=== PATIENT | female | born 1975 | race American Indian/Alaskan Native ===

== ENCOUNTER 2016-07-24 11:44 | Emergency (ER) | payer OTHER ==
[2016-07-24 13:16] LABS: Hematocrit 37.8 % (30.3-42.9); Hemoglobin 11.9 gm/dl (10.1-14.3); Mean Corpuscular HGB Conc 32 % (30-34); Mean Corpuscular Volume 79 fl (79-97); Platelet Count 315 K/mm3 (140-440); Red Blood Count 4.78 M/mm3 (3.65-5.03); Red Cell Distribution Width 14.7 % (13.2-15.2); White Blood Count 7.6 K/mm3 (4.5-11.0)
[2016-07-24 13:17] LABS: Mean Corpuscular Hemoglobin 25 pg (28-32)
[2016-07-24 13:32] LABS: Alanine Aminotransferase 12 units/L (7-56); Albumin 3.9 g/dL (3.9-5); Albumin/Globulin Ratio 1.3 %; Alkaline Phosphatase 83 units/L (35-129); Anion Gap 17 mmol/L; BUN/Creatinine Ratio 17.14; Bilirubin,Total 0.5 mg/dL (0.1-1.2); Blood Urea Nitrogen 12 mg/dL (7-17); Calcium 9.1 mg/dL (8.4-10.2); Carbon Dioxide 27 mmol/L (22-30); Glucose 97 mg/dL (65-100); Lipase 30 units/L (13-60); Potassium 3.8 mmol/L (3.6-5.0); Sodium 141 mmol/L (137-145)
[2016-07-24 14:37] LABS: Bilirubin,Urine NEG (Negative); Blood,Urine MOD (Negative); Ketones,Urine TR mg/dL (Negative); Leukocyte Esterase,Urine NEG (Negative); Mucus,Urine 3+ /HPF; Nitrite,Urine NEG (Negative); Urobilinogen,Urine < 2.0 mg/dL (<2.0)
[2016-07-24 14:56] LABS: Anisocytosis 1+; Blastocytes % (Manual) 0 %; Eosinophils % (Manual) 0 % (0.0-4.3); Hypochromasia Few
[2016-07-24 14:57] LABS: Diff Status Complete; Platelet Estimate Consistent w Auto
[2016-07-24] MEDS ORDERED: ZOFRAN IV ONE (19:36)
[2016-07-24] MEDS ORDERED: SUBLIMAZE IV ONE (19:36)
[2016-07-24] MEDS ORDERED: PEPCID IV ONE (19:37)
--- NOTE | 2016-07-24 19:45 | Emergency Department Report ---
HPI - General Chief Complaint: Abdominal Pain Time Seen by Provider: 07/24/16 19:29 - HPI HPI: Room 20 The patient is a 40-year-old female presenting with a chief complaint of abdominal pain. The patient states the pain began one week ago with epigastric abdominal pain that was sharp in nature and lasted approximately one hour. The patient states the pain resolved and then returned last night. Patient states the pain as being constant in nature. Patient states she has not noticed a change in the pain with her meals. Patient denies nausea vomiting or diarrhea. Patient denies any history of fever or dysuria. Patient states her last bowel movement occurred yesterday. The patient currently gives her pain a score of 6/10 Location: Epigastric Duration: [see above] Quality: Sharp Severity: 6/10 Modifying factors: [see above] Context: [see above] Mode of transportation: [not driving] ED Past Medical Hx - Past Medical History Hx Headaches / Migraines: Yes (CHRONIC HEADACHES) Hx Asthma: Yes Additional medical history: Herniated Disk-BACK PAIN - Surgical History Hx Breast Surgery: Yes (BREAST REDUCTION) Additional Surgical History: c-sections x2. TUBAL LIGATION - Family History Family history: no significant - Social History Smoking Status: Never Smoker Substance Use Type: None - Medications Home Medications: Home Medications Medication Instructions Recorded Confirmed Last Taken Type Famotidine [Pepcid] 20 mg PO BID #30 tablet 07/24/16 Unknown Rx HYDROcodone/APAP 5-325 [[place] 1 - 2 each PO Q6HR PRN #10 tablet 07/24/16 Unknown Rx 5/325] Promethazine [Phenergan TAB] 25 mg PO Q6HR PRN #20 tab 07/24/16 Unknown Rx Promethazine [Phenergan] 25 mg ID Q6HR PRN #5 supp.rect 07/24/16 Unknown Rx ED Review of Systems ROS: Stated complaint: SHARP ABD PAIN/WEAKNESS/HEADACHES Other details as noted in HPI Comment: All other systems reviewed and negative Constitutional: denies: chills, fever Eyes: denies: eye pain, eye discharge, vision change ENT: denies: ear pain, throat pain Respiratory: denies: cough, wheezing Cardiovascular: denies: chest pain, palpitations Endocrine: no symptoms reported Gastrointestinal: abdominal pain. denies: nausea, vomiting, diarrhea, constipation Genitourinary: denies: urgency, dysuria, discharge Musculoskeletal: back pain. denies: joint swelling, arthralgia Skin: denies: rash, lesions Neurological: denies: headache, weakness, paresthesias Psychiatric: denies: anxiety, depression Hematological/Lymphatic: denies: easy bleeding, easy bruising Physical Exam - Physical Exam Vital Signs: Vital Signs 07/24/16 12:56 Temperature 98.1 F Pulse Rate 70 Respiratory 17 Rate Blood Pressure 128/85 O2 Sat by Pulse 99 Oximetry Physical Exam: GENERAL: The patient is well-developed well-nourished female lying on stretcher sipping robin erika not appearing to be in acute distress. [] HEENT: Normocephalic. Atraumatic. Extraocular motions are intact. Patient has moist mucous membranes. NECK: Supple. Trachea midline CHEST/LUNGS: Clear to auscultation. There is no respiratory distress noted. HEART/CARDIOVASCULAR: Regular. There is no tachycardia. There is no gallop rub or murmur. ABDOMEN: Abdomen is soft, with tenderness to palpation in the epigastric and right upper quadrant. There is no rebound or guarding. Patient has normal bowel sounds. There is no abdominal distention. SKIN: There is no rash. There is no edema. There is no diaphoresis. NEURO: The patient is awake, alert, and oriented. The patient is cooperative. The patient has normal speech MUSCULOSKELETAL: There is no evidence of acute injury. ED Course Vital Signs 07/24/16 12:56 Temperature 98.1 F Pulse Rate 70 Respiratory 17 Rate Blood Pressure 128/85 O2 Sat by Pulse 99 Oximetry ED Medical Decision Making - Lab Data Result diagrams: 07/24/16 13:01 07/24/16 13:01 Laboratory Tests 07/24/16 07/24/16 07/24/16 13:01 13:01 13:01 WBC 7.6 RBC 4.78 Hgb 11.9 Hct 37.8 MCV 79 MCH 25 L MCHC 32 RDW 14.7 Plt Count 315 Baso % (Auto) [employer] Add Manual Diff Complete Total Counted 100 Seg Neuts % (Manual) 53.0 Band Neutrophils % 0 Lymphocytes % (Manual) 39.0 H Reactive Lymphs % (Man) 0 Monocytes % (Manual) 7.0 Eosinophils % (Manual) 0 Basophils % (Manual) 1.0 Metamyelocytes % 0 Myelocytes % 0 Promyelocytes % 0 Blast Cells % 0 Nucleated RBC % Not Reportable Seg Neutrophils # Man 4.0 Band Neutrophils # 0.0 Lymphocytes # (Manual) 3.0 Abs React Lymphs (Man) 0.0 Monocytes # (Manual) 0.5 Eosinophils # (Manual) 0.0 Basophils # (Manual) 0.1 Metamyelocytes # 0.0 Myelocytes # 0.0 Promyelocytes # 0.0 Blast Cells # 0.0 WBC Morphology Not Reportable Hypersegmented Neuts Not Reportable Hyposegmented Neuts Not Reportable Hypogranular Neuts Not Reportable Smudge Cells Not Reportable Toxic Granulation Not Reportable Toxic Vacuolation Not Reportable Dohle Bodies Not Reportable Pelger-Huet Anomaly Not Reportable Brenda Rods Not Reportable Platelet Estimate Consistent w auto Clumped Platelets Not Reportable Plt Clumps, EDTA Not Reportable Large Platelets Not Reportable Giant Platelets Not Reportable Platelet Satelliting Not Reportable Plt Morphology Comment Not Reportable RBC Morphology Not Reportable Dimorphic RBCs Not Reportable Polychromasia Not Reportable Hypochromasia Few Poikilocytosis Not Reportable Anisocytosis 1+ Microcytosis Not Reportable Macrocytosis Not Reportable Spherocytes Not Reportable Pappenheimer Bodies Not Reportable Sickle Cells Not Reportable Target Cells Not Reportable Tear Drop Cells Not Reportable Ovalocytes Not Reportable Helmet Cells Not Reportable [place] Bodies Not Reportable [place] Rings Not Reportable [place] Cells Not Reportable Bite Cells Not Reportable Crenated Cell Not Reportable Elliptocytes Not Reportable Acanthocytes ([place]) Not Reportable Rouleaux Not Reportable Hemoglobin C Crystals Not Reportable Schistocytes Not Reportable Malaria parasites Not Reportable [place] Bodies Not Reportable Hem Pathologist Commnt No Sodium 141 Potassium 3.8 Chloride 101.0 Carbon Dioxide 27 Anion Gap 17 BUN 12 Creatinine 0.7 Estimated GFR > 60 BUN/Creatinine Ratio 17.14 Glucose 97 Calcium 9.1 Total Bilirubin 0.5 AST 12 ALT 12 Alkaline Phosphatase 83 Total Creatine Kinase CK-MB (CK-2) CK-MB (CK-2) Rel Index Troponin T Total Protein 7.0 Albumin 3.9 Albumin/Globulin Ratio 1.3 Lipase 30 HCG, Qual Negative Urine Color Urine Turbidity Urine pH Ur Specific [place] Urine Protein Urine Glucose (UA) Urine Ketones Urine Blood Urine Nitrite Urine Bilirubin Urine Urobilinogen Ur Leukocyte Esterase Urine WBC (Auto) Urine RBC (Auto) U Epithel Cells (Auto) Calcium Oxalate Crystal Urine Mucus 07/24/16 07/24/16 07/24/16 13:01 13:01 14:00 WBC RBC Hgb Hct MCV MCH MCHC RDW Plt Count Baso % (Auto) Add Manual Diff Total Counted Seg Neuts % (Manual) Band Neutrophils % Lymphocytes % (Manual) Reactive Lymphs % (Man) Monocytes % (Manual) Eosinophils % (Manual) Basophils % (Manual) Metamyelocytes % Myelocytes % Promyelocytes % Blast Cells % Nucleated RBC % Seg Neutrophils # Man Band Neutrophils # Lymphocytes # (Manual) Abs React Lymphs (Man) Monocytes # (Manual) Eosinophils # (Manual) Basophils # (Manual) Metamyelocytes # Myelocytes # Promyelocytes # Blast Cells # WBC Morphology Hypersegmented Neuts Hyposegmented Neuts Hypogranular Neuts Smudge Cells Toxic Granulation Toxic Vacuolation Dohle Bodies Pelger-Huet Anomaly Brenda Rods Platelet Estimate Clumped Platelets Plt Clumps, EDTA Large Platelets Giant Platelets Platelet Satelliting Plt Morphology Comment RBC Morphology Dimorphic RBCs Polychromasia Hypochromasia Poikilocytosis Anisocytosis Microcytosis Macrocytosis Spherocytes Pappenheimer Bodies Sickle Cells Target Cells Tear Drop Cells Ovalocytes Helmet Cells [place] Bodies [place] Rings [place] Cells Bite Cells Crenated Cell Elliptocytes Acanthocytes (Spur) Rouleaux Hemoglobin C Crystals Schistocytes Malaria parasites Fernando Bodies Hem Pathologist Commnt Sodium Potassium Chloride Carbon Dioxide Anion Gap BUN Creatinine Estimated GFR BUN/Creatinine Ratio Glucose Calcium Total Bilirubin AST ALT Alkaline Phosphatase Total Creatine Kinase 108 CK-MB (CK-2) 1.0 CK-MB (CK-2) Rel Index 0.9 Troponin T < 0.010 Total Protein Albumin Albumin/Globulin Ratio Lipase HCG, Qual Urine Color Isi Urine Turbidity Clear Urine pH 5.0 Ur Specific [place] 1.026 Urine Protein 30 mg/dl Urine Glucose (UA) Neg Urine Ketones Tr Urine Blood Mod Urine Nitrite Neg Urine Bilirubin Neg Urine Urobilinogen < 2.0 Ur Leukocyte Esterase Neg Urine WBC (Auto) 5.0 Urine RBC (Auto) 8.0 U Epithel Cells (Auto) 9.0 Calcium Oxalate Crystal 1+ Urine Mucus 3+ - Radiology Data Radiology results: report reviewed (right upper quadrant ultrasound, CT abdomen and pelvis), image reviewed (right upper quadrant ultrasound, CT abdomen and pelvis) right upper quadrant ultrasound (read by radiologist)- CT abdomen and pelvis (read by radiologist)- all bladder surgically absent. No biliary dilatation. Mild fatty infiltration of the liver. 2.5 cm right ovarian cyst which may be physiologic given the patient's age. Large and small bowel loops normal in caliber. The appendix is normal in caliber. 4 mm nonobstructive left renal calculus. No other gross acute findings. - Differential Diagnosis cholelithiasis, peptic ulcer disease, gastritis, ACS, Critical care attestation.: If time is entered above; I have spent that time in minutes in the direct care of this critically ill patient, excluding procedure time. ED Disposition Clinical Impression: Acute abdominal pain Disposition: DISCHARGED TO HOME OR SELFCARE Is pt being admited?: No Does the pt Need Aspirin: No Condition: Stable Instructions: Abdominal Pain (ED) Additional Instructions: Return to the emergency department immediately should you develop worsening symptoms, fever, inability to tolerate food or liquid or any other concerns. Prescriptions: Famotidine [Pepcid] 20 mg PO BID #30 tablet HYDROcodone/APAP 5-325 [[place] 5/325] 1 - 2 each PO Q6HR PRN #10 tablet PRN Reason: Pain Promethazine [Phenergan TAB] 25 mg PO Q6HR PRN #20 tab PRN Reason: Nausea Promethazine [Phenergan] 25 mg ID Q6HR PRN #5 supp.rect PRN Reason: Vomiting Referrals: PRIMARY CARE, [Primary Care Provider] - 3-5 Days REYNALDO MURCIA MD [Staff Physician] - 2-3 Days (Dr. Murcia is a painter foreman. Please follow up with him for further evaluation) Time of Disposition: 21:48
--- NOTE | 2016-07-24 20:37 | Ultrasound Report ---
FINAL REPORT EXAM: US ABDOMEN LIMITED HISTORY: ruq/epigastric abdominal pain COMPARISON: None available. TECHNIQUE: Several real-time grayscale and color Doppler images were obtained. FINDINGS: Gallbladder is not visualized. Gallbladder may be extremely contracted. No biliary dilatation. The common bile duct measures 5 millimeters. There is increased echogenicity of the liver compatible with fatty infiltration. Right kidney measures 11.5 centimeters in length. No hydronephrosis. IMPRESSION: Gallbladder is not visualized. No biliary dilatation. Fatty infiltration of the liver.
[2016-07-24] MEDS ORDERED: NACL ONE (20:39)
--- NOTE | 2016-07-24 21:37 | Cat Scan Report ---
FINAL REPORT EXAM: CT ABDOMEN PELVIS W CON HISTORY: epigastric abdominal pain COMPARISON: Abdominal ultrasound from the same date. TECHNIQUE: Contiguous axial images were obtained. Additional sagittal and coronal reformatted images were obtained. Administration of IV contrast given per institution protocol. Images submitted for interpretation. 100 cc Omnipaque 300 FINDINGS: Mild linear atelectasis at the lung bases. Mild diffuse fatty infiltration of the liver. At the anterior superior margin of the liver there is a 4 millimeter hypodense lesion which may reflect a tiny cyst. This is indeterminate. Gallbladder surgically absent. No biliary dilatation. Homogeneous enhancement spleen, pancreas, adrenal glands. No solid renal lesion. 4 millimeter nonobstructive left renal calculus. 1.4 centimeter left renal cyst. Aorta and IVC are normal in caliber. Urinary bladder, uterus, left ovary grossly unremarkable. Right ovarian cystic structure measuring 2.0 x 2.5 centimeters. No free fluid or lymphadenopathy. There are few pelvic phleboliths. Large and small bowel loops normal in caliber the appendix is normal in caliber. Mild to moderate degenerative changes of the lumbar spine. Bony pelvis is grossly intact. IMPRESSION: Gallbladder surgically absent. No biliary dilatation. Mild fatty infiltration of the liver. 2.5 centimeter right ovarian cyst which may be physiologic given the patient's age. Large and small bowel loops normal in caliber. The appendix is normal in caliber. 4 millimeter nonobstructive left renal calculus. No other gross acute findings.
[2016-07-24 23:14] VITALS: BP 151/90
== END 2016-07-24 23:00 | disposition home or self-care (01) ==
LOC: ED 11:44
DX: R10.13 Epigastric pain (principal); R10.11 Right upper quadrant pain; J45.909 Unspecified asthma, uncomplicated
CPT/HCPCS: 36415; 74177; 76705; 80053; 81001; 82550; 82553; 83690; 84484; 84703; 85007; 85025; 96374; 96375; 99284; J2405; J3010; Q9967

== ENCOUNTER 2017-03-25 14:41 | Emergency (ER) | payer SELFPAY ==
[2017-03-25 15:06] VITALS: BP 153/93
[2017-03-25 16:11] LABS: Bilirubin,Urine NEG (Negative); Blood,Urine LG (Negative); Ketones,Urine NEG (Negative); Leukocyte Esterase,Urine TR (Negative); Nitrite,Urine NEG (Negative); Urobilinogen,Urine < 2.0 mg/dL (<2.0)
[2017-03-25 16:18] LABS: RBC,Urine > 182.0 /HPF (0.0-6.0)
[2017-03-25] MEDS ORDERED: NORCO 5/325 PO ONE (19:25)
[2017-03-25] MEDS ORDERED: MOTRIN PO ONE (19:25)
--- NOTE | 2017-03-25 19:29 | Emergency Department Report ---
ED Back Pain/Injury HPI - General Chief Complaint: Back Pain/Injury Stated Complaint: BACK PAIN/NUMBNESS Time Seen by Provider: 03/25/17 18:47 Source: patient Limitations: No Limitations - History of Present Illness Initial Comments: 41-year-old female past medical history obesity, herniated disks in the L-spine history of sciatica presents with acute on chronic lower back pain radiating to her left buttock. Patient is awake alert and oriented 3 appears uncomfortable states that sitting down for prolonged periods of time is uncomfortable to her buttocks. Patient is ambulatory without assistance. Denies bladder or bowel incontinence. Denies any direct trauma to lower back. Denies fever chills nausea vomiting, Denies increased urinary frequency and hematuria or dysuria. States it has been bothering her for 2-3 days as she has had similar episodes in the past. Denies any direct trauma or falls. LMP is now MD Complaint: back pain Onset/Timin -: days(s) Similar Symptoms Previously: Yes Place: home Radiation: buttocks, left leg Severity: moderate Severity scale (0 -10): 5 Quality: aching Consistency: intermittent Improves With: immobilization, supine Worsens With: walking Context: while lifting, turning/twisting, bending Associated Symptoms: denies other symptoms - Related Data Previous Rx's Medication Instructions Recorded Last Taken Type Famotidine [Pepcid] 20 mg PO BID #30 tablet 07/24/16 Unknown Rx HYDROcodone/APAP 5-325 [[place] 1 - 2 each PO Q6HR PRN #10 tablet 07/24/16 Unknown Rx 5/325] Promethazine [Phenergan TAB] 25 mg PO Q6HR PRN #20 tab 07/24/16 Unknown Rx Promethazine [Phenergan] 25 mg [place] Q6HR PRN #5 supp.rect 07/24/16 Unknown Rx Naproxen 500 mg PO BID PRN #30 tablet 03/25/17 Unknown Rx traMADol [Ultram 50 MG tab] 50 mg PO Q6HR PRN #15 tablet 03/25/17 Unknown Rx Allergies Allergy/AdvReac Type Severity Reaction Status Date / Time No Known Allergies Allergy Verified 07/24/16 12:52 ED Review of Systems ROS: Stated complaint: BACK PAIN/NUMBNESS Other details as noted in HPI Constitutional: denies: chills, fever Eyes: denies: eye pain, eye discharge, vision change ENT: denies: ear pain, throat pain Respiratory: denies: cough, shortness of breath, wheezing Cardiovascular: denies: chest pain, palpitations Endocrine: no symptoms reported Gastrointestinal: denies: abdominal pain, nausea, diarrhea Genitourinary: denies: urgency, dysuria, discharge Musculoskeletal: back pain. denies: joint swelling, arthralgia Skin: denies: rash, lesions Neurological: denies: headache, weakness, paresthesias Psychiatric: denies: anxiety, depression Hematological/Lymphatic: denies: easy bleeding, easy bruising ED Past Medical Hx - Past Medical History Hx Headaches / Migraines: Yes (CHRONIC HEADACHES) Hx Asthma: Yes Additional medical history: Herniated Disk-BACK PAIN - Surgical History Hx Breast Surgery: Yes (BREAST REDUCTION) Additional Surgical History: c-sections x2. TUBAL LIGATION - Social History Smoking Status: Never Smoker Substance Use Type: None - Medications Home Medications: Home Medications Medication Instructions Recorded Confirmed Last Taken Type Famotidine [Pepcid] 20 mg PO BID #30 tablet 07/24/16 Unknown Rx HYDROcodone/APAP 5-325 [[place] 1 - 2 each PO Q6HR PRN #10 tablet 07/24/16 Unknown Rx 5/325] Promethazine [Phenergan TAB] 25 mg PO Q6HR PRN #20 tab 07/24/16 Unknown Rx Promethazine [Phenergan] 25 mg [place] Q6HR PRN #5 supp.rect 07/24/16 Unknown Rx Naproxen 500 mg PO BID PRN #30 tablet 03/25/17 Unknown Rx traMADol [Ultram 50 MG tab] 50 mg PO Q6HR PRN #15 tablet 03/25/17 Unknown Rx ED Physical Exam - General Limitations: No Limitations General appearance: alert, in no apparent distress - Head Head exam: Present: atraumatic, normocephalic - Eye Eye exam: Present: normal appearance, PERRL, EOMI - ENT ENT exam: Present: mucous membranes moist - Neck Neck exam: Present: normal inspection, full ROM - Respiratory Respiratory exam: Present: normal lung sounds bilaterally. Absent: respiratory distress - Cardiovascular Cardiovascular Exam: Present: regular rate, normal rhythm. Absent: systolic murmur, diastolic murmur, rubs, gallop - GI/Abdominal GI/Abdominal exam: Present: soft, normal bowel sounds - Extremities Exam Extremities exam: Present: normal inspection - Back Exam Back exam: Present: normal inspection, full ROM (NO flank tenderenss bilaterally ) - Neurological Exam Neurological exam: Present: alert, oriented X3, CN II-XII intact, normal gait - Expanded Neurological Exam Expanded Patient oriented to: Present: person, place, time Cranial nerves: EOM's Intact: Normal, Facial Sensation: Normal Sensory exam: Upper Extremity Light Touch: Normal, Lower Extremity Light Touch: Normal Motor strength exam: RUE: 5, LUE: 5, RLE: 5, LLE: 5 Best Eye Response ([place]): (4) open spontaneously Best Motor Response ([place]): (6) obeys commands Best Verbal Response ([place]): (5) oriented [place] Total: 15 - Psychiatric Psychiatric exam: Present: normal affect, normal mood - Skin Skin exam: Present: warm, dry, intact, normal color. Absent: rash ED Course Vital Signs 03/25/17 15:02 Temperature 98 F Pulse Rate 73 Respiratory 18 Rate Blood Pressure 153/93 O2 Sat by Pulse 97 Oximetry ED Medical Decision Making - Medical Decision Making A/P: Sciatica, lower back pain 1-clinical history and symptoms consistent with sciatica 2-symptomatic treatment with analgesics 3-I advised patient to follow up with primary care and orthopedics. Patient given referral information. 4- no clinical signs of cord impingement or cauda equina. No bladder or bowel incontinence patient has 5/5 strength both lower extremities and is ambulatory without assistance 5- blood and leukocytes in urine, neg nitrites, neg leuk esterase, pt currently on menstrual period. no dysuria, no flank tenderness, VS normal Critical care attestation.: If time is entered above; I have spent that time in minutes in the direct care of this critically ill patient, excluding procedure time. ED Disposition Clinical Impression: Sciatica of left side Low back pain Qualifiers: Chronicity: acute Back pain laterality: left Sciatica presence: with sciatica Sciatica laterality: sciatica of left side Qualified Code(s): M54.42 - Lumbago with sciatica, left side Disposition: TO HOME OR SELFCARE Is pt being admited?: No Does the pt Need Aspirin: No Condition: Stable Instructions: Sciatica (ED), Lumbar Radiculopathy (ED), Piriformis Syndrome (ED ) Prescriptions: Naproxen 500 mg PO BID PRN #30 tablet PRN Reason: Pain traMADol [Ultram 50 MG tab] 50 mg PO Q6HR PRN #15 tablet PRN Reason: Pain Referrals: [facility] [Provider Group] - 3-5 Days [facility] [Outside] - 3-5 Days [facility] [Provider Group] - 3-5 Days BELLA ONEILL MD [Staff Physician] - 3-5 Days Forms: Accompanied Note, Work/School Release Form(ED) Time of Disposition: 19:28
== END 2017-03-25 19:40 | disposition home or self-care (01) ==
LOC: ED 14:41
DX: M54.42 Lumbago with sciatica, left side (principal); G43.909 Migraine, unspecified, not intractable, without status migrainosus; J45.909 Unspecified asthma, uncomplicated; Z98.51 Tubal ligation status
CPT/HCPCS: 81001; 81025; 99283

== ENCOUNTER 2020-04-28 07:03 | Emergency (ER) | payer SELFPAY ==
[2020-04-28 07:37] VITALS: BP 196/117
--- NOTE | 2020-04-28 07:43 | Emergency Department Report ---
ED Lower Extremity HPI - General Chief Complaint: Extremity Problem,Nontraumatic Stated Complaint: LEFT SIDE PAIN/NUMB Time Seen by Provider: 04/28/20 07:39 Source: patient Mode of arrival: Ambulatory Limitations: No Limitations - History of Present Illness Initial Comments: Patient is a 44-year-old -[place] that comes to the emergency room with her acute on chronic back pain. She has lumbar back pain, known herniated disc and today she is having radicular pain to her left leg. Patient describes her pain as a shooting pain from her low back to her left leg. She states after she has the shooting pain she has numbness, tingling sensation in her thigh. Patient is ambulatory to the ER. She denies any new trauma. No recent fall She has no urinary symptoms. She has no abdominal pain. She has no nausea vomiting or diarrhea. She has no fever or chills. She has no chest pain or shortness of breath. Her blood pressure was noted to be slightly elevated on arrival to the ER but she states that that is because she is in pain. She has a positive left leg straight raise test. MD Complaint: other -: Gradual Place: home Severity: moderate Worsens With: nothing - Related Data Previous Rx's Medication Instructions Recorded Last Taken Type Famotidine [Pepcid] 20 mg PO BID #30 tablet 07/24/16 Unknown Rx Cyclobenzaprine [Flexeril] 10 mg PO TID PRN #10 tablet 04/28/20 Unknown Rx Ibuprofen [Motrin] 800 mg PO Q8HR PRN #30 tablet 04/28/20 Unknown Rx predniSONE [Deltasone] 20 mg PO DAILY #5 tablet 04/28/20 Unknown Rx Allergies Allergy/AdvReac Type Severity Reaction Status Date / Time No Known Allergies Allergy Verified 07/24/16 12:52 ED Review of Systems ROS: Stated complaint: LEFT SIDE PAIN/NUMB Other details as noted in HPI Comment: All other systems reviewed and negative ED Past Medical Hx - Past Medical History Previous Medical History?: Yes Hx Headaches / Migraines: Yes (CHRONIC HEADACHES) Hx Asthma: Yes Additional medical history: Herniated Disk-BACK PAIN - Surgical History Past Surgical History?: Yes Hx Breast Surgery: Yes (BREAST REDUCTION) Additional Surgical History: c-sections x2. TUBAL LIGATION - Family History Family history: no significant - Social History Smoking Status: Never Smoker Substance Use Type: None - Medications Home Medications: Home Medications Medication Instructions Recorded Confirmed Last Taken Type Famotidine [Pepcid] 20 mg PO BID #30 tablet 07/24/16 Unknown Rx Cyclobenzaprine [Flexeril] 10 mg PO TID PRN #10 tablet 04/28/20 Unknown Rx Ibuprofen [Motrin] 800 mg PO Q8HR PRN #30 tablet 04/28/20 Unknown Rx predniSONE [Deltasone] 20 mg PO DAILY #5 tablet 04/28/20 Unknown Rx ED Physical Exam - General Limitations: No Limitations General appearance: alert, in no apparent distress - Head Head exam: Present: atraumatic, normocephalic - Eye Eye exam: Present: normal appearance - ENT ENT exam: Present: mucous membranes moist - Neck Neck exam: Present: normal inspection - Respiratory Respiratory exam: Present: normal lung sounds bilaterally. Absent: respiratory distress - Cardiovascular Cardiovascular Exam: Present: regular rate, normal rhythm, other (hr 90). Absent: systolic murmur, diastolic murmur, rubs, gallop - GI/Abdominal GI/Abdominal exam: Present: soft, normal bowel sounds - Extremities Exam Extremities exam: Present: normal inspection - Expanded Lower Extremity Exam Left Knee exam: Present: normal inspection Lower Leg exam: Present: normal inspection, full ROM. Absent: tenderness, swelling, abrasion, laceration, ecchymosis, deformity, crepidus, dislocation, erythema, palpable cord, Rashaun's sign Ankle exam: Present: normal inspection Foot/Toe exam: Present: normal inspection, full ROM. Absent: tenderness, swelling, abrasion, laceration, ecchymosis, deformity, crepidus Neuro vascular tendon exam: Present: no vascular compromise. Absent: pulse deficit, abnormal cap refill, motor deficit, sensory deficit, tendon deficit Gait: Positive: observed and normal - Back Exam Back exam: Present: normal inspection - Neurological Exam Neurological exam: Present: alert, oriented X3 - Psychiatric Psychiatric exam: Present: normal affect, normal mood - Skin Skin exam: Present: warm, dry, intact, normal color. Absent: rash ED Course Vital Signs 04/28/20 07:31 Temperature 98.9 F Pulse Rate 92 H Respiratory 20 Rate Blood Pressure 196/117 O2 Sat by Pulse 100 Oximetry ED Lower Extremity MDM - Medical Decision Making a/c back pain known herniated disc now with numbness and tingling l thigh- she describes shooting pain to the LLE pain worse with movement ambulatory no bowel or bladder incontinence no numbness in groin no s/s cauda equina pt instructed to monitor her blood pressure as it was elevated in ER today she verbalizes understanding Vital Signs 04/28/20 07:31 Temperature 98.9 F Pulse Rate 92 H Respiratory 20 Rate Blood Pressure 196/117 O2 Sat by Pulse 100 Oximetry - Differential Diagnosis a/c pain with sciatica Critical care attestation.: If time is entered above; I have spent that time in minutes in the direct care of this critically ill patient, excluding procedure time. ED Disposition Clinical Impression: Sciatica of left side, Elevated blood pressure reading, Chronic back pain, Herniated vertebral disc Disposition: TO HOME OR SELFCARE Is pt being admited?: No Does the pt Need Aspirin: No Condition: Stable Instructions: Sciatica Additional Instructions: warm baths and compresses meds as ordered follow up with doctors indicated below monitor your blood pressure- and see pcp if it remains elevated low salt low fat diet Prescriptions: predniSONE [Deltasone] 20 mg PO DAILY #5 tablet Cyclobenzaprine [Flexeril] 10 mg PO TID PRN #10 tablet PRN Reason: Muscle Spasm Ibuprofen [Motrin] 800 mg PO Q8HR PRN #30 tablet PRN Reason: Pain, Moderate (4-6) Referrals: BEN GARZA MD [Primary Care Provider] - 3-5 Days JASON GONZALEZ MD [Staff Physician] - 3-5 Days PHI EVANS MD [Staff Physician] - 3-5 Days Time of Disposition: 07:54
[2020-04-28] MEDS ORDERED: IBUPROFEN 800 MG TAB PO ONE (07:54)
[2020-04-28] MEDS ORDERED: CYCLOBENZAPRINE 10 MG TAB PO ONE (07:54)
== END 2020-04-28 08:10 | disposition home or self-care (01) ==
LOC: ED 07:03
DX: M54.32 Sciatica, left side (principal); M54.9 Dorsalgia, unspecified; G89.29 Other chronic pain; R03.0 Elevated blood-pressure reading, without diagnosis of hypertension; H10.9 Unspecified conjunctivitis; G43.909 Migraine, unspecified, not intractable, without status migrainosus; J45.909 Unspecified asthma, uncomplicated; Z79.899 Other long term (current) drug therapy; Z98.890 Other specified postprocedural states; Z98.51 Tubal ligation status
CPT/HCPCS: 99282

== ENCOUNTER 2020-09-23 04:02 | Inpatient (IN) | payer OTHER, SELFPAY ==
[2020-09-23] MEDS ORDERED: dexAMETHasone 20 MG/5 ML VIAL IV ONE (04:21)
[2020-09-23] MEDS ORDERED: ACETAMINOPHEN 500 MG TAB PO ONE (04:21)
[2020-09-23 06:20] LABS: Basophils % (Auto) 0.6 % (0.0-1.8); Hematocrit 36.8 % (30.3-42.9); Hemoglobin 11.8 gm/dl (10.1-14.3); Lymphocytes # (Auto) 0.7 K/mm3 (1.2-5.4); Lymphocytes % (Auto) 19.8 % (13.4-35.0); Mean Corpuscular HGB Conc 32 % (30-34); Mean Corpuscular Volume 76 fl (79-97); Monocytes # (Auto) 0.3 K/mm3 (0.0-0.8); Platelet Count 234 K/mm3 (140-440); Red Blood Count 4.84 M/mm3 (3.65-5.03); Red Cell Distribution Width 17.2 % (13.2-15.2)
[2020-09-23] MEDS ORDERED: SODIUM CHLORIDE 0.9% 1000 ML 1,000 ML IV ONE (06:46)
--- NOTE | 2020-09-23 06:47 | Emergency Department Report ---
<YELENA HUNG - Last Filed: 09/23/20 06:43> - General Stated Complaint: COVID+, SINUS PRESSUER, HEADACHE PUI?: Yes Source: patient Mode of arrival: Ambulatory Limitations: No Limitations - History of Present Illness Initial Comments: Patient is a 44-year-old -[place] female with a history of asthma, migraine headaches and chronic low back pain and morbid obesity who presents to the ED with complaint of acute onset persistent worsening diffuse body aches and pains, nasal and sinus congestion, persistent dry cough with shortness of breath and wheezing for the last 1 week. Patient states that she tested positive for COVID-19 viral infection about a week ago and has been taking azithromycin and Medrol Dosepak at home. Patient states that her own daughter also was tested positive for COVID-19 viral infection. Patient states that she did not receive COVID-19 vaccine. Patient states that in the last 2 days, the fever, body aches and pains, generalized fatigue and shortness of breath have worsened. Patient denies dizziness, syncope, abdominal pain, nausea, vomiting, diarrhea, chest pain, change in vision or palpitations, dysuria, urinary frequency and urgency or seizures. MD Complaint: fever, cough, rhinorrhea, nasal congestion, other (Shortness of breath) -: Sudden, week(s) (1) Severity: severe Severity scale (0 -10): 8 Quality: sharp, aching Consistency: constant Improves With: nothing Worsens With: activity Context: sick contacts Associated Symptoms: denies other symptoms, fever, chills, myalgias, headache, rhinorrhea, nasal congestion, cough, shortness of breath. denies: diaphoresis, stiff neck, chest pain, abdominal pain, nausea, vomiting, diarrhea, dysuria, rash, right sweats, weight loss, hoarseness, ear pain, other Treatments Prior to Arrival: Acetaminophen - Related Data Previous Rx's Medication Instructions Recorded Last Taken Type Famotidine [Pepcid] 20 mg PO BID #30 tablet 07/24/16 Unknown Rx Cyclobenzaprine [Flexeril] 10 mg PO TID PRN #10 tablet 04/28/20 Unknown Rx Ibuprofen [Motrin] 800 mg PO Q8HR PRN #30 tablet 04/28/20 Unknown Rx predniSONE [Deltasone] 20 mg PO DAILY #5 tablet 04/28/20 Unknown Rx Allergies Allergy/AdvReac Type Severity Reaction Status Date / Time No Known Allergies Allergy Verified 07/24/16 12:52 ED Review of Systems Constitutional: chills, fever, malaise, weakness Eyes: denies: eye pain, eye discharge, vision change ENT: congestion. denies: ear pain, throat pain Respiratory: cough, shortness of breath. denies: wheezing Cardiovascular: denies: chest pain, palpitations Endocrine: no symptoms reported Gastrointestinal: denies: abdominal pain, nausea, vomiting, diarrhea Genitourinary: denies: urgency, dysuria, frequency, discharge Musculoskeletal: back pain, arthralgia, myalgia. denies: joint swelling Skin: denies: rash, lesions Neurological: denies: headache, weakness, paresthesias Psychiatric: denies: anxiety, depression Hematological/Lymphatic: denies: easy bleeding, easy bruising ED Past Medical Hx - Past Medical History Hx Headaches / Migraines: Yes (CHRONIC HEADACHES) Hx Asthma: Yes Additional medical history: Herniated Disk-BACK PAIN - Surgical History Hx Breast Surgery: Yes (BREAST REDUCTION) Additional Surgical History: c-sections x2. TUBAL LIGATION - Social History Smoking Status: Never Smoker Substance Use Type: None - Medications Home Medications: Home Medications Medication Instructions Recorded Confirmed Last Taken Type Famotidine [Pepcid] 20 mg PO BID #30 tablet 07/24/16 Unknown Rx Cyclobenzaprine [Flexeril] 10 mg PO TID PRN #10 tablet 04/28/20 Unknown Rx Ibuprofen [Motrin] 800 mg PO Q8HR PRN #30 tablet 04/28/20 Unknown Rx predniSONE [Deltasone] 20 mg PO DAILY #5 tablet 04/28/20 Unknown Rx ED Physical Exam - General General appearance: alert, in no apparent distress - Head Head exam: Present: atraumatic, normocephalic, normal inspection - Eye Eye exam: Present: normal appearance, PERRL, EOMI Pupils: Present: normal accommodation - ENT ENT exam: Present: normal orophraynx, mucous membranes moist, TM's normal bilaterally, normal external ear exam, other (Grossly congested nasal passages) - Neck Neck exam: Present: normal inspection, full ROM - Respiratory Respiratory exam: Present: normal lung sounds bilaterally. Absent: respiratory distress, wheezes, rales, rhonchi, chest wall tenderness, accessory muscle use, decreased breath sounds, prolonged expiratory - Cardiovascular Cardiovascular Exam: Present: regular rate, normal rhythm, normal heart sounds. Absent: systolic murmur, diastolic murmur, rubs, gallop - GI/Abdominal GI/Abdominal exam: Present: soft, normal bowel sounds. Absent: tenderness, guarding, rebound, hyperactive bowel sounds, hypoactive bowel sounds, organomegaly - Extremities Exam Extremities exam: Present: normal inspection, full ROM, normal capillary refill - Back Exam Back exam: Present: normal inspection, full ROM. Absent: tenderness, CVA tenderness (R), CVA tenderness (L), muscle spasm, paraspinal tenderness - Neurological Exam Neurological exam: Present: alert, oriented X3, CN II-XII intact, normal gait, reflexes normal - Psychiatric Psychiatric exam: Present: normal affect, normal mood - Skin Skin exam: Present: warm, dry, intact, normal color. Absent: rash ED Medical Decision Making - Lab Data Result diagrams: 09/23/20 05:00 - Radiology Data Radiology results: report reviewed, image reviewed - Medical Decision Making This is a 44-year-old -[place] female with a history of asthma, migraine headaches and chronic low back pain and morbid obesity who presents to the ED with complaint of acute onset persistent worsening diffuse body aches and pains, nasal and sinus congestion, persistent dry cough with shortness of breath and wheezing for the last 1 week. Patient states that she tested positive for COVID-19 viral infection about a week ago and has been taking azithromycin and Medrol Dosepak at home. Patient states that her own daughter also was tested positive for COVID-19 viral infection. Patient states that she did not receive COVID-19 vaccine. Patient states that in the last 2 days, the fever, body aches and pains, generalized fatigue and shortness of breath have worsened. In the ED, patient is alert and oriented x3 and is not in distress. Labs were drawn and chest x-ray also ordered. Patient was treated in the ED for pain and also given normal saline 1 L IV bolus x1. All lab test results are pending at this time of shift change. Patient care was transferred to Ms. Magdalena Lopez PA-C at shift change who shall review all lab test results, as well as imaging report and disposition the patient accordingly. - Differential Diagnosis Covid pneumonia; URI; asthma; sinusitis; bacterial pneumonia ED Disposition Clinical Impression: Dyspnea due to COVID-19, Pneumonia due to 2019 novel coronavirus, Shortness of breath, Upper respiratory tract infection due to COVID-19 virus, Person under investigation for COVID-19, Acute respiratory failure with hypoxia, History of asthma Bilateral pneumonia Qualifiers: Pneumonia type: due to unspecified organism Lung location: unspecified part of lung Qualified Code(s): J18.9 - Pneumonia, unspecified organism Disposition: 09 OP ADMIT IP TO THIS HOSP Is pt being admited?: No Does the pt Need Aspirin: No Condition: Serious Instructions: Bacterial Pneumonia (ED) <MAGDALENA LOPEZ - Last Filed: 09/23/20 09:36> ED Review of Systems ROS: Stated complaint: COVID+, SINUS PRESSUER, HEADACHE Other details as noted in HPI ED Course Vital Signs 09/23/20 09/23/20 09/23/20 08:27 08:30 08:32 Pulse Rate 98 H 103 H Respiratory 28 H 28 H Rate Blood Pressure Blood Pressure 127/69 [Left] O2 Sat by Pulse 93 87 93 Oximetry 09/23/20 09/23/20 08:45 09:15 Pulse Rate 94 H 93 H Respiratory 23 19 Rate Blood Pressure 128/73 107/54 Blood Pressure [Left] O2 Sat by Pulse 97 96 Oximetry ED Medical Decision Making - Lab Data Result diagrams: 09/23/20 08:40 09/23/20 08:02 - Radiology Data [facility] [address] [place] [address] XRay Report Signed Patient: DIONY MITCHELL MR#: [id number] : 1975 Acct:[id number] Age/Sex: 44 / F ADM Date: 09/23/20 Loc: ED Attending Dr: Ordering Physician: OBINNA RUTH Date of Service: 09/23/20 Procedure(s): XR chest 1V ap Accession Number(s): [id number] cc: OBINNA RUTH Fluoro Time In Minutes: CHEST 1 VIEW 09/23/2020 6:44 AM INDICATION / CLINICAL INFORMATION: cough. COMPARISON: None available. FINDINGS: SUPPORT DEVICES: None. HEART / MEDIASTINUM: No significant abnormality. LUNGS / PLEURA: There are mild diffuse parenchymal opacities in both lungs. There are low lung volumes. No pneumothorax. ADDITIONAL FINDINGS: No significant additional findings. IMPRESSION: 1. There is diffuse mild parenchymal opacities in the lungs which could represent diffuse edema. This could represent pneumonia including atypical pneumonia. Signer Name: Benny Soares MD Signed: 09/23/2020 8:22 AM Workstation Name: [id number] Transcribed By: SS Dictated By: Benny Soares MD Electronically Authenticated By: Benny Soares MD Signed Date/Time: 09/23/20821 DD/ 9 TD/TT: - Medical Decision Making Care of patient transferred by Yelena Hung PA-C at shift change pending labs and CXR results. Labs are consistent with COVID-19 infection. Chest x-ray shows diffuse parenchymal opacities and diffuse edema, suggestive of pneumonia. She has already been taking Azithromycin at home. She has been given a dose of IV Rocephin in addition to Tylenol, Decadron, and IV fluids. Patient's oxygen saturation was noted to be 87% on room air upon arrival. She was also tachypneic on arrival with a respiratory rate of 28. Current oxygen saturation is 93% on 2 L per nasal cannula. Tachypnea improved after breathing treatment. Patient has a history of asthma but does not use supplemental oxygen at baseline. Patient is not an appropriate candidate for discharge home due to failed outpatient therapy and concomitant pre-existing chronic lung disease in the setting of hypoxia. Case discussed with hospitalist, who agrees to admit. Patient expressed understanding and is agreeable to plan of care. 09:15: Paged hospitalist. 9:36: Case discussed with hospitalist, who agrees to admit. Critical care attestation.: If time is entered above; I have spent that time in minutes in the direct care of this critically ill patient, excluding procedure time. ED Disposition Is pt being admited?: Yes Does the pt Need Aspirin: No Time of Disposition: 09:35
[2020-09-23] MEDS ORDERED: IPRATROPIUM/ALBUTEROL SULFATE 3 ML AMPUL.NEB IH ONE (06:52)
[2020-09-23] MEDS ORDERED: ACETAMINOPHEN 500 MG TAB ONE (07:05)
[2020-09-23] MEDS ORDERED: dexAMETHasone 20 MG/5 ML VIAL ONE (07:05)
[2020-09-23] MEDS ORDERED: SODIUM CHLORIDE 0.9% 1000 ML 1,000 ML ONE (07:05)
--- NOTE | 2020-09-23 08:26 | XRay Report ---
CHEST 1 VIEW 09/23/2020 6:44 AM INDICATION / CLINICAL INFORMATION: cough. COMPARISON: None available. FINDINGS: SUPPORT DEVICES: None. HEART / MEDIASTINUM: No significant abnormality. LUNGS / PLEURA: There are mild diffuse parenchymal opacities in both lungs. There are low lung volume s. No pneumothorax. ADDITIONAL FINDINGS: No significant additional findings. IMPRESSION: 1. There is diffuse mild parenchymal opacities in the lungs which could represent diffuse edema. This could represent pneumonia including atypical pneumonia. Signer Name: Benny Soares MD Signed: 09/23/2020 8:22 AM Workstation Name: [id number]
[2020-09-23 08:43] LABS: Alanine Aminotransferase 17 units/L (7-56); Albumin 3.9 g/dL (3.9-5); BUN/Creatinine Ratio 17; Blood Urea Nitrogen 17 mg/dL (7-17); Calcium 8.6 mg/dL (8.4-10.2); Hemolysis Index 2
[2020-09-23] MEDS ORDERED: LIDOCAINE-MPF (1%) 10 MG/1 ML VIAL 5 ML INFILTRATI ONE (09:14)
[2020-09-23 09:26] LABS: Basophils # (Auto) 0.1 K/mm3 (0.0-0.1); Basophils % (Auto) 1.9 % (0.0-1.8); Hematocrit 33.8 % (30.3-42.9); Hemoglobin 11.2 gm/dl (10.1-14.3); Lymphocytes # (Auto) 1.4 K/mm3 (1.2-5.4); Lymphocytes % (Auto) 30.2 % (13.4-35.0); Mean Corpuscular HGB Conc 33 % (30-34); Mean Corpuscular Volume 75 fl (79-97); Monocytes # (Auto) 0.4 K/mm3 (0.0-0.8); Monocytes % (Auto) 9.1 % (0.0-7.3); Platelet Count 247 K/mm3 (140-440); Red Blood Count 4.53 M/mm3 (3.65-5.03)
[2020-09-23] MEDS ORDERED: cefTRIAXone/NS 1 GM/50 ML 1 GM/50 ML BAG IV ONE (10:00)
--- NOTE | 2020-09-23 11:30 | History and Physical Report ---
History of Present Illness Date of examination: 09/23/20 Date of admission: 09/23/20 Chief complaint: Covid positive History of present illness: Patient is a 44-year-old -[place] female with a history of asthma, migraine headaches and chronic low back pain, morbid obesity who tested positive for COVID-19 about a week ago presents to the ED with complaint of acute onset persistent worsening diffuse body aches and pains, nasal and sinus congestion, persistent dry cough with shortness of breath and wheezing for the last 1 week. Patient states that she has been taking azithromycin and Medrol Dosepak at home but no improvement of her symptoms. Patient states that she did not receive COVID-19 vaccine. In the ER patient noted to be hypoxic, chest x-ray suggestive of bilateral pulmonary infiltrates due to atypical pneumonia. Patient placed on supplemental O2 started on empiric steroid, received empiric antibiotics and admitted to the hospital for further care and management. Past Medical Hx - Past Medical History Hx Headaches / Migraines: Yes (CHRONIC HEADACHES) Hx Asthma: Yes Additional medical history: Herniated Disk-BACK PAIN - Surgical History Hx Breast Surgery: Yes (BREAST REDUCTION) Additional Surgical History: c-sections x2. TUBAL LIGATION -- family History Negative history of cardiac disease, cancer or stroke - Social History Smoking Status: Never Smoker Substance Use Type: None Review of System: Constitutional: no fever, no chills, no weight loss Ears, eyes, nose, mouth and throat: no nasal congestion, no nasal discharge, no sinus pressure, no vision change, no red eye. Neck: No neck pain or rigidity. Cardiovascular: No chest pain, no orthopnea, no palpitations, no leg swelling Respiratory: + shortness of breath, + cough, no congestion, no wheezing Gastrointestinal: no abdominal pain, no nausea, no vomiting Genitourinary : no dysuria, no hematuria Musculoskeletal: no joint swelling or muscle ache Integumentary: no rash, no pruritis Neurological: no parathesias, no numbness, no tingling Endocrine: no cold or heat intolerance, no polyuria or polydipsia Hematologic/Lymphatic: no easy bruising, no easy bleeding, no gland swelling Allergic/Immunologic: no urticaria, no angioedema. Medications and Allergies Allergies Allergy/AdvReac Type Severity Reaction Status Date / Time No Known Allergies Allergy Verified 07/24/16 12:52 Home Medications Medication Instructions Recorded Confirmed Last Taken Type Famotidine [Pepcid] 20 mg PO BID #30 tablet 07/24/16 Unknown Rx Cyclobenzaprine [Flexeril] 10 mg PO TID PRN #10 tablet 04/28/20 Unknown Rx Ibuprofen [Motrin] 800 mg PO Q8HR PRN #30 tablet 04/28/20 Unknown Rx predniSONE [Deltasone] 20 mg PO DAILY #5 tablet 04/28/20 Unknown Rx Active Meds: Active Medications Cyclobenzaprine HCl (Cyclobenzaprine 10 Mg Tab) 10 mg PO TID PRN PRN Reason: Muscle Spasm Famotidine (Famotidine 20 Mg Tab) 20 mg PO BID RAMYA Exam - Physical Exam Narrative exam: Limited physical exam due to COVID-19 pandemic to minimize transmission of the disease and to preserve PPE. Vital reviewed and stable. GENERAL: well-developed morbidly obese -[place] female lying on bed appeared to be in no discomfort. HEENT: Normocephalic. Atraumatic. NECK: Supple. CHEST/LUNGS: breathing nonlabored. HEART/CARDIOVASCULAR: Heart rate stable on telemetry ABDOMEN: Visibly not distended SKIN: There is no rash NEURO: No focal motor deficit. Follows command. MUSCULOSKELETAL: No joint effusion EXTRIMITY: No swelling, no cyanosis or clubbing. PSYCH: Cooperative. - Constitutional Vitals: Temp Pulse Resp BP Pulse Ox 90 27 H 139/76 95 09/23/20 11:01 09/23/20 11:01 09/23/20 11:01 09/23/20 11:01 HEART Score - HEART Score Troponin: Troponin T < 0.010 ng/mL (0.00-0.029) 09/23/20 08:02 Results - Labs CBC & Chem 7: 09/23/20 08:40 09/25/20 05:50 Labs: Abnormal lab results 09/23/20 09/23/20 09/23/20 Range/Units 05:00 08:02 08:40 WBC 3.4 L (4.5-11.0) K/mm3 MCV 76 L 75 L (79-97) fl MCH 25 L 25 L (28-32) pg RDW 17.2 H 17.0 H (13.2-15.2) % [place] % (Auto) 9.0 H 9.1 H (0.0-7.3) % Baso % (Auto) 1.9 H (0.0-1.8) % Lymph # (Auto) 0.7 L (1.2-5.4) K/mm3 Seg Neutrophils % 70.6 H (40.0-70.0) % Potassium 3.4 L (3.6-5.0) mmol/L Glucose 116 H (65-100) mg/dL - Imaging and Cardiology Chest x-ray: report reviewed Assessment and Plan Acute hypoxic respiratory failure Bilateral COVID-19 pneumonia Morbid obesity Acute exacerbation of asthma due to underlying pneumonia Chronic back pain History of migraine DVT prophylaxis -Patient tested positive for COVID-19 virus as outpatient about a week ago -CXR shows patchy parenchymal disease which represent pulmonary edema or atypical pneumonia -S/p dexamethasone, azithromycin and cefepime in the ED -Placed on dexamethasone for total 10 days and remdesivir total 5 days -Monitor procalcitonin level for IV antibiotic therapy -Infectious disease consulted, appreciate recommendations -Droplet/contact isolation -Continue SPO2 monitoring -Supplemental oxygen as needed -Pulmonary hygiene -Prone to sleep -Vitamin C, vitamin D, zinc -Anticoagulation per protocol -Lasix IV as needed to prevent pulmonary edema
[2020-09-23] MEDS ORDERED: hydrALAZINE 20 MG/1 ML INJ IV PRN (12:00)
[2020-09-23] MEDS: FAMOTIDINE 20 MG TAB PO SCH ×2 (12:23→23:48)
[2020-09-23] MEDS ORDERED: METOCLOPRAMIDE 10 MG TAB PO PRN (12:30)
--- NOTE | 2020-09-23 12:51 | Consultation ---
History of Present Illness - Reason for Consult Consult date: 09/23/20 COVID pneumonia Requesting physician: ROMINA LOMELI - History of Present Illness The patient is a 44-year-old female with asthma, migraine, morbid obesity admitted to the hospital with worsening shortness of breath, body ache, congestion, cough. Patient tested positive for COVID-19 for a week prior. Upon evaluation in the ER, was found to be tachycardic, hypoxic requiring supplem ental oxygen at 2 L/min. Labs revealed mild leukopenia, D-dimer 149, creatinine 1.0. COVID-19 test is pending. Chest x-ray showed patchy bilateral infiltrates. Review of Systems: reviewed in the chart, unable to obtain, minimize risk of transmission Medications and Allergies Allergies Allergy/AdvReac Type Severity Reaction Status Date / Time No Known Allergies Allergy Verified 07/24/16 12:52 Home Medications Medication Instructions Recorded Confirmed Last Taken Type Famotidine [Pepcid] 20 mg PO BID #30 tablet 07/24/16 Unknown Rx Cyclobenzaprine [Flexeril] 10 mg PO TID PRN #10 tablet 04/28/20 Unknown Rx Ibuprofen [Motrin] 800 mg PO Q8HR PRN #30 tablet 04/28/20 Unknown Rx predniSONE [Deltasone] 20 mg PO DAILY #5 tablet 04/28/20 Unknown Rx Active Meds: Active Medications Acetaminophen (Acetaminophen 325 Mg Tab) 650 mg PO Q4H PRN PRN Reason: Pain MILD(1-3)/Fever >100.5/PADILLA Hydrocodone Bitart/Acetaminophen (Hydrocodone/Acetaminophen 5-325 Mg Tab) 2 each PO Q6H PRN PRN Reason: Pain, Moderate (4-6) Albuterol/Ipratropium (Ipratropium/Albuterol Sulfate 3 Ml Ampul.Neb) 1 ampul IH Q6HRT [facility] Cyclobenzaprine HCl (Cyclobenzaprine 10 Mg Tab) 10 mg PO TID PRN PRN Reason: Muscle Spasm Dexamethasone (Dexamethasone 4 Mg/Ml Vial) 6 mg IV DAILY [facility] Stop: 10/03/20 12:59 Enoxaparin Sodium (Enoxaparin 40 Mg/0.4 Ml Inj) 40 mg SUB-Q QDAY@2200 [facility]; Protocol Famotidine (Famotidine 20 Mg Tab) 20 mg PO BID [facility] Last Admin: 09/23/20 12:23 Dose: 20 mg Documented by: Hydralazine HCl (Hydralazine 20 Mg/1 Ml Inj) 5 mg IV Q30MIN PRN PRN Reason: Hypertension Ceftriaxone Sodium (Rocephin/Ns 1 Gm/50 Ml) 1 gm in 50 mls @ 100 mls/hr IV Q12HR [facility]; Protocol REMDESIVIR 200 mg/ Sodium (Chloride) 250 mls @ 500 mls/hr IV ONCE ONE Stop: 09/23/20 13:18 REMDESIVIR 100 mg/ Sodium (Chloride) 250 mls @ 500 mls/hr IV Q24HR@2100 [facility] Stop: 09/27/20 21:29 Insulin Human Regular (Insulin Regular, Human 100 Units/1 Ml) 0 units SUB-Q ACHS [facility]; Protocol Metoclopramide HCl (Metoclopramide 10 Mg Tab) 10 mg PO Q6H PRN PRN Reason: Nausea And Vomiting Sodium Chloride (Sodium Chloride 0.9% 50 Ml Ivpb) 50 ml IV Q24HR@2100 [facility] Stop: 09/27/20 21:01 Physical Examination - Physical Exam Narrative exam: Physical Exam (reviewed in chart to minimize risk of transmission) Constitutional: deferred Head, Ears, Nose: deferred Eyes: deferred Neck: deferred Oral: deferred Cardiovascular: deferred Respiratory: deferred GI: deferred Musculoskeletal: deferred Skin: deferred Hem/Lymphatic: deferred Psych: deferred Neurological: deferred - Constitutional Vitals: Vital Signs Temp Pulse Resp BP Pulse Ox 90 27 H 139/76 95 09/23/20 11:01 09/23/20 11:01 09/23/20 11:01 09/23/20 11:01 Results - Labs CBC & Chem 7: 09/23/20 08:40 09/23/20 08:02 Labs: Abnormal lab results 09/23/20 09/23/20 09/23/20 Range/Units 05:00 08:02 08:40 WBC 3.4 L (4.5-11.0) K/mm3 MCV 76 L 75 L (79-97) fl MCH 25 L 25 L (28-32) pg RDW 17.2 H 17.0 H (13.2-15.2) % [place] % (Auto) 9.0 H 9.1 H (0.0-7.3) % Baso % (Auto) 1.9 H (0.0-1.8) % Lymph # (Auto) 0.7 L (1.2-5.4) K/mm3 Seg Neutrophils % 70.6 H (40.0-70.0) % Potassium 3.4 L (3.6-5.0) mmol/L Glucose 116 H (65-100) mg/dL - Imaging and Cardiology Chest x-ray: report reviewed, image reviewed (b/l patchy airspace opacities) Assessment and Plan Cultures: SARS CoV2 PCR: Positive as outpatient A/P: 44-year-old female with asthma, migraine, morbid obesity admitted with: #Bilateral pneumonia: Likely secondary to COVID-19 #Acute hypoxic respiratory failure: On nasal cannula. #Morbid obesity Recs: -IV/PO Dexamethasone 6 mg daily x 10 days -IV remdesivir ordered -Continue antibiotics for now, follow-up procalcitonin, if low, will discontinue -prophylactic anticoagulation based on d-dimer per hospital protocol -trend ferritin, LDH, d-dimer, CRP every 2-3 days for risk stratification and to assess disease progression Rosibel Romero MD, FACP [facility] O: [phone] F: [phone]
[2020-09-23 13:51] LABS: C-Reactive Protein 2.1 mg/dL (0.00-1.30)
[2020-09-23] MEDS: IPRATROPIUM/ALBUTEROL SULFATE 3 ML AMPUL.NEB IH SCH ×2 (14:27→20:39)
[2020-09-23] MEDS: dexAMETHasone 4 MG/ML VIAL IV SCH (15:51)
[2020-09-23 16:54] LABS: Alanine Aminotransferase 17 units/L (7-56); Albumin 3.6 g/dL (3.9-5); BUN/Creatinine Ratio 19; Blood Urea Nitrogen 15 mg/dL (7-17); Calcium 8.2 mg/dL (8.4-10.2); Hemolysis Index 4
[2020-09-23] MEDS ORDERED: REMDESIVIR 200 MG in SODIUM CHLORIDE 0.9% 250ML 250 ML IV ONE (17:00)
[2020-09-23] MEDS: INSULIN REGULAR, HUMAN 100 UNITS/1 ML SUB-Q SCH (18:25)
[2020-09-23] MEDS: SODIUM CHLORIDE 0.9% 50 ML IVPB IV SCH (23:48)
[2020-09-23] MEDS: ENOXAPARIN 40 MG/0.4 ML INJ SUB-Q SCH (23:48)
[2020-09-23] MEDS: cefTRIAXone/NS 1 GM/50 ML 1 GM/50 ML BAG IV SCH (23:48)
[2020-09-24] MEDS: INSULIN REGULAR, HUMAN 100 UNITS/1 ML SUB-Q SCH ×5 (00:23→22:15)
[2020-09-24] MEDS: guaiFENesin ER 600 MG TAB PO SCH ×3 (02:27→21:58)
[2020-09-24] MEDS: IPRATROPIUM/ALBUTEROL SULFATE 3 ML AMPUL.NEB IH SCH ×4 (03:14→19:53)
[2020-09-24] MEDS ORDERED: ALBUTEROL 8.5 GM MDI INHALATION IH PRN (03:14)
[2020-09-24] MEDS: ACETAMINOPHEN 325 MG TAB PO PRN (04:49)
[2020-09-24 08:50] LABS: Alanine Aminotransferase 14 units/L (7-56); Albumin 3.4 g/dL (3.9-5); BUN/Creatinine Ratio 18; Blood Urea Nitrogen 14 mg/dL (7-17); Calcium 8.2 mg/dL (8.4-10.2); Hemolysis Index 0
[2020-09-24] MEDS: dexAMETHasone 4 MG/ML VIAL IV SCH (10:38)
--- NOTE | 2020-09-24 10:38 | Progress Note ---
Assessment and Plan Cultures: SARS CoV2 PCR: Positive as outpatient A/P: 44-year-old female with asthma, migraine, morbid obesity admitted with: #Bilateral pneumonia: Likely secondary to COVID-19. Procal is low. #Acute hypoxic respiratory failure: On HF nasal cannula. #Morbid obesity Recs: -continue IV/PO Dexamethasone x 10 days -continue IV remdesivir x 5 days -procalcitonin is low, will discontinue abx -prophylactic anticoagulation based on d-dimer per hospital protocol -trend ferritin, LDH, d-dimer, CRP every 2-3 days for risk stratification and to assess disease progression Rosibel Romero MD, FACP [facility] O: [phone] F: [phone] Subjective Date of service: 09/24/20 Interval history: Low grade fever. On HFNC. COVID still pending. Objective - Exam Narrative Exam: Physical Exam (reviewed in chart to minimize risk of transmission) Constitutional: deferred Head, Ears, Nose: deferred Eyes: deferred Neck: deferred Oral: deferred Cardiovascular: deferred Respiratory: deferred GI: deferred Musculoskeletal: deferred Skin: deferred Hem/Lymphatic: deferred Psych: deferred Neurological: deferred - Constitutional Vitals: Vital Signs Temp Pulse Resp BP Pulse Ox 100.2 F H 92 H 20 158/74 98 09/24/20 07:01 09/24/20 07:01 09/24/20 07:01 09/24/20 07:01 09/24/20 07:54 Temperature -Last 24 Hours Temperature 100.2 F Temperature 100.4 F Temperature 98.7 F - Labs CBC & Chem 7: 09/23/20 08:40 09/24/20 07:34 Labs: Abnormal lab results 09/23/20 09/23/20 09/23/20 Range/Units 11:54 16:11 18:08 Potassium 3.3 L (3.6-5.0) mmol/L Glucose 213 H (65-100) mg/dL POC Glucose 238 H (70-105) mg/dL Calcium 8.2 L (8.4-10.2) mg/dL Lactate Dehydrogenase 358 H (91-180) units/L C-Reactive Protein 2.10 H (0.00-1.30) mg/dL Albumin 3.6 L (3.9-5) g/dL 09/23/20 09/24/20 Range/Units 23:19 07:34 Potassium 3.3 L (3.6-5.0) mmol/L Glucose 101 H (65-100) mg/dL POC Glucose 127 H (70-105) mg/dL Calcium 8.2 L (8.4-10.2) mg/dL Lactate Dehydrogenase (91-180) units/L C-Reactive Protein (0.00-1.30) mg/dL Albumin 3.4 L (3.9-5) g/dL
[2020-09-24] MEDS: cefTRIAXone/NS 1 GM/50 ML 1 GM/50 ML BAG IV SCH (10:41)
[2020-09-24] MEDS: FAMOTIDINE 20 MG TAB PO SCH ×2 (10:41→21:58)
[2020-09-24] MEDS ORDERED: POTASSIUM CHLORIDE ER 20 MEQ TAB PO ONE (11:09)
--- NOTE | 2020-09-24 12:18 | Progress Note ---
Assessment and Plan Acute hypoxic respiratory failure Bilateral COVID-19 pneumonia -Patient tested positive for COVID-19 virus as outpatient about a week ago -CXR shows patchy parenchymal disease which represent pulmonary edema or atypical pneumonia -S/p dexamethasone, azithromycin and cefepime in the ED -Placed on dexamethasone for total 10 days and remdesivir total 5 days -Monitor procalcitonin level for IV antibiotic therapy -Infectious disease consulted, appreciate recommendations -Droplet/contact isolation -Continue SPO2 monitoring -Supplemental oxygen as needed -Pulmonary hygiene -Prone to sleep -Vitamin C, vitamin D, zinc -Anticoagulation per protocol --Lasix IV as needed to prevent pulmonary edema Morbid obesity, exercise or dietary recommendation when clinically more stable Acute exacerbation of asthma due to underlying pneumonia -Continue to treat for COVID-19 pneumonia, scheduled nebulizer breathing treatment and empiric steroid Chronic back pain, supportive care and pain management as needed History of migraine, patient does not have any issue currently, outpatient follow-up DVT prophylaxis, continue Lovenox Daily clinical course: 09/24/2020: Patient placed on high flow oxygen today 85% FiO2 with 25 L oxygen per minute. continue empiric steroid, IV remdesivir and dexamethasone. Supplemental O2 to keep oxygenation greater than 92%. ID following continue supportive care follow inflammatory markers.. Subjective Date of service: 09/24/20 Interval history: Patient seen and examined. Medical records and medication list reviewed. No acute event overnight noted by the RN. Patient have significant difficulty breathing even on resting requiring high flow oxygen to maintain oxygenation Discussed plan of care at bedside with patient. Objective - Exam Narrative Exam: Limited physical exam due to COVID-19 pandemic to minimize transmission of the disease and to preserve PPE. Vital reviewed and stable. GENERAL: well-developed morbidly obese -[place] female lying on bed appeared to be in no discomfort. HEENT: Normocephalic. Atraumatic. NECK: Supple. CHEST/LUNGS: breathing nonlabored. HEART/CARDIOVASCULAR: Heart rate stable on telemetry ABDOMEN: Visibly not distended SKIN: There is no rash NEURO: No focal motor deficit. Follows command. MUSCULOSKELETAL: No joint effusion EXTRIMITY: No swelling, no cyanosis or clubbing. PSYCH: Cooperative. - Constitutional Vitals: Vital Signs - 12hr 09/24/20 09/24/20 09/24/20 00:25 03:20 04:53 Temperature Pulse Rate Respiratory Rate Blood Pressure O2 Sat by Pulse 94 94 93 Oximetry 09/24/20 09/24/20 07:01 07:54 Temperature 100.2 F H Pulse Rate 92 H Respiratory 20 Rate Blood Pressure 158/74 O2 Sat by Pulse 96 98 Oximetry - Labs CBC & Chem 7: 09/23/20 08:40 09/25/20 05:50 Labs: Abnormal lab results 09/23/20 09/23/20 09/23/20 Range/Units 11:54 16:11 18:08 Potassium 3.3 L (3.6-5.0) mmol/L Glucose 213 H (65-100) mg/dL POC Glucose 238 H (70-105) mg/dL Calcium 8.2 L (8.4-10.2) mg/dL Lactate Dehydrogenase 358 H (91-180) units/L C-Reactive Protein 2.10 H (0.00-1.30) mg/dL Albumin 3.6 L (3.9-5) g/dL 09/23/20 09/24/20 09/24/20 Range/Units 23:19 07:34 11:47 Potassium 3.3 L (3.6-5.0) mmol/L Glucose 101 H (65-100) mg/dL POC Glucose 127 H 125 H (70-105) mg/dL Calcium 8.2 L (8.4-10.2) mg/dL Lactate Dehydrogenase (91-180) units/L C-Reactive Protein (0.00-1.30) mg/dL Albumin 3.4 L (3.9-5) g/dL HEART Score - HEART Score Troponin: Troponin T < 0.010 ng/mL (0.00-0.029) 09/23/20 08:02
[2020-09-24] MEDS: CHOLECALCIFEROL (VIT D3) 5,000 UNIT TAB PO SCH (13:29)
[2020-09-24] MEDS: FUROSEMIDE 20 MG/2 ML INJ IV SCH (13:29)
[2020-09-24] MEDS: ASCORBIC ACID 500 MG TAB PO SCH ×2 (13:30→21:59)
--- NOTE | 2020-09-24 14:15 | Electrocardiograph Report ---
[facility] Test Date: 2020-09-23 Test Time: 11:55:47 Pat Name: DIONY MITCHELL Department: Room: A365 Gender: F In House Counsel: AMELIE : 1975 Requested By: YELENA HUNG Order Number: [id number] Reading MD: Pita Perkins Measurements Intervals Dante Rate: 86 P: 44 ID: [id number] QRS: 24 QRSD: 83 T: 25 QT: 398 QTc: 477 Interpretive Statements Sinus rhythm No previous ECG available for comparison Electronically Signed On 09-24-2020 14:14:42 EDT by Pita Perkins
[2020-09-24] MEDS: REMDESIVIR 100 MG in SODIUM CHLORIDE 0.9% 250ML 250 ML IV SCH (21:58)
[2020-09-24] MEDS: ZINC SULFATE 220 MG CAP PO SCH (21:58)
[2020-09-24] MEDS: ENOXAPARIN 40 MG/0.4 ML INJ SUB-Q SCH (21:59)
[2020-09-24] MEDS ORDERED: cefTRIAXone/NS 1 GM/50 ML 1 GM/50 ML BAG IV SCH (22:00)
[2020-09-24] MEDS: SODIUM CHLORIDE 0.9% 50 ML IVPB IV SCH (22:30)
[2020-09-25] MEDS: IPRATROPIUM/ALBUTEROL SULFATE 3 ML AMPUL.NEB IH SCH ×3 (02:44→14:01)
[2020-09-25 07:15] LABS: Alanine Aminotransferase 16 units/L (7-56); Albumin 3.7 g/dL (3.9-5); BUN/Creatinine Ratio 19; Blood Urea Nitrogen 15 mg/dL (7-17); Calcium 8.3 mg/dL (8.4-10.2); Hemolysis Index 5
[2020-09-25] MEDS: INSULIN REGULAR, HUMAN 100 UNITS/1 ML SUB-Q SCH ×4 (10:02→21:53)
[2020-09-25] MEDS: ZINC SULFATE 220 MG CAP PO SCH ×2 (10:03→21:53)
[2020-09-25] MEDS: guaiFENesin ER 600 MG TAB PO SCH ×2 (10:03→21:53)
[2020-09-25] MEDS: ASCORBIC ACID 500 MG TAB PO SCH ×2 (10:03→21:52)
[2020-09-25] MEDS: CHOLECALCIFEROL (VIT D3) 5,000 UNIT TAB PO SCH (10:03)
[2020-09-25] MEDS: FAMOTIDINE 20 MG TAB PO SCH ×2 (10:03→21:53)
[2020-09-25] MEDS: dexAMETHasone 4 MG/ML VIAL IV SCH (10:03)
[2020-09-25] MEDS: FUROSEMIDE 20 MG/2 ML INJ IV SCH (10:04)
[2020-09-25 10:43] LABS: C-Reactive Protein 6.7 mg/dL (0.00-1.30)
--- NOTE | 2020-09-25 12:21 | Progress Note ---
Assessment and Plan Cultures: SARS CoV2 PCR: Positive as outpatient A/P: 44-year-old female with asthma, migraine, morbid obesity admitted with: #Bilateral pneumonia: Likely secondary to COVID-19. Procal is low. #Acute hypoxic respiratory failure: On HF nasal cannula. #Morbid obesity Recs: -continue IV/PO Dexamethasone x 10 days. Given HFNC and rise in CRP, dose of dexa increased to 8 mg/kg -continue IV remdesivir x 5 days -not a candidate for tocilizumab at this point -prophylactic anticoagulation based on d-dimer per hospital protocol -trend ferritin, LDH, d-dimer, CRP every 2-3 days for risk stratification and to assess disease progression Rosibel Romero MD, FACP [facility] O: [phone] F: [phone] Subjective Date of service: 09/25/20 Interval history: Low grade fever. On HFNC. Objective - Exam Narrative Exam: Physical Exam (reviewed in chart to minimize risk of transmission) Constitutional: deferred Head, Ears, Nose: deferred Eyes: deferred Neck: deferred Oral: deferred Cardiovascular: deferred Respiratory: deferred GI: deferred Musculoskeletal: deferred Skin: deferred Hem/Lymphatic: deferred Psych: deferred Neurological: deferred - Constitutional Vitals: Vital Signs Temp Pulse Resp BP Pulse Ox 99.4 F 86 20 134/92 84 09/25/20 04:38 09/25/20 08:00 09/25/20 08:00 09/25/20 04:38 09/25/20 08:02 Temperature -Last 24 Hours Temperature 99.4 F Temperature 99.2 F - Labs CBC & Chem 7: 09/23/20 08:40 09/25/20 05:50 Labs: Abnormal lab results 09/24/20 09/24/20 09/25/20 Range/Units 18:09 22:57 05:50 POC Glucose 199 H 116 H (70-105) mg/dL Calcium 8.3 L (8.4-10.2) mg/dL Lactate Dehydrogenase (91-180) units/L C-Reactive Protein (0.00-1.30) mg/dL Albumin 3.7 L (3.9-5) g/dL 09/25/20 09/25/20 09/25/20 Range/Units 07:42 09:57 11:38 POC Glucose 106 H 142 H (70-105) mg/dL Calcium (8.4-10.2) mg/dL Lactate Dehydrogenase 510 H (91-180) units/L C-Reactive Protein 6.70 H (0.00-1.30) mg/dL Albumin (3.9-5) g/dL
--- NOTE | 2020-09-25 14:04 | Progress Note ---
Assessment and Plan Acute hypoxic respiratory failure Bilateral COVID-19 pneumonia -Patient tested positive for COVID-19 virus as outpatient about a week ago -CXR shows patchy parenchymal disease which represent pulmonary edema or atypical pneumonia -S/p dexamethasone, azithromycin and cefepime in the ED -Placed on dexamethasone for total 10 days and remdesivir total 5 days -Monitor procalcitonin level for IV antibiotic therapy -Infectious disease consulted, appreciate recommendations -Droplet/contact isolation -Continue SPO2 monitoring -Supplemental oxygen as needed -Pulmonary hygiene -Prone to sleep -Vitamin C, vitamin D, zinc -Anticoagulation per protocol --Lasix IV as needed to prevent pulmonary edema Morbid obesity, exercise or dietary recommendation when clinically more stable Acute exacerbation of asthma due to underlying pneumonia -Continue to treat for COVID-19 pneumonia, scheduled nebulizer breathing treatment and empiric steroid Chronic back pain, supportive care and pain management as needed History of migraine, patient does not have any issue currently, outpatient follow-up DVT prophylaxis, continue Lovenox Full CODE STATUS Daily clinical course: 09/24/2020: Patient placed on high flow oxygen today 85% FiO2 with 25 L oxygen per minute. continue empiric steroid, IV remdesivir and dexamethasone. Supplemental O2 to keep oxygenation greater than 92%. ID following continue supportive care follow inflammatory markers.. 09/25/20: Remains on high flow O2, oxygen requirement has gone up today From 85% FiO2 100% FiO2. Repeat chest x-ray, continue dexamethasone and remdesivir. Follow inflammatory markers, procalcitonin level is low. Subjective Date of service: 09/25/20 Interval history: Patient seen and examined. Medical records and medication list reviewed. No acute event overnight noted by the RN. Patient have significant difficulty breathing even on resting requiring high flow oxygen to maintain oxygenation Discussed plan of care at bedside with patient. Objective - Exam Narrative Exam: Limited physical exam due to COVID-19 pandemic to minimize transmission of the disease and to preserve PPE. Vital reviewed and stable. GENERAL: well-developed morbidly obese -[place] female lying on bed appeared to be in no discomfort. HEENT: Normocephalic. Atraumatic. NECK: Supple. CHEST/LUNGS: breathing nonlabored. HEART/CARDIOVASCULAR: Heart rate stable on telemetry ABDOMEN: Visibly not distended SKIN: There is no rash NEURO: No focal motor deficit. Follows command. MUSCULOSKELETAL: No joint effusion EXTRIMITY: No swelling, no cyanosis or clubbing. PSYCH: Cooperative. - Constitutional Vitals: Vital Signs - 12hr 09/25/20 09/25/20 09/25/20 04:38 08:00 08:02 Temperature 99.4 F Pulse Rate 90 Pulse Rate [ 86 Anterior Bilateral Throughout] Pulse Rate [ 79 Posterior Bilateral Throughout] Respiratory 20 Rate Respiratory 20 Rate [Anterior Bilateral Throughout] Respiratory 20 Rate [Posterior Bilateral Throughout] Blood Pressure 134/92 Blood Pressure [Left] O2 Sat by Pulse 91 84 Oximetry 09/25/20 13:14 Temperature 99.7 F H Pulse Rate 100 H Pulse Rate [ Anterior Bilateral Throughout] Pulse Rate [ Posterior Bilateral Throughout] Respiratory 20 Rate Respiratory Rate [Anterior Bilateral Throughout] Respiratory Rate [Posterior Bilateral Throughout] Blood Pressure Blood Pressure 127/80 [Left] O2 Sat by Pulse 90 Oximetry - Labs CBC & Chem 7: 09/23/20 08:40 09/25/20 05:50 Labs: Abnormal lab results 09/24/20 09/24/20 09/25/20 Range/Units 18:09 22:57 05:50 POC Glucose 199 H 116 H (70-105) mg/dL Calcium 8.3 L (8.4-10.2) mg/dL Lactate Dehydrogenase (91-180) units/L C-Reactive Protein (0.00-1.30) mg/dL Albumin 3.7 L (3.9-5) g/dL 09/25/20 09/25/20 09/25/20 Range/Units 07:42 09:57 11:38 POC Glucose 106 H 142 H (70-105) mg/dL Calcium (8.4-10.2) mg/dL Lactate Dehydrogenase 510 H (91-180) units/L C-Reactive Protein 6.70 H (0.00-1.30) mg/dL Albumin (3.9-5) g/dL HEART Score - HEART Score Troponin: Troponin T < 0.010 ng/mL (0.00-0.029) 09/23/20 08:02
--- NOTE | 2020-09-25 14:38 | Consultation ---
History of Present Illness Consult date: 09/25/20 Requesting physician: ROMINA LOMELI Reason for consult: other (COVID-19 Pneumonia) History of present illness: PULMONARY/CCM CONSULT NOTE (Full note dictated) Please see dictated notes for full details Medications and Allergies Allergies Allergy/AdvReac Type Severity Reaction Status Date / Time No Known Allergies Allergy Verified 07/24/16 12:52 Home Medications Medication Instructions Recorded Confirmed Last Taken Type Famotidine [Pepcid] 20 mg PO BID #30 tablet 07/24/16 09/25/20 Unknown Rx Cyclobenzaprine [Flexeril] 10 mg PO TID PRN #10 tablet 04/28/20 09/25/20 Unknown Rx Ibuprofen [Motrin] 800 mg PO Q8HR PRN #30 tablet 04/28/20 09/25/20 Unknown Rx predniSONE [Deltasone] 20 mg PO DAILY #5 tablet 04/28/20 09/25/20 Unknown Rx Active Meds: Active Medications Acetaminophen (Acetaminophen 325 Mg Tab) 650 mg PO Q4H PRN PRN Reason: Pain MILD(1-3)/Fever >100.5/[facility]ILLA Last Admin: 09/24/20 04:49 Dose: 650 mg Documented by: Hydrocodone Bitart/Acetaminophen (Hydrocodone/Acetaminophen 5-325 Mg Tab) 2 each PO Q6H PRN PRN Reason: Pain, Moderate (4-6) Albuterol (Albuterol 8.5 Gm Mdi Inhalation) 2 puff IH Q4HRT PRN PRN Reason: Shortness Of Breath Albuterol/Ipratropium (Ipratropium/Albuterol Sulfate 3 Ml Ampul.Neb) 1 ampul IH Q6HRT [facility] Last Admin: 09/25/20 14:01 Dose: 1 ampul Documented by: Ascorbic Acid (Ascorbic Acid 500 Mg Tab) 1,000 mg PO BID [facility] Last Admin: 09/25/20 10:03 Dose: 1,000 mg Documented by: Cholecalciferol (Cholecalciferol (Vit D3) 5,000 Unit Tab) 5,000 unit PO DAILY [facility] Last Admin: 09/25/20 10:03 Dose: 5,000 unit Documented by: Cyclobenzaprine HCl (Cyclobenzaprine 10 Mg Tab) 10 mg PO TID PRN PRN Reason: Muscle Spasm Dexamethasone (Dexamethasone 4 Mg/Ml Vial) 8 mg IV DAILY [facility] Stop: 10/03/20 12:59 Enoxaparin Sodium (Enoxaparin 40 Mg/0.4 Ml Inj) 40 mg SUB-Q QDAY@2200 [facility]; Protocol Last Admin: 09/24/20 21:59 Dose: 40 mg Documented by: Famotidine (Famotidine 20 Mg Tab) 20 mg PO BID [facility] Last Admin: 09/25/20 10:03 Dose: 20 mg Documented by: Furosemide (Furosemide 20 Mg/2 Ml Inj) 20 mg IV QDAY [facility] Last Admin: 09/25/20 10:04 Dose: 20 mg Documented by: Guaifenesin (Guaifenesin Er 600 Mg Tab) 600 mg PO BID [facility] Last Admin: 09/25/20 10:03 Dose: 600 mg Documented by: Hydralazine HCl (Hydralazine 20 Mg/1 Ml Inj) 5 mg IV Q30MIN PRN PRN Reason: Hypertension REMDESIVIR 100 mg/ Sodium (Chloride) 250 mls @ 500 mls/hr IV Q24HR@2100 [facility] Stop: 09/27/20 21:29 Last Admin: 09/24/20 21:58 Dose: 500 mls/hr Documented by: Insulin Human Regular (Insulin Regular, Human 100 Units/1 Ml) 0 units SUB-Q ACHS [facility]; Protocol Last Admin: 09/25/20 12:41 Dose: Not Given Documented by: Metoclopramide HCl (Metoclopramide 10 Mg Tab) 10 mg PO Q6H PRN PRN Reason: Nausea And Vomiting Last Admin: 09/25/20 11:43 Dose: 10 mg Documented by: Sodium Chloride (Sodium Chloride 0.9% 50 Ml Ivpb) 50 ml IV Q24HR@2100 [facility] Stop: 09/27/20 21:01 Last Admin: 09/24/20 22:30 Dose: 50 ml Documented by: Sodium Chloride (Sodium Chloride 0.9% 10 Ml Flush Syringe) 10 ml IV PRN PRN PRN Reason: LINE FLUSH Last Admin: 09/24/20 21:59 Dose: 10 ml Documented by: Zinc Sulfate (Zinc Sulfate 220 Mg Cap) 220 mg PO BID [facility] Last Admin: 09/25/20 10:03 Dose: 220 mg Documented by: Physical Examination Vital signs: Vital Signs Pulse Resp Pulse Ox 98 H 28 H 93 09/23/20 08:27 09/23/20 08:27 09/23/20 08:27 Results - Laboratory Findings CBC and BMP: 09/23/20 08:40 09/26/20 05:56 PT/INR, D-dimer D-Dimer < 135 ng/mlDDU (0-234) 09/25/20 09:57 Abnormal lab findings: Abnormal Labs 09/23/20 09/23/20 09/23/20 05:00 08:02 08:40 WBC 3.4 L MCV 76 L 75 L MCH 25 L 25 L RDW 17.2 H 17.0 H [place] % (Auto) 9.0 H 9.1 H Baso % (Auto) 1.9 H Lymph # (Auto) 0.7 L Seg Neutrophils % 70.6 H Potassium 3.4 L Glucose 116 H POC Glucose Calcium Lactate Dehydrogenase C-Reactive Protein Albumin 09/23/20 09/23/20 09/23/20 11:54 16:11 18:08 WBC MCV MCH RDW [place] % (Auto) Baso % (Auto) Lymph # (Auto) Seg Neutrophils % Potassium 3.3 L Glucose 213 H POC Glucose 238 H Calcium 8.2 L Lactate Dehydrogenase 358 H C-Reactive Protein 2.10 H Albumin 3.6 L 09/23/20 09/24/20 09/24/20 23:19 07:34 11:47 WBC MCV MCH RDW [place] % (Auto) Baso % (Auto) Lymph # (Auto) Seg Neutrophils % Potassium 3.3 L Glucose 101 H POC Glucose 127 H 125 H Calcium 8.2 L Lactate Dehydrogenase C-Reactive Protein Albumin 3.4 L 09/24/20 09/24/20 09/25/20 18:09 22:57 05:50 WBC MCV MCH RDW [place] % (Auto) Baso % (Auto) Lymph # (Auto) Seg Neutrophils % Potassium Glucose POC Glucose 199 H 116 H Calcium 8.3 L Lactate Dehydrogenase C-Reactive Protein Albumin 3.7 L 09/25/20 09/25/20 09/25/20 07:42 09:57 11:38 WBC MCV MCH RDW [place] % (Auto) Baso % (Auto) Lymph # (Auto) Seg Neutrophils % Potassium Glucose POC Glucose 106 H 142 H Calcium Lactate Dehydrogenase 510 H C-Reactive Protein 6.70 H Albumin
--- NOTE | 2020-09-25 15:30 | XRay Report ---
XR chest 1V ap INDICATION / CLINICAL INFORMATION: SOB. COMPARISON: 09/23/2020 FINDINGS: SUPPORT DEVICES: None. HEART /PULMONARY VASCULATURE: No significant abnormality. LUNGS / PLEURA: Worsening bilateral airspace disease, particularly within the right upper lung and le ft lung base. No pleural effusion. No evidence pneumothorax. ADDITIONAL FINDINGS: No significant additional findings. IMPRESSION: Worsening pulmonary airspace disease. Signer Name: Albert Jarrell MD Signed: 09/25/2020 3:25 PM Workstation Name: [id number]
[2020-09-25] MEDS: SODIUM CHLORIDE 0.9% 50 ML IVPB IV SCH (21:52)
[2020-09-25] MEDS: REMDESIVIR 100 MG in SODIUM CHLORIDE 0.9% 250ML 250 ML IV SCH (21:52)
[2020-09-25] MEDS: ENOXAPARIN 40 MG/0.4 ML INJ SUB-Q SCH (21:52)
[2020-09-26] MEDS: IPRATROPIUM/ALBUTEROL SULFATE 3 ML AMPUL.NEB IH SCH ×4 (00:36→20:09)
[2020-09-26 07:13] LABS: Alanine Aminotransferase 14 units/L (7-56); Albumin 3.4 g/dL (3.9-5); BUN/Creatinine Ratio 24; Blood Urea Nitrogen 17 mg/dL (7-17); Calcium 8.4 mg/dL (8.4-10.2); Hemolysis Index 0
--- NOTE | 2020-09-26 07:14 | Consultation ---
DATE OF CONSULTATION: 09/25/2020 PULMONARY CONSULTATION NOTE CONSULTING PHYSICIAN: Dr. Enriquez REASON FOR CONSULTATION: Acute hypoxemic respiratory failure, COVID-19 infection. CHIEF COMPLAINT AND HISTORY OF PRESENT ILLNESS: The patient is ____ 44-year-old obese female with past medical history significant amongst other things for a diagnosis of asthma, who tested positive for COVID-19 about a week before presentation secondary to getting tested for increased shortness of breath, dyspnea on exertion, diffuse body aches and pains and nasal and sinus congestion. She has a dry cough, nonproductive. She denies any gross or streaky hemoptysis and had been wheezing. She was seen in the Emergency Room. Apparently, she had been taking some azithromycin and a Medrol Dosepak at home without improvement in her symptoms. She admits to not getting the COVID-19 vaccination because she was scared of having bad reaction to the vaccine. X-rays were also consistent with ____ pneumonia. I was asked to assist with management. When I stopped by to see her, she was resting in bed, looked very weak. She remained on supplemental oxygen as of the time I saw her, she was on high flow nasal cannula at 90% FiO2; however, she was not using accessory muscles of respiration and felt a little bit better. She states she had an episode of vomiting this morning, but denies overt aspiration. She denies a history of tobacco use or abuse or any significant secondhand exposure. She denies any new leg pain or swelling, either unilaterally or bilaterally or any suggestion of deep venous thrombosis. This really is as much of the history of presentation as I have. PAST MEDICAL HISTORY: She is obese, morbidly so; history of asthma, history of chronic migraines, history of chronic low back pain. PAST SURGICAL HISTORY: She has had breast reduction surgery and 2 sections. MEDICATIONS: She was on at the time I stopped by to see her according to the medication reconciliation record include the following: Tylenol 650 mg p.o. q.4 hours p.r.n. mild pain or fevers, [place] 5/325 two tablets p.o. q.6 hours p.r.n. moderate pain, DuoNeb nebulizer treatment scheduled q. 6 hours, vitamin C 1 gram p.o. b.i.d., vitamin D3 5000 p.o. daily, Flexeril 10 mg p.o. t.i.d. p.r.n. muscle spasms, dexamethasone 8 mg IV daily, Lovenox 40 mg subQ daily, Pepcid 20 mg p.o. b.i.d., Lasix 20 mg IV daily, Mucinex 600 mg p.o. b.i.d., Humulin insulin via sliding scale, Reglan 10 mg p.o. q.6 hours p.r.n. nausea and vomiting. She is on remdesivir therapy 100 mg IV daily at this point and zinc sulfate ____ mg p.o. b.i.d. ALLERGIES: No known drug allergies. DIET: Obese lady, denies acute weight loss or gain in the preceding few weeks to months. SOCIAL HISTORY: Lives in the community. Denies alcohol, tobacco or illicit drug use or abuse. FAMILY HISTORY: Otherwise, noncontributory. REVIEW OF SYSTEMS: No loss of consciousness. No new onset seizures. She has had generalized malaise and fatigue. She denies gross hematochezia or melena. Denies gross hematuria or dysuria. No hematemesis, no hemoptysis, no polydipsia, no polyuria. She denies any new rashes on her body. Complete 13 system review of system was obtained. Pertinent positives and/or negatives as in body of history above, otherwise noncontributory. PHYSICAL EXAMINATION: VITAL SIGNS: The first temperature I see on her 98.7, admission pulse 98, respiratory rate 28. At the time, blood pressure 127/69, O2 sats were 93%. Inspired oxygen concentration at that time was not recorded. She has had a T-max as far as I can see of 100.4 degrees Fahrenheit since she has been here. GENERAL: Again, on examination, she is a middle aged, morbidly obese female. Normocephalic, atraumatic, talking to me in mostly full sentences, but with mildly increased respiratory effort at rest. HEENT: Anicteric, no conjunctival erythema. Oropharynx was moist. Mallampati 3 oropharynx NECK: No gross jugular venous distention, no thyromegaly. She does have a large neck circumference. Grossly, there were no palpable lymph nodes in the supraclavicular or submandibular lymph node chains. LUNGS: Auscultation of both lung cronin significant mostly for diminished air movement. No active wheezing, bibasilar predominant inspiratory rales. HEART: Sounds 1 and 2 were heard at the time of my evaluation, regular in rate and rhythm without any overt rubs or murmurs. ABDOMEN: Soft, full, bowel sounds are positive, nontender, protuberant. No palpable hepatosplenomegaly. EXTREMITIES: Without overt digital clubbing or cyanosis, no pedal edema. Pedal pulses are 2+ bilaterally. NEUROLOGIC: Pupils are equal, round, about 4 mm reactive to light. Extraocular muscle movements are intact. She moves all 4 extremities spontaneously. Mood and affect were depressed. She had intact judgment and insight. SKIN: Normal turgor in the areas examined without overt cellulitis or rash. Please see the registered nurses' and wound care nurses' notes for full description of her skin. LABORATORY DATA: From my review is as follows: Admission white cell count 3400, hemoglobin 11.8, hematocrit 36.8, platelet count was 234. No manual differential. D-dimer was within normal limits. Serum sodium 141, potassium 3.4, chloride 100, bicarbonate 29, BUN 17, creatinine 1.0, glucose was 116. LDH was up at 358. CRP 2.1. Procalcitonin unremarkable. Otherwise, liver function test within normal limits. No microbiology studies for my review. A chest x-ray was done, I am having trouble pulling up the films. The report reports diffuse mild parenchymal opacities in both lungs, which could represent diffuse edema or atypical pneumonia. Chest x-ray today says worsening pulmonary airspace disease. I do not have a 2D echocardiogram. ASSESSMENT: 1. Acute hypoxemic respiratory failure. 2. Bilateral pneumonia. 3. COVID-19 infection. 4. Morbid obesity. 5. History of asthma. 6. Hypokalemia, mild. 7. Asthma exacerbation at presentation. 8. History of migraines. 9. Chronic low back pain. PLAN: We will need to watch her closely. Obviously, she is suffering from a severe COVID-19 pneumonia. I am bothered about her overall medical status and her increasing oxygenation in the short term. I will deploy bilevel positive airway pressure ventilation therapy to begin at bedtime with p.r.n. daytime use. I will transfer her to the intermediate care unit for close observation. We will continue current infectious disease recommendations. We will complete the remdesivir therapy. Continue high dose steroids with dexamethasone. She is appropriately on GI and DVT prophylaxis. I will get bilateral lower extremity Dopplers to evaluate for DVTs. I do have a low clinical suspicion though and she is a little too unstable to go for a CT angiogram at this time. Otherwise, flu and pneumonia vaccination will be addressed per protocol. Thank you very much for the consult. We will follow along and make further recommendations as picture progresses/becomes clearer. She is critically ill, on life-sustaining interventions, now to include bilevel positive airway pressure ventilation therapy, noninvasive ventilation, but also on high dose oxygen therapy. She is a very high risk of from cardiopulmonary system decompensation. At this time, I spent about 35-40 minutes of critical care time without overlap and excluding any procedural time that may be necessary. TID: [id number] RECEIPT: [id number] SHAQ/ANNETTE/SHYAM
[2020-09-26] MEDS: INSULIN REGULAR, HUMAN 100 UNITS/1 ML SUB-Q SCH ×4 (08:10→22:07)
[2020-09-26] MEDS: FAMOTIDINE 20 MG TAB PO SCH ×2 (10:43→21:51)
[2020-09-26] MEDS: guaiFENesin ER 600 MG TAB PO SCH ×2 (10:44→21:51)
[2020-09-26] MEDS: ZINC SULFATE 220 MG CAP PO SCH ×2 (10:44→21:50)
[2020-09-26] MEDS: CHOLECALCIFEROL (VIT D3) 5,000 UNIT TAB PO SCH (10:45)
[2020-09-26] MEDS: ASCORBIC ACID 500 MG TAB PO SCH ×2 (10:45→21:50)
[2020-09-26] MEDS: FUROSEMIDE 20 MG/2 ML INJ IV SCH (10:46)
[2020-09-26] MEDS: dexAMETHasone 4 MG/ML VIAL IV SCH (10:56)
--- NOTE | 2020-09-26 16:42 | Progress Note ---
Assessment and Plan Acute hypoxic respiratory failure Bilateral COVID-19 pneumonia -Patient tested positive for COVID-19 virus as outpatient about a week ago -CXR shows patchy parenchymal disease which represent pulmonary edema or atypical pneumonia -S/p dexamethasone, azithromycin and cefepime in the ED -Placed on dexamethasone for total 10 days and remdesivir total 5 days -Monitor procalcitonin level for IV antibiotic therapy -Infectious disease consulted, appreciate recommendations -Droplet/contact isolation -Continue SPO2 monitoring -Supplemental oxygen as needed -Pulmonary hygiene -Prone to sleep -Vitamin C, vitamin D, zinc -Anticoagulation per protocol --Lasix IV as needed to prevent pulmonary edema Morbid obesity, exercise or dietary recommendation when clinically more stable Acute exacerbation of asthma due to underlying pneumonia -Continue to treat for COVID-19 pneumonia, scheduled nebulizer breathing treatment and empiric steroid Chronic back pain, supportive care and pain management as needed History of migraine, patient does not have any issue currently, outpatient follow-up DVT prophylaxis, continue Lovenox Full CODE STATUS Prognosis guarded The high probability of a clinically significant, sudden or life threatening d eterioration of the [respiratory, CVS] system(s) required my full and direct attention, intervention and personal management. The aggregate critical care time was [32] minutes. This time is in addition to time spent performing reported procedures but includes the following: [x] Data Review and interpretation [x] Patient assessment and monitoring of vital signs [x] Documentation [x] Medication orders and management Daily clinical course: 09/24/2020: Patient placed on high flow oxygen today 85% FiO2 with 25 L oxygen per minute. continue empiric steroid, IV remdesivir and dexamethasone. Supplemental O2 to keep oxygenation greater than 92%. ID following continue supportive care follow inflammatory markers.. 09/25/20: Remains on high flow O2, oxygen requirement has gone up today From 85% FiO2 100% FiO2. Repeat chest x-ray, continue dexamethasone and remdesivir. Follow inflammatory markers, procalcitonin level is low. 09/26/20; patient transferred to [facility] overnight due to increased requirement of oxygen. Chest x-ray today showed worsening pneumonia. Patient currently on high flow O2 and so with nonrebreather. Continue to follow inflammatory amie ers, continue remdesivir and empiric steroid along with scheduled nebulizer breathing treatment. Subjective Date of service: 09/26/20 Interval history: Patient seen and examined. Medical records and medication list reviewed. No acute event overnight noted by the RN. Patient have significant difficulty breathing even on resting requiring high flow oxygen to maintain oxygenation Discussed plan of care at bedside with patient. Objective - Exam Narrative Exam: Limited physical exam due to COVID-19 pandemic to minimize transmission of the disease and to preserve PPE. Vital reviewed and stable. GENERAL: well-developed morbidly obese -Cymro female lying on bed appeared to be in no discomfort. HEENT: Normocephalic. Atraumatic. NECK: Supple. CHEST/LUNGS: breathing nonlabored. HEART/CARDIOVASCULAR: Heart rate stable on telemetry ABDOMEN: Visibly not distended SKIN: There is no rash NEURO: No focal motor deficit. Follows command. MUSCULOSKELETAL: No joint effusion EXTRIMITY: No swelling, no cyanosis or clubbing. PSYCH: Cooperative. - Constitutional Vitals: Vital Signs - 12hr 09/26/20 09/26/20 09/26/20 04:51 05:00 05:11 Temperature Pulse Rate 83 81 88 Pulse Rate [ From Monitor] Pulse Rate [ Posterior Bilateral Throughout] Respiratory 24 26 H 28 H Rate Respiratory Rate [Posterior Bilateral Throughout] Blood Pressure 138/80 136/91 136/91 O2 Sat by Pulse 97 95 Oximetry 09/26/20 09/26/20 09/26/20 05:21 05:31 05:35 Temperature Pulse Rate 81 83 88 Pulse Rate [ From Monitor] Pulse Rate [ Posterior Bilateral Throughout] Respiratory 24 19 24 Rate Respiratory Rate [Posterior Bilateral Throughout] Blood Pressure 136/91 136/91 138/80 O2 Sat by Pulse 94 95 95 Oximetry 09/26/20 09/26/20 09/26/20 05:41 05:51 06:00 Temperature Pulse Rate 84 85 82 Pulse Rate [ From Monitor] Pulse Rate [ Posterior Bilateral Throughout] Respiratory 24 26 H 27 H Rate Respiratory Rate [Posterior Bilateral Throughout] Blood Pressure 136/91 136/91 150/92 O2 Sat by Pulse 92 94 93 Oximetry 09/26/20 09/26/20 09/26/20 06:11 06:21 06:31 Temperature Pulse Rate 81 81 83 Pulse Rate [ From Monitor] Pulse Rate [ Posterior Bilateral Throughout] Respiratory 29 H 30 H 26 H Rate Respiratory Rate [Posterior Bilateral Throughout] Blood Pressure 150/92 150/92 150/92 O2 Sat by Pulse 92 94 92 Oximetry 09/26/20 09/26/20 09/26/20 06:41 06:51 07:00 Temperature Pulse Rate 81 77 80 Pulse Rate [ From Monitor] Pulse Rate [ Posterior Bilateral Throughout] Respiratory 29 H 34 H 31 H Rate Respiratory Rate [Posterior Bilateral Throughout] Blood Pressure 150/92 150/92 158/89 O2 Sat by Pulse 93 92 93 Oximetry 09/26/20 09/26/20 09/26/20 07:11 07:21 07:31 Temperature Pulse Rate 76 77 81 Pulse Rate [ From Monitor] Pulse Rate [ Posterior Bilateral Throughout] Respiratory 29 H 32 H 29 H Rate Respiratory Rate [Posterior Bilateral Throughout] Blood Pressure 158/89 158/89 158/89 O2 Sat by Pulse 95 99 93 Oximetry 09/26/20 09/26/20 09/26/20 07:40 07:44 07:51 Temperature 97.6 F Pulse Rate 78 81 Pulse Rate [ From Monitor] Pulse Rate [ Posterior Bilateral Throughout] Respiratory 30 H 29 H Rate Respiratory Rate [Posterior Bilateral Throughout] Blood Pressure 139/90 158/89 O2 Sat by Pulse 93 93 Oximetry 09/26/20 09/26/20 09/26/20 08:00 08:11 08:21 Temperature Pulse Rate 82 89 98 H Pulse Rate [ 25 L From Monitor] Pulse Rate [ 95 H Posterior Bilateral Throughout] Respiratory 28 H 26 H 26 H Rate Respiratory 25 H Rate [Posterior Bilateral Throughout] Blood Pressure 132/89 132/89 132/89 O2 Sat by Pulse 94 93 85 Oximetry 09/26/20 09/26/20 09/26/20 08:31 08:41 08:51 Temperature Pulse Rate 87 89 90 Pulse Rate [ From Monitor] Pulse Rate [ Posterior Bilateral Throughout] Respiratory 31 H 15 36 H Rate Respiratory Rate [Posterior Bilateral Throughout] Blood Pressure 132/89 132/89 132/89 O2 Sat by Pulse 91 87 75 L Oximetry 09/26/20 09/26/20 09/26/20 09:01 09:11 09:21 Temperature Pulse Rate 92 H 84 87 Pulse Rate [ From Monitor] Pulse Rate [ Posterior Bilateral Throughout] Respiratory 35 H 27 H 19 Rate Respiratory Rate [Posterior Bilateral Throughout] Blood Pressure 156/97 156/97 156/97 O2 Sat by Pulse 82 L 80 L 85 Oximetry 09/26/20 09/26/20 09/26/20 09:31 09:41 09:50 Temperature Pulse Rate 87 90 87 Pulse Rate [ From Monitor] Pulse Rate [ Posterior Bilateral Throughout] Respiratory 33 H 24 30 H Rate Respiratory Rate [Posterior Bilateral Throughout] Blood Pressure 156/97 156/97 156/97 O2 Sat by Pulse 86 85 88 Oximetry 09/26/20 09/26/20 09/26/20 10:00 10:10 10:20 Temperature Pulse Rate 86 81 80 Pulse Rate [ From Monitor] Pulse Rate [ Posterior Bilateral Throughout] Respiratory 30 H 34 H 36 H Rate Respiratory Rate [Posterior Bilateral Throughout] Blood Pressure 138/85 156/97 156/97 O2 Sat by Pulse 89 93 95 Oximetry 09/26/20 09/26/20 09/26/20 10:30 10:40 10:50 Temperature Pulse Rate 82 83 86 Pulse Rate [ From Monitor] Pulse Rate [ Posterior Bilateral Throughout] Respiratory 33 H 32 H 19 Rate Respiratory Rate [Posterior Bilateral Throughout] Blood Pressure 156/97 156/97 138/85 O2 Sat by Pulse 93 95 94 Oximetry 09/26/20 09/26/20 09/26/20 11:00 11:10 11:20 Temperature Pulse Rate 90 91 H 84 Pulse Rate [ From Monitor] Pulse Rate [ Posterior Bilateral Throughout] Respiratory 26 H 21 29 H Rate Respiratory Rate [Posterior Bilateral Throughout] Blood Pressure 138/85 155/92 155/92 O2 Sat by Pulse 90 92 95 Oximetry 09/26/20 09/26/20 09/26/20 11:30 11:40 11:50 Temperature Pulse Rate 88 86 97 H Pulse Rate [ From Monitor] Pulse Rate [ Posterior Bilateral Throughout] Respiratory 24 29 H 20 Rate Respiratory Rate [Posterior Bilateral Throughout] Blood Pressure 155/92 155/92 155/92 O2 Sat by Pulse 90 95 91 Oximetry 09/26/20 09/26/20 09/26/20 12:00 12:10 12:20 Temperature 97.7 F Pulse Rate 86 88 111 H Pulse Rate [ From Monitor] Pulse Rate [ Posterior Bilateral Throughout] Respiratory 35 H 35 H 36 H Rate Respiratory Rate [Posterior Bilateral Throughout] Blood Pressure 132/87 132/87 132/87 O2 Sat by Pulse 94 88 87 Oximetry 09/26/20 09/26/20 09/26/20 12:30 12:40 12:50 Temperature Pulse Rate 116 H 116 H 114 H Pulse Rate [ From Monitor] Pulse Rate [ Posterior Bilateral Throughout] Respiratory 28 H 30 H 31 H Rate Respiratory Rate [Posterior Bilateral Throughout] Blood Pressure 132/87 132/87 132/87 O2 Sat by Pulse 89 86 83 L Oximetry 09/26/20 09/26/20 09/26/20 13:00 13:10 13:20 Temperature Pulse Rate 113 H 117 H 113 H Pulse Rate [ From Monitor] Pulse Rate [ Posterior Bilateral Throughout] Respiratory 32 H 35 H 27 H Rate Respiratory Rate [Posterior Bilateral Throughout] Blood Pressure 149/98 149/98 149/98 O2 Sat by Pulse 83 L 79 L 82 L Oximetry 09/26/20 09/26/20 09/26/20 13:30 13:40 13:50 Temperature Pulse Rate 116 H 111 H 112 H Pulse Rate [ From Monitor] Pulse Rate [ Posterior Bilateral Throughout] Respiratory 25 H 24 26 H Rate Respiratory Rate [Posterior Bilateral Throughout] Blood Pressure 149/98 149/98 149/98 O2 Sat by Pulse 80 L 87 86 Oximetry 09/26/20 09/26/20 09/26/20 14:00 14:10 14:20 Temperature Pulse Rate 112 H 110 H 110 H Pulse Rate [ From Monitor] Pulse Rate [ Posterior Bilateral Throughout] Respiratory 31 H 29 H 28 H Rate Respiratory Rate [Posterior Bilateral Throughout] Blood Pressure 140/99 140/99 140/99 O2 Sat by Pulse 88 91 93 Oximetry 09/26/20 09/26/20 09/26/20 14:30 14:40 14:50 Temperature Pulse Rate 107 H 105 H 105 H Pulse Rate [ From Monitor] Pulse Rate [ Posterior Bilateral Throughout] Respiratory 30 H 37 H 36 H Rate Respiratory Rate [Posterior Bilateral Throughout] Blood Pressure 140/99 140/99 140/99 O2 Sat by Pulse 94 93 93 Oximetry 09/26/20 09/26/20 09/26/20 15:00 15:10 16:00 Temperature 97.8 F Pulse Rate 108 H 110 H Pulse Rate [ From Monitor] Pulse Rate [ Posterior Bilateral Throughout] Respiratory 30 H 30 H Rate Respiratory Rate [Posterior Bilateral Throughout] Blood Pressure 134/103 134/103 O2 Sat by Pulse 92 Oximetry - Labs CBC & Chem 7: 09/23/20 08:40 09/26/20 05:56 Labs: Abnormal lab results 09/25/20 09/26/20 09/26/20 Range/Units 22:38 05:56 11:50 Glucose 115 H (65-100) mg/dL POC Glucose 165 H 124 H (70-105) mg/dL Albumin 3.4 L (3.9-5) g/dL 09/26/20 Range/Units 15:24 Glucose (65-100) mg/dL POC Glucose 184 H (70-105) mg/dL Albumin (3.9-5) g/dL HEART Score - HEART Score Troponin: Troponin T < 0.010 ng/mL (0.00-0.029) 09/23/20 08:02
--- NOTE | 2020-09-26 17:13 | Progress Note ---
Assessment and Plan Cultures: SARS CoV2 PCR: Positive as outpatient A/P: 44-year-old female with asthma, migraine, morbid obesity admitted with: #Bilateral pneumonia: Likely secondary to COVID-19. Procal is low. #Acute hypoxic respiratory failure: On HF nasal cannula. #Morbid obesity Recs: -continue IV/PO Dexamethasone x 10 days. Given HFNC and rise in CRP, dose of dexa increased to 8 mg/kg -continue IV remdesivir x 5 days -Now in IMCU requiring high flow nasal cannula. Ordered Actemra 09/26/2020 -prophylactic anticoagulation based on d-dimer per hospital protocol -trend ferritin, LDH, d-dimer, CRP every 2-3 days for risk stratification and to assess disease progression Silvia Webster MD [facility] O: [phone] F: [phone] Subjective Date of service: 09/26/20 Interval history: Afebrile, remains tachycardic. Transferred to the IM. Imaging personally reviewed: Chest x-ray: Worsening airspace disease. Objective - Exam Narrative Exam: Physical exam deferred to reduce risk of transmission of COVID-19. Please refer to primary team's note. - Constitutional Vitals: Vital Signs Temp Pulse Resp BP Pulse Ox 97.8 F 110 H 30 H 134/103 92 09/26/20 16:00 09/26/20 15:10 09/26/20 15:10 09/26/20 15:10 09/26/20 15:10 Temperature -Last 24 Hours Temperature 97.8 F Temperature 97.7 F Temperature 97.6 F Temperature 99.3 F Temperature 99.7 F Temperature 98.6 F - Labs CBC & Chem 7: 09/23/20 08:40 09/26/20 05:56 Labs: Abnormal lab results 09/25/20 09/26/20 09/26/20 Range/Units 22:38 05:56 11:50 Glucose 115 H (65-100) mg/dL POC Glucose 165 H 124 H (70-105) mg/dL Albumin 3.4 L (3.9-5) g/dL 09/26/20 Range/Units 15:24 Glucose (65-100) mg/dL POC Glucose 184 H (70-105) mg/dL Albumin (3.9-5) g/dL
[2020-09-26] MEDS ORDERED: TOCILIZUMAB 800 MG in SODIUM CHLORIDE 0.9% 100 ML IV ONE (18:00)
--- NOTE | 2020-09-26 18:47 | Progress Note ---
Assessment and Plan Acute hypoxemic respiratory failure Bilateral pneumonia COVID-19 infection Morbid obesity History of asthma Hypokalemia Asthma exacerbation History of migraines Chronic low back pain - continue BIPAP scheduled qhs - continue to wean supplemental oxygen for target O2 sat's > 92% acutely - aspiration precautions - continue bronchodilators with pulmonary hygiene per RT - accuchecks with glycemic control per SSI (While critically ill target blood glucose of 140-180 mg/dL; avoid hypoglycemia) - avoid nephrotoxins, renally dose all medications - continue to avoid benzodiazepine's, reduce the possibility of delirium - complete antiinfective's per ID recommendations - prn analgesia per pain score - Maintenance of sleep-wake cycle, avoid delirium - G.I. & VTE prophylaxis - PT/OT/ROM exercises - continue mobility protocols for pressure ulcer prophylaxis - Monitor hemodynamics closely - continue other care per attending / other consultants - discharge planning ongoing concurrently COVID SPECIFIC INTERVENTIONS - Remdesivir as per ID/Pulmonary developed protocols - continue systemic steroids for severe COVID-19 infection empirically - follow repeat COVID tests results - zinc and vitamin C supplementation - Monitor inflammatory markers per facility protocol - ferritin, Ddimer, CRP - therapeutic anticoagulation per system Protocol based on d-dimer and clinical considerations (not a candidate) - Continue contact and airborne isolation .... Re-evaluate in am & prn CONDITION: CRITICAL PROGNOSIS: GUARDED CODE STATUS: FULL CODE The high probability of a clinically significant, sudden or life-threatening deterioration of the [respiratory, cardiovascular & infectious disease] system(s ) required my full and direct attention, intervention and personal management. The aggregate critical care time was [33] minutes without overlap. Time includes spent on; [x] Data Review and interpretation [x] Patient assessment and monitoring of vital signs [x] Documentation [x] Medication orders and management Subjective Date of service: 09/26/20 Principal diagnosis: Ac. hypoxemic resp failure; Umesh. Pneumonia; COVID-19; Asthma; Migraines Interval history: Patient is seen today for: Acute hypoxemic respiratory failure; Bilateral pneumonia; COVID-19 infection; Morbid obesity; Asthma; Migraines; Chronic low back pain Seen and examined at bedside; 24hour events reviewed; nursing and respiratory care staff consulted; no adverse overnight events reported to me; resting in bed; remains on 100% FiO2 but feels less SOB; tolerated BIPAP overnight; denies hemoptysis or acute chest pain; No N/V/F/C Objective Vital Signs - 12hr 09/26/20 09/26/20 09/26/20 06:51 07:00 07:11 Temperature Pulse Rate 77 80 76 Pulse Rate [ From Monitor] Pulse Rate [ Posterior Bilateral Throughout] Respiratory 34 H 31 H 29 H Rate Respiratory Rate [Posterior Bilateral Throughout] Blood Pressure 150/92 158/89 158/89 O2 Sat by Pulse 92 93 95 Oximetry 09/26/20 09/26/20 09/26/20 07:21 07:31 07:40 Temperature Pulse Rate 77 81 78 Pulse Rate [ From Monitor] Pulse Rate [ Posterior Bilateral Throughout] Respiratory 32 H 29 H 30 H Rate Respiratory Rate [Posterior Bilateral Throughout] Blood Pressure 158/89 158/89 139/90 O2 Sat by Pulse 99 93 93 Oximetry 09/26/20 09/26/20 09/26/20 07:44 07:51 08:00 Temperature 97.6 F Pulse Rate 81 82 Pulse Rate [ 82 From Monitor] Pulse Rate [ 95 H Posterior Bilateral Throughout] Respiratory 29 H 28 H Rate Respiratory 25 H Rate [Posterior Bilateral Throughout] Blood Pressure 158/89 132/89 O2 Sat by Pulse 93 94 Oximetry 09/26/20 09/26/20 09/26/20 08:11 08:21 08:31 Temperature Pulse Rate 89 98 H 87 Pulse Rate [ From Monitor] Pulse Rate [ Posterior Bilateral Throughout] Respiratory 26 H 26 H 31 H Rate Respiratory Rate [Posterior Bilateral Throughout] Blood Pressure 132/89 132/89 132/89 O2 Sat by Pulse 93 85 91 Oximetry 09/26/20 09/26/20 09/26/20 08:41 08:51 09:01 Temperature Pulse Rate 89 90 92 H Pulse Rate [ From Monitor] Pulse Rate [ Posterior Bilateral Throughout] Respiratory 15 36 H 35 H Rate Respiratory Rate [Posterior Bilateral Throughout] Blood Pressure 132/89 132/89 156/97 O2 Sat by Pulse 87 75 L 82 L Oximetry 09/26/20 09/26/20 09/26/20 09:11 09:21 09:31 Temperature Pulse Rate 84 87 87 Pulse Rate [ From Monitor] Pulse Rate [ Posterior Bilateral Throughout] Respiratory 27 H 19 33 H Rate Respiratory Rate [Posterior Bilateral Throughout] Blood Pressure 156/97 156/97 156/97 O2 Sat by Pulse 80 L 85 86 Oximetry 09/26/20 09/26/20 09/26/20 09:41 09:50 10:00 Temperature Pulse Rate 90 87 86 Pulse Rate [ From Monitor] Pulse Rate [ Posterior Bilateral Throughout] Respiratory 24 30 H 30 H Rate Respiratory Rate [Posterior Bilateral Throughout] Blood Pressure 156/97 156/97 138/85 O2 Sat by Pulse 85 88 89 Oximetry 09/26/20 09/26/20 09/26/20 10:10 10:20 10:30 Temperature Pulse Rate 81 80 82 Pulse Rate [ From Monitor] Pulse Rate [ Posterior Bilateral Throughout] Respiratory 34 H 36 H 33 H Rate Respiratory Rate [Posterior Bilateral Throughout] Blood Pressure 156/97 156/97 156/97 O2 Sat by Pulse 93 95 93 Oximetry 09/26/20 09/26/20 09/26/20 10:40 10:50 11:00 Temperature Pulse Rate 83 86 90 Pulse Rate [ From Monitor] Pulse Rate [ Posterior Bilateral Throughout] Respiratory 32 H 19 26 H Rate Respiratory Rate [Posterior Bilateral Throughout] Blood Pressure 156/97 138/85 138/85 O2 Sat by Pulse 95 94 90 Oximetry 09/26/20 09/26/20 09/26/20 11:10 11:20 11:30 Temperature Pulse Rate 91 H 84 88 Pulse Rate [ From Monitor] Pulse Rate [ Posterior Bilateral Throughout] Respiratory 21 29 H 24 Rate Respiratory Rate [Posterior Bilateral Throughout] Blood Pressure 155/92 155/92 155/92 O2 Sat by Pulse 92 95 90 Oximetry 09/26/20 09/26/20 09/26/20 11:40 11:50 12:00 Temperature 97.7 F Pulse Rate 86 97 H 86 Pulse Rate [ 97 H From Monitor] Pulse Rate [ Posterior Bilateral Throughout] Respiratory 29 H 20 20 Rate Respiratory Rate [Posterior Bilateral Throughout] Blood Pressure 155/92 155/92 132/87 O2 Sat by Pulse 95 91 91 Oximetry 09/26/20 09/26/20 09/26/20 12:10 12:20 12:30 Temperature Pulse Rate 88 111 H 116 H Pulse Rate [ From Monitor] Pulse Rate [ Posterior Bilateral Throughout] Respiratory 35 H 36 H 28 H Rate Respiratory Rate [Posterior Bilateral Throughout] Blood Pressure 132/87 132/87 132/87 O2 Sat by Pulse 88 87 89 Oximetry 09/26/20 09/26/20 09/26/20 12:40 12:50 13:00 Temperature Pulse Rate 116 H 114 H 113 H Pulse Rate [ From Monitor] Pulse Rate [ Posterior Bilateral Throughout] Respiratory 30 H 31 H 32 H Rate Respiratory Rate [Posterior Bilateral Throughout] Blood Pressure 132/87 132/87 149/98 O2 Sat by Pulse 86 83 L 83 L Oximetry 09/26/20 09/26/20 09/26/20 13:10 13:20 13:30 Temperature Pulse Rate 117 H 113 H 116 H Pulse Rate [ From Monitor] Pulse Rate [ Posterior Bilateral Throughout] Respiratory 35 H 27 H 25 H Rate Respiratory Rate [Posterior Bilateral Throughout] Blood Pressure 149/98 149/98 149/98 O2 Sat by Pulse 79 L 82 L 80 L Oximetry 09/26/20 09/26/20 09/26/20 13:40 13:50 14:00 Temperature Pulse Rate 111 H 112 H 112 H Pulse Rate [ From Monitor] Pulse Rate [ Posterior Bilateral Throughout] Respiratory 24 26 H 31 H Rate Respiratory Rate [Posterior Bilateral Throughout] Blood Pressure 149/98 149/98 140/99 O2 Sat by Pulse 87 86 88 Oximetry 09/26/20 09/26/20 09/26/20 14:10 14:20 14:30 Temperature Pulse Rate 110 H 110 H 107 H Pulse Rate [ From Monitor] Pulse Rate [ Posterior Bilateral Throughout] Respiratory 29 H 28 H 30 H Rate Respiratory Rate [Posterior Bilateral Throughout] Blood Pressure 140/99 140/99 140/99 O2 Sat by Pulse 91 93 94 Oximetry 09/26/20 09/26/20 09/26/20 14:40 14:50 15:00 Temperature Pulse Rate 105 H 105 H 108 H Pulse Rate [ From Monitor] Pulse Rate [ Posterior Bilateral Throughout] Respiratory 37 H 36 H 30 H Rate Respiratory Rate [Posterior Bilateral Throughout] Blood Pressure 140/99 140/99 134/103 O2 Sat by Pulse 93 93 Oximetry 09/26/20 09/26/20 09/26/20 15:10 15:20 15:30 Temperature Pulse Rate 110 H 110 H 106 H Pulse Rate [ From Monitor] Pulse Rate [ Posterior Bilateral Throughout] Respiratory 30 H 31 H 20 Rate Respiratory Rate [Posterior Bilateral Throughout] Blood Pressure 134/103 134/103 134/103 O2 Sat by Pulse 92 93 93 Oximetry 09/26/20 09/26/20 09/26/20 15:40 15:50 16:00 Temperature 97.8 F Pulse Rate 115 H 117 H 109 H Pulse Rate [ 109 H From Monitor] Pulse Rate [ Posterior Bilateral Throughout] Respiratory 28 H 21 12 Rate Respiratory Rate [Posterior Bilateral Throughout] Blood Pressure 134/103 134/103 150/102 O2 Sat by Pulse 95 95 96 Oximetry 09/26/20 09/26/20 09/26/20 16:10 16:20 16:30 Temperature Pulse Rate 109 H 105 H 105 H Pulse Rate [ From Monitor] Pulse Rate [ Posterior Bilateral Throughout] Respiratory 23 31 H 35 H Rate Respiratory Rate [Posterior Bilateral Throughout] Blood Pressure 150/102 150/102 150/102 O2 Sat by Pulse 96 94 93 Oximetry 09/26/20 09/26/20 09/26/20 16:40 16:50 17:00 Temperature Pulse Rate 103 H 109 H 111 H Pulse Rate [ From Monitor] Pulse Rate [ Posterior Bilateral Throughout] Respiratory 28 H 22 21 Rate Respiratory Rate [Posterior Bilateral Throughout] Blood Pressure 150/102 150/102 135/98 O2 Sat by Pulse 95 96 95 Oximetry 09/26/20 09/26/20 09/26/20 17:10 17:20 17:30 Temperature Pulse Rate 112 H 108 H 104 H Pulse Rate [ From Monitor] Pulse Rate [ Posterior Bilateral Throughout] Respiratory 19 19 24 Rate Respiratory Rate [Posterior Bilateral Throughout] Blood Pressure 135/98 135/98 135/98 O2 Sat by Pulse 92 95 96 Oximetry 09/26/20 09/26/20 09/26/20 17:40 17:50 18:00 Temperature Pulse Rate 104 H 103 H 103 H Pulse Rate [ From Monitor] Pulse Rate [ Posterior Bilateral Throughout] Respiratory 25 H 32 H 30 H Rate Respiratory Rate [Posterior Bilateral Throughout] Blood Pressure 135/98 135/98 139/100 O2 Sat by Pulse 95 94 93 Oximetry Constitutional: appears uncomfortable, other (middle aged obese female with mildly increased respiratoiry effort at rest ) Eyes: non-icteric ENT: oropharynx moist Neck: supple, no lymphadenopathy, no JVD, other (large neck circumference) Effort: mildly labored Ascultation: Bilateral: rales (bases) Percussion: Bilateral: not dull Cardiovascular: regular rate and rhythm Gastrointestinal: normoactive bowel sounds, soft, non-tender, non-distended (protuberant) Integumentary: normal Extremities: no cyanosis, pulses normal, no ischemia or petechiae, edema (trace) Neurologic: non-focal exam, pupils equal and round, CN II-XII normal, motor strength normal and Psychiatric: mood appropriate, affect normal CBC and BMP: 09/23/20 08:40 09/26/20 05:56 ABG, PT/INR, D-dimer: PT/INR, D-dimer D-Dimer < 135 ng/mlDDU (0-234) 09/25/20 09:57 Abnormal lab findings: Abnormal Labs 09/23/20 09/23/20 09/23/20 05:00 08:02 08:40 WBC 3.4 L MCV 76 L 75 L MCH 25 L 25 L RDW 17.2 H 17.0 H Dixie % (Auto) 9.0 H 9.1 H Baso % (Auto) 1.9 H Lymph # (Auto) 0.7 L Seg Neutrophils % 70.6 H Potassium 3.4 L Glucose 116 H POC Glucose Calcium Lactate Dehydrogenase C-Reactive Protein Albumin 09/23/20 09/23/20 09/23/20 11:54 16:11 18:08 WBC MCV MCH RDW [place] % (Auto) Baso % (Auto) Lymph # (Auto) Seg Neutrophils % Potassium 3.3 L Glucose 213 H POC Glucose 238 H Calcium 8.2 L Lactate Dehydrogenase 358 H C-Reactive Protein 2.10 H Albumin 3.6 L 09/23/20 09/24/20 09/24/20 23:19 07:34 11:47 WBC MCV MCH RDW [place] % (Auto) Baso % (Auto) Lymph # (Auto) Seg Neutrophils % Potassium 3.3 L Glucose 101 H POC Glucose 127 H 125 H Calcium 8.2 L Lactate Dehydrogenase C-Reactive Protein Albumin 3.4 L 09/24/20 09/24/20 09/25/20 18:09 22:57 05:50 WBC MCV MCH RDW [place] % (Auto) Baso % (Auto) Lymph # (Auto) Seg Neutrophils % Potassium Glucose POC Glucose 199 H 116 H Calcium 8.3 L Lactate Dehydrogenase C-Reactive Protein Albumin 3.7 L 09/25/20 09/25/20 09/25/20 07:42 09:57 11:38 WBC MCV MCH RDW [place] % (Auto) Baso % (Auto) Lymph # (Auto) Seg Neutrophils % Potassium Glucose POC Glucose 106 H 142 H Calcium Lactate Dehydrogenase 510 H C-Reactive Protein 6.70 H Albumin 09/25/20 09/25/20 09/26/20 16:29 22:38 05:56 WBC MCV MCH RDW [place] % (Auto) Baso % (Auto) Lymph # (Auto) Seg Neutrophils % Potassium Glucose 115 H POC Glucose 227 H 165 H Calcium Lactate Dehydrogenase C-Reactive Protein Albumin 3.4 L 09/26/20 09/26/20 11:50 15:24 WBC MCV MCH RDW [place] % (Auto) Baso % (Auto) Lymph # (Auto) Seg Neutrophils % Potassium Glucose POC Glucose 124 H 184 H Calcium Lactate Dehydrogenase C-Reactive Protein Albumin Chest x-ray: pending Allied health notes reviewed: nursing
[2020-09-26] MEDS: REMDESIVIR 100 MG in SODIUM CHLORIDE 0.9% 250ML 250 ML IV SCH (21:31)
[2020-09-26] MEDS: ENOXAPARIN 40 MG/0.4 ML INJ SUB-Q SCH (21:50)
[2020-09-26] MEDS: CYCLOBENZAPRINE 10 MG TAB PO PRN (21:58)
[2020-09-26] MEDS: SODIUM CHLORIDE 0.9% 50 ML IVPB IV SCH (22:01)
[2020-09-26] MEDS: HYDROcodone/ACETAMINOPHEN 5-325 MG TAB PO PRN (22:20)
[2020-09-27] MEDS: IPRATROPIUM/ALBUTEROL SULFATE 3 ML AMPUL.NEB IH SCH ×5 (04:17→20:42)
[2020-09-27] MEDS: INSULIN REGULAR, HUMAN 100 UNITS/1 ML SUB-Q SCH ×4 (08:28→22:00)
[2020-09-27] MEDS: dexAMETHasone 4 MG/ML VIAL IV SCH (09:54)
[2020-09-27] MEDS: ASCORBIC ACID 500 MG TAB PO SCH ×2 (09:54→21:15)
[2020-09-27] MEDS: FUROSEMIDE 20 MG/2 ML INJ IV SCH (09:55)
[2020-09-27] MEDS: ZINC SULFATE 220 MG CAP PO SCH ×2 (09:55→21:15)
[2020-09-27] MEDS: guaiFENesin ER 600 MG TAB PO SCH ×2 (09:55→21:15)
[2020-09-27] MEDS: FAMOTIDINE 20 MG TAB PO SCH ×2 (09:55→21:15)
[2020-09-27] MEDS: CHOLECALCIFEROL (VIT D3) 5,000 UNIT TAB PO SCH (09:56)
--- NOTE | 2020-09-27 15:17 | Progress Note ---
Assessment and Plan Acute hypoxic respiratory failure Bilateral COVID-19 pneumonia -Patient tested positive for COVID-19 virus as outpatient about a week ago -CXR shows patchy parenchymal disease which represent pulmonary edema or atypical pneumonia -S/p dexamethasone, azithromycin and cefepime in the ED -Placed on dexamethasone for total 10 days and remdesivir total 5 days -Monitor procalcitonin level for IV antibiotic therapy -Infectious disease consulted, appreciate recommendations -Droplet/contact isolation -Continue SPO2 monitoring -Supplemental oxygen as needed -Pulmonary hygiene -Prone to sleep -Vitamin C, vitamin D, zinc -Anticoagulation per protocol --Lasix IV as needed to prevent pulmonary edema Morbid obesity, exercise or dietary recommendation when clinically more stable Acute exacerbation of asthma due to underlying pneumonia -Continue to treat for COVID-19 pneumonia, scheduled nebulizer breathing treatment and empiric steroid Chronic back pain, supportive care and pain management as needed History of migraine, patient does not have any issue currently, outpatient follow-up DVT prophylaxis, continue Lovenox Full CODE STATUS Prognosis guarded The high probability of a clinically significant, sudden or life threatening de terioration of the [respiratory, CVS] system(s) required my full and direct attention, intervention and personal management. The aggregate critical care time was [32] minutes. This time is in addition to time spent performing reported procedures but includes the following: [x] Data Review and interpretation [x] Patient assessment and monitoring of vital signs [x] Documentation [x] Medication orders and management Daily clinical course: 09/24/2020: Patient placed on high flow oxygen today 85% FiO2 with 25 L oxygen per minute. continue empiric steroid, IV remdesivir and dexamethasone. Supplemental O2 to keep oxygenation greater than 92%. ID following continue supportive care follow inflammatory markers.. 09/25/20: Remains on high flow O2, oxygen requirement has gone up today From 85% FiO2 100% FiO2. Repeat chest x-ray, continue dexamethasone and remdesivir. Follow inflammatory markers, procalcitonin level is low. 09/26/20; patient transferred to IMCU overnight due to increased requirement of oxygen. Chest x-ray today showed worsening pneumonia. Patient currently on high flow O2 and so with nonrebreather. Continue to follow inflammatory amie ers, continue remdesivir and empiric steroid along with scheduled nebulizer breathing treatment. Called patient mother and updated in details. 09/27/20: Remains on high flow oxygen on nonrebreather. Continue to wean off O2 as tolerated. Inflammatory markers remain stable. Will complete remdesivir for 5 days and dexamethasone for 10 days. ID and critical care following, appreciate recommendation Subjective Date of service: 09/27/20 Principal diagnosis: Ac. hypoxemic resp failure; Umesh. Pneumonia; COVID-19; Asthma; Migraines Interval history: Patient seen and examined. Medical records and medication list reviewed. No acute event overnight noted by the RN. Patient have significant difficulty breathing even on resting requiring high flow oxygen and nonrebreather to maintain oxygenation Discussed plan of care at bedside with patient. Objective - Exam Narrative Exam: Limited physical exam due to COVID-19 pandemic to minimize transmission of the disease and to preserve PPE. Vital reviewed and stable. GENERAL: well-developed morbidly obese -[place] Citizen female lying on bed appeared to be in no discomfort. HEENT: Normocephalic. Atraumatic. NECK: Supple. CHEST/LUNGS: breathing on high flow oxygen and nonrebreather HEART/CARDIOVASCULAR: Heart rate stable on telemetry ABDOMEN: Visibly not distended SKIN: There is no rash NEURO: No focal motor deficit. Follows command. MUSCULOSKELETAL: No joint effusion EXTRIMITY: No swelling, no cyanosis or clubbing. PSYCH: Cooperative. - Constitutional Vitals: Vital Signs - 12hr 09/27/20 09/27/20 09/27/20 04:00 04:30 04:53 Temperature 97.5 F L Pulse Rate 100 H 109 H 103 H Pulse Rate [ 100 H From Monitor] Pulse Rate [ Posterior Bilateral Throughout] Respiratory 26 H 29 H Rate Respiratory Rate [Posterior Bilateral Throughout] Blood Pressure 135/94 135/94 O2 Sat by Pulse 95 95 Oximetry 09/27/20 09/27/20 09/27/20 05:00 06:00 07:00 Temperature Pulse Rate 104 H 109 H 109 H Pulse Rate [ From Monitor] Pulse Rate [ Posterior Bilateral Throughout] Respiratory 27 H 20 28 H Rate Respiratory Rate [Posterior Bilateral Throughout] Blood Pressure 149/98 152/103 160/109 O2 Sat by Pulse 94 96 87 Oximetry 09/27/20 09/27/20 09/27/20 07:23 07:30 08:00 Temperature 99.6 F Pulse Rate 108 H Pulse Rate [ From Monitor] Pulse Rate [ 112 H Posterior Bilateral Throughout] Respiratory 27 H Rate Respiratory 20 Rate [Posterior Bilateral Throughout] Blood Pressure 160/109 O2 Sat by Pulse 92 94 Oximetry 09/27/20 09/27/20 09/27/20 09:00 09:04 10:00 Temperature Pulse Rate 110 H 117 H 109 H Pulse Rate [ From Monitor] Pulse Rate [ Posterior Bilateral Throughout] Respiratory 26 H 24 Rate Respiratory Rate [Posterior Bilateral Throughout] Blood Pressure 141/90 138/96 O2 Sat by Pulse 94 93 Oximetry 09/27/20 09/27/20 09/27/20 11:00 11:49 12:00 Temperature 98.5 F Pulse Rate 112 H Pulse Rate [ From Monitor] Pulse Rate [ Posterior Bilateral Throughout] Respiratory 33 H Rate Respiratory Rate [Posterior Bilateral Throughout] Blood Pressure 115/73 126/75 O2 Sat by Pulse 90 92 Oximetry 09/27/20 09/27/20 09/27/20 13:00 13:04 13:16 Temperature Pulse Rate 108 H Pulse Rate [ From Monitor] Pulse Rate [ 112 H Posterior Bilateral Throughout] Respiratory Rate Respiratory 18 Rate [Posterior Bilateral Throughout] Blood Pressure 116/83 O2 Sat by Pulse 90 91 Oximetry - Labs CBC & Chem 7: 09/23/20 08:40 09/26/20 05:56 Labs: Abnormal lab results 09/26/20 09/26/20 09/27/20 Range/Units 15:24 21:57 11:36 POC Glucose 184 H 159 H 142 H (70-105) mg/dL HEART Score - HEART Score Troponin: Troponin T < 0.010 ng/mL (0.00-0.029) 09/23/20 08:02
--- NOTE | 2020-09-27 17:07 | Progress Note ---
Assessment and Plan Acute hypoxemic respiratory failure Bilateral pneumonia COVID-19 infection Morbid obesity History of asthma Hypokalemia Asthma exacerbation History of migraines Chronic low back pain - no new issues today, contyinue care as below; - continue BIPAP scheduled qhs (HFNC in daytime if tolerates) - continue to wean supplemental oxygen for target O2 sat's > 92% acutely - aspiration precautions - continue bronchodilators with pulmonary hygiene per RT - accuchecks with glycemic control per SSI (While critically ill target blood glucose of 140-180 mg/dL; avoid hypoglycemia) - avoid nephrotoxins, renally dose all medications - continue to avoid benzodiazepine's, reduce the possibility of delirium - complete antiinfective's per ID recommendations - prn analgesia per pain score - Maintenance of sleep-wake cycle, avoid delirium - G.I. & VTE prophylaxis - PT/OT/ROM exercises - continue mobility protocols for pressure ulcer prophylaxis - Monitor hemodynamics closely - continue other care per attending / other consultants - discharge planning ongoing concurrently COVID SPECIFIC INTERVENTIONS - Remdesivir as per ID/Pulmonary developed protocols - continue systemic steroids for severe COVID-19 infection empirically - follow repeat COVID tests results - zinc and vitamin C supplementation - Monitor inflammatory markers per facility protocol - ferritin, Ddimer, CRP - therapeutic anticoagulation per system Protocol based on d-dimer and clinical considerations (not a candidate) - Continue contact and airborne isolation .... Re-evaluate in am & prn CONDITION: CRITICAL PROGNOSIS: GUARDED CODE STATUS: FULL CODE The high probability of a clinically significant, sudden or life-threatening deterioration of the [respiratory, cardiovascular & infectious disease] system(s) required my full and direct attention, intervention and personal management. The aggregate critical care time was [35] minutes without overlap. Time includes spent on; [x] Data Review and interpretation [x] Patient assessment and monitoring of vital signs [x] Documentation [x] Medication orders and management Subjective Date of service: 09/27/20 Principal diagnosis: Ac. hypoxemic resp failure; Umesh. Pneumonia; COVID-19; Asthma; Migraines Interval history: Patient is seen today for: Acute hypoxemic respiratory failure; Bilateral pneumonia; COVID-19 infection; Morbid obesity; Asthma; Migraines; Chronic low back pain Seen and examined at bedside; 24hour events reviewed; nursing and respiratory care staff consulted; no adverse overnight events reported to me; resting in bed; remains on HFNC @ 100% FiO2 and tolerating BIPAP qhs; No N/V/F/C Objective Vital Signs - 12hr 09/27/20 09/27/20 09/27/20 06:00 07:00 07:23 Temperature 99.6 F Pulse Rate 109 H 109 H Pulse Rate [ Posterior Bilateral Throughout] Respiratory 20 28 H Rate Respiratory Rate [Posterior Bilateral Throughout] Blood Pressure 152/103 160/109 O2 Sat by Pulse 96 87 Oximetry 09/27/20 09/27/20 09/27/20 07:30 08:00 09:00 Temperature Pulse Rate 108 H 110 H Pulse Rate [ 112 H Posterior Bilateral Throughout] Respiratory 27 H 26 H Rate Respiratory 20 Rate [Posterior Bilateral Throughout] Blood Pressure 160/109 141/90 O2 Sat by Pulse 92 94 94 Oximetry 09/27/20 09/27/20 09/27/20 09:04 10:00 11:00 Temperature Pulse Rate 117 H 109 H 112 H Pulse Rate [ Posterior Bilateral Throughout] Respiratory 24 33 H Rate Respiratory Rate [Posterior Bilateral Throughout] Blood Pressure 138/96 115/73 O2 Sat by Pulse 93 90 Oximetry 09/27/20 09/27/20 09/27/20 11:49 12:00 13:00 Temperature 98.5 F Pulse Rate Pulse Rate [ Posterior Bilateral Throughout] Respiratory Rate Respiratory Rate [Posterior Bilateral Throughout] Blood Pressure 126/75 116/83 O2 Sat by Pulse 92 90 Oximetry 09/27/20 09/27/20 09/27/20 13:04 13:16 14:00 Temperature Pulse Rate 108 H 106 H Pulse Rate [ 112 H Posterior Bilateral Throughout] Respiratory 23 Rate Respiratory 18 Rate [Posterior Bilateral Throughout] Blood Pressure 125/84 O2 Sat by Pulse 91 91 Oximetry 09/27/20 09/27/20 15:00 16:00 Temperature 98.7 F Pulse Rate 105 H Pulse Rate [ Posterior Bilateral Throughout] Respiratory 37 H Rate Respiratory Rate [Posterior Bilateral Throughout] Blood Pressure 124/85 O2 Sat by Pulse 96 Oximetry Constitutional: appears uncomfortable, other (middle aged obese female with mildly increased respiratoiry effort at rest ) Eyes: non-icteric ENT: oropharynx moist Neck: supple, no lymphadenopathy, no JVD, other (large neck circumference) Effort: mildly labored Ascultation: Bilateral: rales (bases) Percussion: Bilateral: not dull Cardiovascular: regular rate and rhythm Gastrointestinal: normoactive bowel sounds, soft, non-tender, non-distended (protuberant) Integumentary: normal Extremities: no cyanosis, pulses normal, no ischemia or petechiae, edema (trace) Neurologic: non-focal exam, pupils equal and round, CN II-XII normal, motor strength normal and Psychiatric: mood appropriate, affect normal CBC and BMP: 09/29/20 05:10 10/01/20 Unknown ABG, PT/INR, D-dimer: PT/INR, D-dimer D-Dimer < 135 ng/mlDDU (0-234) 09/25/20 09:57 Abnormal lab findings: Abnormal Labs 09/23/20 09/23/20 09/23/20 05:00 08:02 08:40 WBC 3.4 L MCV 76 L 75 L MCH 25 L 25 L RDW 17.2 H 17.0 H [place] % (Auto) 9.0 H 9.1 H Baso % (Auto) 1.9 H Lymph # (Auto) 0.7 L Seg Neutrophils % 70.6 H Potassium 3.4 L Glucose 116 H POC Glucose Calcium Lactate Dehydrogenase C-Reactive Protein Albumin 09/23/20 09/23/20 09/23/20 11:54 16:11 18:08 WBC MCV MCH RDW [place] % (Auto) Baso % (Auto) Lymph # (Auto) Seg Neutrophils % Potassium 3.3 L Glucose 213 H POC Glucose 238 H Calcium 8.2 L Lactate Dehydrogenase 358 H C-Reactive Protein 2.10 H Albumin 3.6 L 09/23/20 09/24/20 09/24/20 23:19 07:34 11:47 WBC MCV MCH RDW [place] % (Auto) Baso % (Auto) Lymph # (Auto) Seg Neutrophils % Potassium 3.3 L Glucose 101 H POC Glucose 127 H 125 H Calcium 8.2 L Lactate Dehydrogenase C-Reactive Protein Albumin 3.4 L 09/24/20 09/24/20 09/25/20 18:09 22:57 05:50 WBC MCV MCH RDW [place] % (Auto) Baso % (Auto) Lymph # (Auto) Seg Neutrophils % Potassium Glucose POC Glucose 199 H 116 H Calcium 8.3 L Lactate Dehydrogenase C-Reactive Protein Albumin 3.7 L 09/25/20 09/25/20 09/25/20 07:42 09:57 11:38 WBC MCV MCH RDW [place] % (Auto) Baso % (Auto) Lymph # (Auto) Seg Neutrophils % Potassium Glucose POC Glucose 106 H 142 H Calcium Lactate Dehydrogenase 510 H C-Reactive Protein 6.70 H Albumin 09/25/20 09/25/20 09/26/20 16:29 22:38 05:56 WBC MCV MCH RDW [place] % (Auto) Baso % (Auto) Lymph # (Auto) Seg Neutrophils % Potassium Glucose 115 H POC Glucose 227 H 165 H Calcium Lactate Dehydrogenase C-Reactive Protein Albumin 3.4 L 09/26/20 09/26/20 09/26/20 11:50 15:24 21:57 WBC MCV MCH RDW [place] % (Auto) Baso % (Auto) Lymph # (Auto) Seg Neutrophils % Potassium Glucose POC Glucose 124 H 184 H 159 H Calcium Lactate Dehydrogenase C-Reactive Protein Albumin 09/27/20 09/27/20 11:36 16:05 WBC MCV MCH RDW [place] % (Auto) Baso % (Auto) Lymph # (Auto) Seg Neutrophils % Potassium Glucose POC Glucose 142 H 177 H Calcium Lactate Dehydrogenase C-Reactive Protein Albumin Allied health notes reviewed: nursing
[2020-09-27] MEDS: REMDESIVIR 100 MG in SODIUM CHLORIDE 0.9% 250ML 250 ML IV SCH (21:14)
[2020-09-27] MEDS: ENOXAPARIN 40 MG/0.4 ML INJ SUB-Q SCH (21:15)
[2020-09-27] MEDS: SODIUM CHLORIDE 0.9% 50 ML IVPB IV SCH (21:17)
[2020-09-28] MEDS: IPRATROPIUM/ALBUTEROL SULFATE 3 ML AMPUL.NEB IH SCH ×4 (01:27→20:19)
[2020-09-28] MEDS: INSULIN REGULAR, HUMAN 100 UNITS/1 ML SUB-Q SCH ×4 (07:32→22:00)
[2020-09-28] MEDS: ASCORBIC ACID 500 MG TAB PO SCH ×2 (10:04→22:01)
[2020-09-28] MEDS: guaiFENesin ER 600 MG TAB PO SCH ×2 (10:04→22:00)
[2020-09-28] MEDS: ZINC SULFATE 220 MG CAP PO SCH ×2 (10:04→22:01)
[2020-09-28] MEDS: CHOLECALCIFEROL (VIT D3) 5,000 UNIT TAB PO SCH (10:04)
[2020-09-28] MEDS: FUROSEMIDE 20 MG/2 ML INJ IV SCH (10:04)
[2020-09-28] MEDS: dexAMETHasone 4 MG/ML VIAL IV SCH (10:05)
[2020-09-28] MEDS: FAMOTIDINE 20 MG TAB PO SCH ×2 (10:05→22:00)
--- NOTE | 2020-09-28 11:52 | Progress Note ---
Assessment and Plan Cultures: SARS CoV2 PCR: Positive as outpatient A/P: 44-year-old female with asthma, migraine, morbid obesity admitted with: #Bilateral pneumonia: Likely secondary to COVID-19. Procal is low. #Acute hypoxic respiratory failure: On HF nasal cannula. #Morbid obesity Recs: -Continue higher dose dexamethasone, complete 10 days -Completed remdesivir -Status post Actemra on 09/26/2020 -prophylactic anticoagulation based on d-dimer per hospital protocol -trend ferritin, LDH, d-dimer, CRP every 2-3 days for risk stratification and to assess disease progression Rosibel Romero MD, FACP [facility] O: [phone] F: [phone] Subjective Date of service: 09/28/20 Principal diagnosis: Ac. hypoxemic resp failure; Umesh. Pneumonia; COVID-19; Ast hma; Migraines Interval history: No fever. Remains on HFNC. Now in IMCU. Objective - Exam Narrative Exam: Physical Exam (reviewed in chart to minimize risk of transmission) Constitutional: deferred Head, Ears, Nose: deferred Eyes: deferred Neck: deferred Oral: deferred Cardiovascular: deferred Respiratory: deferred GI: deferred Musculoskeletal: deferred Skin: deferred Hem/Lymphatic: deferred Psych: deferred Neurological: deferred - Constitutional Vitals: Vital Signs Temp Pulse Resp BP Pulse Ox 98.3 F 96 H 21 136/86 99 09/28/20 08:00 09/28/20 11:09 09/28/20 11:09 09/28/20 10:00 09/28/20 11:09 Temperature -Last 24 Hours Temperature 98.3 F Temperature 98.9 F Temperature 99.2 F Temperature 98.4 F Temperature 98.7 F - Labs CBC & Chem 7: 09/23/20 08:40 09/26/20 05:56 Labs: Abnormal lab results 09/27/20 09/27/20 Range/Units 16:05 21:44 POC Glucose 177 H 138 H (70-105) mg/dL
[2020-09-28] MEDS: HYDROcodone/ACETAMINOPHEN 5-325 MG TAB PO PRN (12:45)
--- NOTE | 2020-09-28 13:50 | Progress Note ---
Assessment and Plan Patient is a 44-year-old -[place] female with a history of asthma, migraine headaches and chronic low back pain, morbid obesity who tested positive for COVID-19 about a week ago presents to the ED with complaint of acute onset persistent worsening diffuse body aches and pains, nasal and sinus congestion, persistent dry cough with shortness of breath and wheezing for the last 1 week. Patient states that she has been taking azithromycin and Medrol Dosepak at home but no improvement of her symptoms. Patient states that she did not receive COVID-19 vaccine. In the ER patient noted to be hypoxic, chest x-ray suggestive of bilateral pulmonary infiltrates due to atypical pneumonia. Patient placed on supplemental O2 started on empiric steroid, and empiric antibiotics . Patient sleeping at this time. Patient is on Vapotherm 100% and O2 saturation running 96%. Patient has mild respiratory distress at rest. Patient afebrile.No leukocytosis. Chest xray 09/25/20 reported worsening pulmonary air space disease. Patient is on Dexamethasone,S/C Lovenox, Famotidine and albuterol/atrovent aerosol treatments. Recommend to convert albuterol/atrovent inhalers. Patient also received REMDESIVIR. Patient was seen in IMCU. I spent critical care time of 40 minutes, reviewing the chart, examine the patient, review labs, chest xray talking to the respiratory therapy, nursing staff and work out plan of treatment in this critically ill COID 19 patient. - Patient Problems (1) Acute respiratory failure with hypoxia Current Visit: Yes Status: Acute Plan to address problem: Vapotherm , FIO2 100% Continue dexamethasone. Continue S/C Lovenox. Continue Famotidine. Albuterol/atrovent inhalers q 6 hours prn for shortness of breath. (2) History of asthma Current Visit: Yes Status: Acute Plan to address problem: Vapotherm , FIO2 100% Continue dexamethasone. Continue S/C Lovenox. Continue Famotidine. Albuterol/atrovent inhalers q 6 hours prn for shortness of breath. (3) Pneumonia due to 2019 novel coronavirus Current Visit: Yes Status: Acute Plan to address problem: Patient treated with ceftriaxone. (4) Obesity (BMI 30-39.9) Current Visit: Yes Status: Acute Plan to address problem: Recommend to loose weight. Recommend diet and exercise after improving from this condition. Subjective Date of service: 09/28/20 Principal diagnosis: Ac. hypoxemic resp failure; Umesh. Pneumonia; COVID-19; Asthma; Migraines Interval history: Patient is a 44-year-old -[place] female with a history of asthma, migraine headaches and chronic low back pain, morbid obesity who tested positive for COVID-19 about a week ago presents to the ED with complaint of acute onset persistent worsening diffuse body aches and pains, nasal and sinus congestion, persistent dry cough with shortness of breath and wheezing for the last 1 week. Patient states that she has been taking azithromycin and Medrol Dosepak at home but no improvement of her symptoms. Patient states that she did not receive COVID-19 vaccine. In the ER patient noted to be hypoxic, chest x-ray suggestive of bilateral pulmonary infiltrates due to atypical pneumonia. Patient placed on supplemental O2 started on empiric steroid, and empiric antibiotics . Patient sleeping at this time. Patient is on Vapotherm 100% and O2 saturation running 96%. Patient has mild respiratory distress at rest. Patient afebrile.No leukocytosis. Chest xray 09/25/20 reported worsening pulmonary air space disease. Patient is on Dexamethasone,S/C Lovenox, Famotidine and albuterol/atrovent aeros ol treatments. Recommend to convert albuterol/atrovent inhalers. Patient also received REMDESIVIR. Objective Vital Signs - 12hr 09/28/20 09/28/20 09/28/20 02:00 03:00 03:55 Temperature 98.9 F Pulse Rate 81 82 Pulse Rate [ Anterior Bilateral Throughout] Pulse Rate [ From Monitor] Respiratory 28 H 10 L Rate Respiratory Rate [Anterior Bilateral Throughout] Blood Pressure 134/87 142/93 O2 Sat by Pulse 95 95 Oximetry 09/28/20 09/28/20 09/28/20 04:00 05:00 05:26 Temperature Pulse Rate 81 82 Pulse Rate [ Anterior Bilateral Throughout] Pulse Rate [ 81 From Monitor] Respiratory 37 H 29 H Rate Respiratory Rate [Anterior Bilateral Throughout] Blood Pressure 142/93 142/93 O2 Sat by Pulse 95 91 91 Oximetry 09/28/20 09/28/20 09/28/20 06:00 07:00 07:12 Temperature Pulse Rate 80 83 Pulse Rate [ 90 Anterior Bilateral Throughout] Pulse Rate [ From Monitor] Respiratory 14 26 H Rate Respiratory 22 Rate [Anterior Bilateral Throughout] Blood Pressure 114/74 138/89 O2 Sat by Pulse 100 96 92 Oximetry 09/28/20 09/28/20 09/28/20 07:33 08:00 09:00 Temperature 98.3 F Pulse Rate 87 89 86 Pulse Rate [ Anterior Bilateral Throughout] Pulse Rate [ From Monitor] Respiratory 15 39 H Rate Respiratory Rate [Anterior Bilateral Throughout] Blood Pressure 138/86 122/76 O2 Sat by Pulse 91 92 Oximetry 09/28/20 09/28/20 09/28/20 10:00 11:09 12:00 Temperature Pulse Rate 93 H 96 H Pulse Rate [ Anterior Bilateral Throughout] Pulse Rate [ From Monitor] Respiratory 26 H 21 18 Rate Respiratory Rate [Anterior Bilateral Throughout] Blood Pressure 136/86 129/80 O2 Sat by Pulse 91 99 93 Oximetry 09/28/20 09/28/20 13:00 13:02 Temperature Pulse Rate 79 Pulse Rate [ 81 Anterior Bilateral Throughout] Pulse Rate [ From Monitor] Respiratory Rate Respiratory 20 Rate [Anterior Bilateral Throughout] Blood Pressure 129/80 O2 Sat by Pulse 96 95 Oximetry Constitutional: no acute distress, asleep, other (middle aged obese female with mildly increased respiratoiry effort at rest ) Eyes: non-icteric ENT: oropharynx moist Neck: supple, no lymphadenopathy, no JVD, other (large neck circumference) Effort: mildly labored Ascultation: Bilateral: rales (bases) Percussion: Bilateral: not dull Cardiovascular: regular rate and rhythm Gastrointestinal: normoactive bowel sounds, soft, non-tender, non-distended (protuberant) Integumentary: normal Extremities: no cyanosis, pulses normal, no ischemia or petechiae, edema (trace) Neurologic: non-focal exam, pupils equal and round, CN II-XII normal Psychiatric: other (Patient sleeping at this time.) CBC and BMP: 09/23/20 08:40 09/26/20 05:56 ABG, PT/INR, D-dimer: PT/INR, D-dimer D-Dimer < 135 ng/mlDDU (0-234) 09/25/20 09:57 Abnormal lab findings: Abnormal Labs 09/23/20 09/23/20 09/23/20 05:00 08:02 08:40 WBC 3.4 L MCV 76 L 75 L MCH 25 L 25 L RDW 17.2 H 17.0 H [place] % (Auto) 9.0 H 9.1 H Baso % (Auto) 1.9 H Lymph # (Auto) 0.7 L Seg Neutrophils % 70.6 H Potassium 3.4 L Glucose 116 H POC Glucose Calcium Lactate Dehydrogenase C-Reactive Protein Albumin 09/23/20 09/23/20 09/23/20 11:54 16:11 18:08 WBC MCV MCH RDW [place] % (Auto) Baso % (Auto) Lymph # (Auto) Seg Neutrophils % Potassium 3.3 L Glucose 213 H POC Glucose 238 H Calcium 8.2 L Lactate Dehydrogenase 358 H C-Reactive Protein 2.10 H Albumin 3.6 L 09/23/20 09/24/20 09/24/20 23:19 07:34 11:47 WBC MCV MCH RDW [place] % (Auto) Baso % (Auto) Lymph # (Auto) Seg Neutrophils % Potassium 3.3 L Glucose 101 H POC Glucose 127 H 125 H Calcium 8.2 L Lactate Dehydrogenase C-Reactive Protein Albumin 3.4 L 09/24/20 09/24/20 09/25/20 18:09 22:57 05:50 WBC MCV MCH RDW [place] % (Auto) Baso % (Auto) Lymph # (Auto) Seg Neutrophils % Potassium Glucose POC Glucose 199 H 116 H Calcium 8.3 L Lactate Dehydrogenase C-Reactive Protein Albumin 3.7 L 09/25/20 09/25/20 09/25/20 07:42 09:57 11:38 WBC MCV MCH RDW [place] % (Auto) Baso % (Auto) Lymph # (Auto) Seg Neutrophils % Potassium Glucose POC Glucose 106 H 142 H Calcium Lactate Dehydrogenase 510 H C-Reactive Protein 6.70 H Albumin 09/25/20 09/25/20 09/26/20 16:29 22:38 05:56 WBC MCV MCH RDW [place] % (Auto) Baso % (Auto) Lymph # (Auto) Seg Neutrophils % Potassium Glucose 115 H POC Glucose 227 H 165 H Calcium Lactate Dehydrogenase C-Reactive Protein Albumin 3.4 L 09/26/20 09/26/20 09/26/20 11:50 15:24 21:57 WBC MCV MCH RDW [place] % (Auto) Baso % (Auto) Lymph # (Auto) Seg Neutrophils % Potassium Glucose POC Glucose 124 H 184 H 159 H Calcium Lactate Dehydrogenase C-Reactive Protein Albumin 09/27/20 09/27/20 09/27/20 11:36 16:05 21:44 WBC MCV MCH RDW [place] % (Auto) Baso % (Auto) Lymph # (Auto) Seg Neutrophils % Potassium Glucose POC Glucose 142 H 177 H 138 H Calcium Lactate Dehydrogenase C-Reactive Protein Albumin Chest x-ray: report reviewed, image reviewed Additional Studies: XR chest 1V ap 09/25/20 INDICATION / CLINICAL INFORMATION: SOB. COMPARISON: 09/23/2020 FINDINGS: SUPPORT DEVICES: None. HEART /PULMONARY VASCULATURE: No significant abnormality. LUNGS / PLEURA: Worsening bilateral airspace disease, particularly within the right upper lung and left lung base. No pleural effusion. No evidence pneumothorax. ADDITIONAL FINDINGS: No significant additional findings. IMPRESSION: Worsening pulmonary airspace disease. Allied health notes reviewed: nursing
--- NOTE | 2020-09-28 17:10 | Progress Note ---
Assessment and Plan Acute hypoxic respiratory failure Bilateral COVID-19 pneumonia -Patient tested positive for COVID-19 virus as outpatient about a week ago -CXR shows patchy parenchymal disease which represent pulmonary edema or atypical pneumonia -S/p dexamethasone, azithromycin and cefepime in the ED -Placed on dexamethasone for total 10 days and remdesivir total 5 days -Monitor procalcitonin level for IV antibiotic therapy -Infectious disease consulted, appreciate recommendations -Droplet/contact isolation -Continue SPO2 monitoring -Supplemental oxygen as needed -Pulmonary hygiene -Prone to sleep -Vitamin C, vitamin D, zinc -Anticoagulation per protocol --Lasix IV as needed to prevent pulmonary edema Morbid obesity, exercise or dietary recommendation when clinically more stable Acute exacerbation of asthma due to underlying pneumonia -Continue to treat for COVID-19 pneumonia, scheduled nebulizer breathing treatment and empiric steroid Chronic back pain, supportive care and pain management as needed History of migraine, patient does not have any issue currently, outpatient follow-up DVT prophylaxis, continue Lovenox Full CODE STATUS Prognosis guarded The high probability of a clinically significant, sudden or life threatening de terioration of the [respiratory, CVS] system(s) required my full and direct attention, intervention and personal management. The aggregate critical care time was [32] minutes. This time is in addition to time spent performing reported procedures but includes the following: [x] Data Review and interpretation [x] Patient assessment and monitoring of vital signs [x] Documentation [x] Medication orders and management Daily clinical course: 09/24/2020: Patient placed on high flow oxygen today 85% FiO2 with 25 L oxygen per minute. continue empiric steroid, IV remdesivir and dexamethasone. Supplemental O2 to keep oxygenation greater than 92%. ID following continue supportive care follow inflammatory markers.. 09/25/20: Remains on high flow O2, oxygen requirement has gone up today From 85% FiO2 100% FiO2. Repeat chest x-ray, continue dexamethasone and remdesivir. Follow inflammatory markers, procalcitonin level is low. 09/26/20; patient transferred to IMCU overnight due to increased requirement of oxygen. Chest x-ray today showed worsening pneumonia. Patient currently on high flow O2 and so with nonrebreather. Continue to follow inflammatory amie ers, continue remdesivir and empiric steroid along with scheduled nebulizer breathing treatment. Called patient mother and updated in details. 09/27/20: Remains on high flow oxygen on nonrebreather. Continue to wean off O2 as tolerated. Inflammatory markers remain stable. Will complete remdesivir for 5 days and dexamethasone for 10 days. ID and critical care following, appreciate recommendation 09/28/20: Remains on high flow and NRB. clinically remains very critical. repeat Inflammatory markers tomorrow. Subjective Date of service: 09/28/20 Principal diagnosis: Ac. hypoxemic resp failure; Umesh. Pneumonia; COVID-19; Asthma; Migraines Interval history: Patient seen and examined. Medical records and medication list reviewed. No acute event overnight noted by the RN. Patient have significant difficulty breathing even on resting requiring high flow oxygen and nonrebreather to maintain oxygenation Patient noted to be sitting in a chair resting Discussed plan of care at bedside with patient. Objective - Exam Narrative Exam: Limited physical exam due to COVID-19 pandemic to minimize transmission of the disease and to preserve PPE. Vital reviewed and stable. GENERAL: well-developed morbidly obese -[place] female lying on bed appeared to be in no discomfort. Sitting on a chair HEENT: Normocephalic. Atraumatic. NECK: Supple. CHEST/LUNGS: breathing on high flow oxygen and nonrebreather HEART/CARDIOVASCULAR: Heart rate stable on telemetry ABDOMEN: Visibly not distended SKIN: There is no rash NEURO: No focal motor deficit. Follows command. MUSCULOSKELETAL: No joint effusion EXTRIMITY: No swelling, no cyanosis or clubbing. PSYCH: Cooperative. - Constitutional Vitals: Vital Signs - 12hr 09/28/20 09/28/20 09/28/20 05:26 06:00 07:00 Temperature Pulse Rate 80 83 Pulse Rate [ Anterior Bilateral Throughout] Respiratory 14 26 H Rate Respiratory Rate [Anterior Bilateral Throughout] Blood Pressure 114/74 138/89 O2 Sat by Pulse 91 100 96 Oximetry 09/28/20 09/28/20 09/28/20 07:12 07:33 08:00 Temperature 98.3 F Pulse Rate 87 89 Pulse Rate [ 90 Anterior Bilateral Throughout] Respiratory 15 Rate Respiratory 22 Rate [Anterior Bilateral Throughout] Blood Pressure 138/86 O2 Sat by Pulse 92 91 Oximetry 09/28/20 09/28/20 09/28/20 09:00 10:00 11:09 Temperature Pulse Rate 86 93 H 96 H Pulse Rate [ Anterior Bilateral Throughout] Respiratory 39 H 26 H 21 Rate Respiratory Rate [Anterior Bilateral Throughout] Blood Pressure 122/76 136/86 O2 Sat by Pulse 92 91 99 Oximetry 09/28/20 09/28/20 09/28/20 12:00 13:00 13:02 Temperature 98.3 F Pulse Rate 79 Pulse Rate [ 81 Anterior Bilateral Throughout] Respiratory 18 Rate Respiratory 20 Rate [Anterior Bilateral Throughout] Blood Pressure 129/80 129/80 O2 Sat by Pulse 93 96 95 Oximetry 09/28/20 09/28/20 09/28/20 14:00 15:00 16:00 Temperature Pulse Rate 85 83 84 Pulse Rate [ Anterior Bilateral Throughout] Respiratory Rate Respiratory Rate [Anterior Bilateral Throughout] Blood Pressure 117/71 128/75 118/76 O2 Sat by Pulse 91 92 Oximetry - Labs CBC & Chem 7: 09/29/20 05:10 09/29/20 05:10 Labs: Abnormal lab results 09/27/20 09/28/20 Range/Units 21:44 16:13 POC Glucose 138 H 180 H (70-105) mg/dL HEART Score - HEART Score Troponin: Troponin T < 0.010 ng/mL (0.00-0.029) 09/23/20 08:02
--- NOTE | 2020-09-28 17:13 | Vascular Lab Report ---
DUPLEX DOPPLER LOWER EXTREMITY VEINS, BILATERAL INDICATION / CLINICAL INFORMATION: Swelling; SOB; chest pain. TECHNIQUE: Duplex doppler imaging was performed through the veins of both lower extremities using elaine ous compression and other maneuvers. COMPARISON: None available. FINDINGS: RIGHT COMMON FEMORAL VEIN: Negative. RIGHT FEMORAL VEIN: Negative. RIGHT POPLITEAL VEIN: Negative. RIGHT CALF VEINS: Negative. LEFT COMMON FEMORAL VEIN: Negative. LEFT FEMORAL VEIN: Negative. LEFT POPLITEAL VEIN: Negative. LEFT CALF VEINS: Negative. ADDITIONAL FINDINGS: None. IMPRESSION: 1. No sonographic evidence for DVT in either lower extremity. Scribed by: Nia Ríos RDMS, RVT Scribed: 09/28/2020 1:30 PM I have reviewed the images, agree with this report, and edited this report as needed. Signer Name: Itz Holland MD Signed: 09/28/2020 5:08 PM Workstation Name: [id number]
[2020-09-28] MEDS: ENOXAPARIN 40 MG/0.4 ML INJ SUB-Q SCH (21:59)
[2020-09-29] MEDS: ONDANSETRON 4 MG/2 ML INJ IV PRN ×3 (00:19→22:59)
[2020-09-29] MEDS: IPRATROPIUM/ALBUTEROL SULFATE 3 ML AMPUL.NEB IH SCH ×4 (02:58→21:17)
[2020-09-29 05:53] LABS: Basophils % (Auto) 0.2 % (0.0-1.8); Eosinophils # (Auto) 0.1 K/mm3 (0.0-0.4); Eosinophils % (Auto) 1.8 % (0.0-4.3); Hematocrit 38.2 % (30.3-42.9); Hemoglobin 12.1 gm/dl (10.1-14.3); Lymphocytes # (Auto) 1.4 K/mm3 (1.2-5.4); Lymphocytes % (Auto) 18.3 % (13.4-35.0); Mean Corpuscular HGB Conc 32 % (30-34); Mean Corpuscular Volume 75 fl (79-97); Monocytes # (Auto) 0.4 K/mm3 (0.0-0.8); Monocytes % (Auto) 4.7 % (0.0-7.3); Platelet Count 495 K/mm3 (140-440); Red Blood Count 5.08 M/mm3 (3.65-5.03); Red Cell Distribution Width 16.4 % (13.2-15.2)
[2020-09-29 06:05] LABS: BUN/Creatinine Ratio 27; Blood Urea Nitrogen 24 mg/dL (7-17); Calcium 9.2 mg/dL (8.4-10.2); Hemolysis Index 2
[2020-09-29] MEDS: INSULIN REGULAR, HUMAN 100 UNITS/1 ML SUB-Q SCH ×4 (07:30→22:50)
[2020-09-29] MEDS: FAMOTIDINE 20 MG TAB PO SCH ×2 (09:12→22:52)
[2020-09-29] MEDS: CHOLECALCIFEROL (VIT D3) 5,000 UNIT TAB PO SCH (09:12)
[2020-09-29] MEDS: ASCORBIC ACID 500 MG TAB PO SCH ×2 (09:12→22:52)
[2020-09-29] MEDS: ZINC SULFATE 220 MG CAP PO SCH ×2 (09:12→22:53)
[2020-09-29] MEDS: guaiFENesin ER 600 MG TAB PO SCH ×2 (09:12→22:51)
[2020-09-29] MEDS: dexAMETHasone 4 MG/ML VIAL IV SCH (09:13)
[2020-09-29] MEDS: FUROSEMIDE 20 MG/2 ML INJ IV SCH (09:13)
[2020-09-29] MEDS: HYDROcodone/ACETAMINOPHEN 5-325 MG TAB PO PRN ×2 (10:00→18:07)
--- NOTE | 2020-09-29 10:07 | Progress Note ---
Assessment and Plan Patient is a 44-year-old -Luxembourger female with a history of asthma, migraine headaches and chronic low back pain, morbid obesity who tested positive for COVID-19 about a week ago presents to the ED with complaint of acute onset persistent worsening diffuse body aches and pains, nasal and sinus congestion, persistent dry cough with shortness of breath and wheezing for the last 1 week. Patient states that she has been taking azithromycin and Medrol Dosepak at home but no improvement of her symptoms. Patient states that she did not receive COVID-19 vaccine. In the ER patient noted to be hypoxic, chest x-ray suggestive of bilateral pulmonary infiltrates due to atypical pneumonia. Patient placed on supplemental O2 started on empiric steroid, and empiric antibiotics . Patient alert, awake. No acute respiratory distress at rest. Patient is still on Vapotherm 100% and O2 saturation running 97%. Patient afebrile.No leukocytosis. Chest xray 09/25/20 reported worsening pulmonary air space disease. Duplex ultrasound of lower extremities reported No sonographic evidence for DVT in either lower extremity Patient is on Dexamethasone,S/C Lovenox, Famotidine and albuterol/atrovent aerosol treatments. Recommend to convert albuterol/atrovent inhalers. Patient also received REMDESIVIR. Patient was seen in IMCU. I spent critical care time of 35 minutes, reviewing the chart, examine the patient, review labs, chest xray talking to the respiratory therapy, nursing staff and work out plan of treatment in this critically ill COID 19 patient. - Patient Problems (1) Acute respiratory failure with hypoxia Current Visit: Yes Status: Acute Plan to address problem: Vapotherm , FIO2 100% Continue dexamethasone. Continue S/C Lovenox. Continue Famotidine. Albuterol/atrovent inhalers q 6 hours prn for shortness of breath. (2) History of asthma Current Visit: Yes Status: Acute Plan to address problem: Vapotherm , FIO2 100% Continue dexamethasone. Continue S/C Lovenox. Continue Famotidine. Albuterol/atrovent inhalers q 6 hours prn for shortness of breath. (3) Pneumonia due to 2019 novel coronavirus Current Visit: Yes Status: Acute Plan to address problem: Patient treated with ceftriaxone. (4) Obesity (BMI 30-39.9) Current Visit: Yes Status: Acute Plan to address problem: Recommend to loose weight. Recommend diet and exercise after improving from this condition. Subjective Date of service: 09/29/20 Principal diagnosis: Ac. hypoxemic resp failure; Umesh. Pneumonia; COVID-19; Asthma; Migraines Interval history: Patient is a 44-year-old -Luxembourger female with a history of asthma, migraine headaches and chronic low back pain, morbid obesity who tested positive for COVID-19 about a week ago presents to the ED with complaint of acute onset persistent worsening diffuse body aches and pains, nasal and sinus congestion, persistent dry cough with shortness of breath and wheezing for the last 1 week. Patient states that she has been taking azithromycin and Medrol Dosepak at home but no improvement of her symptoms. Patient states that she did not receive COVID-19 vaccine. In the ER patient noted to be hypoxic, chest x-ray suggestive of bilateral pulmonary infiltrates due to atypical pneumonia. Patient placed on supplemental O2 started on empiric steroid, and empiric antibiotics . Patient alert, awake. No acute respiratory distress at rest. Patient is still on Vapotherm 100% and O2 saturation running 97%. Patient afebrile.No leukocytosis. Chest xray 09/25/20 reported worsening pulmonary air space disease. Duplex ultrasound of lower extremities reported No sonographic evidence for DVT in either lower extremity. Patient is on Dexamethasone,S/C Lovenox, Famotidine and albuterol/atrovent aerosol treatments. Recommend to convert albuterol/atrovent inhalers. Patient also received REMDESIVIR. Objective Vital Signs - 12hr 09/28/20 09/28/20 09/29/20 23:00 23:34 00:00 Temperature 98.2 F Pulse Rate 82 88 89 Pulse Rate [ Anterior Bilateral Throughout] Pulse Rate [ 93 H From Monitor] Pulse Rate [ Posterior Bilateral Throughout] Respiratory 31 H Rate Respiratory Rate [Anterior Bilateral Throughout] Respiratory Rate [Posterior Bilateral Throughout] Blood Pressure 127/83 127/83 125/86 O2 Sat by Pulse 90 89 92 Oximetry 09/29/20 09/29/20 09/29/20 01:00 02:00 02:45 Temperature Pulse Rate 93 H 84 Pulse Rate [ Anterior Bilateral Throughout] Pulse Rate [ From Monitor] Pulse Rate [ Posterior Bilateral Throughout] Respiratory Rate Respiratory Rate [Anterior Bilateral Throughout] Respiratory Rate [Posterior Bilateral Throughout] Blood Pressure 122/80 117/74 O2 Sat by Pulse 89 91 95 Oximetry 09/29/20 09/29/20 09/29/20 03:00 04:00 05:00 Temperature 98.6 F Pulse Rate 89 81 84 Pulse Rate [ 88 Anterior Bilateral Throughout] Pulse Rate [ 82 From Monitor] Pulse Rate [ Posterior Bilateral Throughout] Respiratory 28 H Rate Respiratory 22 Rate [Anterior Bilateral Throughout] Respiratory Rate [Posterior Bilateral Throughout] Blood Pressure 123/85 123/85 111/66 O2 Sat by Pulse 100 95 91 Oximetry 09/29/20 09/29/20 09/29/20 06:00 07:00 08:00 Temperature 98.7 F Pulse Rate 78 82 77 Pulse Rate [ Anterior Bilateral Throughout] Pulse Rate [ From Monitor] Pulse Rate [ Posterior Bilateral Throughout] Respiratory Rate Respiratory Rate [Anterior Bilateral Throughout] Respiratory Rate [Posterior Bilateral Throughout] Blood Pressure 111/66 111/67 107/61 O2 Sat by Pulse 98 93 95 Oximetry 09/29/20 08:52 Temperature Pulse Rate Pulse Rate [ 82 Anterior Bilateral Throughout] Pulse Rate [ From Monitor] Pulse Rate [ 81 Posterior Bilateral Throughout] Respiratory Rate Respiratory 18 Rate [Anterior Bilateral Throughout] Respiratory 20 Rate [Posterior Bilateral Throughout] Blood Pressure O2 Sat by Pulse Oximetry Constitutional: no acute distress, alert Eyes: non-icteric ENT: oropharynx moist Neck: supple, no lymphadenopathy, no JVD, other (large neck circumference) Effort: mildly labored Ascultation: Bilateral: rales (bases) Percussion: Bilateral: not dull Cardiovascular: regular rate and rhythm Gastrointestinal: normoactive bowel sounds, soft, non-tender, non-distended (protuberant) Integumentary: normal Extremities: no cyanosis, pulses normal, no ischemia or petechiae, edema (trace) Neurologic: non-focal exam, pupils equal and round, CN II-XII normal Psychiatric: other (Patient sleeping at this time.) CBC and BMP: 09/29/20 05:10 09/29/20 05:10 ABG, PT/INR, D-dimer: PT/INR, D-dimer D-Dimer < 135 ng/mlDDU (0-234) 09/25/20 09:57 Abnormal lab findings: Abnormal Labs 09/23/20 09/23/20 09/23/20 05:00 08:02 08:40 WBC 3.4 L RBC MCV 76 L 75 L MCH 25 L 25 L RDW 17.2 H 17.0 H Plt Count Mower % (Auto) 9.0 H 9.1 H Baso % (Auto) 1.9 H Lymph # (Auto) 0.7 L Seg Neutrophils % 70.6 H Potassium 3.4 L Carbon Dioxide BUN Glucose 116 H POC Glucose Calcium Lactate Dehydrogenase C-Reactive Protein Albumin 09/23/20 09/23/20 09/23/20 11:54 16:11 18:08 WBC RBC MCV MCH RDW Plt Count Mower % (Auto) Baso % (Auto) Lymph # (Auto) Seg Neutrophils % Potassium 3.3 L Carbon Dioxide BUN Glucose 213 H POC Glucose 238 H Calcium 8.2 L Lactate Dehydrogenase 358 H C-Reactive Protein 2.10 H Albumin 3.6 L 09/23/20 09/24/20 09/24/20 23:19 07:34 11:47 WBC RBC MCV MCH RDW Plt Count Mower % (Auto) Baso % (Auto) Lymph # (Auto) Seg Neutrophils % Potassium 3.3 L Carbon Dioxide BUN Glucose 101 H POC Glucose 127 H 125 H Calcium 8.2 L Lactate Dehydrogenase C-Reactive Protein Albumin 3.4 L 09/24/20 09/24/20 09/25/20 18:09 22:57 05:50 WBC RBC MCV MCH RDW Plt Count Mower % (Auto) Baso % (Auto) Lymph # (Auto) Seg Neutrophils % Potassium Carbon Dioxide BUN Glucose POC Glucose 199 H 116 H Calcium 8.3 L Lactate Dehydrogenase C-Reactive Protein Albumin 3.7 L 09/25/20 09/25/20 09/25/20 07:42 09:57 11:38 WBC RBC MCV MCH RDW Plt Count Mower % (Auto) Baso % (Auto) Lymph # (Auto) Seg Neutrophils % Potassium Carbon Dioxide BUN Glucose POC Glucose 106 H 142 H Calcium Lactate Dehydrogenase 510 H C-Reactive Protein 6.70 H Albumin 09/25/20 09/25/20 09/26/20 16:29 22:38 05:56 WBC RBC MCV MCH RDW Plt Count Mower % (Auto) Baso % (Auto) Lymph # (Auto) Seg Neutrophils % Potassium Carbon Dioxide BUN Glucose 115 H POC Glucose 227 H 165 H Calcium Lactate Dehydrogenase C-Reactive Protein Albumin 3.4 L 09/26/20 09/26/20 09/26/20 11:50 15:24 21:57 WBC RBC MCV MCH RDW Plt Count Mower % (Auto) Baso % (Auto) Lymph # (Auto) Seg Neutrophils % Potassium Carbon Dioxide BUN Glucose POC Glucose 124 H 184 H 159 H Calcium Lactate Dehydrogenase C-Reactive Protein Albumin 09/27/20 09/27/20 09/27/20 11:36 16:05 21:44 WBC RBC MCV MCH RDW Plt Count Mower % (Auto) Baso % (Auto) Lymph # (Auto) Seg Neutrophils % Potassium Carbon Dioxide BUN Glucose POC Glucose 142 H 177 H 138 H Calcium Lactate Dehydrogenase C-Reactive Protein Albumin 09/28/20 09/28/20 09/29/20 16:13 21:42 05:10 WBC RBC 5.08 H MCV 75 L MCH 24 L RDW 16.4 H Plt Count 495 H Mower % (Auto) Baso % (Auto) Lymph # (Auto) Seg Neutrophils % 75.0 H Potassium Carbon Dioxide BUN Glucose POC Glucose 180 H 137 H Calcium Lactate Dehydrogenase C-Reactive Protein Albumin 09/29/20 05:10 WBC RBC MCV MCH RDW Plt Count Mower % (Auto) Baso % (Auto) Lymph # (Auto) Seg Neutrophils % Potassium Carbon Dioxide 31 H BUN 24 H Glucose 130 H POC Glucose Calcium Lactate Dehydrogenase C-Reactive Protein Albumin Prior PFT's, U/S of legs: report reviewed, image reviewed Additional Studies: DUPLEX DOPPLER LOWER EXTREMITY VEINS, BILATERAL 09/27/20 INDICATION / CLINICAL INFORMATION: Swelling; SOB; chest pain. TECHNIQUE: Duplex doppler imaging was performed through the veins of both lower extremities using venous compression and other maneuvers. COMPARISON: None available. FINDINGS: RIGHT COMMON FEMORAL VEIN: Negative. RIGHT FEMORAL VEIN: Negative. RIGHT POPLITEAL VEIN: Negative. RIGHT CALF VEINS: Negative. LEFT COMMON FEMORAL VEIN: Negative. LEFT FEMORAL VEIN: Negative. LEFT POPLITEAL VEIN: Negative. LEFT CALF VEINS: Negative. ADDITIONAL FINDINGS: None. IMPRESSION: 1. No sonographic evidence for DVT in either lower extremity. Allied health notes reviewed: nursing
--- NOTE | 2020-09-29 12:05 | Progress Note ---
Assessment and Plan Cultures: SARS CoV2 PCR: Positive as outpatient A/P: 44-year-old female with asthma, migraine, morbid obesity admitted with: #Bilateral pneumonia: Likely secondary to COVID-19. Procal is low. #Acute hypoxic respiratory failure: On HF nasal cannula. #Morbid obesity Recs: -Continue higher dose dexamethasone, complete 10 days -Completed remdesivir -Status post Actemra on 09/26/2020 -prophylactic anticoagulation based on d-dimer per hospital protocol -trend ferritin, LDH, d-dimer, CRP every 2-3 days for risk stratification and to assess disease progression -updated markers ordered for tomorrow Rosibel Romero MD, FACP [facility] ([facility]) O: [phone] F: [phone] Subjective Date of service: 09/29/20 Principal diagnosis: Ac. hypoxemic resp failure; Umesh. Pneumonia; COVID-19; Asthma; Migraines Interval history: No fever. Remains on HFNC. Objective - Exam Narrative Exam: Physical Exam (reviewed in chart to minimize risk of transmission) Constitutional: deferred Head, Ears, Nose: deferred Eyes: deferred Neck: deferred Oral: deferred Cardiovascular: deferred Respiratory: deferred GI: deferred Musculoskeletal: deferred Skin: deferred Hem/Lymphatic: deferred Psych: deferred Neurological: deferred - Constitutional Vitals: Vital Signs Temp Pulse Resp BP Pulse Ox 98.7 F 82 18 107/61 95 09/29/20 08:00 09/29/20 08:52 09/29/20 08:52 09/29/20 08:00 09/29/20 08:00 Temperature -Last 24 Hours Temperature 98.7 F Temperature 98.6 F Temperature 98.2 F Temperature 98.2 F Temperature 98.2 F Temperature 98.2 F Temperature 98.5 F - Labs CBC & Chem 7: 09/29/20 05:10 09/29/20 05:10 Labs: Abnormal lab results 09/28/20 09/28/20 09/29/20 Range/Units 16:13 21:42 05:10 RBC 5.08 H (3.65-5.03) M/mm3 MCV 75 L (79-97) fl MCH 24 L (28-32) pg RDW 16.4 H (13.2-15.2) % Plt Count 495 H (140-440) K/mm3 Seg Neutrophils % 75.0 H (40.0-70.0) % Carbon Dioxide (22-30) mmol/L BUN (7-17) mg/dL Glucose (65-100) mg/dL POC Glucose 180 H 137 H (70-105) mg/dL 09/29/20 Range/Units 05:10 RBC (3.65-5.03) M/mm3 MCV (79-97) fl MCH (28-32) pg RDW (13.2-15.2) % Plt Count (140-440) K/mm3 Seg Neutrophils % (40.0-70.0) % Carbon Dioxide 31 H (22-30) mmol/L BUN 24 H (7-17) mg/dL Glucose 130 H (65-100) mg/dL POC Glucose (70-105) mg/dL
--- NOTE | 2020-09-29 14:16 | Progress Note ---
Assessment and Plan Acute hypoxic respiratory failure Bilateral COVID-19 pneumonia -Patient tested positive for COVID-19 virus as outpatient about a week ago -CXR shows patchy parenchymal disease which represent pulmonary edema or atypical pneumonia -S/p dexamethasone, azithromycin and cefepime in the ED -Placed on dexamethasone for total 10 days and remdesivir total 5 days -Monitor procalcitonin level for IV antibiotic therapy -Infectious disease consulted, appreciate recommendations -Droplet/contact isolation -Continue SPO2 monitoring -Supplemental oxygen as needed -Pulmonary hygiene -Prone to sleep -Vitamin C, vitamin D, zinc -Anticoagulation per protocol --Lasix IV as needed to prevent pulmonary edema Morbid obesity, exercise or dietary recommendation when clinically more stable Acute exacerbation of asthma due to underlying pneumonia -Continue to treat for COVID-19 pneumonia, scheduled nebulizer breathing treatment and empiric steroid Chronic back pain, supportive care and pain management as needed History of migraine, patient does not have any issue currently, outpatient follow-up DVT prophylaxis, continue Lovenox Full CODE STATUS Prognosis guarded The high probability of a clinically significant, sudden or life threatening de terioration of the [respiratory, CVS] system(s) required my full and direct attention, intervention and personal management. The aggregate critical care time was [32] minutes. This time is in addition to time spent performing reported procedures but includes the following: [x] Data Review and interpretation [x] Patient assessment and monitoring of vital signs [x] Documentation [x] Medication orders and management Daily clinical course: 09/24/2020: Patient placed on high flow oxygen today 85% FiO2 with 25 L oxygen per minute. continue empiric steroid, IV remdesivir and dexamethasone. Supplemental O2 to keep oxygenation greater than 92%. ID following continue supportive care follow inflammatory markers.. 09/25/20: Remains on high flow O2, oxygen requirement has gone up today From 85% FiO2 100% FiO2. Repeat chest x-ray, continue dexamethasone and remdesivir. Follow inflammatory markers, procalcitonin level is low. 09/26/20; patient transferred to IMCU overnight due to increased requirement of oxygen. Chest x-ray today showed worsening pneumonia. Patient currently on high flow O2 and so with nonrebreather. Continue to follow inflammatory amie ers, continue remdesivir and empiric steroid along with scheduled nebulizer breathing treatment. Called patient mother and updated in details. 09/27/20: Remains on high flow oxygen on nonrebreather. Continue to wean off O2 as tolerated. Inflammatory markers remain stable. Will complete remdesivir for 5 days and dexamethasone for 10 days. ID and critical care following, appreciate recommendation 09/28/20: Remains on high flow and NRB. clinically remains very critical. repeat Inflammatory markers tomorrow. 09/29/20: Patient on high flow nasal cannula, off from nonrebreather. Continue higher dose dexamethasone, total 10 days, -Completed remdesivir. Status post Actemra on 09/26/2020. Subjective Date of service: 09/29/20 Principal diagnosis: Ac. hypoxemic resp failure; Umesh. Pneumonia; COVID-19; Asthma; Migraines Interval history: Patient seen and examined. Medical records and medication list reviewed. No acute event overnight noted by the RN. Patient have significant difficulty breathing -remains on high flow O2 Patient noted to be sitting on bed: Resting Discussed plan of care at bedside with patient. Objective - Exam Narrative Exam: Limited physical exam due to COVID-19 pandemic to minimize transmission of the disease and to preserve PPE. Vital reviewed and stable. GENERAL: well-developed morbidly obese -[place] female lying on bed appeared to be in no discomfort. Sitting on bed HEENT: Normocephalic. Atraumatic. NECK: Supple. CHEST/LUNGS: breathing on high flow oxygen HEART/CARDIOVASCULAR: Heart rate stable on telemetry ABDOMEN: Visibly not distended SKIN: There is no rash NEURO: No focal motor deficit. Follows command. MUSCULOSKELETAL: No joint effusion EXTRIMITY: No swelling, no cyanosis or clubbing. PSYCH: Cooperative. - Constitutional Vitals: Vital Signs - 12hr 09/29/20 09/29/20 09/29/20 02:45 03:00 04:00 Temperature 98.6 F Pulse Rate 89 81 Pulse Rate [ 88 Anterior Bilateral Throughout] Pulse Rate [ 82 From Monitor] Pulse Rate [ Posterior Bilateral Throughout] Respiratory 28 H Rate Respiratory 22 Rate [Anterior Bilateral Throughout] Respiratory Rate [Posterior Bilateral Throughout] Blood Pressure 123/85 123/85 O2 Sat by Pulse 95 100 95 Oximetry 09/29/20 09/29/20 09/29/20 05:00 06:00 07:00 Temperature Pulse Rate 84 78 82 Pulse Rate [ Anterior Bilateral Throughout] Pulse Rate [ From Monitor] Pulse Rate [ Posterior Bilateral Throughout] Respiratory Rate Respiratory Rate [Anterior Bilateral Throughout] Respiratory Rate [Posterior Bilateral Throughout] Blood Pressure 111/66 111/66 111/67 O2 Sat by Pulse 91 98 93 Oximetry 09/29/20 09/29/20 09/29/20 08:00 08:52 09:00 Temperature 98.7 F Pulse Rate 77 92 H Pulse Rate [ 82 Anterior Bilateral Throughout] Pulse Rate [ From Monitor] Pulse Rate [ 81 Posterior Bilateral Throughout] Respiratory Rate Respiratory 18 Rate [Anterior Bilateral Throughout] Respiratory 20 Rate [Posterior Bilateral Throughout] Blood Pressure 107/61 121/73 O2 Sat by Pulse 95 95 Oximetry 09/29/20 09/29/20 09/29/20 10:00 11:00 12:00 Temperature 99.0 F Pulse Rate 95 H 85 83 Pulse Rate [ Anterior Bilateral Throughout] Pulse Rate [ From Monitor] Pulse Rate [ Posterior Bilateral Throughout] Respiratory Rate Respiratory Rate [Anterior Bilateral Throughout] Respiratory Rate [Posterior Bilateral Throughout] Blood Pressure 126/78 126/78 131/78 O2 Sat by Pulse 96 96 89 Oximetry 09/29/20 09/29/20 09/29/20 13:00 13:58 14:00 Temperature Pulse Rate 110 H Pulse Rate [ 93 H Anterior Bilateral Throughout] Pulse Rate [ From Monitor] Pulse Rate [ 91 H Posterior Bilateral Throughout] Respiratory Rate Respiratory 18 Rate [Anterior Bilateral Throughout] Respiratory 16 Rate [Posterior Bilateral Throughout] Blood Pressure 131/78 O2 Sat by Pulse 96 98 Oximetry - Labs CBC & Chem 7: 09/29/20 05:10 09/29/20 05:10 Labs: Abnormal lab results 09/28/20 09/28/20 09/29/20 Range/Units 16:13 21:42 05:10 RBC 5.08 H (3.65-5.03) M/mm3 MCV 75 L (79-97) fl MCH 24 L (28-32) pg RDW 16.4 H (13.2-15.2) % Plt Count 495 H (140-440) K/mm3 Seg Neutrophils % 75.0 H (40.0-70.0) % Carbon Dioxide (22-30) mmol/L BUN (7-17) mg/dL Glucose (65-100) mg/dL POC Glucose 180 H 137 H (70-105) mg/dL 09/29/20 09/29/20 Range/Units 05:10 12:08 RBC (3.65-5.03) M/mm3 MCV (79-97) fl MCH (28-32) pg RDW (13.2-15.2) % Plt Count (140-440) K/mm3 Seg Neutrophils % (40.0-70.0) % Carbon Dioxide 31 H (22-30) mmol/L BUN 24 H (7-17) mg/dL Glucose 130 H (65-100) mg/dL POC Glucose 200 H (70-105) mg/dL HEART Score - HEART Score Troponin: Troponin T < 0.010 ng/mL (0.00-0.029) 09/23/20 08:02
[2020-09-29] MEDS: ENOXAPARIN 40 MG/0.4 ML INJ SUB-Q SCH (22:50)
[2020-09-30 05:19] LABS: C-Reactive Protein 0.1 mg/dL (0.00-1.30)
[2020-09-30] MEDS: INSULIN REGULAR, HUMAN 100 UNITS/1 ML SUB-Q SCH ×4 (07:37→22:02)
--- NOTE | 2020-09-30 08:28 | XRay Report ---
CHEST 1 VIEW INDICATION: COVID pneumonia. COMPARISON: 09/25/2020 FINDINGS: Support devices: None. Heart: Within normal limits. Lungs/Pleura: Bilateral lung opacities have decreased by at least 50%. There is better inspiration. N o pleural effusion or pneumothorax. Additional findings: None. IMPRESSION: Improvement in the bilateral lung opacities since 09/25/2020. Signer Name: Mariusz Hogue Jr, MD Signed: 09/30/2020 8:23 AM Workstation Name: [id number]
[2020-09-30] MEDS: IPRATROPIUM/ALBUTEROL SULFATE 3 ML AMPUL.NEB IH SCH ×5 (08:36→21:15)
[2020-09-30] MEDS: dexAMETHasone 4 MG/ML VIAL IV SCH (10:38)
[2020-09-30] MEDS: FAMOTIDINE 20 MG TAB PO SCH ×2 (10:39→21:43)
[2020-09-30] MEDS: ASCORBIC ACID 500 MG TAB PO SCH ×2 (10:39→21:43)
[2020-09-30] MEDS: FUROSEMIDE 20 MG/2 ML INJ IV SCH (10:39)
[2020-09-30] MEDS: ZINC SULFATE 220 MG CAP PO SCH ×2 (10:39→21:43)
[2020-09-30] MEDS: guaiFENesin ER 600 MG TAB PO SCH ×2 (10:39→21:43)
[2020-09-30] MEDS: CHOLECALCIFEROL (VIT D3) 5,000 UNIT TAB PO SCH (10:39)
--- NOTE | 2020-09-30 11:52 | Progress Note ---
Assessment and Plan Cultures: SARS CoV2 PCR: Positive as outpatient A/P: 44-year-old female with asthma, migraine, morbid obesity admitted with: #Bilateral pneumonia: Likely secondary to COVID-19. Procal is low. S/P remdesivir, S/P Actemra 09/26/2020. #Acute hypoxic respiratory failure: On HF nasal cannula. #Morbid obesity Recs: -Continue higher dose dexamethasone, complete 10 days -prophylactic anticoagulation based on d-dimer per hospital protocol -markers appear improved. Rosibel Romero MD, FACP [facility] ([facility]) O: [phone] F: [phone] Subjective Date of service: 09/30/20 Principal diagnosis: Ac. hypoxemic resp failure; Umesh. Pneumonia; COVID-19; Ast hma; Migraines Interval history: No fever. Remains on HFNC. Objective - Exam Narrative Exam: Physical Exam (reviewed in chart to minimize risk of transmission) Constitutional: deferred Head, Ears, Nose: deferred Eyes: deferred Neck: deferred Oral: deferred Cardiovascular: deferred Respiratory: deferred GI: deferred Musculoskeletal: deferred Skin: deferred Hem/Lymphatic: deferred Psych: deferred Neurological: deferred - Constitutional Vitals: Vital Signs Temp Pulse Resp BP Pulse Ox 99.0 F 95 H 20 111/54 98 09/30/20 07:16 09/30/20 10:01 09/30/20 09:12 09/30/20 10:01 09/30/20 10:01 Temperature -Last 24 Hours Temperature 99.0 F Temperature 98.7 F Temperature 97.7 F Temperature 98.0 F Temperature 98.6 F Temperature 99.0 F - Labs CBC & Chem 7: 09/29/20 05:10 09/29/20 05:10 Labs: Abnormal lab results 09/29/20 09/29/20 09/29/20 Range/Units 12:08 17:20 21:20 D-Dimer (0-234) ng/mlDDU POC Glucose 200 H 173 H 111 H (70-105) mg/dL Lactate Dehydrogenase (91-180) units/L 09/30/20 09/30/20 09/30/20 Range/Units 04:34 04:34 11:45 D-Dimer 293.21 H (0-234) ng/mlDDU POC Glucose 109 H (70-105) mg/dL Lactate Dehydrogenase 574 H (91-180) units/L
--- NOTE | 2020-09-30 14:09 | Progress Note ---
Assessment and Plan Patient is a 44-year-old -Citizen Of [place] female with a history of asthma, migraine headaches and chronic low back pain, morbid obesity who tested positive for COVID-19 about a week ago presents to the ED with complaint of acute onset persistent worsening diffuse body aches and pains, nasal and sinus congestion, persistent dry cough with shortness of breath and wheezing for the last 1 week. Patient states that she has been taking azithromycin and Medrol Dosepak at home but no improvement of her symptoms. Patient states that she did not receive COVID-19 vaccine. In the ER patient noted to be hypoxic, chest x-ray suggestive of bilateral pulmonary infiltrates due to atypical pneumonia. Patient placed on supplemental O2 started on empiric steroid, and empiric antibiotics . Patient sleeping.Patient is still on Vapotherm 100% and O2 saturation running 92%. Patient running low grade temp at times.No leukocytosis. Chest xray reported worsening pulmonary air space disease. Duplex ultrasound of lower extremities reported No sonographic evidence for DVT in either lower extremity. Chest xray done 09/30/20 reported Improvement in the bilateral lung opacities since 09/25/2020. Patient is on Dexamethasone,S/C Lovenox, Famotidine and albuterol/atrovent aerosol treatments. Recommend to convert albuterol/atrovent inhalers. Patient also received REMDESIVIR. Patient was seen in IMCU. I spent critical care time of 35 minutes, reviewing the chart, examine the patient, review labs, chest xray talking to the respiratory therapy, nursing staff and work out plan of treatment in this critically ill COID 19 patient. - Patient Problems (1) Acute respiratory failure with hypoxia Current Visit: Yes Status: Acute Plan to address problem: Vapotherm , FIO2 100% Continue dexamethasone. Continue S/C Lovenox. Continue Famotidine. Albuterol/atrovent inhalers q 6 hours prn for shortness of breath. (2) History of asthma Current Visit: Yes Status: Acute Plan to address problem: Vapotherm , FIO2 100% Continue dexamethasone. Continue S/C Lovenox. Continue Famotidine. Albuterol/atrovent inhalers q 6 hours prn for shortness of breath. (3) Pneumonia due to 2019 novel coronavirus Current Visit: Yes Status: Acute Plan to address problem: Patient treated with ceftriaxone. (4) Obesity (BMI 30-39.9) Current Visit: Yes Status: Acute Plan to address problem: Recommend to loose weight. Recommend diet and exercise after improving from this condition. Subjective Date of service: 09/30/20 Principal diagnosis: Ac. hypoxemic resp failure; Umesh. Pneumonia; COVID-19; Asthma; Migraines Interval history: Patient is a 44-year-old -Citizen Of [place] female with a history of asthma, migraine headaches and chronic low back pain, morbid obesity who tested positive for COVID-19 about a week ago presents to the ED with complaint of acute onset persistent worsening diffuse body aches and pains, nasal and sinus congestion, persistent dry cough with shortness of breath and wheezing for the last 1 week. Patient states that she has been taking azithromycin and Medrol Dosepak at home but no improvement of her symptoms. Patient states that she did not receive COVID-19 vaccine. In the ER patient noted to be hypoxic, chest x-ray suggestive of bilateral pulmonary infiltrates due to atypical pneumonia. Patient placed on supplemental O2 started on empiric steroid, and empiric antibiotics . Patient sleeping.Patient is still on Vapotherm 100% and O2 saturation running 92%. Patient running low grade temp at times.No leukocytosis. Chest xray 09/25/20 reported worsening pulmonary air space disease. Duplex ultrasound of lower extremities reported No sonographic evidence for DVT in either lower extremity. Chest xray done 09/30/20 reported Improvement in the bilateral lung opacities since 09/25/2020. Patient is on Dexamethasone,S/C Lovenox, Famotidine and albuterol/atrovent aerosol treatments. Recommend to convert albuterol/atrovent inhalers. Patient also received REMDESIVIR. Objective Vital Signs - 12hr 09/30/20 09/30/20 09/30/20 03:00 03:50 04:00 Temperature 98.7 F Pulse Rate 81 86 Pulse Rate [ 81 From Monitor] Pulse Rate [ Posterior Bilateral Throughout] Respiratory 25 H 14 Rate Respiratory Rate [Posterior Bilateral Throughout] Blood Pressure 110/67 118/64 O2 Sat by Pulse 95 95 Oximetry 09/30/20 09/30/20 09/30/20 05:00 06:00 07:00 Temperature Pulse Rate 92 H 91 H 91 H Pulse Rate [ From Monitor] Pulse Rate [ Posterior Bilateral Throughout] Respiratory 19 Rate Respiratory Rate [Posterior Bilateral Throughout] Blood Pressure 118/64 162/88 162/88 O2 Sat by Pulse 99 94 95 Oximetry 09/30/20 09/30/20 09/30/20 07:16 08:00 09:00 Temperature 99.0 F Pulse Rate 88 94 H Pulse Rate [ From Monitor] Pulse Rate [ Posterior Bilateral Throughout] Respiratory Rate Respiratory Rate [Posterior Bilateral Throughout] Blood Pressure 120/65 91/53 O2 Sat by Pulse 94 94 Oximetry 09/30/20 09/30/20 09/30/20 09:01 09:12 10:01 Temperature Pulse Rate 95 H Pulse Rate [ From Monitor] Pulse Rate [ 89 Posterior Bilateral Throughout] Respiratory Rate Respiratory 20 Rate [Posterior Bilateral Throughout] Blood Pressure 111/54 O2 Sat by Pulse 95 98 Oximetry 09/30/20 09/30/20 09/30/20 11:01 11:55 12:00 Temperature 99.1 F Pulse Rate 99 H 96 H Pulse Rate [ From Monitor] Pulse Rate [ Posterior Bilateral Throughout] Respiratory 21 29 H Rate Respiratory Rate [Posterior Bilateral Throughout] Blood Pressure 131/79 121/86 O2 Sat by Pulse 92 97 Oximetry Constitutional: no acute distress, asleep Eyes: non-icteric ENT: oropharynx moist Neck: supple, no lymphadenopathy, no JVD, other (large neck circumference) Effort: mildly labored Ascultation: Bilateral: rales (bases) Percussion: Bilateral: not dull Cardiovascular: regular rate and rhythm Gastrointestinal: normoactive bowel sounds, soft, non-tender, non-distended (protuberant) Integumentary: normal Extremities: no cyanosis, pulses normal, no ischemia or petechiae, edema (trace) Neurologic: non-focal exam, pupils equal and round, CN II-XII normal Psychiatric: other (Patient sleeping at this time.) CBC and BMP: 09/29/20 05:10 09/29/20 05:10 ABG, PT/INR, D-dimer: PT/INR, D-dimer D-Dimer 293.21 ng/mlDDU (0-234) H 09/30/20 04:34 Abnormal lab findings: Abnormal Labs 09/23/20 09/23/20 09/23/20 05:00 08:02 08:40 WBC 3.4 L RBC MCV 76 L 75 L MCH 25 L 25 L RDW 17.2 H 17.0 H Plt Count Lewis % (Auto) 9.0 H 9.1 H Baso % (Auto) 1.9 H Lymph # (Auto) 0.7 L Seg Neutrophils % 70.6 H D-Dimer Potassium 3.4 L Carbon Dioxide BUN Glucose 116 H POC Glucose Calcium Lactate Dehydrogenase C-Reactive Protein Albumin 09/23/20 09/23/20 09/23/20 11:54 16:11 18:08 WBC RBC MCV MCH RDW Plt Count Lewis % (Auto) Baso % (Auto) Lymph # (Auto) Seg Neutrophils % D-Dimer Potassium 3.3 L Carbon Dioxide BUN Glucose 213 H POC Glucose 238 H Calcium 8.2 L Lactate Dehydrogenase 358 H C-Reactive Protein 2.10 H Albumin 3.6 L 09/23/20 09/24/20 09/24/20 23:19 07:34 11:47 WBC RBC MCV MCH RDW Plt Count Lewis % (Auto) Baso % (Auto) Lymph # (Auto) Seg Neutrophils % D-Dimer Potassium 3.3 L Carbon Dioxide BUN Glucose 101 H POC Glucose 127 H 125 H Calcium 8.2 L Lactate Dehydrogenase C-Reactive Protein Albumin 3.4 L 09/24/20 09/24/20 09/25/20 18:09 22:57 05:50 WBC RBC MCV MCH RDW Plt Count Lewis % (Auto) Baso % (Auto) Lymph # (Auto) Seg Neutrophils % D-Dimer Potassium Carbon Dioxide BUN Glucose POC Glucose 199 H 116 H Calcium 8.3 L Lactate Dehydrogenase C-Reactive Protein Albumin 3.7 L 09/25/20 09/25/20 09/25/20 07:42 09:57 11:38 WBC RBC MCV MCH RDW Plt Count Lewis % (Auto) Baso % (Auto) Lymph # (Auto) Seg Neutrophils % D-Dimer Potassium Carbon Dioxide BUN Glucose POC Glucose 106 H 142 H Calcium Lactate Dehydrogenase 510 H C-Reactive Protein 6.70 H Albumin 09/25/20 09/25/20 09/26/20 16:29 22:38 05:56 WBC RBC MCV MCH RDW Plt Count Lewis % (Auto) Baso % (Auto) Lymph # (Auto) Seg Neutrophils % D-Dimer Potassium Carbon Dioxide BUN Glucose 115 H POC Glucose 227 H 165 H Calcium Lactate Dehydrogenase C-Reactive Protein Albumin 3.4 L 09/26/20 09/26/20 09/26/20 11:50 15:24 21:57 WBC RBC MCV MCH RDW Plt Count Lewis % (Auto) Baso % (Auto) Lymph # (Auto) Seg Neutrophils % D-Dimer Potassium Carbon Dioxide BUN Glucose POC Glucose 124 H 184 H 159 H Calcium Lactate Dehydrogenase C-Reactive Protein Albumin 09/27/20 09/27/20 09/27/20 11:36 16:05 21:44 WBC RBC MCV MCH RDW Plt Count Lewis % (Auto) Baso % (Auto) Lymph # (Auto) Seg Neutrophils % D-Dimer Potassium Carbon Dioxide BUN Glucose POC Glucose 142 H 177 H 138 H Calcium Lactate Dehydrogenase C-Reactive Protein Albumin 09/28/20 09/28/20 09/29/20 16:13 21:42 05:10 WBC RBC 5.08 H MCV 75 L MCH 24 L RDW 16.4 H Plt Count 495 H Lewis % (Auto) Baso % (Auto) Lymph # (Auto) Seg Neutrophils % 75.0 H D-Dimer Potassium Carbon Dioxide BUN Glucose POC Glucose 180 H 137 H Calcium Lactate Dehydrogenase C-Reactive Protein Albumin 09/29/20 09/29/20 09/29/20 05:10 12:08 17:20 WBC RBC MCV MCH RDW Plt Count Lewis % (Auto) Baso % (Auto) Lymph # (Auto) Seg Neutrophils % D-Dimer Potassium Carbon Dioxide 31 H BUN 24 H Glucose 130 H POC Glucose 200 H 173 H Calcium Lactate Dehydrogenase C-Reactive Protein Albumin 09/29/20 09/30/20 09/30/20 21:20 04:34 04:34 WBC RBC MCV MCH RDW Plt Count Lewis % (Auto) Baso % (Auto) Lymph # (Auto) Seg Neutrophils % D-Dimer 293.21 H Potassium Carbon Dioxide BUN Glucose POC Glucose 111 H Calcium Lactate Dehydrogenase 574 H C-Reactive Protein Albumin 09/30/20 11:45 WBC RBC MCV MCH RDW Plt Count Lewis % (Auto) Baso % (Auto) Lymph # (Auto) Seg Neutrophils % D-Dimer Potassium Carbon Dioxide BUN Glucose POC Glucose 109 H Calcium Lactate Dehydrogenase C-Reactive Protein Albumin Chest x-ray: report reviewed, image reviewed Additional Studies: CHEST 1 VIEW 09/3020 INDICATION: COVID pneumonia. COMPARISON: 09/25/2020 FINDINGS: Support devices: None. Heart: Within normal limits. Lungs/Pleura: Bilateral lung opacities have decreased by at least 50%. There is better inspiration. No pleural effusion or pneumothorax. Additional findings: None. IMPRESSION: Improvement in the bilateral lung opacities since 09/25/2020. Allied health notes reviewed: nursing
--- NOTE | 2020-09-30 16:37 | Progress Note ---
Assessment and Plan Acute hypoxic respiratory failure Bilateral COVID-19 pneumonia -Patient tested positive for COVID-19 virus as outpatient about a week ago -CXR shows patchy parenchymal disease which represent pulmonary edema or atypical pneumonia -S/p dexamethasone, azithromycin and cefepime in the ED -Placed on dexamethasone for total 10 days and remdesivir total 5 days -Monitor procalcitonin level for IV antibiotic therapy -Infectious disease consulted, appreciate recommendations -Droplet/contact isolation -Continue SPO2 monitoring -Supplemental oxygen as needed -Pulmonary hygiene -Prone to sleep -Vitamin C, vitamin D, zinc -Anticoagulation per protocol --Lasix IV as needed to prevent pulmonary edema Morbid obesity, exercise or dietary recommendation when clinically more stable Acute exacerbation of asthma due to underlying pneumonia -Continue to treat for COVID-19 pneumonia, scheduled nebulizer breathing treatment and empiric steroid Chronic back pain, supportive care and pain management as needed History of migraine, patient does not have any issue currently, outpatient follow-up DVT prophylaxis, continue Lovenox Full CODE STATUS Prognosis guarded The high probability of a clinically significant, sudden or life threatening de terioration of the [respiratory, CVS] system(s) required my full and direct attention, intervention and personal management. The aggregate critical care time was [32] minutes. This time is in addition to time spent performing reported procedures but includes the following: [x] Data Review and interpretation [x] Patient assessment and monitoring of vital signs [x] Documentation [x] Medication orders and management Daily clinical course: 09/24/2020: Patient placed on high flow oxygen today 85% FiO2 with 25 L oxygen per minute. continue empiric steroid, IV remdesivir and dexamethasone. Supplemental O2 to keep oxygenation greater than 92%. ID following continue supportive care follow inflammatory markers.. 09/25/20: Remains on high flow O2, oxygen requirement has gone up today From 85% FiO2 100% FiO2. Repeat chest x-ray, continue dexamethasone and remdesivir. Follow inflammatory markers, procalcitonin level is low. 09/26/20; patient transferred to IMCU overnight due to increased requirement of oxygen. Chest x-ray today showed worsening pneumonia. Patient currently on high flow O2 and so with nonrebreather. Continue to follow inflammatory amie ers, continue remdesivir and empiric steroid along with scheduled nebulizer breathing treatment. Called patient mother and updated in details. 09/27/20: Remains on high flow oxygen on nonrebreather. Continue to wean off O2 as tolerated. Inflammatory markers remain stable. Will complete remdesivir for 5 days and dexamethasone for 10 days. ID and critical care following, appreciate recommendation 09/28/20: Remains on high flow and NRB. clinically remains very critical. repeat Inflammatory markers tomorrow. 09/29/20: Patient on high flow nasal cannula, off from nonrebreather. Continue higher dose dexamethasone, total 10 days, -Completed remdesivir. Status post Actemra on 09/26/2020. 09/30/20: Patient remains on high flow O2. Inflammatory markers appears to be stable. Continue higher dose of dexamethasone for total 10 days. ID and pulmonary critical care following. Continue to monitor and provide supportive care. Scheduled nebulizer breathing treatment. Subjective Date of service: 09/30/20 Principal diagnosis: Ac. hypoxemic resp failure; Umesh. Pneumonia; COVID-19; Asthma; Migraines Interval history: Patient seen and examined. Medical records and medication list reviewed. No acute event overnight noted by the RN. Patient have significant difficulty breathing -remains on high flow O2 Patient noted to be sitting on bed: Resting Discussed plan of care at bedside with patient. Objective - Exam Narrative Exam: Limited physical exam due to COVID-19 pandemic to minimize transmission of the disease and to preserve PPE. Vital reviewed and stable. GENERAL: well-developed morbidly obese -[place] female lying on bed appeared to be in no discomfort. Sitting on bed HEENT: Normocephalic. Atraumatic. NECK: Supple. CHEST/LUNGS: breathing on high flow oxygen HEART/CARDIOVASCULAR: Heart rate stable on telemetry ABDOMEN: Visibly not distended SKIN: There is no rash NEURO: No focal motor deficit. Follows command. MUSCULOSKELETAL: No joint effusion EXTRIMITY: No swelling, no cyanosis or clubbing. PSYCH: Cooperative. - Constitutional Vitals: Vital Signs - 12hr 09/30/20 09/30/20 09/30/20 05:00 06:00 07:00 Temperature Pulse Rate 92 H 91 H 91 H Pulse Rate [ Posterior Bilateral Throughout] Respiratory 19 Rate Respiratory Rate [Posterior Bilateral Throughout] Blood Pressure 118/64 162/88 162/88 O2 Sat by Pulse 99 94 95 Oximetry 09/30/20 09/30/20 09/30/20 07:16 08:00 09:00 Temperature 99.0 F Pulse Rate 88 94 H Pulse Rate [ Posterior Bilateral Throughout] Respiratory Rate Respiratory Rate [Posterior Bilateral Throughout] Blood Pressure 120/65 91/53 O2 Sat by Pulse 94 94 Oximetry 09/30/20 09/30/20 09/30/20 09:01 09:12 10:01 Temperature Pulse Rate 95 H Pulse Rate [ 89 Posterior Bilateral Throughout] Respiratory Rate Respiratory 20 Rate [Posterior Bilateral Throughout] Blood Pressure 111/54 O2 Sat by Pulse 95 98 Oximetry 09/30/20 09/30/20 09/30/20 11:01 11:55 12:00 Temperature 99.1 F Pulse Rate 99 H 96 H Pulse Rate [ Posterior Bilateral Throughout] Respiratory 21 29 H Rate Respiratory Rate [Posterior Bilateral Throughout] Blood Pressure 131/79 121/86 O2 Sat by Pulse 92 95 Oximetry 09/30/20 09/30/20 09/30/20 13:00 14:00 14:24 Temperature Pulse Rate 87 87 Pulse Rate [ Posterior Bilateral Throughout] Respiratory Rate Respiratory Rate [Posterior Bilateral Throughout] Blood Pressure 121/86 116/73 O2 Sat by Pulse 94 91 90 Oximetry 09/30/20 09/30/20 15:00 16:00 Temperature Pulse Rate 88 80 Pulse Rate [ Posterior Bilateral Throughout] Respiratory Rate Respiratory Rate [Posterior Bilateral Throughout] Blood Pressure 113/65 97/60 O2 Sat by Pulse 92 95 Oximetry - Labs CBC & Chem 7: 09/29/20 05:10 09/29/20 05:10 Labs: Abnormal lab results 09/29/20 09/29/20 09/30/20 Range/Units 17:20 21:20 04:34 D-Dimer 293.21 H (0-234) ng/mlDDU POC Glucose 173 H 111 H (70-105) mg/dL Lactate Dehydrogenase (91-180) units/L 09/30/20 09/30/20 Range/Units 04:34 11:45 D-Dimer (0-234) ng/mlDDU POC Glucose 109 H (70-105) mg/dL Lactate Dehydrogenase 574 H (91-180) units/L HEART Score - HEART Score Troponin: Troponin T < 0.010 ng/mL (0.00-0.029) 09/23/20 08:02
[2020-09-30] MEDS: ENOXAPARIN 40 MG/0.4 ML INJ SUB-Q SCH (21:43)
[2020-09-30] MEDS: CYCLOBENZAPRINE 10 MG TAB PO PRN (21:43)
[2020-09-30] MEDS ORDERED: ZOLPIDEM 5 MG TAB PO ONE (22:30)
[2020-10-01] MEDS: IPRATROPIUM/ALBUTEROL SULFATE 3 ML AMPUL.NEB IH SCH ×4 (03:12→20:15)
[2020-10-01] MEDS: INSULIN REGULAR, HUMAN 100 UNITS/1 ML SUB-Q SCH ×4 (08:52→23:11)
[2020-10-01] MEDS: FUROSEMIDE 20 MG/2 ML INJ IV SCH (09:51)
[2020-10-01] MEDS: dexAMETHasone 4 MG/ML VIAL IV SCH (09:51)
[2020-10-01] MEDS: ZINC SULFATE 220 MG CAP PO SCH ×2 (09:51→23:10)
[2020-10-01] MEDS: FAMOTIDINE 20 MG TAB PO SCH ×2 (09:51→23:08)
[2020-10-01] MEDS: guaiFENesin ER 600 MG TAB PO SCH ×2 (09:52→23:08)
[2020-10-01] MEDS: ASCORBIC ACID 500 MG TAB PO SCH ×2 (09:52→23:09)
[2020-10-01] MEDS: CHOLECALCIFEROL (VIT D3) 5,000 UNIT TAB PO SCH (09:52)
--- NOTE | 2020-10-01 10:21 | Progress Note ---
Assessment and Plan Cultures: SARS CoV2 PCR: Positive as outpatient A/P: 44-year-old female with asthma, migraine, morbid obesity admitted with: #Bilateral pneumonia: Likely secondary to COVID-19. Procal is low. S/P remdesivir, S/P Actemra 09/26/2020. #Acute hypoxic respiratory failure: On HF nasal cannula. #Morbid obesity Recs: -Continue higher dose dexamethasone, complete 10 days -procal remains low, keep off abx -prophylactic anticoagulation based on d-dimer per hospital protocol -markers appear improved Rosibel Romero MD, FACP [facility] O: [phone] F: [phone] Subjective Date of service: 10/01/20 Principal diagnosis: Ac. hypoxemic resp failure; Umesh. Pneumonia; COVID-19; Asthma; Migraines Interval history: No fever. Remains on HFNC. Objective - Exam Narrative Exam: Physical Exam (reviewed in chart to minimize risk of transmission) Constitutional: deferred Head, Ears, Nose: deferred Eyes: deferred Neck: deferred Oral: deferred Cardiovascular: deferred Respiratory: deferred GI: deferred Musculoskeletal: deferred Skin: deferred Hem/Lymphatic: deferred Psych: deferred Neurological: deferred - Constitutional Vitals: Vital Signs Temp Pulse Resp BP Pulse Ox 99.1 F 90 21 110/57 96 10/01/20 08:00 10/01/20 10:01 10/01/20 10:01 10/01/20 10:01 10/01/20 10:01 Temperature -Last 24 Hours Temperature 99.1 F Temperature 97.8 F Temperature 98.4 F Temperature 99.0 F Temperature 97.8 F Temperature 99.1 F - Labs CBC & Chem 7: 09/29/20 05:10 09/29/20 05:10 Labs: Abnormal lab results 09/30/20 09/30/20 09/30/20 Range/Units 11:45 17:39 21:16 ABG pH (7.320-7.450) POC ABG pO2 (83-108) mmHg ABG Oxyhemoglobin (94-98) ABG Sodium (136.0-145.0) mmol/L ABG Potassium (3.40-4.50) mmol/L ABG Glucose (65-95) mg/dL Carboxyhemoglobin (0.5-1.5) POC Glucose 109 H 181 H 114 H (70-105) mg/dL Arterial Blood Glucose (65-95) mg/dL Arterial Blood Ionized Calcium (4.6-5.3) mg/dL 10/01/20 Range/Units 09:34 ABG pH 7.485 H (7.320-7.450) POC ABG pO2 148.8 H (83-108) mmHg ABG Oxyhemoglobin 98.5 H (94-98) ABG Sodium 135.6 L (136.0-145.0) mmol/L ABG Potassium 3.3 L (3.40-4.50) mmol/L ABG Glucose 128 H (65-95) mg/dL Carboxyhemoglobin 0.3 L (0.5-1.5) POC Glucose (70-105) mg/dL Arterial Blood Glucose 128 H (65-95) mg/dL Arterial Blood Ionized Calcium 4.5 L (4.6-5.3) mg/dL
--- NOTE | 2020-10-01 10:21 | Progress Note ---
Subjective Date of service: 10/01/20 Principal diagnosis: Ac. hypoxemic resp failure; Umesh. Pneumonia; COVID-19; Asthma; Migraines Interval history: Acute hypoxic respiratory failure Bilateral COVID-19 pneumonia -Patient tested positive for COVID-19 virus as outpatient about a week ago -CXR reviewed -Continue Decadron day 8 -Completed remdesivir course -Inflammatory markers reviewed and improving -Droplet/contact isolation -Continue SPO2 monitoring -Patient is now on high flow 100% FiO2 and 35 L -Pulmonary hygiene -Proning as able -Anticoagulation per protocol --Lasix IV as needed to prevent pulmonary edema Morbid obesity, exercise, weight loss and dietary recommendation when clinical ly more stable Acute exacerbation of asthma due to underlying pneumonia -Continue to treat for COVID-19 pneumonia Chronic back pain, supportive care and pain management as needed History of migraine, patient does not have any issue currently, outpatient follow-up DVT prophylaxis, continue Lovenox Full CODE STATUS Prognosis guarded Daily clinical course: 09/24/2020: Patient placed on high flow oxygen today 85% FiO2 with 25 L oxygen per minute. continue empiric steroid, IV remdesivir and dexamethasone. Supplemental O2 to keep oxygenation greater than 92%. ID following continue supportive care follow inflammatory markers.. 09/25/20: Remains on high flow O2, oxygen requirement has gone up today From 85% FiO2 100% FiO2. Repeat chest x-ray, continue dexamethasone and remdesivir. Follow inflammatory markers, procalcitonin level is low. 09/26/20; patient transferred to IMCU overnight due to increased requirement of oxygen. Chest x-ray today showed worsening pneumonia. Patient currently on high flow O2 and so with nonrebreather. Continue to follow inflammatory markers, continue remdesivir and empiric steroid along with scheduled nebulizer breathing treatment. Called patient mother and updated in details. 09/27/20: Remains on high flow oxygen on nonrebreather. Continue to wean off O2 as tolerated. Inflammatory markers remain stable. Will complete remdesivir for 5 days and dexamethasone for 10 days. ID and critical care following, appreciat e recommendation 09/28/20: Remains on high flow and NRB. clinically remains very critical. repeat Inflammatory markers tomorrow. 09/29/20: Patient on high flow nasal cannula, off from nonrebreather. Continue higher dose dexamethasone, total 10 days, -Completed remdesivir. Status post Actemra on 09/26/2020. 09/30/20: Patient remains on high flow O2. Inflammatory markers appears to be stable. Continue higher dose of dexamethasone for total 10 days. ID and pulmonary critical care following. Continue to monitor and provide supportive care. Scheduled nebulizer breathing treatment. patient is alert and oriented and resting in the bed, no complaints, ABG results reviewed, pulmonary and ID notes reviewed. Weaned off nonrebreather mask Subjective Date of service: 09/30/20 Principal diagnosis: Ac. hypoxemic resp failure; Umesh. Pneumonia; COVID-19; Asthma; Migraines Interval history: Patient seen and examined. Medical records and medication list reviewed. No acute event overnight noted by the RN. Patient have significant difficulty breathing -remains on high flow O2 Patient noted to be sitting on bed: Resting Discussed plan of care at bedside with patient. Objective - Constitutional Vitals: Vital Signs - 12hr 09/30/20 09/30/20 09/30/20 22:42 23:00 23:30 Temperature Pulse Rate 94 H 96 H 88 Pulse Rate [ Posterior Bilateral Throughout] Respiratory 18 20 Rate Respiratory Rate [Posterior Bilateral Throughout] Blood Pressure 120/91 115/85 O2 Sat by Pulse 97 97 Oximetry 10/01/20 10/01/20 10/01/20 00:00 00:39 01:00 Temperature 98.4 F Pulse Rate 92 H 87 Pulse Rate [ Posterior Bilateral Throughout] Respiratory 28 H 26 H Rate Respiratory Rate [Posterior Bilateral Throughout] Blood Pressure 134/79 127/74 O2 Sat by Pulse 92 93 92 Oximetry 10/01/20 10/01/20 10/01/20 01:05 01:11 01:15 Temperature Pulse Rate 89 89 89 Pulse Rate [ Posterior Bilateral Throughout] Respiratory 21 20 29 H Rate Respiratory Rate [Posterior Bilateral Throughout] Blood Pressure 127/74 127/74 127/74 O2 Sat by Pulse 93 94 94 Oximetry 10/01/20 10/01/20 10/01/20 01:21 01:25 01:31 Temperature Pulse Rate 87 91 H 85 Pulse Rate [ Posterior Bilateral Throughout] Respiratory 25 H 21 25 H Rate Respiratory Rate [Posterior Bilateral Throughout] Blood Pressure 127/74 127/74 127/74 O2 Sat by Pulse 95 96 97 Oximetry 10/01/20 10/01/20 10/01/20 01:35 01:41 01:45 Temperature Pulse Rate 86 87 85 Pulse Rate [ Posterior Bilateral Throughout] Respiratory 22 26 H 22 Rate Respiratory Rate [Posterior Bilateral Throughout] Blood Pressure 127/74 127/74 127/74 O2 Sat by Pulse 97 98 99 Oximetry 10/01/20 10/01/20 10/01/20 01:51 01:55 02:00 Temperature Pulse Rate 88 90 87 Pulse Rate [ Posterior Bilateral Throughout] Respiratory 25 H 17 21 Rate Respiratory Rate [Posterior Bilateral Throughout] Blood Pressure 127/74 127/74 145/82 O2 Sat by Pulse 96 96 96 Oximetry 10/01/20 10/01/20 10/01/20 02:05 02:11 02:15 Temperature Pulse Rate 88 83 85 Pulse Rate [ Posterior Bilateral Throughout] Respiratory 22 26 H 24 Rate Respiratory Rate [Posterior Bilateral Throughout] Blood Pressure 145/82 145/82 145/82 O2 Sat by Pulse 97 96 97 Oximetry 10/01/20 10/01/20 10/01/20 02:21 02:25 02:31 Temperature Pulse Rate 85 87 83 Pulse Rate [ Posterior Bilateral Throughout] Respiratory 18 18 18 Rate Respiratory Rate [Posterior Bilateral Throughout] Blood Pressure 127/74 127/74 127/74 O2 Sat by Pulse 97 97 96 Oximetry 10/01/20 10/01/20 10/01/20 02:35 02:41 02:45 Temperature Pulse Rate 82 84 86 Pulse Rate [ Posterior Bilateral Throughout] Respiratory 17 18 19 Rate Respiratory Rate [Posterior Bilateral Throughout] Blood Pressure 127/74 127/74 127/74 O2 Sat by Pulse 95 95 94 Oximetry 10/01/20 10/01/20 10/01/20 02:51 02:55 03:05 Temperature Pulse Rate 85 84 46 L Pulse Rate [ Posterior Bilateral Throughout] Respiratory 19 14 20 Rate Respiratory Rate [Posterior Bilateral Throughout] Blood Pressure 127/74 127/74 109/66 O2 Sat by Pulse 94 94 95 Oximetry 10/01/20 10/01/20 10/01/20 03:11 03:15 03:24 Temperature Pulse Rate 99 H Pulse Rate [ Posterior Bilateral Throughout] Respiratory 25 H 11 L 24 Rate Respiratory Rate [Posterior Bilateral Throughout] Blood Pressure 109/66 109/66 O2 Sat by Pulse 96 97 96 Oximetry 10/01/20 10/01/20 10/01/20 03:38 03:59 04:00 Temperature 97.8 F Pulse Rate 93 H Pulse Rate [ Posterior Bilateral Throughout] Respiratory Rate Respiratory Rate [Posterior Bilateral Throughout] Blood Pressure O2 Sat by Pulse 93 Oximetry 10/01/20 10/01/20 10/01/20 04:01 05:00 06:00 Temperature Pulse Rate 93 H 82 83 Pulse Rate [ Posterior Bilateral Throughout] Respiratory 29 H 31 H 37 H Rate Respiratory Rate [Posterior Bilateral Throughout] Blood Pressure 112/78 112/78 124/74 O2 Sat by Pulse 92 93 96 Oximetry 10/01/20 10/01/20 10/01/20 07:00 08:00 08:01 Temperature 99.1 F Pulse Rate 87 90 94 H Pulse Rate [ Posterior Bilateral Throughout] Respiratory 19 20 Rate Respiratory Rate [Posterior Bilateral Throughout] Blood Pressure 108/70 108/70 O2 Sat by Pulse 97 100 Oximetry 10/01/20 10/01/20 10/01/20 08:45 09:00 09:01 Temperature Pulse Rate 96 H Pulse Rate [ 94 H Posterior Bilateral Throughout] Respiratory 31 H Rate Respiratory 20 Rate [Posterior Bilateral Throughout] Blood Pressure 108/70 O2 Sat by Pulse 94 93 Oximetry 10/01/20 10:01 Temperature Pulse Rate 90 Pulse Rate [ Posterior Bilateral Throughout] Respiratory 21 Rate Respiratory Rate [Posterior Bilateral Throughout] Blood Pressure 110/57 O2 Sat by Pulse 96 Oximetry General appearance: Present: mild distress, obese - EENT Eyes: PERRL, EOM intact ENT: hearing intact - Neck Neck: supple, normal ROM - Respiratory Respiratory effort: normal Respiratory: bilateral: CTA - Cardiovascular Rhythm: regular Heart Sounds: Present: S1 & S2 Extremities: No edema - Gastrointestinal General gastrointestinal: Present: soft, non-tender Rectal Exam: deferred - Genitourinary Female genitourinary: deferred - Integumentary Integumentary: clear - Musculoskeletal Musculoskeletal: strength equal bilaterally - Neurologic Neurologic: CNII-XII intact, no focal deficits, moves all extremities - Psychiatric Psychiatric: appropriate mood/affect - Labs CBC & Chem 7: 09/29/20 05:10 09/29/20 05:10 Labs: Abnormal lab results 09/30/20 09/30/20 09/30/20 Range/Units 11:45 17:39 21:16 ABG pH (7.320-7.450) POC ABG pO2 (83-108) mmHg ABG Oxyhemoglobin (94-98) ABG Sodium (136.0-145.0) mmol/L ABG Potassium (3.40-4.50) mmol/L ABG Glucose (65-95) mg/dL Carboxyhemoglobin (0.5-1.5) POC Glucose 109 H 181 H 114 H (70-105) mg/dL Arterial Blood Glucose (65-95) mg/dL Arterial Blood Ionized Calcium (4.6-5.3) mg/dL 10/01/20 Range/Units 09:34 ABG pH 7.485 H (7.320-7.450) POC ABG pO2 148.8 H (83-108) mmHg ABG Oxyhemoglobin 98.5 H (94-98) ABG Sodium 135.6 L (136.0-145.0) mmol/L ABG Potassium 3.3 L (3.40-4.50) mmol/L ABG Glucose 128 H (65-95) mg/dL Carboxyhemoglobin 0.3 L (0.5-1.5) POC Glucose (70-105) mg/dL Arterial Blood Glucose 128 H (65-95) mg/dL Arterial Blood Ionized Calcium 4.5 L (4.6-5.3) mg/dL HEART Score - HEART Score Troponin: Troponin T < 0.010 ng/mL (0.00-0.029) 09/23/20 08:02
[2020-10-01 12:49] LABS: Alanine Aminotransferase 27 units/L (7-56); Albumin 4.1 g/dL (3.9-5); BUN/Creatinine Ratio 29; Blood Urea Nitrogen 26 mg/dL (7-17); Calcium 9.6 mg/dL (8.4-10.2); Hemolysis Index 29
--- NOTE | 2020-10-01 14:20 | Progress Note ---
Assessment and Plan Acute hypoxemic respiratory failure Bilateral pneumonia COVID-19 infection Morbid obesity History of asthma Hypokalemia Asthma exacerbation History of migraines Chronic low back pain - explained importance of compliance with NIV and not displacing oxygen cannula - no new issues today otherwise, continue care as below; - continue BIPAP scheduled qhs (HFNC in daytime if tolerates) - continue to wean supplemental oxygen for target O2 sat's > 92% acutely - aspiration precautions - continue bronchodilators with pulmonary hygiene per RT - accuchecks with glycemic control per SSI (While critically ill target blood glucose of 140-180 mg/dL; avoid hypoglycemia) - avoid nephrotoxins, renally dose all medications - continue to avoid benzodiazepine's, reduce the possibility of delirium - complete antiinfective's per ID recommendations - prn analgesia per pain score - Maintenance of sleep-wake cycle, avoid delirium - G.I. & VTE prophylaxis - PT/OT/ROM exercises - continue mobility protocols for pressure ulcer prophylaxis - Monitor hemodynamics closely - continue other care per attending / other consultants - discharge planning ongoing concurrently COVID SPECIFIC INTERVENTIONS - Remdesivir as per ID/Pulmonary developed protocols - continue systemic steroids for severe COVID-19 infection empirically - follow repeat COVID tests results - zinc and vitamin C supplementation - Monitor inflammatory markers per facility protocol - ferritin, Ddimer, CRP - therapeutic anticoagulation per system Protocol based on d-dimer and clinical considerations (not a candidate) - Continue contact and airborne isolation .... Re-evaluate in am & prn CONDITION: CRITICAL PROGNOSIS: GUARDED CODE STATUS: FULL CODE The high probability of a clinically significant, sudden or life-threatening deterioration of the [respiratory, cardiovascular & infectious disease] system(s) required my full and direct attention, intervention and personal management. The aggregate critical care time was [32] minutes without overlap. Time includes spent on; [x] Data Review and interpretation [x] Patient assessment and monitoring of vital signs [x] Documentation [x] Medication orders and management Subjective Date of service: 10/01/20 Principal diagnosis: Ac. hypoxemic resp failure; Umesh. Pneumonia; COVID-19; Asthma; Migraines Interval history: Patient is seen today for: Acute hypoxemic respiratory failure; Bilateral pneumonia; COVID-19 infection; Morbid obesity; Asthma; Migraines; Chronic low back pain Seen and examined at bedside; 24hour events reviewed; nursing and respiratory care staff consulted; no adverse overnight events reported to me; resting in b ed; remains on HFNC @ 100% but patient found in room pulling off the nasal cannula and with O2 sat's in 70's; denied acute chest pain or palpitations and no hemoptysis Objective Vital Signs - 12hr 10/01/20 10/01/20 10/01/20 02:21 02:25 02:31 Temperature Pulse Rate 85 87 83 Pulse Rate [ Posterior Bilateral Throughout] Pulse Rate [ Right Dorsalis Pedis] Respiratory 18 18 18 Rate Respiratory Rate [Head] Respiratory Rate [Posterior Bilateral Throughout] Blood Pressure 127/74 127/74 127/74 O2 Sat by Pulse 97 97 96 Oximetry 10/01/20 10/01/20 10/01/20 02:35 02:41 02:45 Temperature Pulse Rate 82 84 86 Pulse Rate [ Posterior Bilateral Throughout] Pulse Rate [ Right Dorsalis Pedis] Respiratory 17 18 19 Rate Respiratory Rate [Head] Respiratory Rate [Posterior Bilateral Throughout] Blood Pressure 127/74 127/74 127/74 O2 Sat by Pulse 95 95 94 Oximetry 10/01/20 10/01/20 10/01/20 02:51 02:55 03:05 Temperature Pulse Rate 85 84 46 L Pulse Rate [ Posterior Bilateral Throughout] Pulse Rate [ Right Dorsalis Pedis] Respiratory 19 14 20 Rate Respiratory Rate [Head] Respiratory Rate [Posterior Bilateral Throughout] Blood Pressure 127/74 127/74 109/66 O2 Sat by Pulse 94 94 95 Oximetry 10/01/20 10/01/20 10/01/20 03:11 03:15 03:24 Temperature Pulse Rate 99 H Pulse Rate [ Posterior Bilateral Throughout] Pulse Rate [ Right Dorsalis Pedis] Respiratory 25 H 11 L 24 Rate Respiratory Rate [Head] Respiratory Rate [Posterior Bilateral Throughout] Blood Pressure 109/66 109/66 O2 Sat by Pulse 96 97 96 Oximetry 10/01/20 10/01/20 10/01/20 03:38 03:59 04:00 Temperature 97.8 F Pulse Rate 93 H Pulse Rate [ Posterior Bilateral Throughout] Pulse Rate [ Right Dorsalis Pedis] Respiratory Rate Respiratory Rate [Head] Respiratory Rate [Posterior Bilateral Throughout] Blood Pressure O2 Sat by Pulse 93 Oximetry 10/01/20 10/01/20 10/01/20 04:01 05:00 06:00 Temperature Pulse Rate 93 H 82 83 Pulse Rate [ Posterior Bilateral Throughout] Pulse Rate [ Right Dorsalis Pedis] Respiratory 29 H 31 H 37 H Rate Respiratory Rate [Head] Respiratory Rate [Posterior Bilateral Throughout] Blood Pressure 112/78 112/78 124/74 O2 Sat by Pulse 92 93 96 Oximetry 10/01/20 10/01/20 10/01/20 07:00 08:00 08:01 Temperature 99.1 F Pulse Rate 87 90 94 H Pulse Rate [ Posterior Bilateral Throughout] Pulse Rate [ 92 H Right Dorsalis Pedis] Respiratory 19 20 Rate Respiratory Rate [Head] Respiratory Rate [Posterior Bilateral Throughout] Blood Pressure 108/70 108/70 O2 Sat by Pulse 97 100 Oximetry 10/01/20 10/01/20 10/01/20 08:45 09:00 09:01 Temperature Pulse Rate 96 H Pulse Rate [ 94 H Posterior Bilateral Throughout] Pulse Rate [ Right Dorsalis Pedis] Respiratory 31 H Rate Respiratory Rate [Head] Respiratory 20 Rate [Posterior Bilateral Throughout] Blood Pressure 108/70 O2 Sat by Pulse 94 93 Oximetry 10/01/20 10/01/20 10/01/20 10:00 10:01 11:01 Temperature Pulse Rate 90 99 H Pulse Rate [ Posterior Bilateral Throughout] Pulse Rate [ Right Dorsalis Pedis] Respiratory 21 22 Rate Respiratory 16 Rate [Head] Respiratory Rate [Posterior Bilateral Throughout] Blood Pressure 110/57 110/57 O2 Sat by Pulse 96 99 Oximetry 10/01/20 12:00 Temperature 99.4 F Pulse Rate Pulse Rate [ Posterior Bilateral Throughout] Pulse Rate [ Right Dorsalis Pedis] Respiratory Rate Respiratory Rate [Head] Respiratory Rate [Posterior Bilateral Throughout] Blood Pressure O2 Sat by Pulse Oximetry Constitutional: appears uncomfortable, other (middle aged obese female with mildly increased respiratoiry effort at rest ) Eyes: non-icteric ENT: oropharynx moist Neck: supple, no lymphadenopathy, no JVD, other (large neck circumference) Effort: mildly labored Ascultation: Bilateral: rales (bases (improved)) Percussion: Bilateral: not dull Cardiovascular: regular rate and rhythm Gastrointestinal: normoactive bowel sounds, soft, non-tender, non-distended (protuberant) Integumentary: normal Extremities: no cyanosis, pulses normal, no ischemia or petechiae, edema (trace) Neurologic: non-focal exam, pupils equal and round, CN II-XII normal, motor st rength normal and Psychiatric: mood appropriate, affect normal CBC and BMP: 09/29/20 05:10 10/01/20 Unknown ABG, PT/INR, D-dimer: ABG ABG pH 7.485 (7.320-7.450) H 10/01/20 09:34 POC ABG pCO2 38.1 mmHg (32.0-48.0) 10/01/20 09:34 POC ABG pO2 148.8 mmHg (83-108) H 10/01/20 09:34 POC ABG HCO3 28.1 10/01/20 09:34 ABG O2 Saturation 99.1 (0-100) 10/01/20 09:34 PT/INR, D-dimer D-Dimer 293.21 ng/mlDDU (0-234) H 09/30/20 04:34 Abnormal lab findings: Abnormal Labs 09/23/20 09/23/20 09/23/20 05:00 08:02 08:40 WBC 3.4 L RBC MCV 76 L 75 L MCH 25 L 25 L RDW 17.2 H 17.0 H Plt Count Mineral % (Auto) 9.0 H 9.1 H Baso % (Auto) 1.9 H Lymph # (Auto) 0.7 L Seg Neutrophils % 70.6 H D-Dimer ABG pH POC ABG pO2 ABG Oxyhemoglobin ABG Sodium ABG Potassium ABG Glucose Carboxyhemoglobin Potassium 3.4 L Chloride Carbon Dioxide BUN Glucose 116 H POC Glucose Calcium Lactate Dehydrogenase C-Reactive Protein Albumin Arterial Blood Glucose Arterial Blood Ionized Calcium 09/23/20 09/23/20 09/23/20 11:54 16:11 18:08 WBC RBC MCV MCH RDW Plt Count Mineral % (Auto) Baso % (Auto) Lymph # (Auto) Seg Neutrophils % D-Dimer ABG pH POC ABG pO2 ABG Oxyhemoglobin ABG Sodium ABG Potassium ABG Glucose Carboxyhemoglobin Potassium 3.3 L Chloride Carbon Dioxide BUN Glucose 213 H POC Glucose 238 H Calcium 8.2 L Lactate Dehydrogenase 358 H C-Reactive Protein 2.10 H Albumin 3.6 L Arterial Blood Glucose Arterial Blood Ionized Calcium 09/23/20 09/24/20 09/24/20 23:19 07:34 11:47 WBC RBC MCV MCH RDW Plt Count Mineral % (Auto) Baso % (Auto) Lymph # (Auto) Seg Neutrophils % D-Dimer ABG pH POC ABG pO2 ABG Oxyhemoglobin ABG Sodium ABG Potassium ABG Glucose Carboxyhemoglobin Potassium 3.3 L Chloride Carbon Dioxide BUN Glucose 101 H POC Glucose 127 H 125 H Calcium 8.2 L Lactate Dehydrogenase C-Reactive Protein Albumin 3.4 L Arterial Blood Glucose Arterial Blood Ionized Calcium 09/24/20 09/24/20 09/25/20 18:09 22:57 05:50 WBC RBC MCV MCH RDW Plt Count Mineral % (Auto) Baso % (Auto) Lymph # (Auto) Seg Neutrophils % D-Dimer ABG pH POC ABG pO2 ABG Oxyhemoglobin ABG Sodium ABG Potassium ABG Glucose Carboxyhemoglobin Potassium Chloride Carbon Dioxide BUN Glucose POC Glucose 199 H 116 H Calcium 8.3 L Lactate Dehydrogenase C-Reactive Protein Albumin 3.7 L Arterial Blood Glucose Arterial Blood Ionized Calcium 09/25/20 09/25/20 09/25/20 07:42 09:57 11:38 WBC RBC MCV MCH RDW Plt Count Mineral % (Auto) Baso % (Auto) Lymph # (Auto) Seg Neutrophils % D-Dimer ABG pH POC ABG pO2 ABG Oxyhemoglobin ABG Sodium ABG Potassium ABG Glucose Carboxyhemoglobin Potassium Chloride Carbon Dioxide BUN Glucose POC Glucose 106 H 142 H Calcium Lactate Dehydrogenase 510 H C-Reactive Protein 6.70 H Albumin Arterial Blood Glucose Arterial Blood Ionized Calcium 09/25/20 09/25/20 09/26/20 16:29 22:38 05:56 WBC RBC MCV MCH RDW Plt Count Mineral % (Auto) Baso % (Auto) Lymph # (Auto) Seg Neutrophils % D-Dimer ABG pH POC ABG pO2 ABG Oxyhemoglobin ABG Sodium ABG Potassium ABG Glucose Carboxyhemoglobin Potassium Chloride Carbon Dioxide BUN Glucose 115 H POC Glucose 227 H 165 H Calcium Lactate Dehydrogenase C-Reactive Protein Albumin 3.4 L Arterial Blood Glucose Arterial Blood Ionized Calcium 09/26/20 09/26/20 09/26/20 11:50 15:24 21:57 WBC RBC MCV MCH RDW Plt Count Mineral % (Auto) Baso % (Auto) Lymph # (Auto) Seg Neutrophils % D-Dimer ABG pH POC ABG pO2 ABG Oxyhemoglobin ABG Sodium ABG Potassium ABG Glucose Carboxyhemoglobin Potassium Chloride Carbon Dioxide BUN Glucose POC Glucose 124 H 184 H 159 H Calcium Lactate Dehydrogenase C-Reactive Protein Albumin Arterial Blood Glucose Arterial Blood Ionized Calcium 09/27/20 09/27/20 09/27/20 11:36 16:05 21:44 WBC RBC MCV MCH RDW Plt Count Mineral % (Auto) Baso % (Auto) Lymph # (Auto) Seg Neutrophils % D-Dimer ABG pH POC ABG pO2 ABG Oxyhemoglobin ABG Sodium ABG Potassium ABG Glucose Carboxyhemoglobin Potassium Chloride Carbon Dioxide BUN Glucose POC Glucose 142 H 177 H 138 H Calcium Lactate Dehydrogenase C-Reactive Protein Albumin Arterial Blood Glucose Arterial Blood Ionized Calcium 09/28/20 09/28/20 09/29/20 16:13 21:42 05:10 WBC RBC 5.08 H MCV 75 L MCH 24 L RDW 16.4 H Plt Count 495 H Mineral % (Auto) Baso % (Auto) Lymph # (Auto) Seg Neutrophils % 75.0 H D-Dimer ABG pH POC ABG pO2 ABG Oxyhemoglobin ABG Sodium ABG Potassium ABG Glucose Carboxyhemoglobin Potassium Chloride Carbon Dioxide BUN Glucose POC Glucose 180 H 137 H Calcium Lactate Dehydrogenase C-Reactive Protein Albumin Arterial Blood Glucose Arterial Blood Ionized Calcium 09/29/20 09/29/20 09/29/20 05:10 12:08 17:20 WBC RBC MCV MCH RDW Plt Count Mineral % (Auto) Baso % (Auto) Lymph # (Auto) Seg Neutrophils % D-Dimer ABG pH POC ABG pO2 ABG Oxyhemoglobin ABG Sodium ABG Potassium ABG Glucose Carboxyhemoglobin Potassium Chloride Carbon Dioxide 31 H BUN 24 H Glucose 130 H POC Glucose 200 H 173 H Calcium Lactate Dehydrogenase C-Reactive Protein Albumin Arterial Blood Glucose Arterial Blood Ionized Calcium 09/29/20 09/30/20 09/30/20 21:20 04:34 04:34 WBC RBC MCV MCH RDW Plt Count Mineral % (Auto) Baso % (Auto) Lymph # (Auto) Seg Neutrophils % D-Dimer 293.21 H ABG pH POC ABG pO2 ABG Oxyhemoglobin ABG Sodium ABG Potassium ABG Glucose Carboxyhemoglobin Potassium Chloride Carbon Dioxide BUN Glucose POC Glucose 111 H Calcium Lactate Dehydrogenase 574 H C-Reactive Protein Albumin Arterial Blood Glucose Arterial Blood Ionized Calcium 09/30/20 09/30/20 09/30/20 11:45 17:39 21:16 WBC RBC MCV MCH RDW Plt Count Mineral % (Auto) Baso % (Auto) Lymph # (Auto) Seg Neutrophils % D-Dimer ABG pH POC ABG pO2 ABG Oxyhemoglobin ABG Sodium ABG Potassium ABG Glucose Carboxyhemoglobin Potassium Chloride Carbon Dioxide BUN Glucose POC Glucose 109 H 181 H 114 H Calcium Lactate Dehydrogenase C-Reactive Protein Albumin Arterial Blood Glucose Arterial Blood Ionized Calcium 10/01/20 10/01/20 10/01/20 09:34 12:07 Unknown WBC RBC MCV MCH RDW Plt Count Mineral % (Auto) Baso % (Auto) Lymph # (Auto) Seg Neutrophils % D-Dimer ABG pH 7.485 H POC ABG pO2 148.8 H ABG Oxyhemoglobin 98.5 H ABG Sodium 135.6 L ABG Potassium 3.3 L ABG Glucose 128 H Carboxyhemoglobin 0.3 L Potassium Chloride 96.2 L Carbon Dioxide BUN 26 H Glucose 133 H POC Glucose 133 H Calcium Lactate Dehydrogenase C-Reactive Protein Albumin Arterial Blood Glucose 128 H Arterial Blood Ionized Calcium 4.5 L Chest x-ray: image reviewed (near resolution of bilateral infiltrates) Allied health notes reviewed: nursing
[2020-10-01] MEDS ORDERED: ASCORBIC ACID 500 MG TAB ONE (22:54)
[2020-10-01] MEDS: ENOXAPARIN 40 MG/0.4 ML INJ SUB-Q SCH (23:08)
[2020-10-02] MEDS: IPRATROPIUM/ALBUTEROL SULFATE 3 ML AMPUL.NEB IH SCH ×4 (02:35→21:10)
[2020-10-02] MEDS: INSULIN REGULAR, HUMAN 100 UNITS/1 ML SUB-Q SCH ×4 (07:55→22:17)
[2020-10-02] MEDS: dexAMETHasone 4 MG/ML VIAL IV SCH (09:31)
[2020-10-02] MEDS: FAMOTIDINE 20 MG TAB PO SCH ×2 (09:31→22:16)
[2020-10-02] MEDS: FUROSEMIDE 20 MG/2 ML INJ IV SCH (09:31)
[2020-10-02] MEDS: ZINC SULFATE 220 MG CAP PO SCH ×2 (09:31→22:16)
[2020-10-02] MEDS: CHOLECALCIFEROL (VIT D3) 5,000 UNIT TAB PO SCH (09:31)
[2020-10-02] MEDS: ASCORBIC ACID 500 MG TAB PO SCH ×2 (09:31→22:16)
[2020-10-02] MEDS: guaiFENesin ER 600 MG TAB PO SCH ×2 (10:17→22:16)
--- NOTE | 2020-10-02 11:23 | Progress Note ---
Assessment and Plan Cultures: SARS CoV2 PCR: Positive as outpatient A/P: 44-year-old female with asthma, migraine, morbid obesity admitted with: #Bilateral pneumonia: Likely secondary to COVID-19. Procal is low. S/P remdesivir, S/P Actemra 09/26/2020. #Acute hypoxic respiratory failure: On HF nasal cannula. #Morbid obesity Recs: -Continue higher dose dexamethasone, complete 10 days ending 10/03/2020 -procal remains low, keep off abx -prophylactic anticoagulation based on d-dimer per hospital protocol -markers appear improved ID will sign off. Please call with questions. Rosibel Romero MD, FACP [facility] ([facility]) O: [phone] F: [phone] Subjective Date of service: 10/02/20 Principal diagnosis: Ac. hypoxemic resp failure; Umesh. Pneumonia; COVID-19; Asthma; Migraines Interval history: No fever. Remains on HFNC. Objective - Exam Narrative Exam: Physical Exam (reviewed in chart to minimize risk of transmission) Constitutional: deferred Head, Ears, Nose: deferred Eyes: deferred Neck: deferred Oral: deferred Cardiovascular: deferred Respiratory: deferred GI: deferred Musculoskeletal: deferred Skin: deferred Hem/Lymphatic: deferred Psych: deferred Neurological: deferred - Constitutional Vitals: Vital Signs Temp Pulse Resp BP Pulse Ox 98.2 F 96 H 17 114/70 99 10/02/20 08:00 10/02/20 10:00 10/02/20 10:00 10/02/20 10:00 10/02/20 10:00 Temperature -Last 24 Hours Temperature 98.2 F Temperature 97.8 F Temperature 98.2 F Temperature 99 F Temperature 99.4 F - Labs CBC & Chem 7: 09/29/20 05:10 10/01/20 Unknown Labs: Abnormal lab results 10/01/20 10/01/20 10/01/20 Range/Units 12:07 16:57 21:38 Chloride (98-107) mmol/L BUN (7-17) mg/dL Glucose (65-100) mg/dL POC Glucose 133 H 209 H 198 H (70-105) mg/dL 10/01/20 10/02/20 Range/Units Unknown 08:40 Chloride 96.2 L (98-107) mmol/L BUN 26 H (7-17) mg/dL Glucose 133 H (65-100) mg/dL POC Glucose 142 H (70-105) mg/dL
--- NOTE | 2020-10-02 14:34 | Progress Note ---
Subjective Date of service: 10/02/20 Principal diagnosis: Ac. hypoxemic resp failure; Umesh. Pneumonia; COVID-19; Asthma; Migraines Interval history: Acute hypoxic respiratory failure Bilateral COVID-19 pneumonia -Patient tested positive for COVID-19 virus as outpatient about a week ago -CXR reviewed -Continue Decadron day 8-stop date 10/03 -Completed remdesivir course -Inflammatory markers reviewed and improving -Droplet/contact isolation -Continue SPO2 monitoring -Tolerating slow weaning -Patient is now on high flow 85% FiO2 and 35 L -Pulmonary hygiene -Proning as able -Anticoagulation per protocol --Lasix IV as needed to prevent pulmonary edema Morbid obesity, exercise, weight loss and dietary recommendation when clinically more stable Acute exacerbation of asthma due to underlying pneumonia -Continue to treat for COVID-19 pneumonia Chronic back pain, supportive care and pain management as needed History of migraine, patient does not have any issue currently, outpatient follo w-up DVT prophylaxis, continue Lovenox Full CODE STATUS Prognosis guarded Daily clinical course: 09/24/2020: Patient placed on high flow oxygen today 85% FiO2 with 25 L oxygen per minute. continue empiric steroid, IV remdesivir and dexamethasone. Supplemental O2 to keep oxygenation greater than 92%. ID following continue supportive care follow inflammatory markers.. 09/25/20: Remains on high flow O2, oxygen requirement has gone up today From 85% FiO2 100% FiO2. Repeat chest x-ray, continue dexamethasone and remdesivir. Follow inflammatory markers, procalcitonin level is low. 09/26/20; patient transferred to IMCU overnight due to increased requirement of oxygen. Chest x-ray today showed worsening pneumonia. Patient currently on high flow O2 and so with nonrebreather. Continue to follow inflammatory markers, continue remdesivir and empiric steroid along with scheduled nebulizer breathing treatment. Called patient mother and updated in details. 09/27/20: Remains on high flow oxygen on nonrebreather. Continue to wean off O2 as tolerated. Inflammatory markers remain stable. Will complete remdesivir for 5 days and dexamethasone for 10 days. ID and critical care following, appreciate recommendation 09/28/20: Remains on high flow and NRB. clinically remains very critical. repeat Inflammatory markers tomorrow. 09/29/20: Patient on high flow nasal cannula, off from nonrebreather. Continue higher dose dexamethasone, total 10 days, -Completed remdesivir. Status post Actemra on 09/26/2020. 09/30/20: Patient remains on high flow O2. Inflammatory markers appears to be stable. Continue higher dose of dexamethasone for total 10 days. ID and pulmonary critical care following. Continue to monitor and provide supportive care. Scheduled nebulizer breathing treatment. patient is alert and oriented and resting in the bed, no complaints, ABG results reviewed, pulmonary and ID notes reviewed. Weaned off nonrebreather mask 10/02 alert and oriented, no apparent distress, no specific complaints, ID and pulmonary notes reviewed, slow improvement Subjective Date of service: 09/30/20 Principal diagnosis: Ac. hypoxemic resp failure; Umesh. Pneumonia; COVID-19; Asthma; Migraines Interval history: Patient seen and examined. Medical records and medication list reviewed. No acute event overnight noted by the RN. Patient have significant difficulty breathing -remains on high flow O2 Patient noted to be sitting on bed: Resting Discussed plan of care at bedside with patient. Objective - Constitutional Vitals: Vital Signs - 12hr 10/02/20 10/02/20 10/02/20 02:36 02:38 03:00 Temperature Pulse Rate 87 Pulse Rate [ 87 Posterior Bilateral Throughout] Pulse Rate [ Right Dorsalis Pedis] Respiratory 19 Rate Respiratory 17 Rate [Posterior Bilateral Throughout] Blood Pressure 136/98 O2 Sat by Pulse 99 96 Oximetry 10/02/20 10/02/20 10/02/20 04:00 05:00 06:00 Temperature Pulse Rate 86 84 82 Pulse Rate [ Posterior Bilateral Throughout] Pulse Rate [ 92 H Right Dorsalis Pedis] Respiratory 21 23 15 Rate Respiratory Rate [Posterior Bilateral Throughout] Blood Pressure 126/74 137/112 118/76 O2 Sat by Pulse 97 96 97 Oximetry 10/02/20 10/02/20 10/02/20 07:00 07:34 08:00 Temperature 98.2 F Pulse Rate 91 H 92 H Pulse Rate [ 90 Posterior Bilateral Throughout] Pulse Rate [ 89 Right Dorsalis Pedis] Respiratory 18 18 Rate Respiratory 18 Rate [Posterior Bilateral Throughout] Blood Pressure 126/81 140/73 O2 Sat by Pulse 100 100 98 Oximetry 10/02/20 10/02/20 10/02/20 09:01 10:00 11:00 Temperature Pulse Rate 87 96 H 105 H Pulse Rate [ Posterior Bilateral Throughout] Pulse Rate [ Right Dorsalis Pedis] Respiratory 15 17 16 Rate Respiratory Rate [Posterior Bilateral Throughout] Blood Pressure 110/62 114/70 114/70 O2 Sat by Pulse 98 99 90 Oximetry 10/02/20 10/02/20 10/02/20 12:00 13:00 14:00 Temperature 98.4 F Pulse Rate 92 H 95 H 92 H Pulse Rate [ Posterior Bilateral Throughout] Pulse Rate [ 93 H Right Dorsalis Pedis] Respiratory 18 16 20 Rate Respiratory Rate [Posterior Bilateral Throughout] Blood Pressure 111/62 108/62 106/80 O2 Sat by Pulse 96 90 97 Oximetry General appearance: Present: no acute distress, well-nourished - EENT Eyes: PERRL, EOM intact ENT: hearing intact, clear oral mucosa - Neck Neck: supple, normal ROM - Respiratory Respiratory effort: normal Respiratory: bilateral: CTA - Cardiovascular Rhythm: regular Heart Sounds: Present: S1 & S2 Extremities: No edema - Gastrointestinal General gastrointestinal: Present: soft, non-tender Rectal Exam: deferred - Genitourinary Female genitourinary: deferred - Integumentary Integumentary: clear - Musculoskeletal Musculoskeletal: strength equal bilaterally - Neurologic Neurologic: no focal deficits - Psychiatric Psychiatric: appropriate mood/affect - Labs CBC & Chem 7: 09/29/20 05:10 10/01/20 Unknown Labs: Abnormal lab results 10/01/20 10/01/20 10/02/20 Range/Units 16:57 21:38 08:40 POC Glucose 209 H 198 H 142 H (70-105) mg/dL 10/02/20 Range/Units 12:01 POC Glucose 157 H (70-105) mg/dL HEART Score - HEART Score Troponin: Troponin T < 0.010 ng/mL (0.00-0.029) 09/23/20 08:02
--- NOTE | 2020-10-02 15:27 | Progress Note ---
Assessment and Plan Acute hypoxemic respiratory failure Bilateral pneumonia COVID-19 infection Morbid obesity History of asthma Hypokalemia Asthma exacerbation History of migraines Chronic low back pain - again explained importance of compliance with NIV and not displacing oxygen cannula - no new issues today otherwise, continue care as below; - continue BIPAP scheduled qhs (HFNC in daytime if tolerates) - continue to wean supplemental oxygen for target O2 sat's > 92% acutely - aspiration precautions - continue bronchodilators with pulmonary hygiene per RT - accuchecks with glycemic control per SSI (While critically ill target blood gl ucose of 140-180 mg/dL; avoid hypoglycemia) - avoid nephrotoxins, renally dose all medications - continue to avoid benzodiazepine's, reduce the possibility of delirium - complete antiinfective's per ID recommendations - prn analgesia per pain score - Maintenance of sleep-wake cycle, avoid delirium - G.I. & VTE prophylaxis - PT/OT/ROM exercises - continue mobility protocols for pressure ulcer prophylaxis - Monitor hemodynamics closely - continue other care per attending / other consultants - discharge planning ongoing concurrently COVID SPECIFIC INTERVENTIONS - Remdesivir as per ID/Pulmonary developed protocols - continue systemic steroids for severe COVID-19 infection empirically - follow repeat COVID tests results - zinc and vitamin C supplementation - Monitor inflammatory markers per facility protocol - ferritin, Ddimer, CRP - therapeutic anticoagulation per system Protocol based on d-dimer and clinical considerations (not a candidate) - Continue contact and airborne isolation .... Re-evaluate in am & prn CONDITION: CRITICAL PROGNOSIS: GUARDED CODE STATUS: FULL CODE The high probability of a clinically significant, sudden or life-threatening deterioration of the [respiratory, cardiovascular & infectious disease] system(s) required my full and direct attention, intervention and personal management. The aggregate critical care time was [35] minutes without overlap. Time includes spent on; [x] Data Review and interpretation [x] Patient assessment and monitoring of vital signs [x] Documentation [x] Medication orders and management Subjective Date of service: 10/02/20 Principal diagnosis: Ac. hypoxemic resp failure; Umesh. Pneumonia; COVID-19; Asthma; Migraines Interval history: Patient is seen today for: Acute hypoxemic respiratory failure; Bilateral pneumonia; COVID-19 infection; Morbid obesity; Asthma; Migraines; Chronic low back pain Seen and examined at bedside; 24hour events reviewed; nursing and respiratory care staff consulted; no adverse overnight events reported to me; resting in bed; remains on HFNC with FiO2 down to 75%; No N/V/F/C; poor BIPAP compliance Objective Vital Signs - 12hr 10/02/20 10/02/20 10/02/20 04:00 05:00 06:00 Temperature Pulse Rate 86 84 82 Pulse Rate [ Posterior Bilateral Throughout] Pulse Rate [ 92 H Right Dorsalis Pedis] Respiratory 21 23 15 Rate Respiratory Rate [Posterior Bilateral Throughout] Blood Pressure 126/74 137/112 118/76 O2 Sat by Pulse 97 96 97 Oximetry 10/02/20 10/02/20 10/02/20 07:00 07:34 08:00 Temperature 98.2 F Pulse Rate 91 H 92 H Pulse Rate [ 90 Posterior Bilateral Throughout] Pulse Rate [ 89 Right Dorsalis Pedis] Respiratory 18 18 Rate Respiratory 18 Rate [Posterior Bilateral Throughout] Blood Pressure 126/81 140/73 O2 Sat by Pulse 100 100 98 Oximetry 10/02/20 10/02/20 10/02/20 09:01 10:00 11:00 Temperature Pulse Rate 87 96 H 105 H Pulse Rate [ Posterior Bilateral Throughout] Pulse Rate [ Right Dorsalis Pedis] Respiratory 15 17 16 Rate Respiratory Rate [Posterior Bilateral Throughout] Blood Pressure 110/62 114/70 114/70 O2 Sat by Pulse 98 99 90 Oximetry 10/02/20 10/02/20 10/02/20 12:00 13:00 13:58 Temperature 98.4 F Pulse Rate 92 H 95 H Pulse Rate [ 92 H Posterior Bilateral Throughout] Pulse Rate [ 93 H Right Dorsalis Pedis] Respiratory 18 16 Rate Respiratory 18 Rate [Posterior Bilateral Throughout] Blood Pressure 111/62 108/62 O2 Sat by Pulse 96 90 100 Oximetry 10/02/20 14:00 Temperature Pulse Rate 92 H Pulse Rate [ Posterior Bilateral Throughout] Pulse Rate [ Right Dorsalis Pedis] Respiratory 20 Rate Respiratory Rate [Posterior Bilateral Throughout] Blood Pressure 106/80 O2 Sat by Pulse 97 Oximetry Constitutional: appears uncomfortable, other (middle aged obese female with mildly increased respiratoiry effort at rest ) Eyes: non-icteric ENT: oropharynx moist Neck: supple, no lymphadenopathy, no JVD, other (large neck circumference) Effort: mildly labored Ascultation: Bilateral: rales (bases (improved)) Percussion: Bilateral: not dull Cardiovascular: regular rate and rhythm Gastrointestinal: normoactive bowel sounds, soft, non-tender, non-distended (protuberant) Integumentary: normal Extremities: no cyanosis, pulses normal, no ischemia or petechiae, edema (trace) Neurologic: non-focal exam, pupils equal and round, CN II-XII normal, motor strength normal and Psychiatric: mood appropriate, affect normal CBC and BMP: 10/06/20 05:28 10/06/20 05:28 ABG, PT/INR, D-dimer: ABG ABG pH 7.485 (7.320-7.450) H 10/01/20 09:34 POC ABG pCO2 38.1 mmHg (32.0-48.0) 10/01/20 09:34 POC ABG pO2 148.8 mmHg (83-108) H 10/01/20 09:34 POC ABG HCO3 28.1 10/01/20 09:34 ABG O2 Saturation 99.1 (0-100) 10/01/20 09:34 PT/INR, D-dimer D-Dimer 293.21 ng/mlDDU (0-234) H 09/30/20 04:34 Abnormal lab findings: Abnormal Labs 09/23/20 09/23/20 09/23/20 05:00 08:02 08:40 WBC 3.4 L RBC MCV 76 L 75 L MCH 25 L 25 L RDW 17.2 H 17.0 H Plt Count [place] % (Auto) 9.0 H 9.1 H Baso % (Auto) 1.9 H Lymph # (Auto) 0.7 L Seg Neutrophils % 70.6 H D-Dimer ABG pH POC ABG pO2 ABG Oxyhemoglobin ABG Sodium ABG Potassium ABG Glucose Carboxyhemoglobin Potassium 3.4 L Chloride Carbon Dioxide BUN Glucose 116 H POC Glucose Calcium Lactate Dehydrogenase C-Reactive Protein Albumin Arterial Blood Glucose Arterial Blood Ionized Calcium 09/23/20 09/23/20 09/23/20 11:54 16:11 18:08 WBC RBC MCV MCH RDW Plt Count [place] % (Auto) Baso % (Auto) Lymph # (Auto) Seg Neutrophils % D-Dimer ABG pH POC ABG pO2 ABG Oxyhemoglobin ABG Sodium ABG Potassium ABG Glucose Carboxyhemoglobin Potassium 3.3 L Chloride Carbon Dioxide BUN Glucose 213 H POC Glucose 238 H Calcium 8.2 L Lactate Dehydrogenase 358 H C-Reactive Protein 2.10 H Albumin 3.6 L Arterial Blood Glucose Arterial Blood Ionized Calcium 09/23/20 09/24/20 09/24/20 23:19 07:34 11:47 WBC RBC MCV MCH RDW Plt Count [place] % (Auto) Baso % (Auto) Lymph # (Auto) Seg Neutrophils % D-Dimer ABG pH POC ABG pO2 ABG Oxyhemoglobin ABG Sodium ABG Potassium ABG Glucose Carboxyhemoglobin Potassium 3.3 L Chloride Carbon Dioxide BUN Glucose 101 H POC Glucose 127 H 125 H Calcium 8.2 L Lactate Dehydrogenase C-Reactive Protein Albumin 3.4 L Arterial Blood Glucose Arterial Blood Ionized Calcium 09/24/20 09/24/20 09/25/20 18:09 22:57 05:50 WBC RBC MCV MCH RDW Plt Count [place] % (Auto) Baso % (Auto) Lymph # (Auto) Seg Neutrophils % D-Dimer ABG pH POC ABG pO2 ABG Oxyhemoglobin ABG Sodium ABG Potassium ABG Glucose Carboxyhemoglobin Potassium Chloride Carbon Dioxide BUN Glucose POC Glucose 199 H 116 H Calcium 8.3 L Lactate Dehydrogenase C-Reactive Protein Albumin 3.7 L Arterial Blood Glucose Arterial Blood Ionized Calcium 09/25/20 09/25/20 09/25/20 07:42 09:57 11:38 WBC RBC MCV MCH RDW Plt Count [place] % (Auto) Baso % (Auto) Lymph # (Auto) Seg Neutrophils % D-Dimer ABG pH POC ABG pO2 ABG Oxyhemoglobin ABG Sodium ABG Potassium ABG Glucose Carboxyhemoglobin Potassium Chloride Carbon Dioxide BUN Glucose POC Glucose 106 H 142 H Calcium Lactate Dehydrogenase 510 H C-Reactive Protein 6.70 H Albumin Arterial Blood Glucose Arterial Blood Ionized Calcium 09/25/20 09/25/20 09/26/20 16:29 22:38 05:56 WBC RBC MCV MCH RDW Plt Count [place] % (Auto) Baso % (Auto) Lymph # (Auto) Seg Neutrophils % D-Dimer ABG pH POC ABG pO2 ABG Oxyhemoglobin ABG Sodium ABG Potassium ABG Glucose Carboxyhemoglobin Potassium Chloride Carbon Dioxide BUN Glucose 115 H POC Glucose 227 H 165 H Calcium Lactate Dehydrogenase C-Reactive Protein Albumin 3.4 L Arterial Blood Glucose Arterial Blood Ionized Calcium 09/26/20 09/26/20 09/26/20 11:50 15:24 21:57 WBC RBC MCV MCH RDW Plt Count [place] % (Auto) Baso % (Auto) Lymph # (Auto) Seg Neutrophils % D-Dimer ABG pH POC ABG pO2 ABG Oxyhemoglobin ABG Sodium ABG Potassium ABG Glucose Carboxyhemoglobin Potassium Chloride Carbon Dioxide BUN Glucose POC Glucose 124 H 184 H 159 H Calcium Lactate Dehydrogenase C-Reactive Protein Albumin Arterial Blood Glucose Arterial Blood Ionized Calcium 09/27/20 09/27/20 09/27/20 11:36 16:05 21:44 WBC RBC MCV MCH RDW Plt Count [place] % (Auto) Baso % (Auto) Lymph # (Auto) Seg Neutrophils % D-Dimer ABG pH POC ABG pO2 ABG Oxyhemoglobin ABG Sodium ABG Potassium ABG Glucose Carboxyhemoglobin Potassium Chloride Carbon Dioxide BUN Glucose POC Glucose 142 H 177 H 138 H Calcium Lactate Dehydrogenase C-Reactive Protein Albumin Arterial Blood Glucose Arterial Blood Ionized Calcium 09/28/20 09/28/20 09/29/20 16:13 21:42 05:10 WBC RBC 5.08 H MCV 75 L MCH 24 L RDW 16.4 H Plt Count 495 H [place] % (Auto) Baso % (Auto) Lymph # (Auto) Seg Neutrophils % 75.0 H D-Dimer ABG pH POC ABG pO2 ABG Oxyhemoglobin ABG Sodium ABG Potassium ABG Glucose Carboxyhemoglobin Potassium Chloride Carbon Dioxide BUN Glucose POC Glucose 180 H 137 H Calcium Lactate Dehydrogenase C-Reactive Protein Albumin Arterial Blood Glucose Arterial Blood Ionized Calcium 09/29/20 09/29/20 09/29/20 05:10 12:08 17:20 WBC RBC MCV MCH RDW Plt Count [place] % (Auto) Baso % (Auto) Lymph # (Auto) Seg Neutrophils % D-Dimer ABG pH POC ABG pO2 ABG Oxyhemoglobin ABG Sodium ABG Potassium ABG Glucose Carboxyhemoglobin Potassium Chloride Carbon Dioxide 31 H BUN 24 H Glucose 130 H POC Glucose 200 H 173 H Calcium Lactate Dehydrogenase C-Reactive Protein Albumin Arterial Blood Glucose Arterial Blood Ionized Calcium 09/29/20 09/30/20 09/30/20 21:20 04:34 04:34 WBC RBC MCV MCH RDW Plt Count [place] % (Auto) Baso % (Auto) Lymph # (Auto) Seg Neutrophils % D-Dimer 293.21 H ABG pH POC ABG pO2 ABG Oxyhemoglobin ABG Sodium ABG Potassium ABG Glucose Carboxyhemoglobin Potassium Chloride Carbon Dioxide BUN Glucose POC Glucose 111 H Calcium Lactate Dehydrogenase 574 H C-Reactive Protein Albumin Arterial Blood Glucose Arterial Blood Ionized Calcium 09/30/20 09/30/20 09/30/20 11:45 17:39 21:16 WBC RBC MCV MCH RDW Plt Count [place] % (Auto) Baso % (Auto) Lymph # (Auto) Seg Neutrophils % D-Dimer ABG pH POC ABG pO2 ABG Oxyhemoglobin ABG Sodium ABG Potassium ABG Glucose Carboxyhemoglobin Potassium Chloride Carbon Dioxide BUN Glucose POC Glucose 109 H 181 H 114 H Calcium Lactate Dehydrogenase C-Reactive Protein Albumin Arterial Blood Glucose Arterial Blood Ionized Calcium 10/01/20 10/01/20 10/01/20 09:34 12:07 16:57 WBC RBC MCV MCH RDW Plt Count [place] % (Auto) Baso % (Auto) Lymph # (Auto) Seg Neutrophils % D-Dimer ABG pH 7.485 H POC ABG pO2 148.8 H ABG Oxyhemoglobin 98.5 H ABG Sodium 135.6 L ABG Potassium 3.3 L ABG Glucose 128 H Carboxyhemoglobin 0.3 L Potassium Chloride Carbon Dioxide BUN Glucose POC Glucose 133 H 209 H Calcium Lactate Dehydrogenase C-Reactive Protein Albumin Arterial Blood Glucose 128 H Arterial Blood Ionized Calcium 4.5 L 10/01/20 10/01/20 10/02/20 21:38 Unknown 08:40 WBC RBC MCV MCH RDW Plt Count [place] % (Auto) Baso % (Auto) Lymph # (Auto) Seg Neutrophils % D-Dimer ABG pH POC ABG pO2 ABG Oxyhemoglobin ABG Sodium ABG Potassium ABG Glucose Carboxyhemoglobin Potassium Chloride 96.2 L Carbon Dioxide BUN 26 H Glucose 133 H POC Glucose 198 H 142 H Calcium Lactate Dehydrogenase C-Reactive Protein Albumin Arterial Blood Glucose Arterial Blood Ionized Calcium 10/02/20 12:01 WBC RBC MCV MCH RDW Plt Count [place] % (Auto) Baso % (Auto) Lymph # (Auto) Seg Neutrophils % D-Dimer ABG pH POC ABG pO2 ABG Oxyhemoglobin ABG Sodium ABG Potassium ABG Glucose Carboxyhemoglobin Potassium Chloride Carbon Dioxide BUN Glucose POC Glucose 157 H Calcium Lactate Dehydrogenase C-Reactive Protein Albumin Arterial Blood Glucose Arterial Blood Ionized Calcium Allied health notes reviewed: nursing
[2020-10-02] MEDS: CYCLOBENZAPRINE 10 MG TAB PO PRN (22:16)
[2020-10-02] MEDS: ENOXAPARIN 40 MG/0.4 ML INJ SUB-Q SCH (22:17)
[2020-10-03] MEDS: IPRATROPIUM/ALBUTEROL SULFATE 3 ML AMPUL.NEB IH SCH ×4 (02:35→20:28)
[2020-10-03] MEDS ORDERED: HYDROcodone/ACETAMINOPHEN 5-325 MG TAB PO PRN (09:12)
--- NOTE | 2020-10-03 09:16 | Progress Note ---
Subjective Date of service: 10/03/20 Principal diagnosis: Ac. hypoxemic resp failure; Umesh. Pneumonia; COVID-19; Asthma; Migraines Interval history: Acute hypoxic respiratory failure Bilateral COVID-19 pneumonia -Patient tested positive for COVID-19 virus as outpatient about a week ago -CXR reviewed -Continue Decadron day 8-stop date 10/03 -Completed remdesivir course -Inflammatory markers reviewed and improving -Droplet/contact isolation -Continue SPO2 monitoring -Tolerating slow weaning -Patient is now on high flow 85% FiO2 and 35 L -Pulmonary hygiene -Proning as able -Anticoagulation per protocol --Lasix IV as needed to prevent pulmonary edema Morbid obesity, exercise, weight loss and dietary recommendation when clinically more stable Acute exacerbation of asthma due to underlying pneumonia -Continue to treat for COVID-19 pneumonia Completed Decadron course Proning as much as possible Acute hypoxic respiratory failure tolerating slow weaning FiO2 decreased to 75% with 35 L high flow Oxygen saturation 97 to 98% Chronic back pain, supportive care and pain management as needed History of migraine, patient does not have any issue currently, outpatient follow-up Obesity class II Counseling on weight loss, diet and exercise was emphasized DVT prophylaxis, continue Lovenox Full CODE STATUS Prognosis guarded Daily clinical course: 09/24/2020: Patient placed on high flow oxygen today 85% FiO2 with 25 L oxygen per minute. continue empiric steroid, IV remdesivir and dexamethasone. Supplemental O2 to keep oxygenation greater than 92%. ID following continue supportive care follow inflammatory markers.. 09/25/20: Remains on high flow O2, oxygen requirement has gone up today From 85% FiO2 100% FiO2. Repeat chest x-ray, continue dexamethasone and remdesivir. Follow inflammatory markers, procalcitonin level is low. 09/26/20; patient transferred to [facility] overnight due to increased requirement of oxygen. Chest x-ray today showed worsening pneumonia. Patient currently on high flow O2 and so with nonrebreather. Continue to follow inflammatory markers, continue remdesivir and empiric steroid along with scheduled nebulizer breathing treatment. Called patient mother and updated in details. 09/27/20: Remains on high flow oxygen on nonrebreather. Continue to wean off O2 as tolerated. Inflammatory markers remain stable. Will complete remdesivir for 5 days and dexamethasone for 10 days. ID and critical care following, appreciat e recommendation 09/28/20: Remains on high flow and NRB. clinically remains very critical. repeat Inflammatory markers tomorrow. 09/29/20: Patient on high flow nasal cannula, off from nonrebreather. Continue higher dose dexamethasone, total 10 days, -Completed remdesivir. Status post Actemra on 09/26/2020. 09/30/20: Patient remains on high flow O2. Inflammatory markers appears to be stable. Continue higher dose of dexamethasone for total 10 days. ID and pulmonary critical care following. Continue to monitor and provide supportive care. Scheduled nebulizer breathing treatment. 10/01` patient is alert and oriented and resting in the bed, no complaints, ABG results reviewed, pulmonary and ID notes reviewed. Weaned off nonrebreather mask 10/02 alert and oriented, no apparent distress, no specific complaints, ID and pulmonary notes reviewed, slow improvement 10/03 no specific complaints, no acute events overnight, slow improvement, pulmonary note reviewed Subjective Date of service: 09/30/20 Principal diagnosis: Ac. hypoxemic resp failure; Umesh. Pneumonia; COVID-19; Asthma; Migraines Interval history: Patient seen and examined. Medical records and medication list reviewed. No acute event overnight noted by the RN. Patient have significant difficulty breathing -remains on high flow O2 Patient noted to be sitting on bed: Resting Discussed plan of care at bedside with patient. Objective - Constitutional Vitals: Vital Signs - 12hr 10/02/20 10/02/20 10/02/20 22:00 23:01 23:15 Temperature Pulse Rate 92 H 101 H 91 H Pulse Rate [ From Monitor] Pulse Rate [ Posterior Bilateral Throughout] Respiratory 27 H 19 17 Rate Respiratory Rate [Posterior Bilateral Throughout] Blood Pressure 113/81 124/79 124/79 O2 Sat by Pulse 91 98 99 Oximetry 10/02/20 10/03/20 10/03/20 23:36 00:00 00:01 Temperature 98 F Pulse Rate 80 80 Pulse Rate [ 80 From Monitor] Pulse Rate [ Posterior Bilateral Throughout] Respiratory 22 22 Rate Respiratory Rate [Posterior Bilateral Throughout] Blood Pressure 137/100 O2 Sat by Pulse 98 98 Oximetry 10/03/20 10/03/20 10/03/20 01:00 02:00 02:35 Temperature Pulse Rate 82 81 Pulse Rate [ From Monitor] Pulse Rate [ Posterior Bilateral Throughout] Respiratory 27 H 26 H Rate Respiratory Rate [Posterior Bilateral Throughout] Blood Pressure 137/100 145/90 O2 Sat by Pulse 97 95 98 Oximetry 10/03/20 10/03/20 10/03/20 03:00 04:00 04:01 Temperature 98.8 F Pulse Rate 68 69 Pulse Rate [ From Monitor] Pulse Rate [ Posterior Bilateral Throughout] Respiratory 29 H 33 H 33 H Rate Respiratory Rate [Posterior Bilateral Throughout] Blood Pressure 140/81 127/72 O2 Sat by Pulse 98 96 96 Oximetry 10/03/20 10/03/20 10/03/20 04:20 05:00 06:00 Temperature Pulse Rate 67 70 69 Pulse Rate [ From Monitor] Pulse Rate [ Posterior Bilateral Throughout] Respiratory 29 H 31 H Rate Respiratory Rate [Posterior Bilateral Throughout] Blood Pressure 131/81 140/85 O2 Sat by Pulse 99 100 Oximetry 10/03/20 10/03/20 10/03/20 07:01 07:49 07:50 Temperature Pulse Rate 76 91 H Pulse Rate [ 91 H From Monitor] Pulse Rate [ Posterior Bilateral Throughout] Respiratory 19 18 Rate Respiratory Rate [Posterior Bilateral Throughout] Blood Pressure 128/74 O2 Sat by Pulse 97 95 Oximetry 10/03/20 10/03/20 08:00 08:02 Temperature 98.6 F Pulse Rate Pulse Rate [ From Monitor] Pulse Rate [ 98 H Posterior Bilateral Throughout] Respiratory Rate Respiratory 18 Rate [Posterior Bilateral Throughout] Blood Pressure O2 Sat by Pulse 98 Oximetry General appearance: Present: no acute distress, well-nourished - EENT Eyes: PERRL, EOM intact ENT: hearing intact, clear oral mucosa - Neck Neck: supple, normal ROM - Respiratory Respiratory effort: normal Respiratory: bilateral: CTA - Cardiovascular Rhythm: regular Heart Sounds: Present: S1 & S2 Extremities: No edema - Gastrointestinal General gastrointestinal: Present: soft, non-tender Rectal Exam: deferred - Integumentary Integumentary: clear - Musculoskeletal Musculoskeletal: strength equal bilaterally - Neurologic Neurologic: no focal deficits - Psychiatric Psychiatric: appropriate mood/affect - Labs CBC & Chem 7: 09/29/20 05:10 10/01/20 Unknown Labs: Abnormal lab results 10/02/20 10/02/20 10/02/20 Range/Units 12:01 16:43 22:14 POC Glucose 157 H 214 H 132 H (70-105) mg/dL HEART Score - HEART Score Troponin: Troponin T < 0.010 ng/mL (0.00-0.029) 09/23/20 08:02
[2020-10-03] MEDS: INSULIN REGULAR, HUMAN 100 UNITS/1 ML SUB-Q SCH ×4 (09:26→21:30)
[2020-10-03] MEDS: guaiFENesin ER 600 MG TAB PO SCH ×2 (09:33→21:45)
[2020-10-03] MEDS: ZINC SULFATE 220 MG CAP PO SCH ×2 (09:34→21:45)
[2020-10-03] MEDS: dexAMETHasone 4 MG/ML VIAL IV SCH (09:34)
[2020-10-03] MEDS: CHOLECALCIFEROL (VIT D3) 5,000 UNIT TAB PO SCH (09:34)
[2020-10-03] MEDS: ASCORBIC ACID 500 MG TAB PO SCH ×2 (09:34→21:44)
[2020-10-03] MEDS: FAMOTIDINE 20 MG TAB PO SCH ×2 (09:34→21:45)
[2020-10-03] MEDS: FUROSEMIDE 20 MG/2 ML INJ IV SCH (09:34)
--- NOTE | 2020-10-03 13:17 | Progress Note ---
Assessment and Plan Patient is a 44-year-old -[place] female with a history of asthma, migraine headaches and chronic low back pain, morbid obesity who tested positive for COVID-19 about a week ago presents to the ED with complaint of acute onset persistent worsening diffuse body aches and pains, nasal and sinus congestion, persistent dry cough with shortness of breath and wheezing for the last 1 week. Patient states that she has been taking azithromycin and Medrol Dosepak at home but no improvement of her symptoms. Patient states that she did not receive COVID-19 vaccine. In the ER patient noted to be hypoxic, chest x-ray suggestive of bilateral pulmonary infiltrates due to atypical pneumonia. Patient placed on supplemental O2 started on empiric steroid, and empiric antibiotics . Patient sleeping.Patient is still on Vapotherm FIO2 65% and O2 saturation running 94%.O2 requirements slowly coming down No acute respiratory distress. Patient afebrile.No leukocytosis. Chest xray 09/25/20 reported worsening pulmonary air space disease. Duplex ultrasound of lower extremities reported No sonographic evidence for DVT in either lower extremity. Chest xray done 09/30/20 reported Improvement in the bilateral lung opacities since 09/25/2020. Patient is on S/C Lovenox, Famotidine and albuterol/atrovent aerosol treatments. Recommend to convert albuterol/atrovent to inhalers. Patient received Dexamethasone and REMDESIVIR.. Patient was seen in IMCU. I spent critical care time of 35 minutes, reviewing the chart, examine the patient, review labs, chest xray talking to the respiratory therapy, nursing staff and work out plan of treatment in this critically ill COID 19 patient. - Patient Problems (1) Acute respiratory failure with hypoxia Current Visit: Yes Status: Acute Plan to address problem: Vapotherm , FIO2 65% Continue S/C Lovenox. Continue Famotidine. Albuterol/atrovent inhalers q 6 hours prn for shortness of breath. (2) History of asthma Current Visit: Yes Status: Acute Plan to address problem: Vapotherm , FIO2 65%. Continue S/C Lovenox. Continue Famotidine. Albuterol/atrovent inhalers q 6 hours prn for shortness of breath. (3) Pneumonia due to 2019 novel coronavirus Current Visit: Yes Status: Acute Plan to address problem: Patient treated with ceftriaxone. (4) Obesity (BMI 30-39.9) Current Visit: Yes Status: Acute Plan to address problem: Recommend to loose weight. Recommend diet and exercise after improving from this condition. Subjective Date of service: 10/03/20 Principal diagnosis: Ac. hypoxemic resp failure; Umesh. Pneumonia; COVID-19; Asthma; Migraines Interval history: Patient is a 44-year-old -[place] female with a history of asthma, migraine headaches and chronic low back pain, morbid obesity who tested positive for COVID-19 about a week ago presents to the ED with complaint of acute onset persistent worsening diffuse body aches and pains, nasal and sinus congestion, persistent dry cough with shortness of breath and wheezing for the last 1 week. Patient states that she has been taking azithromycin and Medrol Dose mekhi at home but no improvement of her symptoms. Patient states that she did not receive COVID-19 vaccine. In the ER patient noted to be hypoxic, chest x-ray suggestive of bilateral pulmonary infiltrates due to atypical pneumonia. Patient placed on supplemental O2 started on empiric steroid, and empiric antibiotics . Patient sleeping.Patient is still on Vapotherm FIO2 65% and O2 saturation running 94%. O2 requirements slowly coming down. No acute respiratory distress. Patient afebrile.No leukocytosis. Chest xray 09/25/20 reported worsening pulmona ry air space disease. Duplex ultrasound of lower extremities reported No sonographic evidence for DVT in either lower extremity. Chest xray done 09/30/20 reported Improvement in the bilateral lung opacities since 09/25/2020. Patient is on S/C Lovenox, Famotidine and albuterol/atrovent aerosol treatments. Recommend to convert albuterol/atrovent to inhalers. Patient received Dexamethasone and REMDESIVIR. Objective Vital Signs - 12hr 10/03/20 10/03/20 10/03/20 02:00 02:35 03:00 Temperature Pulse Rate 81 68 Pulse Rate [ From Monitor] Pulse Rate [ Posterior Bilateral Throughout] Respiratory 26 H 29 H Rate Respiratory Rate [Posterior Bilateral Throughout] Blood Pressure 145/90 140/81 O2 Sat by Pulse 95 98 98 Oximetry 10/03/20 10/03/20 10/03/20 04:00 04:01 04:20 Temperature 98.8 F Pulse Rate 69 67 Pulse Rate [ From Monitor] Pulse Rate [ Posterior Bilateral Throughout] Respiratory 33 H 33 H Rate Respiratory Rate [Posterior Bilateral Throughout] Blood Pressure 127/72 O2 Sat by Pulse 96 96 Oximetry 10/03/20 10/03/20 10/03/20 05:00 06:00 07:01 Temperature Pulse Rate 70 69 76 Pulse Rate [ From Monitor] Pulse Rate [ Posterior Bilateral Throughout] Respiratory 29 H 31 H 19 Rate Respiratory Rate [Posterior Bilateral Throughout] Blood Pressure 131/81 140/85 128/74 O2 Sat by Pulse 99 100 97 Oximetry 10/03/20 10/03/20 10/03/20 07:49 07:50 08:00 Temperature 98.6 F Pulse Rate 91 H 86 Pulse Rate [ 91 H From Monitor] Pulse Rate [ Posterior Bilateral Throughout] Respiratory 18 14 Rate Respiratory Rate [Posterior Bilateral Throughout] Blood Pressure 130/83 O2 Sat by Pulse 95 98 Oximetry 10/03/20 10/03/20 10/03/20 08:02 09:01 10:01 Temperature Pulse Rate 93 H 92 H Pulse Rate [ From Monitor] Pulse Rate [ 98 H Posterior Bilateral Throughout] Respiratory 15 18 Rate Respiratory 18 Rate [Posterior Bilateral Throughout] Blood Pressure 121/61 121/58 O2 Sat by Pulse 98 94 90 Oximetry 10/03/20 10/03/20 11:00 12:00 Temperature 98.8 F Pulse Rate 108 H 97 H Pulse Rate [ 106 H From Monitor] Pulse Rate [ Posterior Bilateral Throughout] Respiratory 15 28 H Rate Respiratory Rate [Posterior Bilateral Throughout] Blood Pressure 139/92 115/62 O2 Sat by Pulse 91 Oximetry Constitutional: no acute distress, asleep, other (middle aged obese female with mildly increased respiratoiry effort at rest ) Eyes: non-icteric ENT: oropharynx moist Neck: supple, no lymphadenopathy, no JVD, other (large neck circumference) Effort: mildly labored Ascultation: Bilateral: rales (bases (improved)) Percussion: Bilateral: not dull Cardiovascular: regular rate and rhythm Gastrointestinal: normoactive bowel sounds, soft, non-tender, non-distended (protuberant) Integumentary: normal Extremities: no cyanosis, pulses normal, no ischemia or petechiae, edema (trace) Neurologic: non-focal exam, pupils equal and round, CN II-XII normal, motor strength normal and Psychiatric: mood appropriate, affect normal CBC and BMP: 09/29/20 05:10 10/01/20 Unknown ABG, PT/INR, D-dimer: ABG ABG pH 7.485 (7.320-7.450) H 10/01/20 09:34 POC ABG pCO2 38.1 mmHg (32.0-48.0) 10/01/20 09:34 POC ABG pO2 148.8 mmHg (83-108) H 10/01/20 09:34 POC ABG HCO3 28.1 10/01/20 09:34 ABG O2 Saturation 99.1 (0-100) 10/01/20 09:34 PT/INR, D-dimer D-Dimer 293.21 ng/mlDDU (0-234) H 09/30/20 04:34 Abnormal lab findings: Abnormal Labs 09/23/20 09/23/20 09/23/20 05:00 08:02 08:40 WBC 3.4 L RBC MCV 76 L 75 L MCH 25 L 25 L RDW 17.2 H 17.0 H Plt Count Clare % (Auto) 9.0 H 9.1 H Baso % (Auto) 1.9 H Lymph # (Auto) 0.7 L Seg Neutrophils % 70.6 H D-Dimer ABG pH POC ABG pO2 ABG Oxyhemoglobin ABG Sodium ABG Potassium ABG Glucose Carboxyhemoglobin Potassium 3.4 L Chloride Carbon Dioxide BUN Glucose 116 H POC Glucose Calcium Lactate Dehydrogenase C-Reactive Protein Albumin Arterial Blood Glucose Arterial Blood Ionized Calcium 09/23/20 09/23/20 09/23/20 11:54 16:11 18:08 WBC RBC MCV MCH RDW Plt Count Clare % (Auto) Baso % (Auto) Lymph # (Auto) Seg Neutrophils % D-Dimer ABG pH POC ABG pO2 ABG Oxyhemoglobin ABG Sodium ABG Potassium ABG Glucose Carboxyhemoglobin Potassium 3.3 L Chloride Carbon Dioxide BUN Glucose 213 H POC Glucose 238 H Calcium 8.2 L Lactate Dehydrogenase 358 H C-Reactive Protein 2.10 H Albumin 3.6 L Arterial Blood Glucose Arterial Blood Ionized Calcium 09/23/20 09/24/20 09/24/20 23:19 07:34 11:47 WBC RBC MCV MCH RDW Plt Count Clare % (Auto) Baso % (Auto) Lymph # (Auto) Seg Neutrophils % D-Dimer ABG pH POC ABG pO2 ABG Oxyhemoglobin ABG Sodium ABG Potassium ABG Glucose Carboxyhemoglobin Potassium 3.3 L Chloride Carbon Dioxide BUN Glucose 101 H POC Glucose 127 H 125 H Calcium 8.2 L Lactate Dehydrogenase C-Reactive Protein Albumin 3.4 L Arterial Blood Glucose Arterial Blood Ionized Calcium 09/24/20 09/24/20 09/25/20 18:09 22:57 05:50 WBC RBC MCV MCH RDW Plt Count Clare % (Auto) Baso % (Auto) Lymph # (Auto) Seg Neutrophils % D-Dimer ABG pH POC ABG pO2 ABG Oxyhemoglobin ABG Sodium ABG Potassium ABG Glucose Carboxyhemoglobin Potassium Chloride Carbon Dioxide BUN Glucose POC Glucose 199 H 116 H Calcium 8.3 L Lactate Dehydrogenase C-Reactive Protein Albumin 3.7 L Arterial Blood Glucose Arterial Blood Ionized Calcium 09/25/20 09/25/20 09/25/20 07:42 09:57 11:38 WBC RBC MCV MCH RDW Plt Count [place] % (Auto) Baso % (Auto) Lymph # (Auto) Seg Neutrophils % D-Dimer ABG pH POC ABG pO2 ABG Oxyhemoglobin ABG Sodium ABG Potassium ABG Glucose Carboxyhemoglobin Potassium Chloride Carbon Dioxide BUN Glucose POC Glucose 106 H 142 H Calcium Lactate Dehydrogenase 510 H C-Reactive Protein 6.70 H Albumin Arterial Blood Glucose Arterial Blood Ionized Calcium 09/25/20 09/25/20 09/26/20 16:29 22:38 05:56 WBC RBC MCV MCH RDW Plt Count [place] % (Auto) Baso % (Auto) Lymph # (Auto) Seg Neutrophils % D-Dimer ABG pH POC ABG pO2 ABG Oxyhemoglobin ABG Sodium ABG Potassium ABG Glucose Carboxyhemoglobin Potassium Chloride Carbon Dioxide BUN Glucose 115 H POC Glucose 227 H 165 H Calcium Lactate Dehydrogenase C-Reactive Protein Albumin 3.4 L Arterial Blood Glucose Arterial Blood Ionized Calcium 09/26/20 09/26/20 09/26/20 11:50 15:24 21:57 WBC RBC MCV MCH RDW Plt Count [place] % (Auto) Baso % (Auto) Lymph # (Auto) Seg Neutrophils % D-Dimer ABG pH POC ABG pO2 ABG Oxyhemoglobin ABG Sodium ABG Potassium ABG Glucose Carboxyhemoglobin Potassium Chloride Carbon Dioxide BUN Glucose POC Glucose 124 H 184 H 159 H Calcium Lactate Dehydrogenase C-Reactive Protein Albumin Arterial Blood Glucose Arterial Blood Ionized Calcium 09/27/20 09/27/20 09/27/20 11:36 16:05 21:44 WBC RBC MCV MCH RDW Plt Count [place] % (Auto) Baso % (Auto) Lymph # (Auto) Seg Neutrophils % D-Dimer ABG pH POC ABG pO2 ABG Oxyhemoglobin ABG Sodium ABG Potassium ABG Glucose Carboxyhemoglobin Potassium Chloride Carbon Dioxide BUN Glucose POC Glucose 142 H 177 H 138 H Calcium Lactate Dehydrogenase C-Reactive Protein Albumin Arterial Blood Glucose Arterial Blood Ionized Calcium 09/28/20 09/28/20 09/29/20 16:13 21:42 05:10 WBC RBC 5.08 H MCV 75 L MCH 24 L RDW 16.4 H Plt Count 495 H Clare % (Auto) Baso % (Auto) Lymph # (Auto) Seg Neutrophils % 75.0 H D-Dimer ABG pH POC ABG pO2 ABG Oxyhemoglobin ABG Sodium ABG Potassium ABG Glucose Carboxyhemoglobin Potassium Chloride Carbon Dioxide BUN Glucose POC Glucose 180 H 137 H Calcium Lactate Dehydrogenase C-Reactive Protein Albumin Arterial Blood Glucose Arterial Blood Ionized Calcium 09/29/20 09/29/20 09/29/20 05:10 12:08 17:20 WBC RBC MCV MCH RDW Plt Count [place] % (Auto) Baso % (Auto) Lymph # (Auto) Seg Neutrophils % D-Dimer ABG pH POC ABG pO2 ABG Oxyhemoglobin ABG Sodium ABG Potassium ABG Glucose Carboxyhemoglobin Potassium Chloride Carbon Dioxide 31 H BUN 24 H Glucose 130 H POC Glucose 200 H 173 H Calcium Lactate Dehydrogenase C-Reactive Protein Albumin Arterial Blood Glucose Arterial Blood Ionized Calcium 09/29/20 09/30/20 09/30/20 21:20 04:34 04:34 WBC RBC MCV MCH RDW Plt Count [place] % (Auto) Baso % (Auto) Lymph # (Auto) Seg Neutrophils % D-Dimer 293.21 H ABG pH POC ABG pO2 ABG Oxyhemoglobin ABG Sodium ABG Potassium ABG Glucose Carboxyhemoglobin Potassium Chloride Carbon Dioxide BUN Glucose POC Glucose 111 H Calcium Lactate Dehydrogenase 574 H C-Reactive Protein Albumin Arterial Blood Glucose Arterial Blood Ionized Calcium 09/30/20 09/30/20 09/30/20 11:45 17:39 21:16 WBC RBC MCV MCH RDW Plt Count [place] % (Auto) Baso % (Auto) Lymph # (Auto) Seg Neutrophils % D-Dimer ABG pH POC ABG pO2 ABG Oxyhemoglobin ABG Sodium ABG Potassium ABG Glucose Carboxyhemoglobin Potassium Chloride Carbon Dioxide BUN Glucose POC Glucose 109 H 181 H 114 H Calcium Lactate Dehydrogenase C-Reactive Protein Albumin Arterial Blood Glucose Arterial Blood Ionized Calcium 10/01/20 10/01/20 10/01/20 09:34 12:07 16:57 WBC RBC MCV MCH RDW Plt Count [place] % (Auto) Baso % (Auto) Lymph # (Auto) Seg Neutrophils % D-Dimer ABG pH 7.485 H POC ABG pO2 148.8 H ABG Oxyhemoglobin 98.5 H ABG Sodium 135.6 L ABG Potassium 3.3 L ABG Glucose 128 H Carboxyhemoglobin 0.3 L Potassium Chloride Carbon Dioxide BUN Glucose POC Glucose 133 H 209 H Calcium Lactate Dehydrogenase C-Reactive Protein Albumin Arterial Blood Glucose 128 H Arterial Blood Ionized Calcium 4.5 L 10/01/20 10/01/20 10/02/20 21:38 Unknown 08:40 WBC RBC MCV MCH RDW Plt Count [place] % (Auto) Baso % (Auto) Lymph # (Auto) Seg Neutrophils % D-Dimer ABG pH POC ABG pO2 ABG Oxyhemoglobin ABG Sodium ABG Potassium ABG Glucose Carboxyhemoglobin Potassium Chloride 96.2 L Carbon Dioxide BUN 26 H Glucose 133 H POC Glucose 198 H 142 H Calcium Lactate Dehydrogenase C-Reactive Protein Albumin Arterial Blood Glucose Arterial Blood Ionized Calcium 10/02/20 10/02/20 10/02/20 12:01 16:43 22:14 WBC RBC MCV MCH RDW Plt Count [place] % (Auto) Baso % (Auto) Lymph # (Auto) Seg Neutrophils % D-Dimer ABG pH POC ABG pO2 ABG Oxyhemoglobin ABG Sodium ABG Potassium ABG Glucose Carboxyhemoglobin Potassium Chloride Carbon Dioxide BUN Glucose POC Glucose 157 H 214 H 132 H Calcium Lactate Dehydrogenase C-Reactive Protein Albumin Arterial Blood Glucose Arterial Blood Ionized Calcium 10/03/20 11:42 WBC RBC MCV MCH RDW Plt Count [place] % (Auto) Baso % (Auto) Lymph # (Auto) Seg Neutrophils % D-Dimer ABG pH POC ABG pO2 ABG Oxyhemoglobin ABG Sodium ABG Potassium ABG Glucose Carboxyhemoglobin Potassium Chloride Carbon Dioxide BUN Glucose POC Glucose 225 H Calcium Lactate Dehydrogenase C-Reactive Protein Albumin Arterial Blood Glucose Arterial Blood Ionized Calcium Chest x-ray: report reviewed, image reviewed Additional Studies: CHEST 1 VIEW 09/3020 INDICATION: COVID pneumonia. COMPARISON: 09/25/2020 FINDINGS: Support devices: None. Heart: Within normal limits. Lungs/Pleura: Bilateral lung opacities have decreased by at least 50%. There is better inspiration. No pleural effusion or pneumothorax. Additional findings: None. IMPRESSION: Improvement in the bilateral lung opacities since 09/25/2020. Allied health notes reviewed: nursing
[2020-10-03] MEDS: ENOXAPARIN 40 MG/0.4 ML INJ SUB-Q SCH (21:46)
[2020-10-04] MEDS: IPRATROPIUM/ALBUTEROL SULFATE 3 ML AMPUL.NEB IH SCH ×2 (01:38→07:53)
[2020-10-04 06:36] LABS: Hematocrit 36.4 % (30.3-42.9); Hemoglobin 11.3 gm/dl (10.1-14.3); Mean Corpuscular HGB Conc 31 % (30-34); Mean Corpuscular Volume 76 fl (79-97); Platelet Count 467 K/mm3 (140-440); Red Cell Distribution Width 16.9 % (13.2-15.2)
[2020-10-04 06:42] LABS: BUN/Creatinine Ratio 24; Blood Urea Nitrogen 19 mg/dL (7-17); Calcium 9.1 mg/dL (8.4-10.2); Hemolysis Index 5
[2020-10-04] MEDS: INSULIN REGULAR, HUMAN 100 UNITS/1 ML SUB-Q SCH ×4 (07:06→23:10)
--- NOTE | 2020-10-04 10:18 | Progress Note ---
Subjective Date of service: 10/04/20 Principal diagnosis: Ac. hypoxemic resp failure; Umesh. Pneumonia; COVID-19; Asthma; Migraines Interval history: Acute hypoxic respiratory failure Bilateral COVID-19 pneumonia -CXR reviewed -Completed Decadron course stop date 10/03 -Completed remdesivir course -Inflammatory markers reviewed -Droplet/contact isolation -Continue SPO2 monitoring -Tolerating slow weaning -Patient is now on high flow 65% FiO2 and 25 L -Pulmonary hygiene -Proning as able -Anticoagulation per protocol -Pulmonary note reviewed Acute exacerbation of asthma due to underlying pneumonia Improved -Continue to treat for COVID-19 pneumonia Completed Decadron course Proning as much as possible Acute hypoxic respiratory failure tolerating slow weaning FiO2 decreased to 65% with 25 L high flow Oxygen saturation 95% on the monitor Chronic back pain: , supportive care and pain management as needed History of migraine, patient does not have any issues currently, outpatient foll ow-up Obesity class II Counseling on weight loss, diet and exercise was emphasized DVT prophylaxis, continue Lovenox Full CODE STATUS Prognosis guarded Daily clinical course: 09/24/2020: Patient placed on high flow oxygen today 85% FiO2 with 25 L oxygen per minute. continue empiric steroid, IV remdesivir and dexamethasone. Supplemental O2 to keep oxygenation greater than 92%. ID following continue supportive care follow inflammatory markers.. 09/25/20: Remains on high flow O2, oxygen requirement has gone up today From 85% FiO2 100% FiO2. Repeat chest x-ray, continue dexamethasone and remdesivir. Follow inflammatory markers, procalcitonin level is low. 09/26/20; patient transferred to [facility] overnight due to increased requirement of oxygen. Chest x-ray today showed worsening pneumonia. Patient currently on high flow O2 and so with nonrebreather. Continue to follow inflammatory markers, continue remdesivir and empiric steroid along with scheduled nebulizer breathing treatment. Called patient mother and updated in details. 09/27/20: Remains on high flow oxygen on nonrebreather. Continue to wean off O2 as tolerated. Inflammatory markers remain stable. Will complete remdesivir for 5 days and dexamethasone for 10 days. ID and critical care following, appreciate recommendation 09/28/20: Remains on high flow and NRB. clinically remains very critical. repeat Inflammatory markers tomorrow. 09/29/20: Patient on high flow nasal cannula, off from nonrebreather. Continue higher dose dexamethasone, total 10 days, -Completed remdesivir. Status post Actemra on 09/26/2020. 09/30/20: Patient remains on high flow O2. Inflammatory markers appears to be stable. Continue higher dose of dexamethasone for total 10 days. ID and pulmonary critical care following. Continue to monitor and provide supportive care. Scheduled nebulizer breathing treatment. 10/01` patient is alert and oriented and resting in the bed, no complaints, ABG results reviewed, pulmonary and ID notes reviewed. Weaned off nonrebreather mask 10/02 alert and oriented, no apparent distress, no specific complaints, ID and pulmonary notes reviewed, slow improvement 10/03 no specific complaints, no acute events overnight, slow improvement, pulmonary note reviewed 10/04 no acute events overnight. Resting comfortably no apparent distress,, no complaints, tolerating weaning, FiO2 decreased to 65% and flow decreased to 25 L Twelve point review of systems is essentially unremarkable Objective - Constitutional Vitals: Vital Signs - 12hr 10/03/20 10/03/20 10/03/20 22:36 23:01 23:09 Temperature Pulse Rate 79 84 84 Pulse Rate [ From Monitor] Pulse Rate [ Posterior Bilateral Throughout] Respiratory 18 29 H 16 Rate Respiratory Rate [Posterior Bilateral Throughout] Blood Pressure 127/75 104/53 104/53 O2 Sat by Pulse 97 93 94 Oximetry 10/03/20 10/04/20 10/04/20 23:48 00:00 01:00 Temperature 98.0 F Pulse Rate 83 114 H Pulse Rate [ 86 From Monitor] Pulse Rate [ Posterior Bilateral Throughout] Respiratory 25 H 23 Rate Respiratory Rate [Posterior Bilateral Throughout] Blood Pressure 92/59 109/71 O2 Sat by Pulse 95 93 Oximetry 10/04/20 10/04/20 10/04/20 01:37 02:01 03:01 Temperature Pulse Rate 88 81 Pulse Rate [ From Monitor] Pulse Rate [ Posterior Bilateral Throughout] Respiratory 25 H 37 H Rate Respiratory Rate [Posterior Bilateral Throughout] Blood Pressure 101/77 148/89 O2 Sat by Pulse 91 91 95 Oximetry 10/04/20 10/04/20 10/04/20 03:55 04:00 05:00 Temperature 98.5 F Pulse Rate 76 75 Pulse Rate [ 78 From Monitor] Pulse Rate [ Posterior Bilateral Throughout] Respiratory 29 H 33 H Rate Respiratory Rate [Posterior Bilateral Throughout] Blood Pressure 148/89 143/90 O2 Sat by Pulse 97 95 Oximetry 10/04/20 10/04/20 10/04/20 06:00 07:00 07:53 Temperature Pulse Rate 82 78 Pulse Rate [ From Monitor] Pulse Rate [ 96 H Posterior Bilateral Throughout] Respiratory 19 Rate Respiratory 18 Rate [Posterior Bilateral Throughout] Blood Pressure 118/69 98/55 O2 Sat by Pulse 100 100 Oximetry 10/04/20 10/04/20 10/04/20 08:00 08:01 09:00 Temperature 98.7 F Pulse Rate 88 78 Pulse Rate [ 79 From Monitor] Pulse Rate [ Posterior Bilateral Throughout] Respiratory 27 H Rate Respiratory Rate [Posterior Bilateral Throughout] Blood Pressure 115/82 99/55 O2 Sat by Pulse 97 97 96 Oximetry General appearance: Present: no acute distress - EENT Eyes: PERRL, EOM intact ENT: hearing intact - Neck Neck: supple, normal ROM, no masses or JVD - Respiratory Respiratory effort: normal Respiratory: bilateral: CTA, negative: rales, rhonchi - Cardiovascular Rhythm: regular Heart Sounds: Present: S1 & S2 Extremities: No edema - Gastrointestinal General gastrointestinal: Present: soft, non-tender Rectal Exam: deferred - Integumentary Integumentary: clear - Musculoskeletal Musculoskeletal: strength equal bilaterally - Neurologic Neurologic: no focal deficits - Psychiatric Psychiatric: appropriate mood/affect - Labs CBC & Chem 7: 10/04/20 05:59 10/04/20 05:59 Labs: Abnormal lab results 10/03/20 10/03/20 10/03/20 Range/Units 11:42 17:08 21:21 WBC (4.5-11.0) K/mm3 MCV (79-97) fl MCH (28-32) pg RDW (13.2-15.2) % Plt Count (140-440) K/mm3 Carbon Dioxide (22-30) mmol/L BUN (7-17) mg/dL POC Glucose 225 H 201 H 141 H (70-105) mg/dL 10/04/20 10/04/20 Range/Units 05:59 05:59 WBC 13.5 H (4.5-11.0) K/mm3 MCV 76 L (79-97) fl MCH 23 L (28-32) pg RDW 16.9 H (13.2-15.2) % Plt Count 467 H (140-440) K/mm3 Carbon Dioxide 32 H (22-30) mmol/L BUN 19 H (7-17) mg/dL POC Glucose (70-105) mg/dL HEART Score - HEART Score Troponin: Troponin T < 0.010 ng/mL (0.00-0.029) 09/23/20 08:02
[2020-10-04] MEDS: ZINC SULFATE 220 MG CAP PO SCH ×2 (10:22→23:12)
[2020-10-04] MEDS: ASCORBIC ACID 500 MG TAB PO SCH ×2 (10:22→23:11)
[2020-10-04] MEDS: CHOLECALCIFEROL (VIT D3) 5,000 UNIT TAB PO SCH (10:23)
[2020-10-04] MEDS: FAMOTIDINE 20 MG TAB PO SCH ×2 (10:23→23:17)
[2020-10-04] MEDS: guaiFENesin ER 600 MG TAB PO SCH ×2 (10:23→23:10)
--- NOTE | 2020-10-04 18:55 | Progress Note ---
Assessment and Plan Patient is a 44-year-old -[place] female with a history of asthma, migraine headaches and chronic low back pain, morbid obesity who tested positive for COVID-19 about a week ago presents to the ED with complaint of acute onset persistent worsening diffuse body aches and pains, nasal and sinus congestion, persistent dry cough with shortness of breath and wheezing for the last 1 week. Patient states that she has been taking azithromycin and Medrol Dosepak at home but no improvement of her symptoms. Patient states that she did not receive COVID-19 vaccine. In the ER patient noted to be hypoxic, chest x-ray suggestive of bilateral pulmonary infiltrates due to atypical pneumonia. Patient placed on supplemental O2 started on empiric steroid, and empiric antibiotics . Patient sleeping.Patient is still on Vapotherm FIO2 55% and O2 saturation running 94%.O2 requirements slowly coming down No acute respiratory distress. Patient afebrile. Has leukocytosis. Chest xray 09/25/20 reported worsening pulmonary air space disease. Duplex ultrasound of lower extremities reported No sonographic evidence for DVT in either lower extremity. Chest xray done 09/30/20 reported Improvement in the bilateral lung opacities sin ce 09/25/2020. Patient is on S/C Lovenox, Famotidine and albuterol/atrovent aerosol treatments. Recommend to convert albuterol/atrovent to inhalers. Patient received Dexamethasone and REMDESIVIR.. Patient was seen in IMCU. I spent critical care time of 35 minutes, reviewing the chart, examine the patient, review labs, chest xray talking to the respiratory therapy, nursing staff and work out plan of treatment in this critically ill COID 19 patient. - Patient Problems (1) Acute respiratory failure with hypoxia Current Visit: Yes Status: Acute Plan to address problem: Vapotherm , FIO2 55% Continue S/C Lovenox. Continue Famotidine. Albuterol/atrovent inhalers q 6 hours prn for shortness of breath. (2) History of asthma Current Visit: Yes Status: Acute Plan to address problem: Vapotherm , FIO2 55%. Continue S/C Lovenox. Continue Famotidine. Albuterol/atrovent inhalers q 6 hours prn for shortness of breath. (3) Pneumonia due to 2019 novel coronavirus Current Visit: Yes Status: Acute Plan to address problem: Patient treated with ceftriaxone. (4) Obesity (BMI 30-39.9) Current Visit: Yes Status: Acute Plan to address problem: Recommend to loose weight. Recommend diet and exercise after improving from this condition. Subjective Date of service: 10/04/20 Principal diagnosis: Ac. hypoxemic resp failure; Umesh. Pneumonia; COVID-19; Asthma; Migraines Interval history: Patient is a 44-year-old -[place] female with a history of asthma, migraine headaches and chronic low back pain, morbid obesity who tested positive for COVID-19 about a week ago presents to the ED with complaint of acute onset persistent worsening diffuse body aches and pains, nasal and sinus congestion, persistent dry cough with shortness of breath and wheezing for the last 1 week. Patient states that she has been taking azithromycin and Medrol Dose mekhi at home but no improvement of her symptoms. Patient states that she did not receive COVID-19 vaccine. In the ER patient noted to be hypoxic, chest x-ray suggestive of bilateral pulmonary infiltrates due to atypical pneumonia. Patient placed on supplemental O2 started on empiric steroid, and empiric antibiotics . Patient sleeping.Patient is still on Vapotherm FIO2 55% and O2 saturation running 94%. O2 requirements slowly coming down. No acute respiratory distress. Patient afebrile.Has leukocytosis. Chest xray 09/25/20 reported worsening pul monary air space disease. Duplex ultrasound of lower extremities 09/29/20 reported No sonographic evidence for DVT in either lower extremity. Chest xray done 09/30/20 reported Improvement in the bilateral lung opacities since 09/25/2020. Patient is on S/C Lovenox, Famotidine and albuterol/atrovent aerosol treatments. Recommend to convert albuterol/atrovent to inhalers. Patient received Dexamethasone and REMDESIVIR. Objective Vital Signs - 12hr 10/04/20 10/04/20 10/04/20 07:00 07:53 08:00 Temperature 98.7 F Pulse Rate 78 Pulse Rate [ 79 From Monitor] Pulse Rate [ 96 H Posterior Bilateral Throughout] Respiratory 19 27 H Rate Respiratory 18 Rate [Posterior Bilateral Throughout] Blood Pressure 98/55 O2 Sat by Pulse 100 100 97 Oximetry 10/04/20 10/04/20 10/04/20 08:01 09:00 10:00 Temperature Pulse Rate 88 78 85 Pulse Rate [ From Monitor] Pulse Rate [ Posterior Bilateral Throughout] Respiratory Rate Respiratory Rate [Posterior Bilateral Throughout] Blood Pressure 115/82 99/55 79/44 O2 Sat by Pulse 97 96 96 Oximetry 10/04/20 10/04/20 10/04/20 11:00 12:00 13:00 Temperature 98.8 F Pulse Rate 82 92 H 94 H Pulse Rate [ 82 From Monitor] Pulse Rate [ Posterior Bilateral Throughout] Respiratory 27 H Rate Respiratory Rate [Posterior Bilateral Throughout] Blood Pressure 123/73 129/79 110/62 O2 Sat by Pulse 94 97 Oximetry 10/04/20 10/04/20 10/04/20 13:37 14:00 15:00 Temperature Pulse Rate 91 H 90 Pulse Rate [ From Monitor] Pulse Rate [ Posterior Bilateral Throughout] Respiratory Rate Respiratory Rate [Posterior Bilateral Throughout] Blood Pressure 122/79 113/79 O2 Sat by Pulse 98 97 90 Oximetry 10/04/20 10/04/20 15:34 16:00 Temperature Pulse Rate 94 H Pulse Rate [ 89 From Monitor] Pulse Rate [ Posterior Bilateral Throughout] Respiratory 27 H Rate Respiratory Rate [Posterior Bilateral Throughout] Blood Pressure 126/84 O2 Sat by Pulse 96 97 Oximetry Constitutional: no acute distress, asleep, other (middle aged obese female with mildly increased respiratoiry effort at rest ) Eyes: non-icteric ENT: oropharynx moist Neck: supple, no lymphadenopathy, no JVD, other (large neck circumference) Effort: mildly labored Ascultation: Bilateral: rales (bases (improved)) Percussion: Bilateral: not dull Cardiovascular: regular rate and rhythm Gastrointestinal: normoactive bowel sounds, soft, non-tender, non-distended (protuberant) Integumentary: normal Extremities: no cyanosis, pulses normal, no ischemia or petechiae, edema (trace) Neurologic: non-focal exam, pupils equal and round, CN II-XII normal, motor strength normal and Psychiatric: mood appropriate, affect normal CBC and BMP: 10/04/20 05:59 10/04/20 05:59 ABG, PT/INR, D-dimer: ABG ABG pH 7.485 (7.320-7.450) H 10/01/20 09:34 POC ABG pCO2 38.1 mmHg (32.0-48.0) 10/01/20 09:34 POC ABG pO2 148.8 mmHg (83-108) H 10/01/20 09:34 POC ABG HCO3 28.1 10/01/20 09:34 ABG O2 Saturation 99.1 (0-100) 10/01/20 09:34 PT/INR, D-dimer D-Dimer 293.21 ng/mlDDU (0-234) H 09/30/20 04:34 Abnormal lab findings: Abnormal Labs 09/23/20 09/23/20 09/23/20 05:00 08:02 08:40 WBC 3.4 L RBC MCV 76 L 75 L MCH 25 L 25 L RDW 17.2 H 17.0 H Plt Count [place] % (Auto) 9.0 H 9.1 H Baso % (Auto) 1.9 H Lymph # (Auto) 0.7 L Seg Neutrophils % 70.6 H D-Dimer ABG pH POC ABG pO2 ABG Oxyhemoglobin ABG Sodium ABG Potassium ABG Glucose Carboxyhemoglobin Potassium 3.4 L Chloride Carbon Dioxide BUN Glucose 116 H POC Glucose Calcium Lactate Dehydrogenase C-Reactive Protein Albumin Arterial Blood Glucose Arterial Blood Ionized Calcium 09/23/20 09/23/20 09/23/20 11:54 16:11 18:08 WBC RBC MCV MCH RDW Plt Count [place] % (Auto) Baso % (Auto) Lymph # (Auto) Seg Neutrophils % D-Dimer ABG pH POC ABG pO2 ABG Oxyhemoglobin ABG Sodium ABG Potassium ABG Glucose Carboxyhemoglobin Potassium 3.3 L Chloride Carbon Dioxide BUN Glucose 213 H POC Glucose 238 H Calcium 8.2 L Lactate Dehydrogenase 358 H C-Reactive Protein 2.10 H Albumin 3.6 L Arterial Blood Glucose Arterial Blood Ionized Calcium 09/23/20 09/24/20 09/24/20 23:19 07:34 11:47 WBC RBC MCV MCH RDW Plt Count [place] % (Auto) Baso % (Auto) Lymph # (Auto) Seg Neutrophils % D-Dimer ABG pH POC ABG pO2 ABG Oxyhemoglobin ABG Sodium ABG Potassium ABG Glucose Carboxyhemoglobin Potassium 3.3 L Chloride Carbon Dioxide BUN Glucose 101 H POC Glucose 127 H 125 H Calcium 8.2 L Lactate Dehydrogenase C-Reactive Protein Albumin 3.4 L Arterial Blood Glucose Arterial Blood Ionized Calcium 09/24/20 09/24/20 09/25/20 18:09 22:57 05:50 WBC RBC MCV MCH RDW Plt Count [place] % (Auto) Baso % (Auto) Lymph # (Auto) Seg Neutrophils % D-Dimer ABG pH POC ABG pO2 ABG Oxyhemoglobin ABG Sodium ABG Potassium ABG Glucose Carboxyhemoglobin Potassium Chloride Carbon Dioxide BUN Glucose POC Glucose 199 H 116 H Calcium 8.3 L Lactate Dehydrogenase C-Reactive Protein Albumin 3.7 L Arterial Blood Glucose Arterial Blood Ionized Calcium 09/25/20 09/25/20 09/25/20 07:42 09:57 11:38 WBC RBC MCV MCH RDW Plt Count [place] % (Auto) Baso % (Auto) Lymph # (Auto) Seg Neutrophils % D-Dimer ABG pH POC ABG pO2 ABG Oxyhemoglobin ABG Sodium ABG Potassium ABG Glucose Carboxyhemoglobin Potassium Chloride Carbon Dioxide BUN Glucose POC Glucose 106 H 142 H Calcium Lactate Dehydrogenase 510 H C-Reactive Protein 6.70 H Albumin Arterial Blood Glucose Arterial Blood Ionized Calcium 09/25/20 09/25/20 09/26/20 16:29 22:38 05:56 WBC RBC MCV MCH RDW Plt Count [place] % (Auto) Baso % (Auto) Lymph # (Auto) Seg Neutrophils % D-Dimer ABG pH POC ABG pO2 ABG Oxyhemoglobin ABG Sodium ABG Potassium ABG Glucose Carboxyhemoglobin Potassium Chloride Carbon Dioxide BUN Glucose 115 H POC Glucose 227 H 165 H Calcium Lactate Dehydrogenase C-Reactive Protein Albumin 3.4 L Arterial Blood Glucose Arterial Blood Ionized Calcium 09/26/20 09/26/20 09/26/20 11:50 15:24 21:57 WBC RBC MCV MCH RDW Plt Count [place] % (Auto) Baso % (Auto) Lymph # (Auto) Seg Neutrophils % D-Dimer ABG pH POC ABG pO2 ABG Oxyhemoglobin ABG Sodium ABG Potassium ABG Glucose Carboxyhemoglobin Potassium Chloride Carbon Dioxide BUN Glucose POC Glucose 124 H 184 H 159 H Calcium Lactate Dehydrogenase C-Reactive Protein Albumin Arterial Blood Glucose Arterial Blood Ionized Calcium 09/27/20 09/27/20 09/27/20 11:36 16:05 21:44 WBC RBC MCV MCH RDW Plt Count [place] % (Auto) Baso % (Auto) Lymph # (Auto) Seg Neutrophils % D-Dimer ABG pH POC ABG pO2 ABG Oxyhemoglobin ABG Sodium ABG Potassium ABG Glucose Carboxyhemoglobin Potassium Chloride Carbon Dioxide BUN Glucose POC Glucose 142 H 177 H 138 H Calcium Lactate Dehydrogenase C-Reactive Protein Albumin Arterial Blood Glucose Arterial Blood Ionized Calcium 09/28/20 09/28/20 09/29/20 16:13 21:42 05:10 WBC RBC 5.08 H MCV 75 L MCH 24 L RDW 16.4 H Plt Count 495 H [place] % (Auto) Baso % (Auto) Lymph # (Auto) Seg Neutrophils % 75.0 H D-Dimer ABG pH POC ABG pO2 ABG Oxyhemoglobin ABG Sodium ABG Potassium ABG Glucose Carboxyhemoglobin Potassium Chloride Carbon Dioxide BUN Glucose POC Glucose 180 H 137 H Calcium Lactate Dehydrogenase C-Reactive Protein Albumin Arterial Blood Glucose Arterial Blood Ionized Calcium 09/29/20 09/29/20 09/29/20 05:10 12:08 17:20 WBC RBC MCV MCH RDW Plt Count [place] % (Auto) Baso % (Auto) Lymph # (Auto) Seg Neutrophils % D-Dimer ABG pH POC ABG pO2 ABG Oxyhemoglobin ABG Sodium ABG Potassium ABG Glucose Carboxyhemoglobin Potassium Chloride Carbon Dioxide 31 H BUN 24 H Glucose 130 H POC Glucose 200 H 173 H Calcium Lactate Dehydrogenase C-Reactive Protein Albumin Arterial Blood Glucose Arterial Blood Ionized Calcium 09/29/20 09/30/20 09/30/20 21:20 04:34 04:34 WBC RBC MCV MCH RDW Plt Count [place] % (Auto) Baso % (Auto) Lymph # (Auto) Seg Neutrophils % D-Dimer 293.21 H ABG pH POC ABG pO2 ABG Oxyhemoglobin ABG Sodium ABG Potassium ABG Glucose Carboxyhemoglobin Potassium Chloride Carbon Dioxide BUN Glucose POC Glucose 111 H Calcium Lactate Dehydrogenase 574 H C-Reactive Protein Albumin Arterial Blood Glucose Arterial Blood Ionized Calcium 09/30/20 09/30/20 09/30/20 11:45 17:39 21:16 WBC RBC MCV MCH RDW Plt Count [place] % (Auto) Baso % (Auto) Lymph # (Auto) Seg Neutrophils % D-Dimer ABG pH POC ABG pO2 ABG Oxyhemoglobin ABG Sodium ABG Potassium ABG Glucose Carboxyhemoglobin Potassium Chloride Carbon Dioxide BUN Glucose POC Glucose 109 H 181 H 114 H Calcium Lactate Dehydrogenase C-Reactive Protein Albumin Arterial Blood Glucose Arterial Blood Ionized Calcium 10/01/20 10/01/20 10/01/20 09:34 12:07 16:57 WBC RBC MCV MCH RDW Plt Count [place] % (Auto) Baso % (Auto) Lymph # (Auto) Seg Neutrophils % D-Dimer ABG pH 7.485 H POC ABG pO2 148.8 H ABG Oxyhemoglobin 98.5 H ABG Sodium 135.6 L ABG Potassium 3.3 L ABG Glucose 128 H Carboxyhemoglobin 0.3 L Potassium Chloride Carbon Dioxide BUN Glucose POC Glucose 133 H 209 H Calcium Lactate Dehydrogenase C-Reactive Protein Albumin Arterial Blood Glucose 128 H Arterial Blood Ionized Calcium 4.5 L 10/01/20 10/01/20 10/02/20 21:38 Unknown 08:40 WBC RBC MCV MCH RDW Plt Count [place] % (Auto) Baso % (Auto) Lymph # (Auto) Seg Neutrophils % D-Dimer ABG pH POC ABG pO2 ABG Oxyhemoglobin ABG Sodium ABG Potassium ABG Glucose Carboxyhemoglobin Potassium Chloride 96.2 L Carbon Dioxide BUN 26 H Glucose 133 H POC Glucose 198 H 142 H Calcium Lactate Dehydrogenase C-Reactive Protein Albumin Arterial Blood Glucose Arterial Blood Ionized Calcium 10/02/20 10/02/20 10/02/20 12:01 16:43 22:14 WBC RBC MCV MCH RDW Plt Count [place] % (Auto) Baso % (Auto) Lymph # (Auto) Seg Neutrophils % D-Dimer ABG pH POC ABG pO2 ABG Oxyhemoglobin ABG Sodium ABG Potassium ABG Glucose Carboxyhemoglobin Potassium Chloride Carbon Dioxide BUN Glucose POC Glucose 157 H 214 H 132 H Calcium Lactate Dehydrogenase C-Reactive Protein Albumin Arterial Blood Glucose Arterial Blood Ionized Calcium 10/03/20 10/03/20 10/03/20 11:42 17:08 21:21 WBC RBC MCV MCH RDW Plt Count [place] % (Auto) Baso % (Auto) Lymph # (Auto) Seg Neutrophils % D-Dimer ABG pH POC ABG pO2 ABG Oxyhemoglobin ABG Sodium ABG Potassium ABG Glucose Carboxyhemoglobin Potassium Chloride Carbon Dioxide BUN Glucose POC Glucose 225 H 201 H 141 H Calcium Lactate Dehydrogenase C-Reactive Protein Albumin Arterial Blood Glucose Arterial Blood Ionized Calcium 10/04/20 10/04/20 10/04/20 05:59 05:59 15:52 WBC 13.5 H RBC MCV 76 L MCH 23 L RDW 16.9 H Plt Count 467 H [place] % (Auto) Baso % (Auto) Lymph # (Auto) Seg Neutrophils % D-Dimer ABG pH POC ABG pO2 ABG Oxyhemoglobin ABG Sodium ABG Potassium ABG Glucose Carboxyhemoglobin Potassium Chloride Carbon Dioxide 32 H BUN 19 H Glucose POC Glucose 119 H Calcium Lactate Dehydrogenase C-Reactive Protein Albumin Arterial Blood Glucose Arterial Blood Ionized Calcium Allied health notes reviewed: nursing
[2020-10-04] MEDS: ENOXAPARIN 40 MG/0.4 ML INJ SUB-Q SCH (23:10)
[2020-10-05] MEDS: guaiFENesin 100 MG/5 ML ORAL LIQD PO PRN ×2 (00:06→11:38)
[2020-10-05] MEDS: INSULIN REGULAR, HUMAN 100 UNITS/1 ML SUB-Q SCH ×4 (09:15→22:55)
[2020-10-05] MEDS: guaiFENesin ER 600 MG TAB PO SCH ×2 (11:17→22:55)
[2020-10-05] MEDS: ASCORBIC ACID 500 MG TAB PO SCH ×2 (11:17→22:56)
[2020-10-05] MEDS: ZINC SULFATE 220 MG CAP PO SCH ×2 (11:18→22:57)
[2020-10-05] MEDS: CHOLECALCIFEROL (VIT D3) 5,000 UNIT TAB PO SCH (11:18)
[2020-10-05] MEDS: FAMOTIDINE 20 MG TAB PO SCH ×2 (11:38→22:56)
--- NOTE | 2020-10-05 12:11 | Progress Note ---
Subjective Date of service: 10/05/20 Principal diagnosis: Ac. hypoxemic resp failure; Umesh. Pneumonia; COVID-19; Asthma; Migraines Interval history: Acute hypoxic respiratory failure-slow improvement Bilateral COVID-19 pneumonia -CXR reviewed -Completed Decadron course stop date 10/03 -Completed remdesivir course -Droplet/contact isolation -Continue SPO2 monitoring -Tolerating slow weaning -Patient is now on high flow 25 L and 55% FiO2 -Oxygen saturation 97 to 98% -Pulmonary hygiene -Proning as able -Anticoagulation per protocol -Pulmonary note reviewed Acute exacerbation of asthma due to underlying pneumonia Improved -Continue to treat for COVID-19 pneumonia Completed Decadron course Acute hypoxic respiratory failure tolerating slow weaning FiO2 decreased to 55% with 25 L high flow Oxygen saturation 97% on the monitor Chronic back pain: , supportive care and pain management as needed History of migraine, patient does not have any issues currently, outpatient follow-up Obesity class II Counseling on weight loss, diet and exercise was emphasized DVT prophylaxis, continue Lovenox Full CODE STATUS Prognosis guarded Daily clinical course: 09/24/2020: Patient placed on high flow oxygen today 85% FiO2 with 25 L oxygen per minute. continue empiric steroid, IV remdesivir and dexamethasone. Supplemental O2 to keep oxygenation greater than 92%. ID following continue supportive care follow inflammatory markers.. 09/25/20: Remains on high flow O2, oxygen requirement has gone up today From 85% FiO2 100% FiO2. Repeat chest x-ray, continue dexamethasone and remdesivir. Follow inflammatory markers, procalcitonin level is low. 09/26/20; patient transferred to [facility] overnight due to increased requirement of oxygen. Chest x-ray today showed worsening pneumonia. Patient currently on high flow O2 and so with nonrebreather. Continue to follow inflammatory markers, continue remdesivir and empiric steroid along with scheduled nebulizer breathing treatment. Called patient mother and updated in details. 09/27/20: Remains on high flow oxygen on nonrebreather. Continue to wean off O2 as tolerated. Inflammatory markers remain stable. Will complete remdesivir for 5 days and dexamethasone for 10 days. ID and critical care following, rhiannon reciate recommendation 09/28/20: Remains on high flow and NRB. clinically remains very critical. repeat Inflammatory markers tomorrow. 09/29/20: Patient on high flow nasal cannula, off from nonrebreather. Continue higher dose dexamethasone, total 10 days, -Completed remdesivir. Status post Actemra on 09/26/2020. 09/30/20: Patient remains on high flow O2. Inflammatory markers appears to be stable. Continue higher dose of dexamethasone for total 10 days. ID and pulmonary critical care following. Continue to monitor and provide supportive care. Scheduled nebulizer breathing treatment. 10/01` patient is alert and oriented and resting in the bed, no complaints, ABG results reviewed, pulmonary and ID notes reviewed. Weaned off nonrebreather mask 10/02 alert and oriented, no apparent distress, no specific complaints, ID and pulmonary notes reviewed, slow improvement 10/03 no specific complaints, no acute events overnight, slow improvement, pulmonary note reviewed 10/04 no acute events overnight. Resting comfortably no apparent distress,, no complaints, tolerating weaning, FiO2 decreased to 65% and flow decreased to 25 L 10/05 alert and oriented and offers no specific complaints, not in any distress, continues to tolerate slow weaning of oxygen Twelve point review of systems is essentially unremarkable Objective - Constitutional Vitals: Vital Signs - 12hr 10/05/20 10/05/20 10/05/20 01:00 02:01 02:05 Temperature Pulse Rate 88 93 H Pulse Rate [ From Monitor] Respiratory 28 H 29 H Rate Blood Pressure 100/55 124/79 O2 Sat by Pulse 93 94 92 Oximetry 10/05/20 10/05/20 10/05/20 03:00 04:00 05:00 Temperature 98.5 F Pulse Rate 87 91 H 92 H Pulse Rate [ 90 From Monitor] Respiratory 27 H 20 26 H Rate Blood Pressure 97/58 116/74 103/63 O2 Sat by Pulse 95 95 92 Oximetry 10/05/20 10/05/20 10/05/20 06:00 07:01 07:54 Temperature Pulse Rate 85 89 Pulse Rate [ From Monitor] Respiratory 25 H 34 H Rate Blood Pressure 95/60 120/80 O2 Sat by Pulse 98 92 97 Oximetry 10/05/20 10/05/20 10/05/20 08:00 08:02 09:01 Temperature 97.9 F Pulse Rate 86 95 H Pulse Rate [ From Monitor] Respiratory 18 14 Rate Blood Pressure 115/72 100/44 O2 Sat by Pulse 100 95 Oximetry 10/05/20 10/05/20 10:00 11:00 Temperature Pulse Rate 93 H 92 H Pulse Rate [ From Monitor] Respiratory 16 22 Rate Blood Pressure 108/63 123/78 O2 Sat by Pulse 96 91 Oximetry General appearance: Present: no acute distress, mild distress - EENT Eyes: PERRL, EOM intact ENT: hearing intact, clear oral mucosa - Neck Neck: supple, normal ROM - Respiratory Respiratory effort: normal Respiratory: bilateral: CTA - Cardiovascular Rhythm: regular Heart Sounds: Present: S1 & S2 Extremities: No edema - Gastrointestinal General gastrointestinal: Present: soft, non-tender - Integumentary Integumentary: clear, no rash - Musculoskeletal Musculoskeletal: strength equal bilaterally - Neurologic Neurologic: no focal deficits - Psychiatric Psychiatric: appropriate mood/affect - Labs CBC & Chem 7: 10/04/20 05:59 10/04/20 05:59 Labs: Abnormal lab results 10/04/20 10/04/20 Range/Units 15:52 21:48 POC Glucose 119 H 112 H (70-105) mg/dL HEART Score - HEART Score Troponin: Troponin T < 0.010 ng/mL (0.00-0.029) 09/23/20 08:02
--- NOTE | 2020-10-05 13:27 | Progress Note ---
Assessment and Plan Patient is a 44-year-old -Stateless female with a history of asthma, migraine headaches and chronic low back pain, morbid obesity who tested positive for COVID-19 about a week ago presents to the ED with complaint of acute onset persistent worsening diffuse body aches and pains, nasal and sinus congestion, persistent dry cough with shortness of breath and wheezing for the last 1 week. Patient states that she has been taking azithromycin and Medrol Dosepak at home but no improvement of her symptoms. Patient states that she did not receive COVID-19 vaccine. In the ER patient noted to be hypoxic, chest x-ray suggestive of bilateral pulmonary infiltrates due to atypical pneumonia. Patient placed on supplemental O2 started on empiric steroid, and empiric antibiotics . Patient sleeping.Patient is still on Vapotherm FIO2 55% and O2 saturation running 94%.O2 requirements slowly coming down No acute respiratory distress. Patient afebrile. Has leukocytosis. Chest xray 09/25/20 reported worsening pulmonary air space disease. Duplex ultrasound of lower extremities reported No sonographic evidence for DVT in either lower extremity. Chest xray done 09/30/20 reported Improvement in the bilateral lung opacities sin ce 09/25/2020. Patient is on S/C Lovenox, Famotidine and albuterol/atrovent aerosol treatments. Recommend to convert albuterol/atrovent to inhalers. Patient received Dexamethasone and REMDESIVIR.. Patient was seen in IMCU. I spent critical care time of 35 minutes, reviewing the chart, examine the patient, review labs, chest xray talking to the respiratory therapy, nursing staff and work out plan of treatment in this critically ill COID 19 patient. - Patient Problems (1) Acute respiratory failure with hypoxia Current Visit: Yes Status: Acute Plan to address problem: Vapotherm , FIO2 55% Continue S/C Lovenox. Continue Famotidine. Albuterol/atrovent inhalers q 6 hours prn for shortness of breath. (2) History of asthma Current Visit: Yes Status: Acute Plan to address problem: Vapotherm , FIO2 55%. Continue S/C Lovenox. Continue Famotidine. Albuterol/atrovent inhalers q 6 hours prn for shortness of breath. (3) Pneumonia due to 2019 novel coronavirus Current Visit: Yes Status: Acute Plan to address problem: Patient treated with ceftriaxone. (4) Obesity (BMI 30-39.9) Current Visit: Yes Status: Acute Plan to address problem: Recommend to loose weight. Recommend diet and exercise after improving from this condition. Subjective Date of service: 10/05/20 Principal diagnosis: Ac. hypoxemic resp failure; Umesh. Pneumonia; COVID-19; Asthma; Migraines Interval history: Patient is a 44-year-old -Stateless female with a history of asthma, migraine headaches and chronic low back pain, morbid obesity who tested positive for COVID-19 about a week ago presents to the ED with complaint of acute onset persistent worsening diffuse body aches and pains, nasal and sinus congestion, persistent dry cough with shortness of breath and wheezing for the last 1 week. Patient states that she has been taking azithromycin and Medrol Dose mekhi at home but no improvement of her symptoms. Patient states that she did not receive COVID-19 vaccine. In the ER patient noted to be hypoxic, chest x-ray suggestive of bilateral pulmonary infiltrates due to atypical pneumonia. Patient placed on supplemental O2 started on empiric steroid, and empiric antibiotics . Patient sleeping.Patient is still on Vapotherm FIO2 55% and O2 saturation running 94%. O2 requirements slowly coming down. No acute respiratory distress. Patient afebrile.Has leukocytosis. Chest xray 09/25/20 reported worsening pul monary air space disease. Duplex ultrasound of lower extremities 09/29/20 reported No sonographic evidence for DVT in either lower extremity. Chest xray done 09/30/20 reported Improvement in the bilateral lung opacities since 09/25/2020. Patient is on S/C Lovenox, Famotidine and albuterol/atrovent aerosol treatments. Recommend to convert albuterol/atrovent to inhalers. Patient received Dexamethasone and REMDESIVIR. Objective Vital Signs - 12hr 10/05/20 10/05/20 10/05/20 02:01 02:05 03:00 Temperature Pulse Rate 93 H 87 Pulse Rate [ From Monitor] Respiratory 29 H 27 H Rate Blood Pressure 124/79 97/58 O2 Sat by Pulse 94 92 95 Oximetry 10/05/20 10/05/20 10/05/20 04:00 05:00 06:00 Temperature 98.5 F Pulse Rate 91 H 92 H 85 Pulse Rate [ 90 From Monitor] Respiratory 20 26 H 25 H Rate Blood Pressure 116/74 103/63 95/60 O2 Sat by Pulse 95 92 98 Oximetry 10/05/20 10/05/20 10/05/20 07:01 07:54 08:00 Temperature Pulse Rate 89 86 Pulse Rate [ From Monitor] Respiratory 34 H 18 Rate Blood Pressure 120/80 115/72 O2 Sat by Pulse 92 97 100 Oximetry 10/05/20 10/05/20 10/05/20 08:02 09:01 10:00 Temperature 97.9 F Pulse Rate 95 H 93 H Pulse Rate [ From Monitor] Respiratory 14 16 Rate Blood Pressure 100/44 108/63 O2 Sat by Pulse 95 96 Oximetry 10/05/20 10/05/20 10/05/20 11:00 12:05 13:08 Temperature 98.9 F Pulse Rate 92 H Pulse Rate [ From Monitor] Respiratory 22 Rate Blood Pressure 123/78 O2 Sat by Pulse 91 98 Oximetry Constitutional: no acute distress, asleep, other (middle aged obese female with mildly increased respiratoiry effort at rest ) Eyes: non-icteric ENT: oropharynx moist Neck: supple, no lymphadenopathy, no JVD, other (large neck circumference) Effort: mildly labored Ascultation: Bilateral: rales (bases (improved)) Percussion: Bilateral: not dull Cardiovascular: regular rate and rhythm Gastrointestinal: normoactive bowel sounds, soft, non-tender, non-distended (protuberant) Integumentary: normal Extremities: no cyanosis, pulses normal, no ischemia or petechiae, edema (trace) Neurologic: non-focal exam, pupils equal and round, CN II-XII normal, motor strength normal and Psychiatric: mood appropriate, affect normal CBC and BMP: 10/04/20 05:59 10/04/20 05:59 ABG, PT/INR, D-dimer: ABG ABG pH 7.485 (7.320-7.450) H 10/01/20 09:34 POC ABG pCO2 38.1 mmHg (32.0-48.0) 10/01/20 09:34 POC ABG pO2 148.8 mmHg (83-108) H 10/01/20 09:34 POC ABG HCO3 28.1 10/01/20 09:34 ABG O2 Saturation 99.1 (0-100) 10/01/20 09:34 PT/INR, D-dimer D-Dimer 293.21 ng/mlDDU (0-234) H 09/30/20 04:34 Abnormal lab findings: Abnormal Labs 09/23/20 09/23/20 09/23/20 05:00 08:02 08:40 WBC 3.4 L RBC MCV 76 L 75 L MCH 25 L 25 L RDW 17.2 H 17.0 H Plt Count [place] % (Auto) 9.0 H 9.1 H Baso % (Auto) 1.9 H Lymph # (Auto) 0.7 L Seg Neutrophils % 70.6 H D-Dimer ABG pH POC ABG pO2 ABG Oxyhemoglobin ABG Sodium ABG Potassium ABG Glucose Carboxyhemoglobin Potassium 3.4 L Chloride Carbon Dioxide BUN Glucose 116 H POC Glucose Calcium Lactate Dehydrogenase C-Reactive Protein Albumin Arterial Blood Glucose Arterial Blood Ionized Calcium 09/23/20 09/23/20 09/23/20 11:54 16:11 18:08 WBC RBC MCV MCH RDW Plt Count [place] % (Auto) Baso % (Auto) Lymph # (Auto) Seg Neutrophils % D-Dimer ABG pH POC ABG pO2 ABG Oxyhemoglobin ABG Sodium ABG Potassium ABG Glucose Carboxyhemoglobin Potassium 3.3 L Chloride Carbon Dioxide BUN Glucose 213 H POC Glucose 238 H Calcium 8.2 L Lactate Dehydrogenase 358 H C-Reactive Protein 2.10 H Albumin 3.6 L Arterial Blood Glucose Arterial Blood Ionized Calcium 09/23/20 09/24/20 09/24/20 23:19 07:34 11:47 WBC RBC MCV MCH RDW Plt Count [place] % (Auto) Baso % (Auto) Lymph # (Auto) Seg Neutrophils % D-Dimer ABG pH POC ABG pO2 ABG Oxyhemoglobin ABG Sodium ABG Potassium ABG Glucose Carboxyhemoglobin Potassium 3.3 L Chloride Carbon Dioxide BUN Glucose 101 H POC Glucose 127 H 125 H Calcium 8.2 L Lactate Dehydrogenase C-Reactive Protein Albumin 3.4 L Arterial Blood Glucose Arterial Blood Ionized Calcium 09/24/20 09/24/20 09/25/20 18:09 22:57 05:50 WBC RBC MCV MCH RDW Plt Count [place] % (Auto) Baso % (Auto) Lymph # (Auto) Seg Neutrophils % D-Dimer ABG pH POC ABG pO2 ABG Oxyhemoglobin ABG Sodium ABG Potassium ABG Glucose Carboxyhemoglobin Potassium Chloride Carbon Dioxide BUN Glucose POC Glucose 199 H 116 H Calcium 8.3 L Lactate Dehydrogenase C-Reactive Protein Albumin 3.7 L Arterial Blood Glucose Arterial Blood Ionized Calcium 09/25/20 09/25/20 09/25/20 07:42 09:57 11:38 WBC RBC MCV MCH RDW Plt Count [place] % (Auto) Baso % (Auto) Lymph # (Auto) Seg Neutrophils % D-Dimer ABG pH POC ABG pO2 ABG Oxyhemoglobin ABG Sodium ABG Potassium ABG Glucose Carboxyhemoglobin Potassium Chloride Carbon Dioxide BUN Glucose POC Glucose 106 H 142 H Calcium Lactate Dehydrogenase 510 H C-Reactive Protein 6.70 H Albumin Arterial Blood Glucose Arterial Blood Ionized Calcium 09/25/20 09/25/20 09/26/20 16:29 22:38 05:56 WBC RBC MCV MCH RDW Plt Count [place] % (Auto) Baso % (Auto) Lymph # (Auto) Seg Neutrophils % D-Dimer ABG pH POC ABG pO2 ABG Oxyhemoglobin ABG Sodium ABG Potassium ABG Glucose Carboxyhemoglobin Potassium Chloride Carbon Dioxide BUN Glucose 115 H POC Glucose 227 H 165 H Calcium Lactate Dehydrogenase C-Reactive Protein Albumin 3.4 L Arterial Blood Glucose Arterial Blood Ionized Calcium 09/26/20 09/26/20 09/26/20 11:50 15:24 21:57 WBC RBC MCV MCH RDW Plt Count [place] % (Auto) Baso % (Auto) Lymph # (Auto) Seg Neutrophils % D-Dimer ABG pH POC ABG pO2 ABG Oxyhemoglobin ABG Sodium ABG Potassium ABG Glucose Carboxyhemoglobin Potassium Chloride Carbon Dioxide BUN Glucose POC Glucose 124 H 184 H 159 H Calcium Lactate Dehydrogenase C-Reactive Protein Albumin Arterial Blood Glucose Arterial Blood Ionized Calcium 09/27/20 09/27/20 09/27/20 11:36 16:05 21:44 WBC RBC MCV MCH RDW Plt Count [place] % (Auto) Baso % (Auto) Lymph # (Auto) Seg Neutrophils % D-Dimer ABG pH POC ABG pO2 ABG Oxyhemoglobin ABG Sodium ABG Potassium ABG Glucose Carboxyhemoglobin Potassium Chloride Carbon Dioxide BUN Glucose POC Glucose 142 H 177 H 138 H Calcium Lactate Dehydrogenase C-Reactive Protein Albumin Arterial Blood Glucose Arterial Blood Ionized Calcium 09/28/20 09/28/20 09/29/20 16:13 21:42 05:10 WBC RBC 5.08 H MCV 75 L MCH 24 L RDW 16.4 H Plt Count 495 H [place] % (Auto) Baso % (Auto) Lymph # (Auto) Seg Neutrophils % 75.0 H D-Dimer ABG pH POC ABG pO2 ABG Oxyhemoglobin ABG Sodium ABG Potassium ABG Glucose Carboxyhemoglobin Potassium Chloride Carbon Dioxide BUN Glucose POC Glucose 180 H 137 H Calcium Lactate Dehydrogenase C-Reactive Protein Albumin Arterial Blood Glucose Arterial Blood Ionized Calcium 09/29/20 09/29/20 09/29/20 05:10 12:08 17:20 WBC RBC MCV MCH RDW Plt Count [place] % (Auto) Baso % (Auto) Lymph # (Auto) Seg Neutrophils % D-Dimer ABG pH POC ABG pO2 ABG Oxyhemoglobin ABG Sodium ABG Potassium ABG Glucose Carboxyhemoglobin Potassium Chloride Carbon Dioxide 31 H BUN 24 H Glucose 130 H POC Glucose 200 H 173 H Calcium Lactate Dehydrogenase C-Reactive Protein Albumin Arterial Blood Glucose Arterial Blood Ionized Calcium 09/29/20 09/30/20 09/30/20 21:20 04:34 04:34 WBC RBC MCV MCH RDW Plt Count [place] % (Auto) Baso % (Auto) Lymph # (Auto) Seg Neutrophils % D-Dimer 293.21 H ABG pH POC ABG pO2 ABG Oxyhemoglobin ABG Sodium ABG Potassium ABG Glucose Carboxyhemoglobin Potassium Chloride Carbon Dioxide BUN Glucose POC Glucose 111 H Calcium Lactate Dehydrogenase 574 H C-Reactive Protein Albumin Arterial Blood Glucose Arterial Blood Ionized Calcium 09/30/20 09/30/20 09/30/20 11:45 17:39 21:16 WBC RBC MCV MCH RDW Plt Count [place] % (Auto) Baso % (Auto) Lymph # (Auto) Seg Neutrophils % D-Dimer ABG pH POC ABG pO2 ABG Oxyhemoglobin ABG Sodium ABG Potassium ABG Glucose Carboxyhemoglobin Potassium Chloride Carbon Dioxide BUN Glucose POC Glucose 109 H 181 H 114 H Calcium Lactate Dehydrogenase C-Reactive Protein Albumin Arterial Blood Glucose Arterial Blood Ionized Calcium 10/01/20 10/01/20 10/01/20 09:34 12:07 16:57 WBC RBC MCV MCH RDW Plt Count [place] % (Auto) Baso % (Auto) Lymph # (Auto) Seg Neutrophils % D-Dimer ABG pH 7.485 H POC ABG pO2 148.8 H ABG Oxyhemoglobin 98.5 H ABG Sodium 135.6 L ABG Potassium 3.3 L ABG Glucose 128 H Carboxyhemoglobin 0.3 L Potassium Chloride Carbon Dioxide BUN Glucose POC Glucose 133 H 209 H Calcium Lactate Dehydrogenase C-Reactive Protein Albumin Arterial Blood Glucose 128 H Arterial Blood Ionized Calcium 4.5 L 10/01/20 10/01/20 10/02/20 21:38 Unknown 08:40 WBC RBC MCV MCH RDW Plt Count [place] % (Auto) Baso % (Auto) Lymph # (Auto) Seg Neutrophils % D-Dimer ABG pH POC ABG pO2 ABG Oxyhemoglobin ABG Sodium ABG Potassium ABG Glucose Carboxyhemoglobin Potassium Chloride 96.2 L Carbon Dioxide BUN 26 H Glucose 133 H POC Glucose 198 H 142 H Calcium Lactate Dehydrogenase C-Reactive Protein Albumin Arterial Blood Glucose Arterial Blood Ionized Calcium 10/02/20 10/02/20 10/02/20 12:01 16:43 22:14 WBC RBC MCV MCH RDW Plt Count [place] % (Auto) Baso % (Auto) Lymph # (Auto) Seg Neutrophils % D-Dimer ABG pH POC ABG pO2 ABG Oxyhemoglobin ABG Sodium ABG Potassium ABG Glucose Carboxyhemoglobin Potassium Chloride Carbon Dioxide BUN Glucose POC Glucose 157 H 214 H 132 H Calcium Lactate Dehydrogenase C-Reactive Protein Albumin Arterial Blood Glucose Arterial Blood Ionized Calcium 10/03/20 10/03/20 10/03/20 11:42 17:08 21:21 WBC RBC MCV MCH RDW Plt Count [place] % (Auto) Baso % (Auto) Lymph # (Auto) Seg Neutrophils % D-Dimer ABG pH POC ABG pO2 ABG Oxyhemoglobin ABG Sodium ABG Potassium ABG Glucose Carboxyhemoglobin Potassium Chloride Carbon Dioxide BUN Glucose POC Glucose 225 H 201 H 141 H Calcium Lactate Dehydrogenase C-Reactive Protein Albumin Arterial Blood Glucose Arterial Blood Ionized Calcium 10/04/20 10/04/20 10/04/20 05:59 05:59 15:52 WBC 13.5 H RBC MCV 76 L MCH 23 L RDW 16.9 H Plt Count 467 H [place] % (Auto) Baso % (Auto) Lymph # (Auto) Seg Neutrophils % D-Dimer ABG pH POC ABG pO2 ABG Oxyhemoglobin ABG Sodium ABG Potassium ABG Glucose Carboxyhemoglobin Potassium Chloride Carbon Dioxide 32 H BUN 19 H Glucose POC Glucose 119 H Calcium Lactate Dehydrogenase C-Reactive Protein Albumin Arterial Blood Glucose Arterial Blood Ionized Calcium 10/04/20 21:48 WBC RBC MCV MCH RDW Plt Count [place] % (Auto) Baso % (Auto) Lymph # (Auto) Seg Neutrophils % D-Dimer ABG pH POC ABG pO2 ABG Oxyhemoglobin ABG Sodium ABG Potassium ABG Glucose Carboxyhemoglobin Potassium Chloride Carbon Dioxide BUN Glucose POC Glucose 112 H Calcium Lactate Dehydrogenase C-Reactive Protein Albumin Arterial Blood Glucose Arterial Blood Ionized Calcium Allied health notes reviewed: nursing
[2020-10-05] MEDS: ENOXAPARIN 40 MG/0.4 ML INJ SUB-Q SCH (22:55)
[2020-10-06] MEDS ORDERED: ALUM-MAG HYDROXIDE-SIMETHICONE 200-200-20MG/5ML ORAL LIQD 30 ML PO ONE (00:45)
[2020-10-06 05:57] LABS: Hematocrit 34.7 % (30.3-42.9); Hemoglobin 11.7 gm/dl (10.1-14.3); Mean Corpuscular HGB Conc 34 % (30-34); Mean Corpuscular Volume 76 fl (79-97); Platelet Count 341 K/mm3 (140-440); Red Blood Count 4.56 M/mm3 (3.65-5.03); Red Cell Distribution Width 17.4 % (13.2-15.2)
[2020-10-06 06:57] LABS: BUN/Creatinine Ratio 18; Blood Urea Nitrogen 16 mg/dL (7-17); Calcium 8.7 mg/dL (8.4-10.2); Hemolysis Index 46
--- NOTE | 2020-10-06 08:23 | Progress Note ---
Assessment and Plan Assessment and plan Acute hypoxic respiratory failure-slow improvement Bilateral COVID-19 pneumonia -CXR reviewed -Completed Decadron course stop date 10/03 -Completed remdesivir course -Droplet/contact isolation -Continue SPO2 monitoring -Tolerating slow weaning -Patient is now on high flow 25 L and 55% FiO2 -Oxygen saturation 97 to 98% -Pulmonary hygiene -Proning as able -Anticoagulation per protocol -Pulmonary note reviewed -Less oxygen requirements today--8 L nasal cannula oxygen We will transfer to regular medical floor Acute exacerbation of asthma due to underlying pneumonia Improved -Continue to treat for COVID-19 pneumonia Completed Decadron course Acute hypoxic respiratory failure tolerating slow weaning FiO2 decreased to 55% with 25 L high flow Oxygen saturation 97% on the monitor Chronic back pain: , supportive care and pain management as needed History of migraine, patient does not have any issues currently, outpatient follow-up Obesity class II Counseling on weight loss, diet and exercise was emphasized DVT prophylaxis, continue Lovenox Full CODE STATUS Prognosis guarded Subjective Date of service: 10/06/20 Principal diagnosis: Ac. hypoxemic resp failure; Umesh. Pneumonia; COVID-19; Asthma; Migraines Interval history: Patient is a 44-year-old -[place] female with a history of asthma, migraine headaches and chronic low back pain, morbid obesity who tested positive for COVID-19 about a week ago presents to the ED with complaint of acute onset persistent worsening diffuse body aches and pains, nasal and sinus congestion, persistent dry cough with shortness of breath and wheezing for the last 1 week. Patient states that she has been taking azithromycin and Medrol Dosepak at home but no improvement of her symptoms. Patient states that she did not receive COVID-19 vaccine. In the ER patient noted to be hypoxic, chest x-ray suggestive of bilateral pulmonary infiltrates due to atypical pneumonia. Patient placed on supplemental O2 started on empiric steroid, received empiric antibiotics and admitted to the hospital for further care and management. Daily clinical course: 09/24/2020: Patient placed on high flow oxygen today 85% FiO2 with 25 L oxygen per minute. continue empiric steroid, IV remdesivir and dexamethasone. Supplemental O2 to keep oxygenation greater than 92%. ID following continue supportive care follow inflammatory markers.. 09/25/20: Remains on high flow O2, oxygen requirement has gone up today From 85% FiO2 100% FiO2. Repeat chest x-ray, continue dexamethasone and remdesivir. Follow inflammatory markers, procalcitonin level is low. 09/26/20; patient transferred to IMCU overnight due to increased requirement of oxygen. Chest x-ray today showed worsening pneumonia. Patient currently on high flow O2 and so with nonrebreather. Continue to follow inflammatory markers, continue remdesivir and empiric steroid along with scheduled nebulizer breathing treatment. Called patient mother and updated in details. 09/27/20: Remains on high flow oxygen on nonrebreather. Continue to wean off O2 as tolerated. Inflammatory markers remain stable. Will complete remdesivir for 5 days and dexamethasone for 10 days. ID and critical care following, appreciate recommendation 09/28/20: Remains on high flow and NRB. clinically remains very critical. repeat Inflammatory markers tomorrow. 09/29/20: Patient on high flow nasal cannula, off from nonrebreather. Continue higher dose dexamethasone, total 10 days, -Completed remdesivir. Status post Actemra on 09/26/2020. 09/30/20: Patient remains on high flow O2. Inflammatory markers appears to be stable. Continue higher dose of dexamethasone for total 10 days. ID and pulmonary critical care following. Continue to monitor and provide supportive care. Scheduled nebulizer breathing treatment. 10/01` patient is alert and oriented and resting in the bed, no complaints, ABG results reviewed, pulmonary and ID notes reviewed. Weaned off nonrebreather mask 10/02 alert and oriented, no apparent distress, no specific complaints, ID and pulmonary notes reviewed, slow improvement 10/03 no specific complaints, no acute events overnight, slow improvement, pulmonary note reviewed 10/04 no acute events overnight. Resting comfortably no apparent distress,, no complaints, tolerating weaning, FiO2 decreased to 65% and flow decreased to 25 L 10/05/2020 Still on high flow nasal cannula oxygen 10/06/2020 Oxygenation requirements are less today More stable We will transfer to third floor medical surgical Objective - Constitutional Vitals: Vital Signs - 12hr 10/05/20 10/05/20 10/05/20 20:23 21:01 21:21 Temperature Pulse Rate 105 H 95 H Pulse Rate [ From Monitor] Respiratory 28 H 23 Rate Blood Pressure 111/62 139/93 O2 Sat by Pulse 96 96 96 Oximetry 10/05/20 10/05/20 10/05/20 22:00 23:01 23:43 Temperature 98.2 F Pulse Rate 92 H 93 H Pulse Rate [ From Monitor] Respiratory 25 H 15 Rate Blood Pressure 101/69 136/83 O2 Sat by Pulse 93 95 Oximetry 10/06/20 10/06/20 10/06/20 00:00 01:00 01:51 Temperature Pulse Rate 98 H 88 Pulse Rate [ 93 H From Monitor] Respiratory 20 30 H Rate Blood Pressure 112/82 99/66 O2 Sat by Pulse 100 100 96 Oximetry 10/06/20 10/06/20 10/06/20 02:00 03:00 04:00 Temperature 97.4 F L Pulse Rate 92 H 96 H 96 H Pulse Rate [ From Monitor] Respiratory 28 H 36 H 26 H Rate Blood Pressure 109/63 117/87 114/79 O2 Sat by Pulse 92 95 99 Oximetry 10/06/20 10/06/20 10/06/20 05:00 06:00 07:01 Temperature Pulse Rate 93 H 91 H 92 H Pulse Rate [ From Monitor] Respiratory 30 H 34 H 22 Rate Blood Pressure 99/64 90/60 98/65 O2 Sat by Pulse 94 95 90 Oximetry General appearance: Present: mild distress, well-nourished - EENT Eyes: PERRL, EOM intact ENT: hearing intact, clear oral mucosa Ears: bilateral: normal - Neck Neck: supple, normal ROM - Respiratory Respiratory effort: normal Respiratory: bilateral: CTA, wheezing - Breasts Breasts: normal - Cardiovascular Heart rate: 78 Rhythm: regular Heart Sounds: Present: S1 & S2. Absent: gallop, rub Extremities: pulses intact, No edema, normal color, Full ROM - Gastrointestinal General gastrointestinal: Present: soft, non-tender, non-distended, normal bowel sounds - Genitourinary Female genitourinary: normal - Integumentary Integumentary: clear, warm, dry - Musculoskeletal Musculoskeletal: 1, strength equal bilaterally - Neurologic Neurologic: moves all extremities - Psychiatric Psychiatric: memory intact, appropriate mood/affect, intact judgment & insight - Labs CBC & Chem 7: 10/06/20 05:28 10/06/20 05:28 Labs: Abnormal lab results 10/05/20 10/05/20 10/06/20 Range/Units 16:55 21:37 05:28 MCV 76 L (79-97) fl MCH 26 L (28-32) pg RDW 17.4 H (13.2-15.2) % POC Glucose 110 H 111 H (70-105) mg/dL HEART Score - HEART Score Troponin: Troponin T < 0.010 ng/mL (0.00-0.029) 09/23/20 08:02
[2020-10-06] MEDS: INSULIN REGULAR, HUMAN 100 UNITS/1 ML SUB-Q SCH ×4 (08:44→22:42)
--- NOTE | 2020-10-06 10:02 | Progress Note ---
Assessment and Plan Patient is a 44-year-old -[place] female with a history of asthma, migraine headaches and chronic low back pain, morbid obesity who tested positive for COVID-19 about a week ago presents to the ED with complaint of acute onset persistent worsening diffuse body aches and pains, nasal and sinus congestion, persistent dry cough with shortness of breath and wheezing for the last 1 week. Patient states that she has been taking azithromycin and Medrol Dosepak at home but no improvement of her symptoms. Patient states that she did not receive COVID-19 vaccine. In the ER patient noted to be hypoxic, chest x-ray suggestive of bilateral pulmonary infiltrates due to atypical pneumonia. Patient placed on supplemental O2 started on empiric steroid, and empiric antibiotics . Patient awake and resting on 5 litres O2 and O2 saturation running 94%. O2 requirements coming down. No acute respiratory distress except some cough. Patient afebrile. No leukocytosis. Chest xray 09/25/20 reported worsening pulmonary air space disease. Duplex ultrasound of lower extremities 09/29/20 reported No sonographic evidence for DVT in either lower extremity. Chest xray done 09/30/20 reported Improvement in the bilateral lung opacities since 09/25/2020. Patient is on S/C Lovenox, Famotidine and albuterol/atrovent aerosol treatments. Recommend to convert albuterol/atrovent to inhalers. Patient received Dexamethasone and REMDESIVIR.. Patient was seen in IMCU. I spent critical care time of 35 minutes, reviewing the chart, examine the patient, review labs, chest xray talking to the respiratory therapy, nursing staff and work out plan of treatment in this critically ill COID 19 patient. - Patient Problems (1) Acute respiratory failure with hypoxia Current Visit: Yes Status: Acute Plan to address problem: O2 5 litres. Continue S/C Lovenox. Continue Famotidine. Albuterol/atrovent inhalers q 6 hours prn for shortness of breath. (2) History of asthma Current Visit: Yes Status: Acute Plan to address problem: O2 5 litres Continue S/C Lovenox. Continue Famotidine. Albuterol/atrovent inhalers q 6 hours prn for shortness of breath. (3) Pneumonia due to 2019 novel coronavirus Current Visit: Yes Status: Acute Plan to address problem: Patient treated with ceftriaxone. (4) Obesity (BMI 30-39.9) Current Visit: Yes Status: Acute Plan to address problem: Recommend to loose weight. Recommend diet and exercise after improving from this condition. Subjective Date of service: 10/06/20 Principal diagnosis: Ac. hypoxemic resp failure; Umesh. Pneumonia; COVID-19; As thma; Migraines Interval history: Patient is a 44-year-old -[place] female with a history of asthma, migraine headaches and chronic low back pain, morbid obesity who tested positive for COVID-19 about a week ago presents to the ED with complaint of acute onset persistent worsening diffuse body aches and pains, nasal and sinus congestion, persistent dry cough with shortness of breath and wheezing for the last 1 week. Patient states that she has been taking azithromycin and Medrol Dose mekhi at home but no improvement of her symptoms. Patient states that she did not receive COVID-19 vaccine. In the ER patient noted to be hypoxic, chest x-ray suggestive of bilateral pulmonary infiltrates due to atypical pneumonia. Patient placed on supplemental O2 started on empiric steroid, and empiric antibiotics . Patient awake and resting on 5 litres O2 and O2 saturation running 94%. O2 requirements coming down. No acute respiratory distress except some cough. Patient afebrile. No leukocytosis. Chest xray 09/25/20 reported worsening pulmonary air space disease. Duplex ultrasound of lower extremities 09/29/20 reported No sonographic evidence for DVT in either lower extremity. Chest xray done 09/30/20 reported Improvement in the bilateral lung opacities since 09/25/2020. Patient is on S/C Lovenox, Famotidine and albuterol/atrovent aerosol treatments. Recommend to convert albuterol/atrovent to inhalers. Patient received Dexamethasone and REMDESIVIR. Objective Vital Signs - 12hr 10/05/20 10/05/20 10/06/20 23:01 23:43 00:00 Temperature 98.2 F Pulse Rate 93 H 98 H Pulse Rate [ 93 H From Monitor] Respiratory 15 20 Rate Blood Pressure 136/83 112/82 O2 Sat by Pulse 95 100 Oximetry 10/06/20 10/06/20 10/06/20 01:00 01:51 02:00 Temperature Pulse Rate 88 92 H Pulse Rate [ From Monitor] Respiratory 30 H 28 H Rate Blood Pressure 99/66 109/63 O2 Sat by Pulse 100 96 92 Oximetry 10/06/20 10/06/20 10/06/20 03:00 04:00 05:00 Temperature 97.4 F L Pulse Rate 96 H 96 H 93 H Pulse Rate [ From Monitor] Respiratory 36 H 26 H 30 H Rate Blood Pressure 117/87 114/79 99/64 O2 Sat by Pulse 95 99 94 Oximetry 10/06/20 10/06/20 10/06/20 06:00 07:01 08:00 Temperature 98.4 F Pulse Rate 91 H 92 H 93 H Pulse Rate [ From Monitor] Respiratory 34 H 22 21 Rate Blood Pressure 90/60 98/65 105/64 O2 Sat by Pulse 95 90 Oximetry Constitutional: no acute distress, alert, other (Resting on 5 litres O2.) Eyes: non-icteric ENT: oropharynx moist Neck: supple, no lymphadenopathy, no JVD, other (large neck circumference) Effort: mildly labored Ascultation: Bilateral: rales (bases (improved)) Percussion: Bilateral: not dull Cardiovascular: regular rate and rhythm Gastrointestinal: normoactive bowel sounds, soft, non-tender, non-distended (protuberant) Integumentary: normal Extremities: no cyanosis, pulses normal, no ischemia or petechiae, edema (trace) Neurologic: non-focal exam, pupils equal and round, CN II-XII normal, motor strength normal and Psychiatric: mood appropriate, affect normal CBC and BMP: 10/06/20 05:28 10/06/20 05:28 ABG, PT/INR, D-dimer: ABG ABG pH 7.485 (7.320-7.450) H 10/01/20 09:34 POC ABG pCO2 38.1 mmHg (32.0-48.0) 10/01/20 09:34 POC ABG pO2 148.8 mmHg (83-108) H 10/01/20 09:34 POC ABG HCO3 28.1 10/01/20 09:34 ABG O2 Saturation 99.1 (0-100) 10/01/20 09:34 PT/INR, D-dimer D-Dimer 293.21 ng/mlDDU (0-234) H 09/30/20 04:34 Abnormal lab findings: Abnormal Labs 09/23/20 09/23/20 09/23/20 05:00 08:02 08:40 WBC 3.4 L RBC MCV 76 L 75 L MCH 25 L 25 L RDW 17.2 H 17.0 H Plt Count Dickinson % (Auto) 9.0 H 9.1 H Baso % (Auto) 1.9 H Lymph # (Auto) 0.7 L Seg Neutrophils % 70.6 H D-Dimer ABG pH POC ABG pO2 ABG Oxyhemoglobin ABG Sodium ABG Potassium ABG Glucose Carboxyhemoglobin Potassium 3.4 L Chloride Carbon Dioxide BUN Glucose 116 H POC Glucose Calcium Lactate Dehydrogenase C-Reactive Protein Albumin Arterial Blood Glucose Arterial Blood Ionized Calcium 09/23/20 09/23/20 09/23/20 11:54 16:11 18:08 WBC RBC MCV MCH RDW Plt Count Dickinson % (Auto) Baso % (Auto) Lymph # (Auto) Seg Neutrophils % D-Dimer ABG pH POC ABG pO2 ABG Oxyhemoglobin ABG Sodium ABG Potassium ABG Glucose Carboxyhemoglobin Potassium 3.3 L Chloride Carbon Dioxide BUN Glucose 213 H POC Glucose 238 H Calcium 8.2 L Lactate Dehydrogenase 358 H C-Reactive Protein 2.10 H Albumin 3.6 L Arterial Blood Glucose Arterial Blood Ionized Calcium 09/23/20 09/24/20 09/24/20 23:19 07:34 11:47 WBC RBC MCV MCH RDW Plt Count Dickinson % (Auto) Baso % (Auto) Lymph # (Auto) Seg Neutrophils % D-Dimer ABG pH POC ABG pO2 ABG Oxyhemoglobin ABG Sodium ABG Potassium ABG Glucose Carboxyhemoglobin Potassium 3.3 L Chloride Carbon Dioxide BUN Glucose 101 H POC Glucose 127 H 125 H Calcium 8.2 L Lactate Dehydrogenase C-Reactive Protein Albumin 3.4 L Arterial Blood Glucose Arterial Blood Ionized Calcium 09/24/20 09/24/20 09/25/20 18:09 22:57 05:50 WBC RBC MCV MCH RDW Plt Count Dickinson % (Auto) Baso % (Auto) Lymph # (Auto) Seg Neutrophils % D-Dimer ABG pH POC ABG pO2 ABG Oxyhemoglobin ABG Sodium ABG Potassium ABG Glucose Carboxyhemoglobin Potassium Chloride Carbon Dioxide BUN Glucose POC Glucose 199 H 116 H Calcium 8.3 L Lactate Dehydrogenase C-Reactive Protein Albumin 3.7 L Arterial Blood Glucose Arterial Blood Ionized Calcium 09/25/20 09/25/20 09/25/20 07:42 09:57 11:38 WBC RBC MCV MCH RDW Plt Count Dickinson % (Auto) Baso % (Auto) Lymph # (Auto) Seg Neutrophils % D-Dimer ABG pH POC ABG pO2 ABG Oxyhemoglobin ABG Sodium ABG Potassium ABG Glucose Carboxyhemoglobin Potassium Chloride Carbon Dioxide BUN Glucose POC Glucose 106 H 142 H Calcium Lactate Dehydrogenase 510 H C-Reactive Protein 6.70 H Albumin Arterial Blood Glucose Arterial Blood Ionized Calcium 09/25/20 09/25/20 09/26/20 16:29 22:38 05:56 WBC RBC MCV MCH RDW Plt Count Dickinson % (Auto) Baso % (Auto) Lymph # (Auto) Seg Neutrophils % D-Dimer ABG pH POC ABG pO2 ABG Oxyhemoglobin ABG Sodium ABG Potassium ABG Glucose Carboxyhemoglobin Potassium Chloride Carbon Dioxide BUN Glucose 115 H POC Glucose 227 H 165 H Calcium Lactate Dehydrogenase C-Reactive Protein Albumin 3.4 L Arterial Blood Glucose Arterial Blood Ionized Calcium 09/26/20 09/26/20 09/26/20 11:50 15:24 21:57 WBC RBC MCV MCH RDW Plt Count Dickinson % (Auto) Baso % (Auto) Lymph # (Auto) Seg Neutrophils % D-Dimer ABG pH POC ABG pO2 ABG Oxyhemoglobin ABG Sodium ABG Potassium ABG Glucose Carboxyhemoglobin Potassium Chloride Carbon Dioxide BUN Glucose POC Glucose 124 H 184 H 159 H Calcium Lactate Dehydrogenase C-Reactive Protein Albumin Arterial Blood Glucose Arterial Blood Ionized Calcium 09/27/20 09/27/20 09/27/20 11:36 16:05 21:44 WBC RBC MCV MCH RDW Plt Count Dickinson % (Auto) Baso % (Auto) Lymph # (Auto) Seg Neutrophils % D-Dimer ABG pH POC ABG pO2 ABG Oxyhemoglobin ABG Sodium ABG Potassium ABG Glucose Carboxyhemoglobin Potassium Chloride Carbon Dioxide BUN Glucose POC Glucose 142 H 177 H 138 H Calcium Lactate Dehydrogenase C-Reactive Protein Albumin Arterial Blood Glucose Arterial Blood Ionized Calcium 09/28/20 09/28/20 09/29/20 16:13 21:42 05:10 WBC RBC 5.08 H MCV 75 L MCH 24 L RDW 16.4 H Plt Count 495 H Dickinson % (Auto) Baso % (Auto) Lymph # (Auto) Seg Neutrophils % 75.0 H D-Dimer ABG pH POC ABG pO2 ABG Oxyhemoglobin ABG Sodium ABG Potassium ABG Glucose Carboxyhemoglobin Potassium Chloride Carbon Dioxide BUN Glucose POC Glucose 180 H 137 H Calcium Lactate Dehydrogenase C-Reactive Protein Albumin Arterial Blood Glucose Arterial Blood Ionized Calcium 09/29/20 09/29/20 09/29/20 05:10 12:08 17:20 WBC RBC MCV MCH RDW Plt Count Dickinson % (Auto) Baso % (Auto) Lymph # (Auto) Seg Neutrophils % D-Dimer ABG pH POC ABG pO2 ABG Oxyhemoglobin ABG Sodium ABG Potassium ABG Glucose Carboxyhemoglobin Potassium Chloride Carbon Dioxide 31 H BUN 24 H Glucose 130 H POC Glucose 200 H 173 H Calcium Lactate Dehydrogenase C-Reactive Protein Albumin Arterial Blood Glucose Arterial Blood Ionized Calcium 09/29/20 09/30/20 09/30/20 21:20 04:34 04:34 WBC RBC MCV MCH RDW Plt Count Dickinson % (Auto) Baso % (Auto) Lymph # (Auto) Seg Neutrophils % D-Dimer 293.21 H ABG pH POC ABG pO2 ABG Oxyhemoglobin ABG Sodium ABG Potassium ABG Glucose Carboxyhemoglobin Potassium Chloride Carbon Dioxide BUN Glucose POC Glucose 111 H Calcium Lactate Dehydrogenase 574 H C-Reactive Protein Albumin Arterial Blood Glucose Arterial Blood Ionized Calcium 09/30/20 09/30/20 09/30/20 11:45 17:39 21:16 WBC RBC MCV MCH RDW Plt Count Dickinson % (Auto) Baso % (Auto) Lymph # (Auto) Seg Neutrophils % D-Dimer ABG pH POC ABG pO2 ABG Oxyhemoglobin ABG Sodium ABG Potassium ABG Glucose Carboxyhemoglobin Potassium Chloride Carbon Dioxide BUN Glucose POC Glucose 109 H 181 H 114 H Calcium Lactate Dehydrogenase C-Reactive Protein Albumin Arterial Blood Glucose Arterial Blood Ionized Calcium 10/01/20 10/01/20 10/01/20 09:34 12:07 16:57 WBC RBC MCV MCH RDW Plt Count Dickinson % (Auto) Baso % (Auto) Lymph # (Auto) Seg Neutrophils % D-Dimer ABG pH 7.485 H POC ABG pO2 148.8 H ABG Oxyhemoglobin 98.5 H ABG Sodium 135.6 L ABG Potassium 3.3 L ABG Glucose 128 H Carboxyhemoglobin 0.3 L Potassium Chloride Carbon Dioxide BUN Glucose POC Glucose 133 H 209 H Calcium Lactate Dehydrogenase C-Reactive Protein Albumin Arterial Blood Glucose 128 H Arterial Blood Ionized Calcium 4.5 L 10/01/20 10/01/20 10/02/20 21:38 Unknown 08:40 WBC RBC MCV MCH RDW Plt Count Dickinson % (Auto) Baso % (Auto) Lymph # (Auto) Seg Neutrophils % D-Dimer ABG pH POC ABG pO2 ABG Oxyhemoglobin ABG Sodium ABG Potassium ABG Glucose Carboxyhemoglobin Potassium Chloride 96.2 L Carbon Dioxide BUN 26 H Glucose 133 H POC Glucose 198 H 142 H Calcium Lactate Dehydrogenase C-Reactive Protein Albumin Arterial Blood Glucose Arterial Blood Ionized Calcium 10/02/20 10/02/20 10/02/20 12:01 16:43 22:14 WBC RBC MCV MCH RDW Plt Count Dickinson % (Auto) Baso % (Auto) Lymph # (Auto) Seg Neutrophils % D-Dimer ABG pH POC ABG pO2 ABG Oxyhemoglobin ABG Sodium ABG Potassium ABG Glucose Carboxyhemoglobin Potassium Chloride Carbon Dioxide BUN Glucose POC Glucose 157 H 214 H 132 H Calcium Lactate Dehydrogenase C-Reactive Protein Albumin Arterial Blood Glucose Arterial Blood Ionized Calcium 10/03/20 10/03/20 10/03/20 11:42 17:08 21:21 WBC RBC MCV MCH RDW Plt Count Dickinson % (Auto) Baso % (Auto) Lymph # (Auto) Seg Neutrophils % D-Dimer ABG pH POC ABG pO2 ABG Oxyhemoglobin ABG Sodium ABG Potassium ABG Glucose Carboxyhemoglobin Potassium Chloride Carbon Dioxide BUN Glucose POC Glucose 225 H 201 H 141 H Calcium Lactate Dehydrogenase C-Reactive Protein Albumin Arterial Blood Glucose Arterial Blood Ionized Calcium 10/04/20 10/04/20 10/04/20 05:59 05:59 15:52 WBC 13.5 H RBC MCV 76 L MCH 23 L RDW 16.9 H Plt Count 467 H Dickinson % (Auto) Baso % (Auto) Lymph # (Auto) Seg Neutrophils % D-Dimer ABG pH POC ABG pO2 ABG Oxyhemoglobin ABG Sodium ABG Potassium ABG Glucose Carboxyhemoglobin Potassium Chloride Carbon Dioxide 32 H BUN 19 H Glucose POC Glucose 119 H Calcium Lactate Dehydrogenase C-Reactive Protein Albumin Arterial Blood Glucose Arterial Blood Ionized Calcium 10/04/20 10/05/20 10/05/20 21:48 16:55 21:37 WBC RBC MCV MCH RDW Plt Count Dickinson % (Auto) Baso % (Auto) Lymph # (Auto) Seg Neutrophils % D-Dimer ABG pH POC ABG pO2 ABG Oxyhemoglobin ABG Sodium ABG Potassium ABG Glucose Carboxyhemoglobin Potassium Chloride Carbon Dioxide BUN Glucose POC Glucose 112 H 110 H 111 H Calcium Lactate Dehydrogenase C-Reactive Protein Albumin Arterial Blood Glucose Arterial Blood Ionized Calcium 10/06/20 05:28 WBC RBC MCV 76 L MCH 26 L RDW 17.4 H Plt Count Dickinson % (Auto) Baso % (Auto) Lymph # (Auto) Seg Neutrophils % D-Dimer ABG pH POC ABG pO2 ABG Oxyhemoglobin ABG Sodium ABG Potassium ABG Glucose Carboxyhemoglobin Potassium Chloride Carbon Dioxide BUN Glucose POC Glucose Calcium Lactate Dehydrogenase C-Reactive Protein Albumin Arterial Blood Glucose Arterial Blood Ionized Calcium Allied health notes reviewed: nursing
[2020-10-06] MEDS: guaiFENesin ER 600 MG TAB PO SCH ×2 (10:27→22:42)
[2020-10-06] MEDS: ZINC SULFATE 220 MG CAP PO SCH ×2 (10:27→22:42)
[2020-10-06] MEDS: ASCORBIC ACID 500 MG TAB PO SCH ×2 (10:27→22:42)
[2020-10-06] MEDS: CHOLECALCIFEROL (VIT D3) 5,000 UNIT TAB PO SCH (10:27)
[2020-10-06] MEDS: FAMOTIDINE 20 MG TAB PO SCH ×2 (10:28→22:42)
[2020-10-06] MEDS: guaiFENesin 100 MG/5 ML ORAL LIQD PO PRN (10:47)
[2020-10-06] MEDS: ENOXAPARIN 40 MG/0.4 ML INJ SUB-Q SCH (22:42)
[2020-10-07] MEDS: FAMOTIDINE 20 MG TAB PO SCH ×2 (10:18→21:56)
[2020-10-07] MEDS: guaiFENesin ER 600 MG TAB PO SCH ×2 (10:18→21:56)
[2020-10-07] MEDS: INSULIN REGULAR, HUMAN 100 UNITS/1 ML SUB-Q SCH ×4 (10:18→21:55)
[2020-10-07] MEDS: ZINC SULFATE 220 MG CAP PO SCH ×2 (10:18→21:56)
[2020-10-07] MEDS: ASCORBIC ACID 500 MG TAB PO SCH ×2 (10:18→21:56)
[2020-10-07] MEDS: CHOLECALCIFEROL (VIT D3) 5,000 UNIT TAB PO SCH (10:18)
--- NOTE | 2020-10-07 14:08 | Progress Note ---
Assessment and Plan Patient is a 44-year-old -Welsh female with a history of asthma, migraine headaches and chronic low back pain, morbid obesity who tested positive for COVID-19 about a week ago presents to the ED with complaint of acute onset persistent worsening diffuse body aches and pains, nasal and sinus congestion, persistent dry cough with shortness of breath and wheezing for the last 1 week. Patient states that she has been taking azithromycin and Medrol Dosepak at home but no improvement of her symptoms. Patient states that she did not receive COVID-19 vaccine. In the ER patient noted to be hypoxic, chest x-ray suggestive of bilateral pulmonary infiltrates due to atypical pneumonia. Patient placed on supplemental O2 started on empiric steroid, and empiric antibiotics . Patient transfered from [facility] to medical floor. Patient awake and resting on 3 litres O2 and O2 saturation running 99%. O2 requirements significantly came down. No acute respiratory distress except some cough. Patient afebrile. No leukocytosis. Chest xray 09/25/20 reported worsening pulmonary air space disease. Duplex ultrasound of lower extremities 09/29/20 reported No sonographic evidence for DVT in either lower extremity. Chest xray done 09/30/20 reported Improvement in the bilateral lung opacities since 09/25/2020. Patient is on S/C Lovenox, Famotidine and albuterol/atrovent aerosol treatments. Recommend to convert albuterol/atrovent to inhalers. Patient received Dexamethasone and REMDESIVIR.. - Patient Problems (1) Acute respiratory failure with hypoxia Current Visit: Yes Status: Acute Plan to address problem: O2 3 litres. Continue S/C Lovenox. Continue Famotidine. Albuterol/atrovent inhalers q 6 hours prn for shortness of breath. (2) History of asthma Current Visit: Yes Status: Acute Plan to address problem: O2 3 litres Continue S/C Lovenox. Continue Famotidine. Albuterol/atrovent inhalers q 6 hours prn for shortness of breath. (3) Pneumonia due to 2019 novel coronavirus Current Visit: Yes Status: Acute Plan to address problem: Patient treated with ceftriaxone. (4) Obesity (BMI 30-39.9) Current Visit: Yes Status: Acute Plan to address problem: Recommend to loose weight. Recommend diet and exercise after improving from this condition. Subjective Date of service: 10/07/20 Principal diagnosis: Ac. hypoxemic resp failure; Umesh. Pneumonia; COVID-19; Asthma; Migraines Interval history: Patient is a 44-year-old -Welsh female with a history of asthma, migraine headaches and chronic low back pain, morbid obesity who tested positive for COVID-19 about a week ago presents to the ED with complaint of acute onset p ersistent worsening diffuse body aches and pains, nasal and sinus congestion, persistent dry cough with shortness of breath and wheezing for the last 1 week. Patient states that she has been taking azithromycin and Medrol Dose mekhi at home but no improvement of her symptoms. Patient states that she did not receive COVID-19 vaccine. In the ER patient noted to be hypoxic, chest x-ray suggestive of bilateral pulmonary infiltrates due to atypical pneumonia. Patient placed on supplemental O2 started on empiric steroid, and empiric antibiotics . Patient transfered from [facility] to medical floor. Patient awake and resting on 3 litres O2 and O2 saturation running 99%. O2 requirements significantly came down. No acute respiratory distress except some cough. Patient afebrile. No leukocytosis. Chest xray 09/25/20 reported worsening pulmonary air space disease. Duplex ultrasound of lower extremities 09/29/20 reported No sonographic evidence for DVT in either lower extremity. Chest xray done 09/30/20 reported Improvement in the bilateral lung opacities since 09/25/2020. Patient is on S/C Lovenox, Famotidine and albuterol/atrovent aerosol treatments. Recommend to convert albuterol/atrovent to inhalers. Patient received Dexamethasone and REMDESIVIR. Objective Vital Signs - 12hr 10/07/20 10/07/20 04:00 04:34 Temperature 98.1 F Pulse Rate 92 H 90 Respiratory 18 Rate Blood Pressure 103/64 O2 Sat by Pulse 89 Oximetry Constitutional: no acute distress, alert, other (Resting on 3 litres O2.) Eyes: non-icteric ENT: oropharynx moist Neck: supple, no lymphadenopathy, no JVD, other (large neck circumference) Effort: mildly labored Ascultation: Bilateral: rales (bases (improved)) Percussion: Bilateral: not dull Cardiovascular: regular rate and rhythm Gastrointestinal: normoactive bowel sounds, soft, non-tender, non-distended (protuberant) Integumentary: normal Extremities: no cyanosis, pulses normal, no ischemia or petechiae, edema (trace) Neurologic: non-focal exam, pupils equal and round, CN II-XII normal, motor strength normal and Psychiatric: mood appropriate, affect normal CBC and BMP: 10/06/20 05:28 10/06/20 05:28 ABG, PT/INR, D-dimer: ABG ABG pH 7.485 (7.320-7.450) H 10/01/20 09:34 POC ABG pCO2 38.1 mmHg (32.0-48.0) 10/01/20 09:34 POC ABG pO2 148.8 mmHg (83-108) H 10/01/20 09:34 POC ABG HCO3 28.1 10/01/20 09:34 ABG O2 Saturation 99.1 (0-100) 10/01/20 09:34 PT/INR, D-dimer D-Dimer 293.21 ng/mlDDU (0-234) H 09/30/20 04:34 Abnormal lab findings: Abnormal Labs 09/23/20 09/23/20 09/23/20 05:00 08:02 08:40 WBC 3.4 L RBC MCV 76 L 75 L MCH 25 L 25 L RDW 17.2 H 17.0 H Plt Count Stokes % (Auto) 9.0 H 9.1 H Baso % (Auto) 1.9 H Lymph # (Auto) 0.7 L Seg Neutrophils % 70.6 H D-Dimer ABG pH POC ABG pO2 ABG Oxyhemoglobin ABG Sodium ABG Potassium ABG Glucose Carboxyhemoglobin Potassium 3.4 L Chloride Carbon Dioxide BUN Glucose 116 H POC Glucose Calcium Lactate Dehydrogenase C-Reactive Protein Albumin Arterial Blood Glucose Arterial Blood Ionized Calcium 09/23/20 09/23/20 09/23/20 11:54 16:11 18:08 WBC RBC MCV MCH RDW Plt Count Stokes % (Auto) Baso % (Auto) Lymph # (Auto) Seg Neutrophils % D-Dimer ABG pH POC ABG pO2 ABG Oxyhemoglobin ABG Sodium ABG Potassium ABG Glucose Carboxyhemoglobin Potassium 3.3 L Chloride Carbon Dioxide BUN Glucose 213 H POC Glucose 238 H Calcium 8.2 L Lactate Dehydrogenase 358 H C-Reactive Protein 2.10 H Albumin 3.6 L Arterial Blood Glucose Arterial Blood Ionized Calcium 09/23/20 09/24/20 09/24/20 23:19 07:34 11:47 WBC RBC MCV MCH RDW Plt Count Stokes % (Auto) Baso % (Auto) Lymph # (Auto) Seg Neutrophils % D-Dimer ABG pH POC ABG pO2 ABG Oxyhemoglobin ABG Sodium ABG Potassium ABG Glucose Carboxyhemoglobin Potassium 3.3 L Chloride Carbon Dioxide BUN Glucose 101 H POC Glucose 127 H 125 H Calcium 8.2 L Lactate Dehydrogenase C-Reactive Protein Albumin 3.4 L Arterial Blood Glucose Arterial Blood Ionized Calcium 09/24/20 09/24/20 09/25/20 18:09 22:57 05:50 WBC RBC MCV MCH RDW Plt Count Stokes % (Auto) Baso % (Auto) Lymph # (Auto) Seg Neutrophils % D-Dimer ABG pH POC ABG pO2 ABG Oxyhemoglobin ABG Sodium ABG Potassium ABG Glucose Carboxyhemoglobin Potassium Chloride Carbon Dioxide BUN Glucose POC Glucose 199 H 116 H Calcium 8.3 L Lactate Dehydrogenase C-Reactive Protein Albumin 3.7 L Arterial Blood Glucose Arterial Blood Ionized Calcium 09/25/20 09/25/20 09/25/20 07:42 09:57 11:38 WBC RBC MCV MCH RDW Plt Count Stokes % (Auto) Baso % (Auto) Lymph # (Auto) Seg Neutrophils % D-Dimer ABG pH POC ABG pO2 ABG Oxyhemoglobin ABG Sodium ABG Potassium ABG Glucose Carboxyhemoglobin Potassium Chloride Carbon Dioxide BUN Glucose POC Glucose 106 H 142 H Calcium Lactate Dehydrogenase 510 H C-Reactive Protein 6.70 H Albumin Arterial Blood Glucose Arterial Blood Ionized Calcium 09/25/20 09/25/20 09/26/20 16:29 22:38 05:56 WBC RBC MCV MCH RDW Plt Count Stokes % (Auto) Baso % (Auto) Lymph # (Auto) Seg Neutrophils % D-Dimer ABG pH POC ABG pO2 ABG Oxyhemoglobin ABG Sodium ABG Potassium ABG Glucose Carboxyhemoglobin Potassium Chloride Carbon Dioxide BUN Glucose 115 H POC Glucose 227 H 165 H Calcium Lactate Dehydrogenase C-Reactive Protein Albumin 3.4 L Arterial Blood Glucose Arterial Blood Ionized Calcium 09/26/20 09/26/20 09/26/20 11:50 15:24 21:57 WBC RBC MCV MCH RDW Plt Count Stokes % (Auto) Baso % (Auto) Lymph # (Auto) Seg Neutrophils % D-Dimer ABG pH POC ABG pO2 ABG Oxyhemoglobin ABG Sodium ABG Potassium ABG Glucose Carboxyhemoglobin Potassium Chloride Carbon Dioxide BUN Glucose POC Glucose 124 H 184 H 159 H Calcium Lactate Dehydrogenase C-Reactive Protein Albumin Arterial Blood Glucose Arterial Blood Ionized Calcium 09/27/20 09/27/20 09/27/20 11:36 16:05 21:44 WBC RBC MCV MCH RDW Plt Count Stokes % (Auto) Baso % (Auto) Lymph # (Auto) Seg Neutrophils % D-Dimer ABG pH POC ABG pO2 ABG Oxyhemoglobin ABG Sodium ABG Potassium ABG Glucose Carboxyhemoglobin Potassium Chloride Carbon Dioxide BUN Glucose POC Glucose 142 H 177 H 138 H Calcium Lactate Dehydrogenase C-Reactive Protein Albumin Arterial Blood Glucose Arterial Blood Ionized Calcium 09/28/20 09/28/20 09/29/20 16:13 21:42 05:10 WBC RBC 5.08 H MCV 75 L MCH 24 L RDW 16.4 H Plt Count 495 H Stokes % (Auto) Baso % (Auto) Lymph # (Auto) Seg Neutrophils % 75.0 H D-Dimer ABG pH POC ABG pO2 ABG Oxyhemoglobin ABG Sodium ABG Potassium ABG Glucose Carboxyhemoglobin Potassium Chloride Carbon Dioxide BUN Glucose POC Glucose 180 H 137 H Calcium Lactate Dehydrogenase C-Reactive Protein Albumin Arterial Blood Glucose Arterial Blood Ionized Calcium 09/29/20 09/29/20 09/29/20 05:10 12:08 17:20 WBC RBC MCV MCH RDW Plt Count Stokes % (Auto) Baso % (Auto) Lymph # (Auto) Seg Neutrophils % D-Dimer ABG pH POC ABG pO2 ABG Oxyhemoglobin ABG Sodium ABG Potassium ABG Glucose Carboxyhemoglobin Potassium Chloride Carbon Dioxide 31 H BUN 24 H Glucose 130 H POC Glucose 200 H 173 H Calcium Lactate Dehydrogenase C-Reactive Protein Albumin Arterial Blood Glucose Arterial Blood Ionized Calcium 09/29/20 09/30/20 09/30/20 21:20 04:34 04:34 WBC RBC MCV MCH RDW Plt Count Stokes % (Auto) Baso % (Auto) Lymph # (Auto) Seg Neutrophils % D-Dimer 293.21 H ABG pH POC ABG pO2 ABG Oxyhemoglobin ABG Sodium ABG Potassium ABG Glucose Carboxyhemoglobin Potassium Chloride Carbon Dioxide BUN Glucose POC Glucose 111 H Calcium Lactate Dehydrogenase 574 H C-Reactive Protein Albumin Arterial Blood Glucose Arterial Blood Ionized Calcium 09/30/20 09/30/20 09/30/20 11:45 17:39 21:16 WBC RBC MCV MCH RDW Plt Count Stokes % (Auto) Baso % (Auto) Lymph # (Auto) Seg Neutrophils % D-Dimer ABG pH POC ABG pO2 ABG Oxyhemoglobin ABG Sodium ABG Potassium ABG Glucose Carboxyhemoglobin Potassium Chloride Carbon Dioxide BUN Glucose POC Glucose 109 H 181 H 114 H Calcium Lactate Dehydrogenase C-Reactive Protein Albumin Arterial Blood Glucose Arterial Blood Ionized Calcium 10/01/20 10/01/20 10/01/20 09:34 12:07 16:57 WBC RBC MCV MCH RDW Plt Count Stokes % (Auto) Baso % (Auto) Lymph # (Auto) Seg Neutrophils % D-Dimer ABG pH 7.485 H POC ABG pO2 148.8 H ABG Oxyhemoglobin 98.5 H ABG Sodium 135.6 L ABG Potassium 3.3 L ABG Glucose 128 H Carboxyhemoglobin 0.3 L Potassium Chloride Carbon Dioxide BUN Glucose POC Glucose 133 H 209 H Calcium Lactate Dehydrogenase C-Reactive Protein Albumin Arterial Blood Glucose 128 H Arterial Blood Ionized Calcium 4.5 L 10/01/20 10/01/20 10/02/20 21:38 Unknown 08:40 WBC RBC MCV MCH RDW Plt Count Stokes % (Auto) Baso % (Auto) Lymph # (Auto) Seg Neutrophils % D-Dimer ABG pH POC ABG pO2 ABG Oxyhemoglobin ABG Sodium ABG Potassium ABG Glucose Carboxyhemoglobin Potassium Chloride 96.2 L Carbon Dioxide BUN 26 H Glucose 133 H POC Glucose 198 H 142 H Calcium Lactate Dehydrogenase C-Reactive Protein Albumin Arterial Blood Glucose Arterial Blood Ionized Calcium 10/02/20 10/02/20 10/02/20 12:01 16:43 22:14 WBC RBC MCV MCH RDW Plt Count Stokes % (Auto) Baso % (Auto) Lymph # (Auto) Seg Neutrophils % D-Dimer ABG pH POC ABG pO2 ABG Oxyhemoglobin ABG Sodium ABG Potassium ABG Glucose Carboxyhemoglobin Potassium Chloride Carbon Dioxide BUN Glucose POC Glucose 157 H 214 H 132 H Calcium Lactate Dehydrogenase C-Reactive Protein Albumin Arterial Blood Glucose Arterial Blood Ionized Calcium 10/03/20 10/03/20 10/03/20 11:42 17:08 21:21 WBC RBC MCV MCH RDW Plt Count Stokes % (Auto) Baso % (Auto) Lymph # (Auto) Seg Neutrophils % D-Dimer ABG pH POC ABG pO2 ABG Oxyhemoglobin ABG Sodium ABG Potassium ABG Glucose Carboxyhemoglobin Potassium Chloride Carbon Dioxide BUN Glucose POC Glucose 225 H 201 H 141 H Calcium Lactate Dehydrogenase C-Reactive Protein Albumin Arterial Blood Glucose Arterial Blood Ionized Calcium 10/04/20 10/04/20 10/04/20 05:59 05:59 15:52 WBC 13.5 H RBC MCV 76 L MCH 23 L RDW 16.9 H Plt Count 467 H Stokes % (Auto) Baso % (Auto) Lymph # (Auto) Seg Neutrophils % D-Dimer ABG pH POC ABG pO2 ABG Oxyhemoglobin ABG Sodium ABG Potassium ABG Glucose Carboxyhemoglobin Potassium Chloride Carbon Dioxide 32 H BUN 19 H Glucose POC Glucose 119 H Calcium Lactate Dehydrogenase C-Reactive Protein Albumin Arterial Blood Glucose Arterial Blood Ionized Calcium 10/04/20 10/05/20 10/05/20 21:48 16:55 21:37 WBC RBC MCV MCH RDW Plt Count Stokes % (Auto) Baso % (Auto) Lymph # (Auto) Seg Neutrophils % D-Dimer ABG pH POC ABG pO2 ABG Oxyhemoglobin ABG Sodium ABG Potassium ABG Glucose Carboxyhemoglobin Potassium Chloride Carbon Dioxide BUN Glucose POC Glucose 112 H 110 H 111 H Calcium Lactate Dehydrogenase C-Reactive Protein Albumin Arterial Blood Glucose Arterial Blood Ionized Calcium 10/06/20 10/06/20 05:28 11:23 WBC RBC MCV 76 L MCH 26 L RDW 17.4 H Plt Count Stokes % (Auto) Baso % (Auto) Lymph # (Auto) Seg Neutrophils % D-Dimer ABG pH POC ABG pO2 ABG Oxyhemoglobin ABG Sodium ABG Potassium ABG Glucose Carboxyhemoglobin Potassium Chloride Carbon Dioxide BUN Glucose POC Glucose 160 H Calcium Lactate Dehydrogenase C-Reactive Protein Albumin Arterial Blood Glucose Arterial Blood Ionized Calcium Allied health notes reviewed: nursing
[2020-10-07] MEDS: ACETAMINOPHEN 325 MG TAB PO PRN (17:08)
[2020-10-07] MEDS: ENOXAPARIN 40 MG/0.4 ML INJ SUB-Q SCH (21:56)
--- NOTE | 2020-10-08 06:54 | Progress Note ---
Assessment and Plan Transfer from [facility] yesterday Assessment and plan Acute hypoxic respiratory failure-slow improvement Bilateral COVID-19 pneumonia -CXR reviewed -Completed Decadron course stop date 10/03 -Completed remdesivir course -Droplet/contact isolation -Continue SPO2 monitoring -Tolerating slow weaning -Patient is now on high flow 25 L and 55% FiO2 -Oxygen saturation 97 to 98% -Pulmonary hygiene -Proning as able -Anticoagulation per protocol -Pulmonary note reviewed Today on 4 L nasal cannula oxygen Improving well Try to wean off tomorrow Acute exacerbation of asthma due to underlying pneumonia Improved -Continue to treat for COVID-19 pneumonia Completed Decadron course Acute hypoxic respiratory failure tolerating slow weaning FiO2 decreased to 55% with 25 L high flow Oxygen saturation 97% on the monitor On 4 L nasal cannula oxygen today Chronic back pain: , supportive care and pain management as needed History of migraine, patient does not have any issues currently, outpatient follow-up Obesity class II Counseling on weight loss, diet and exercise was emphasized DVT prophylaxis, continue Lovenox Full CODE STATUS Prognosis guarded Subjective Date of service: 10/07/20 Principal diagnosis: Ac. hypoxemic resp failure; Umesh. Pneumonia; COVID-19; Asthma; Migraines Interval history: Patient is a 44-year-old -Q[place] female with a history of asthma, migraine headaches and chronic low back pain, morbid obesity who tested positive for COVID-19 about a week ago presents to the ED with complaint of acute onset persistent worsening diffuse body aches and pains, nasal and sinus congestion, persistent dry cough with shortness of breath and wheezing for the last 1 week. Patient states that she has been taking azithromycin and Medrol Dosepak at home but no improvement of her symptoms. Patient states that she did not receive C OVID-19 vaccine. In the ER patient noted to be hypoxic, chest x-ray suggestive of bilateral pulmonary infiltrates due to atypical pneumonia. Patient placed on supplemental O2 started on empiric steroid, received empiric antibiotics and admitted to the hospital for further care and management. Daily clinical course: 09/24/2020: Patient placed on high flow oxygen today 85% FiO2 with 25 L oxygen per minute. continue empiric steroid, IV remdesivir and dexamethasone. Suppl emental O2 to keep oxygenation greater than 92%. ID following continue supportive care follow inflammatory markers.. 09/25/20: Remains on high flow O2, oxygen requirement has gone up today From 85% FiO2 100% FiO2. Repeat chest x-ray, continue dexamethasone and remdesivir. Follow inflammatory markers, procalcitonin level is low. 09/26/20; patient transferred to [facility] overnight due to increased requirement of oxygen. Chest x-ray today showed worsening pneumonia. Patient currently on high flow O2 and so with nonrebreather. Continue to follow inflammatory markers, continue remdesivir and empiric steroid along with scheduled nebulizer breathing treatment. Called patient mother and updated in details. 09/27/20: Remains on high flow oxygen on nonrebreather. Continue to wean off O2 as tolerated. Inflammatory markers remain stable. Will complete remdesivir for 5 days and dexamethasone for 10 days. ID and critical care following, appreciate recommendation 09/28/20: Remains on high flow and NRB. clinically remains very critical. repeat Inflammatory markers tomorrow. 09/29/20: Patient on high flow nasal cannula, off from nonrebreather. Continue higher dose dexamethasone, total 10 days, -Completed remdesivir. Status post Actemra on 09/26/2020. 09/30/20: Patient remains on high flow O2. Inflammatory markers appears to be stable. Continue higher dose of dexamethasone for total 10 days. ID and pulmonary critical care following. Continue to monitor and provide supportive care. Scheduled nebulizer breathing treatment. 10/01` patient is alert and oriented and resting in the bed, no complaints, ABG results reviewed, pulmonary and ID notes reviewed. Weaned off nonrebreather mask 10/02 alert and oriented, no apparent distress, no specific complaints, ID and pulmonary notes reviewed, slow improvement 10/03 no specific complaints, no acute events overnight, slow improvement, pulmonary note reviewed 10/04 no acute events overnight. Resting comfortably no apparent distress,, no complaints, tolerating weaning, FiO2 decreased to 65% and flow decreased to 25 L 10/05/2020 Still on high flow nasal cannula oxygen 10/06/2020 Oxygenation requirements are less today More stable We will transfer to third floor medical surgical Objective - Constitutional Vitals: Vital Signs - 12hr 10/07/20 10/07/20 10/07/20 20:00 21:53 22:00 Temperature 98.0 F Pulse Rate 94 H 94 H Respiratory 18 Rate Blood Pressure 131/66 O2 Sat by Pulse 93 98 Oximetry 10/08/20 10/08/20 10/08/20 00:00 04:00 04:51 Temperature 98.4 F Pulse Rate 94 H 94 H 86 Respiratory 18 Rate Blood Pressure 105/57 O2 Sat by Pulse 93 Oximetry General appearance: Present: no acute distress, well-nourished - EENT Eyes: PERRL, EOM intact ENT: hearing intact, clear oral mucosa Ears: bilateral: normal - Neck Neck: supple, normal ROM - Respiratory Respiratory effort: normal Respiratory: bilateral: CTA - Breasts Breasts: normal - Cardiovascular Rhythm: regular Heart Sounds: Present: S1 & S2. Absent: gallop, rub Extremities: pulses intact, No edema, normal color, Full ROM - Gastrointestinal General gastrointestinal: Present: soft, non-tender, non-distended, normal bowel sounds - Genitourinary Female genitourinary: normal - Integumentary Integumentary: clear, warm, dry - Musculoskeletal Musculoskeletal: 1, strength equal bilaterally - Neurologic Neurologic: moves all extremities - Psychiatric Psychiatric: memory intact, appropriate mood/affect, intact judgment & insight - Labs CBC & Chem 7: 10/06/20 05:28 10/06/20 05:28 Labs: Abnormal lab results 10/07/20 Range/Units 16:55 POC Glucose 147 H (70-105) mg/dL HEART Score - HEART Score Troponin: Troponin T < 0.010 ng/mL (0.00-0.029) 09/23/20 08:02
[2020-10-08] MEDS: INSULIN REGULAR, HUMAN 100 UNITS/1 ML SUB-Q SCH ×2 (08:39→12:14)
[2020-10-08] MEDS: guaiFENesin ER 600 MG TAB PO SCH (09:25)
[2020-10-08] MEDS: ZINC SULFATE 220 MG CAP PO SCH (09:25)
[2020-10-08] MEDS: FAMOTIDINE 20 MG TAB PO SCH (09:25)
[2020-10-08] MEDS: ASCORBIC ACID 500 MG TAB PO SCH (09:25)
[2020-10-08] MEDS: CHOLECALCIFEROL (VIT D3) 5,000 UNIT TAB PO SCH (09:25)
--- NOTE | 2020-10-08 12:31 | Discharge Summary ---
Providers - Providers Date of Admission: 09/23/20 09:36 Attending physician: SERA GUAMAN MD 09/23/20 11:31 Consult to Physician [CONS] Routine Comment: Consulting Provider: CYNTHIA COHEN Physician Instructions: Reason For Exam: covid pna 09/24/20 12:27 Consult to Physician [CONS] Routine Comment: Consulting Provider: BECKY RUSSELL Physician Instructions: Reason For Exam: acute respiratory failure [facility] Reason for admission: acute hypoxic respiratory failure Condition: Serious Hospital course: Patient is a 44-year-old -[place] female with a history of asthma, migraine headaches and chronic low back pain, morbid obesity who tested positive for COVID-19 about a week ago presents to the ED with complaint of acute onset persistent worsening diffuse body aches and pains, nasal and sinus congestion, persistent dry cough with shortness of breath and wheezing for the last 1 week. Patient states that she has been taking azithromycin and Medrol Dosepak at home but no improvement of her symptoms. Patient states that she did not receive COVID-19 vaccine. In the ER patient noted to be hypoxic, chest x-ray suggestive of bilateral pulmonary infiltrates due to atypical pneumonia. Patient placed on supplemental O2 started on empiric steroid, and empiric antibiotics . Patient transfered from IMCU to medical floor. Patient awake and resting on 3 litres O2 and O2 saturation running 99%. O2 requirements significantly came down. No acute respiratory distress except some cough. Patient afebrile. No leukocytosis. Chest xray 09/25/20 reported worsening pulmonary air space disease. Duplex ultrasound of lower extremities 09/29/20 reported No sonographic evidence for DVT in either lower extremity. Chest xray done 09/30/20 reported Improvement in the bilateral lung opacities since 09/25/2020. Patient is on S/C Lovenox, Famotidine and albuterol/atrovent aerosol treatments. Recommend to convert albuterol/atrovent to inhalers. Patient received Dexamethasone and REMDESIVIR.. Daily clinical course: 09/24/2020: Patient placed on high flow oxygen today 85% FiO2 with 25 L oxygen per minute. continue empiric steroid, IV remdesivir and dexamethasone. Supplemental O2 to keep oxygenation greater than 92%. ID following continue supportive care follow inflammatory markers.. 09/25/20: Remains on high flow O2, oxygen requirement has gone up today From 85% FiO2 100% FiO2. Repeat chest x-ray, continue dexamethasone and remdesivir. Follow inflammatory markers, procalcitonin level is low. 09/26/20; patient transferred to [facility] overnight due to increased requirement of oxygen. Chest x-ray today showed worsening pneumonia. Patient currently on high flow O2 and so with nonrebreather. Continue to follow inflammatory markers, continue remdesivir and empiric steroid along with scheduled nebulizer breathing treatment. Called patient mother and updated in details. 09/27/20: Remains on high flow oxygen on nonrebreather. Continue to wean off O2 as tolerated. Inflammatory markers remain stable. Will complete remdesivir for 5 days and dexamethasone for 10 days. ID and critical care following, appreciate recommendation 09/28/20: Remains on high flow and NRB. clinically remains very critical. repeat Inflammatory markers tomorrow. 09/29/20: Patient on high flow nasal cannula, off from nonrebreather. Continue higher dose dexamethasone, total 10 days, -Completed remdesivir. Status post Actemra on 09/26/2020. 09/30/20: Patient remains on high flow O2. Inflammatory markers appears to be stable. Continue higher dose of dexamethasone for total 10 days. ID and pulmonary critical care following. Continue to monitor and provide supportive care. Scheduled nebulizer breathing treatment. 10/01` patient is alert and oriented and resting in the bed, no complaints, ABG results reviewed, pulmonary and ID notes reviewed. Weaned off nonrebreather mask 10/02 alert and oriented, no apparent distress, no specific complaints, ID and pulmonary notes reviewed, slow improvement 10/03 no specific complaints, no acute events overnight, slow improvement, pulmonary note reviewed 10/04 no acute events overnight. Resting comfortably no apparent distress,, no complaints, tolerating weaning, FiO2 decreased to 65% and flow decreased to 25 L 10/05/2020 Still on high flow nasal cannula oxygen 10/06/2020 Oxygenation requirements are less today More stable We will transfer to third floor medical surgical -Completed Decadron course stop date 10/03 -Completed remdesivir course -Droplet/contact isolation -Continue SPO2 monitoring -Tolerating slow weaning -Patient is now on high flow 25 L and 55% FiO2 -Oxygen saturation 97 to 98% -Pulmonary hygiene -Proning as able -Anticoagulation per protocol -Pulmonary note reviewed Today on 4 L nasal cannula oxygen Improving well 10/08: Patient today is clinically improved, she still requires home oxygen on discharge. Will discharge with home oxygen. (1) Acute respiratory failure with hypoxia Current Visit: Yes Status: Acute Plan to address problem: O2 3 litres. Continue S/C Lovenox. Continue Famotidine. Albuterol/atrovent inhalers q 6 hours prn for shortness of breath. (2) Asthma Current Visit: Yes Status: Acute Plan to address problem: O2 3 litres Continue S/C Lovenox. Continue Famotidine. Albuterol/atrovent inhalers q 6 hours prn for shortness of breath. (3) Pneumonia due to 2019 novel coronavirus Current Visit: Yes Status: Acute Plan to address problem: Patient treated with ceftriaxone. (4) Obesity (BMI 30-39.9) Current Visit: Yes Status: Acute Plan to address problem: Recommend to loose weight. Recommend diet and exercise after improving from this condition. Chronic back pain: , supportive care and pain management as needed History of migraine, patient does not have any issues currently, outpatient follow-up Obesity class II Counseling on weight loss, diet and exercise was emphasized Disposition: DC-01 TO HOME OR SELFCARE Final Discharge Diagnosis (Prints w/discharge instructions): acute hypoxic respiratory failure Time spent for discharge: 35 mins Core Measure Documentation - Palliative Care Palliative Care/ Comfort Measures: Not Applicable - Core Measures Any of the following diagnoses?: none Exam - Physical Exam Narrative exam: General appearance: Present: no acute distress, well-nourished - EENT Eyes: PERRL, EOM intact ENT: hearing intact, clear oral mucosa Ears: bilateral: normal - Neck Neck: supple, normal ROM - Respiratory Respiratory effort: normal Respiratory: bilateral: CTA - Breasts Breasts: normal - Cardiovascular Rhythm: regular Heart Sounds: Present: S1 & S2. Absent: gallop, rub Extremities: pulses intact, No edema, normal color, Full ROM - Gastrointestinal General gastrointestinal: Present: soft, non-tender, non-distended, normal bowel sounds - Genitourinary Female genitourinary: normal - Integumentary Integumentary: clear, warm, dry - Musculoskeletal Musculoskeletal: 1, strength equal bilaterally - Neurologic Neurologic: moves all extremities - Psychiatric Psychiatric: memory intact, appropriate mood/affect, intact judgment & insight - Constitutional Vitals: Temp Pulse Resp BP Pulse Ox 98.4 F 86 18 105/57 100 10/08/20 04:51 10/08/20 04:51 10/08/20 04:51 10/08/20 04:51 10/08/20 08:33 Plan Activity: advance as tolerated, fall precautions Diet: low fat Special Instructions: record daily weights, record daily BP diary, smoking cessation Follow up with: [facility] CHRIS [Primary Care Provider] - 3-5 Days KERI MCCRARY MD [Staff Physician] - 7 Days Prescriptions: predniSONE [Deltasone] 20 mg PO DAILY #5 tablet guaiFENesin ER [Mucinex ER] 600 mg PO BID #20 tablet Albuterol Mdi (or & Nicu Only) [ProAir HFA Inhaler] 2 puff IH Q4HRT PRN #1 inha PRN Reason: Shortness Of Breath Ascorbic Acid [Vitamin C] 1,000 mg PO BID #60 tablet Cholecalciferol (Vitamin D3) [Vitamin D3] 5,000 unit PO DAILY #30 tablet Zinc Sulfate 220 mg PO BID #30 capsule
[2020-10-08 13:20] VITALS: BP 125/89
--- NOTE | 2020-10-08 14:44 | Progress Note ---
Assessment and Plan Acute hypoxemic respiratory failure Bilateral pneumonia COVID-19 infection Morbid obesity History of asthma Hypokalemia Asthma exacerbation History of migraines Chronic low back pain - again explained importance of compliance with NIV and not displacing oxygen cannula - no new issues today otherwise, continue care as below; - continue BIPAP scheduled qhs (HFNC in daytime if tolerates) - continue to wean supplemental oxygen for target O2 sat's > 92% acutely - aspiration precautions - continue bronchodilators with pulmonary hygiene per RT - accuchecks with glycemic control per SSI (While critically ill target blood gl ucose of 140-180 mg/dL; avoid hypoglycemia) - avoid nephrotoxins, renally dose all medications - continue to avoid benzodiazepine's, reduce the possibility of delirium - complete antiinfective's per ID recommendations - prn analgesia per pain score - Maintenance of sleep-wake cycle, avoid delirium - G.I. & VTE prophylaxis - PT/OT/ROM exercises - continue mobility protocols for pressure ulcer prophylaxis - Monitor hemodynamics closely - continue other care per attending / other consultants - discharge planning ongoing concurrently COVID SPECIFIC INTERVENTIONS - S/P Remdesivir as per ID/Pulmonary developed protocols - S/P systemic steroids for severe COVID-19 infection empirically - follow repeat COVID tests results - zinc and vitamin C supplementation - Monitor inflammatory markers per facility protocol - ferritin, Ddimer, CRP - therapeutic anticoagulation per system Protocol based on d-dimer and clinical considerations (not a candidate) - Continue contact and airborne isolation .... Re-evaluate in am & prn Subjective Date of service: 10/08/20 Principal diagnosis: Ac. hypoxemic resp failure; Umesh. Pneumonia; COVID-19; Asthma; Migraines Interval history: Patient is seen today for: Acute hypoxemic respiratory failure; Bilateral pneumo lucila; COVID-19 infection; Morbid obesity; Asthma; Migraines; Chronic low back pain Seen and examined at bedside; 24hour events reviewed; nursing and respiratory care staff consulted; no adverse overnight events reported to me; resting in bed; Objective Vital Signs - 12hr 10/08/20 10/08/20 10/08/20 04:00 04:51 08:33 Temperature 98.4 F Pulse Rate 94 H 86 Respiratory 18 Rate Blood Pressure 105/57 O2 Sat by Pulse 93 100 Oximetry 10/08/20 11:56 Temperature 98.2 F Pulse Rate 94 H Respiratory 22 Rate Blood Pressure 125/89 O2 Sat by Pulse 97 Oximetry Constitutional: appears uncomfortable, other (middle aged obese female with mildly increased respiratoiry effort at rest ) Eyes: non-icteric ENT: oropharynx moist Neck: supple, no lymphadenopathy, no JVD, other (large neck circumference) Effort: mildly labored Ascultation: Bilateral: rales (bases (improved)) Percussion: Bilateral: not dull Cardiovascular: regular rate and rhythm Gastrointestinal: normoactive bowel sounds, soft, non-tender, non-distended (protuberant) Integumentary: normal Extremities: no cyanosis, pulses normal, no ischemia or petechiae, edema (trace) Neurologic: non-focal exam, pupils equal and round, CN II-XII normal, motor strength normal and Psychiatric: mood appropriate, affect normal CBC and BMP: 10/06/20 05:28 10/06/20 05:28 ABG, PT/INR, D-dimer: ABG ABG pH 7.485 (7.320-7.450) H 10/01/20 09:34 POC ABG pCO2 38.1 mmHg (32.0-48.0) 10/01/20 09:34 POC ABG pO2 148.8 mmHg (83-108) H 10/01/20 09:34 POC ABG HCO3 28.1 10/01/20 09:34 ABG O2 Saturation 99.1 (0-100) 10/01/20 09:34 PT/INR, D-dimer D-Dimer 293.21 ng/mlDDU (0-234) H 09/30/20 04:34 Abnormal lab findings: Abnormal Labs 09/23/20 09/23/20 09/23/20 05:00 08:02 08:40 WBC 3.4 L RBC MCV 76 L 75 L MCH 25 L 25 L RDW 17.2 H 17.0 H Plt Count [place] % (Auto) 9.0 H 9.1 H Baso % (Auto) 1.9 H Lymph # (Auto) 0.7 L Seg Neutrophils % 70.6 H D-Dimer ABG pH POC ABG pO2 ABG Oxyhemoglobin ABG Sodium ABG Potassium ABG Glucose Carboxyhemoglobin Potassium 3.4 L Chloride Carbon Dioxide BUN Glucose 116 H POC Glucose Calcium Lactate Dehydrogenase C-Reactive Protein Albumin Arterial Blood Glucose Arterial Blood Ionized Calcium 09/23/20 09/23/20 09/23/20 11:54 16:11 18:08 WBC RBC MCV MCH RDW Plt Count [place] % (Auto) Baso % (Auto) Lymph # (Auto) Seg Neutrophils % D-Dimer ABG pH POC ABG pO2 ABG Oxyhemoglobin ABG Sodium ABG Potassium ABG Glucose Carboxyhemoglobin Potassium 3.3 L Chloride Carbon Dioxide BUN Glucose 213 H POC Glucose 238 H Calcium 8.2 L Lactate Dehydrogenase 358 H C-Reactive Protein 2.10 H Albumin 3.6 L Arterial Blood Glucose Arterial Blood Ionized Calcium 09/23/20 09/24/20 09/24/20 23:19 07:34 11:47 WBC RBC MCV MCH RDW Plt Count [place] % (Auto) Baso % (Auto) Lymph # (Auto) Seg Neutrophils % D-Dimer ABG pH POC ABG pO2 ABG Oxyhemoglobin ABG Sodium ABG Potassium ABG Glucose Carboxyhemoglobin Potassium 3.3 L Chloride Carbon Dioxide BUN Glucose 101 H POC Glucose 127 H 125 H Calcium 8.2 L Lactate Dehydrogenase C-Reactive Protein Albumin 3.4 L Arterial Blood Glucose Arterial Blood Ionized Calcium 09/24/20 09/24/20 09/25/20 18:09 22:57 05:50 WBC RBC MCV MCH RDW Plt Count [place] % (Auto) Baso % (Auto) Lymph # (Auto) Seg Neutrophils % D-Dimer ABG pH POC ABG pO2 ABG Oxyhemoglobin ABG Sodium ABG Potassium ABG Glucose Carboxyhemoglobin Potassium Chloride Carbon Dioxide BUN Glucose POC Glucose 199 H 116 H Calcium 8.3 L Lactate Dehydrogenase C-Reactive Protein Albumin 3.7 L Arterial Blood Glucose Arterial Blood Ionized Calcium 09/25/20 09/25/20 09/25/20 07:42 09:57 11:38 WBC RBC MCV MCH RDW Plt Count [place] % (Auto) Baso % (Auto) Lymph # (Auto) Seg Neutrophils % D-Dimer ABG pH POC ABG pO2 ABG Oxyhemoglobin ABG Sodium ABG Potassium ABG Glucose Carboxyhemoglobin Potassium Chloride Carbon Dioxide BUN Glucose POC Glucose 106 H 142 H Calcium Lactate Dehydrogenase 510 H C-Reactive Protein 6.70 H Albumin Arterial Blood Glucose Arterial Blood Ionized Calcium 09/25/20 09/25/20 09/26/20 16:29 22:38 05:56 WBC RBC MCV MCH RDW Plt Count [place] % (Auto) Baso % (Auto) Lymph # (Auto) Seg Neutrophils % D-Dimer ABG pH POC ABG pO2 ABG Oxyhemoglobin ABG Sodium ABG Potassium ABG Glucose Carboxyhemoglobin Potassium Chloride Carbon Dioxide BUN Glucose 115 H POC Glucose 227 H 165 H Calcium Lactate Dehydrogenase C-Reactive Protein Albumin 3.4 L Arterial Blood Glucose Arterial Blood Ionized Calcium 09/26/20 09/26/20 09/26/20 11:50 15:24 21:57 WBC RBC MCV MCH RDW Plt Count [place] % (Auto) Baso % (Auto) Lymph # (Auto) Seg Neutrophils % D-Dimer ABG pH POC ABG pO2 ABG Oxyhemoglobin ABG Sodium ABG Potassium ABG Glucose Carboxyhemoglobin Potassium Chloride Carbon Dioxide BUN Glucose POC Glucose 124 H 184 H 159 H Calcium Lactate Dehydrogenase C-Reactive Protein Albumin Arterial Blood Glucose Arterial Blood Ionized Calcium 09/27/20 09/27/20 09/27/20 11:36 16:05 21:44 WBC RBC MCV MCH RDW Plt Count [place] % (Auto) Baso % (Auto) Lymph # (Auto) Seg Neutrophils % D-Dimer ABG pH POC ABG pO2 ABG Oxyhemoglobin ABG Sodium ABG Potassium ABG Glucose Carboxyhemoglobin Potassium Chloride Carbon Dioxide BUN Glucose POC Glucose 142 H 177 H 138 H Calcium Lactate Dehydrogenase C-Reactive Protein Albumin Arterial Blood Glucose Arterial Blood Ionized Calcium 09/28/20 09/28/20 09/29/20 16:13 21:42 05:10 WBC RBC 5.08 H MCV 75 L MCH 24 L RDW 16.4 H Plt Count 495 H [place] % (Auto) Baso % (Auto) Lymph # (Auto) Seg Neutrophils % 75.0 H D-Dimer ABG pH POC ABG pO2 ABG Oxyhemoglobin ABG Sodium ABG Potassium ABG Glucose Carboxyhemoglobin Potassium Chloride Carbon Dioxide BUN Glucose POC Glucose 180 H 137 H Calcium Lactate Dehydrogenase C-Reactive Protein Albumin Arterial Blood Glucose Arterial Blood Ionized Calcium 09/29/20 09/29/20 09/29/20 05:10 12:08 17:20 WBC RBC MCV MCH RDW Plt Count [place] % (Auto) Baso % (Auto) Lymph # (Auto) Seg Neutrophils % D-Dimer ABG pH POC ABG pO2 ABG Oxyhemoglobin ABG Sodium ABG Potassium ABG Glucose Carboxyhemoglobin Potassium Chloride Carbon Dioxide 31 H BUN 24 H Glucose 130 H POC Glucose 200 H 173 H Calcium Lactate Dehydrogenase C-Reactive Protein Albumin Arterial Blood Glucose Arterial Blood Ionized Calcium 09/29/20 09/30/20 09/30/20 21:20 04:34 04:34 WBC RBC MCV MCH RDW Plt Count [place] % (Auto) Baso % (Auto) Lymph # (Auto) Seg Neutrophils % D-Dimer 293.21 H ABG pH POC ABG pO2 ABG Oxyhemoglobin ABG Sodium ABG Potassium ABG Glucose Carboxyhemoglobin Potassium Chloride Carbon Dioxide BUN Glucose POC Glucose 111 H Calcium Lactate Dehydrogenase 574 H C-Reactive Protein Albumin Arterial Blood Glucose Arterial Blood Ionized Calcium 09/30/20 09/30/20 09/30/20 11:45 17:39 21:16 WBC RBC MCV MCH RDW Plt Count [place] % (Auto) Baso % (Auto) Lymph # (Auto) Seg Neutrophils % D-Dimer ABG pH POC ABG pO2 ABG Oxyhemoglobin ABG Sodium ABG Potassium ABG Glucose Carboxyhemoglobin Potassium Chloride Carbon Dioxide BUN Glucose POC Glucose 109 H 181 H 114 H Calcium Lactate Dehydrogenase C-Reactive Protein Albumin Arterial Blood Glucose Arterial Blood Ionized Calcium 10/01/20 10/01/20 10/01/20 09:34 12:07 16:57 WBC RBC MCV MCH RDW Plt Count [place] % (Auto) Baso % (Auto) Lymph # (Auto) Seg Neutrophils % D-Dimer ABG pH 7.485 H POC ABG pO2 148.8 H ABG Oxyhemoglobin 98.5 H ABG Sodium 135.6 L ABG Potassium 3.3 L ABG Glucose 128 H Carboxyhemoglobin 0.3 L Potassium Chloride Carbon Dioxide BUN Glucose POC Glucose 133 H 209 H Calcium Lactate Dehydrogenase C-Reactive Protein Albumin Arterial Blood Glucose 128 H Arterial Blood Ionized Calcium 4.5 L 10/01/20 10/01/20 10/02/20 21:38 Unknown 08:40 WBC RBC MCV MCH RDW Plt Count [place] % (Auto) Baso % (Auto) Lymph # (Auto) Seg Neutrophils % D-Dimer ABG pH POC ABG pO2 ABG Oxyhemoglobin ABG Sodium ABG Potassium ABG Glucose Carboxyhemoglobin Potassium Chloride 96.2 L Carbon Dioxide BUN 26 H Glucose 133 H POC Glucose 198 H 142 H Calcium Lactate Dehydrogenase C-Reactive Protein Albumin Arterial Blood Glucose Arterial Blood Ionized Calcium 10/02/20 10/02/20 10/02/20 12:01 16:43 22:14 WBC RBC MCV MCH RDW Plt Count [place] % (Auto) Baso % (Auto) Lymph # (Auto) Seg Neutrophils % D-Dimer ABG pH POC ABG pO2 ABG Oxyhemoglobin ABG Sodium ABG Potassium ABG Glucose Carboxyhemoglobin Potassium Chloride Carbon Dioxide BUN Glucose POC Glucose 157 H 214 H 132 H Calcium Lactate Dehydrogenase C-Reactive Protein Albumin Arterial Blood Glucose Arterial Blood Ionized Calcium 10/03/20 10/03/20 10/03/20 11:42 17:08 21:21 WBC RBC MCV MCH RDW Plt Count [place] % (Auto) Baso % (Auto) Lymph # (Auto) Seg Neutrophils % D-Dimer ABG pH POC ABG pO2 ABG Oxyhemoglobin ABG Sodium ABG Potassium ABG Glucose Carboxyhemoglobin Potassium Chloride Carbon Dioxide BUN Glucose POC Glucose 225 H 201 H 141 H Calcium Lactate Dehydrogenase C-Reactive Protein Albumin Arterial Blood Glucose Arterial Blood Ionized Calcium 10/04/20 10/04/20 10/04/20 05:59 05:59 15:52 WBC 13.5 H RBC MCV 76 L MCH 23 L RDW 16.9 H Plt Count 467 H [place] % (Auto) Baso % (Auto) Lymph # (Auto) Seg Neutrophils % D-Dimer ABG pH POC ABG pO2 ABG Oxyhemoglobin ABG Sodium ABG Potassium ABG Glucose Carboxyhemoglobin Potassium Chloride Carbon Dioxide 32 H BUN 19 H Glucose POC Glucose 119 H Calcium Lactate Dehydrogenase C-Reactive Protein Albumin Arterial Blood Glucose Arterial Blood Ionized Calcium 10/04/20 10/05/20 10/05/20 21:48 16:55 21:37 WBC RBC MCV MCH RDW Plt Count [place] % (Auto) Baso % (Auto) Lymph # (Auto) Seg Neutrophils % D-Dimer ABG pH POC ABG pO2 ABG Oxyhemoglobin ABG Sodium ABG Potassium ABG Glucose Carboxyhemoglobin Potassium Chloride Carbon Dioxide BUN Glucose POC Glucose 112 H 110 H 111 H Calcium Lactate Dehydrogenase C-Reactive Protein Albumin Arterial Blood Glucose Arterial Blood Ionized Calcium 10/06/20 10/06/20 10/07/20 05:28 11:23 16:55 WBC RBC MCV 76 L MCH 26 L RDW 17.4 H Plt Count [place] % (Auto) Baso % (Auto) Lymph # (Auto) Seg Neutrophils % D-Dimer ABG pH POC ABG pO2 ABG Oxyhemoglobin ABG Sodium ABG Potassium ABG Glucose Carboxyhemoglobin Potassium Chloride Carbon Dioxide BUN Glucose POC Glucose 160 H 147 H Calcium Lactate Dehydrogenase C-Reactive Protein Albumin Arterial Blood Glucose Arterial Blood Ionized Calcium Allied health notes reviewed: nursing
== END 2020-10-08 16:50 | disposition home or self-care (01) | DRG 177 ==
LOC: ED 04:02 → 3A 09:36 → IMCU 09-26 00:02 → 3A 10-06 21:09
PROVIDERS: ADMIT Internal Medicine; ATTEND Internal Medicine
PROC: XW033E5 Introduction of Remdesivir Anti-infective into Peripheral Vein, Percutaneous Approach, New Technology Group 5 (ICD-10-PCS; 2020-09-23)
PROC: 5A09457 Assistance with Respiratory Ventilation, 24-96 Consecutive Hours, Continuous Positive Airway Pressure (ICD-10-PCS; principal; 2020-09-26)
PROC: 4A033R1 Measurement of Arterial Saturation, Peripheral, Percutaneous Approach (ICD-10-PCS; 2020-10-01)
DX: U07.1 COVID-19 (principal); J96.01 Acute respiratory failure with hypoxia; J12.82 Pneumonia due to coronavirus disease 2019; J45.901 Unspecified asthma with (acute) exacerbation; Z68.41 Body mass index [BMI] 40.0-44.9, adult; E66.01 Morbid (severe) obesity due to excess calories; E87.6 Hypokalemia; G43.909 Migraine, unspecified, not intractable, without status migrainosus; G89.29 Other chronic pain; M54.5 Low back pain; Z79.899 Other long term (current) drug therapy
CPT/HCPCS: 36415; 36600; 71045; 80048; 80053; 82728; 82805; 82962; 83615; 84145; 84484; 85025; 85027; 85379; 86140; 93005; 93970; 94640; 94644; 94660; 96361; 96365; 96367; 96375; G0378; J0696; J1100; J1650; J1815; J1940; J2405; J3262; J7030; J7050

== ENCOUNTER 2020-12-03 13:38 | Outpatient (CLI) | payer OTHER ==
[2020-12-03 14:24] LABS: Basophils # (Auto) 0.2 K/mm3 (0.0-0.1); Basophils % (Auto) 1.9 % (0.0-1.8); Eosinophils % (Auto) 0.2 % (0.0-4.3); Hematocrit 34.1 % (30.3-42.9); Lymphocytes # (Auto) 3.4 K/mm3 (1.2-5.4); Lymphocytes % (Auto) 28.9 % (13.4-35.0); Mean Corpuscular HGB Conc 32 % (30-34); Mean Corpuscular Volume 80 fl (79-97); Monocytes # (Auto) 0.8 K/mm3 (0.0-0.8); Monocytes % (Auto) 6.7 % (0.0-7.3); Platelet Count 340 K/mm3 (140-440); Red Blood Count 4.29 M/mm3 (3.65-5.03); Red Cell Distribution Width 17.2 % (13.2-15.2)
[2020-12-03 15:19] LABS: Alanine Aminotransferase 14 units/L (7-56); Albumin 4.1 g/dL (3.9-5); Blood Urea Nitrogen 18 mg/dL (7-17); Calcium 10.2 mg/dL (8.4-10.2); HDL Cholesterol 103 mg/dL (40-59); Hemolysis Index 15; LDL Cholesterol,Direct 102 mg/dL (50-130)
--- NOTE | 2020-12-03 15:19 | XRay Report ---
CHEST 2 VIEWS INDICATION: PULMONARY INFILTRATE. COMPARISON: 09/30/2020 FINDINGS: Support devices: None. Heart: Within normal limits. Lungs/pleura: No acute air space or interstitial disease. Bilateral airspace opacities have resolved since the previous exam. No pneumothorax. Additional findings: None. IMPRESSION: Unremarkable chest x-ray. Signer Name: Mariusz Hogue Jr, MD Signed: 12/03/2020 3:15 PM Workstation Name: [id number]
[2020-12-03 15:20] LABS: BUN/Creatinine Ratio 30
== END 2020-12-03 13:39 | disposition home or self-care (01) ==
LOC: XRAY 13:38
PROVIDERS: ATTEND Internal Medicine
DX: J45.909 Unspecified asthma, uncomplicated (principal); J12.82 Pneumonia due to coronavirus disease 2019; J96.00 Acute respiratory failure, unspecified whether with hypoxia or hypercapnia; Z86.16 Personal history of COVID-19
CPT/HCPCS: 36415; 71046; 80053; 80061; 82550; 82728; 82805; 83615; 84436; 84443; 84484; 85025; 85379; 86140

== ENCOUNTER 2021-03-08 14:47 | Outpatient (CLI) | payer OTHER ==
--- NOTE | 2021-03-08 16:42 | XRay Report ---
CHEST 2 VIEWS INDICATION / CLINICAL INFORMATION: SHORTNESS OF BREATH. COMPARISON: 12/03/2020 FINDINGS: SUPPORT DEVICES: None. HEART / MEDIASTINUM: No significant abnormality. LUNGS / PLEURA: No significant pulmonary or pleural abnormality. No pneumothorax. ADDITIONAL FINDINGS: No significant additional findings. IMPRESSION: 1. No acute findings. No interval change. Signer Name: Addie Borden MD Signed: 03/08/2021 4:38 PM Workstation Name: [id number]
--- NOTE | 2021-03-08 16:45 | XRay Report ---
Lateral hips-3 total views INDICATION: BILATERAL HIP PAIN. COMPARISON: None. IMPRESSION: No acute osseous abnormality. Small focus of hydroxyapatite deposition overlying the lef t greater trochanter posteriorly. Soft tissues are normal. Normal alignment. No significant DJD. Signer Name: David Ivy MD Signed: 03/08/2021 4:40 PM Workstation Name: [id number]
--- NOTE | 2021-03-08 16:52 | XRay Report ---
LUMBOSACRAL SPINE, 2 VIEWS INDICATION / CLINICAL INFORMATION: BACK PAIN. COMPARISON: None available. FINDINGS: There is moderate disc space narrowing involving L4-L5 disc space. There is mild disc space narrowing at L3-L4. Mild spondylitic changes are noted throughout the mid and lower spine including mild facet degenerative change. Alignment is normal. No evidence of fracture. IMPRESSION: Mild to moderate degenerative disc disease involving L3-L4 and L4-L5. Signer Name: Addie Borden MD Signed: 03/08/2021 4:47 PM Workstation Name: [id number]
--- NOTE | 2021-03-08 17:39 | XRay Report ---
CERVICAL SPINE 3 VIEWS INDICATION / CLINICAL INFORMATION: NECK PAIN COMPARISON: None available. FINDINGS: BONES / JOINT(S): No acute fracture or subluxation. Mild/moderate degenerative disc disease C4-C7. SOFT TISSUES: No significant abnormality. ADDITIONAL FINDINGS: None. Signer Name: Blayne Darden MD Signed: 03/08/2021 5:34 PM Workstation Name: [id number]
== END 2021-03-08 14:48 | disposition home or self-care (01) ==
LOC: XRAY 14:47
PROVIDERS: ATTEND Internal Medicine
DX: M47.812 Spondylosis without myelopathy or radiculopathy, cervical region (principal); M51.36 Other intervertebral disc degeneration, lumbar region; R06.02 Shortness of breath; M25.552 Pain in left hip; M25.551 Pain in right hip
CPT/HCPCS: 71046; 72040; 72100; 73521

== ENCOUNTER → 2021-11-01 | Outpatient (CLI) | payer OTHER | END | disposition home or self-care (01) | LOC: SLR 11:00 | PROVIDERS: ATTEND Family Medicine | DX: G47.33 Obstructive sleep apnea (adult) (pediatric) (principal) | CPT/HCPCS: 95811 ==

== ENCOUNTER 2021-12-13 13:47 | Outpatient (CLI) | payer OTHER ==
[2021-12-13 14:37] LABS: Hematocrit 34.1 % (30.3-42.9); Hemoglobin 10.8 gm/dl (10.1-14.3); Mean Corpuscular HGB Conc 32 % (30-34); Mean Corpuscular Volume 79 fl (79-97); Platelet Count 290 K/mm3 (140-440); Red Blood Count 4.33 M/mm3 (3.65-5.03); Red Cell Distribution Width 17.7 % (13.2-15.2)
[2021-12-13 14:44] LABS: Alanine Aminotransferase 24 units/L (7-56); Albumin 4.3 g/dL (3.9-5); BUN/Creatinine Ratio 19; Blood Urea Nitrogen 15 mg/dL (7-17); Calcium 9.3 mg/dL (8.4-10.2); Hemolysis Index 11
[2021-12-13 15:29] LABS: ABG Base Excess 1.8 mmol/L (-2.0-3.0); ABG HCO3 26.5 mmol/L (20.0-26.0); ABG Methemoglobin 0.4 % (0.0-1.5); ABG Oxygen Saturation 96.8 % (95.0-99.0); ABG PCO2 42.1 mm Hg; ABG PH 7.417 pH Units (7.350-7.450); ABG PO2 73.5 mm Hg (80.0-90.0)
--- NOTE | 2021-12-13 17:58 | XRay Report ---
CHEST 2 VIEWS INDICATION: J12.82 H/O COVID PNEUMONIA. COMPARISON: 03/08/2021 FINDINGS: SUPPORT DEVICES: None. HEART: Within normal limits. LUNGS/PLEURA: No acute air space or interstitial disease. No pneumothorax. ADDITIONAL FINDINGS: None. IMPRESSION: 1. No acute findings. Signer Name: David Ivy MD Signed: 12/13/2021 5:54 PM Workstation Name: [id number]
== END 2021-12-13 13:48 | disposition home or self-care (01) ==
LOC: LAB 13:47
PROVIDERS: ATTEND Internal Medicine
DX: K21.9 Gastro-esophageal reflux disease without esophagitis (principal); G47.33 Obstructive sleep apnea (adult) (pediatric); J45.991 Cough variant asthma; J12.82 Pneumonia due to coronavirus disease 2019; Z86.16 Personal history of COVID-19
CPT/HCPCS: 36415; 71046; 80053; 82803; 85027